=== PATIENT | male | born 1960 | race Caucasian/White ===

== ENCOUNTER 2019-05-11 09:21 | Outpatient (CLI) | payer MEDICARE, SELFPAY ==
--- NOTE | ~2019-05-11 | US_ITS ---
US arterial ankle brachial ind INDICATION: Peripheral arterial disease TECHNIQUE: Segmental pressures and plethysmographic and Doppler waveforms of the brachial and lower e xtremity arteries were obtained. COMPARISON: None. FINDINGS: Right and left brachial artery pressures of 138 mm Hg and 142 mm Hg, respectively, are concordant (no rmal difference <= 30 mmHg). The right ankle-brachial index (SEJAL) is 1.04 (normal >= 0.9-1.0). The right great toe-brachial index (TBI) is 0.76 (normal >= 0.60). The left SEJAL is 0.96. The left TBI is 1.06. IMPRESSION: 1. Normal bilateral ankle and toe brachial indices. Reviewed, dictated and finalized at location A.
== END 2019-05-11 09:22 | disposition home or self-care (01) ==
LOC: CHSIMG 09:23
PROVIDERS: PCP Internal Medicine; Visit Provider Internal Medicine
DX: I73.9 Peripheral vascular disease, unspecified (principal)
CPT/HCPCS: 93922

== ENCOUNTER 2019-05-14 06:26 | Emergency (ER) | payer MEDICARE, SELFPAY ==
--- NOTE | ~2019-05-14 | CT_ITS ---
EXAMINATION: CT lumbar spine wo [facility] EXAM DATE: 05/14/2019 07:52 INDICATION: Low back pain for a day. No known recent injury. Surgery 2004. TECHNIQUE: Spiral CT of the lumbar spine was performed without contrast. Axial, coronal and sagittal images were reviewed. The dose-length product (DLP) for this examination was 690.38 mGy-cm. The e xposure was tailored according to patient size (auto mA exposure control), and iterative reconstructi on (ASIR) was used as additional dose reduction technique. There is no prior study for comparison. FINDINGS: There is posterior and interbody fusion L5-S1, laminectomies There are no osteoblastic or o steolytic lesions identified. Sacroiliac joints are unremarkable. There is right iliac bone harvest s ite. Mild aortic arterial sclerosis. Vertebral body heights are maintained.. Hardware is intact. No p eriprosthetic lucency. There is 2 mm anterolisthesis of L4 on L5. There is mild disc disease at this level, minimal disc disease at the other upper lumbar levels. Level by level evaluation: T12-L1: Disc does not extend beyond the endplate margin. Facet arthropathy: Minimal. Neural foraminal stenosis: No stenosis. Central canal stenosis: No stenosis. L1-L2: Disc does not extend beyond the endplate margin. Facet arthropathy: Minimal. Neural foraminal stenosis: No stenosis. Central canal stenosis: No stenosis. L2-L3: There is a minimal diffuse disc bulge. Facet arthropathy: Mild. Neural foraminal stenosis: No stenosis. Central canal stenosis: No stenosis. L3-L4: There is a minimal diffuse disc bulge. Facet arthropathy: Mild. Neural foraminal stenosis: No stenosis. Central canal stenosis: No stenosis. L4-L5: There is a mild to moderate diffuse disc bulge. Facet arthropathy: Severe. Neural foraminal stenosis: Mild to moderate bilateral. Central canal stenosis: Suboptimally visualized but moderate or moderate to severe. L5-S1: This level is fused. Facet arthropathy: Bulky but fused. Neural foraminal stenosis: Mild left. Central canal stenosis: Posterior decompression. IMPRESSION: 1. L4-5 grade 1 anterolisthesis, at least moderate central canal stenosis. 2. Intact L5-S1 fusion. 3. Unremarkable sacroiliac joints. No acute findings. Reviewed, dictated and finalized at location B.
[2019-05-14 06:35] VITALS: BP 154/88; PULSE 71; RESP 20; TEMP 37.1; O2SAT 96
[2019-05-14 06:47] LABS: Appearance Urine Clear (Clear); Bilirubin Urine Negative (Negative); Color Urine Yellow (Yellow); Glucose Urine UA Negative (Negative); Ketones Urine Negative (Negative); Leukocyte Esterase Ur Negative LEU/UL (Negative); Nitrate Urine Negative (Negative); Protein Urine Negative (Negative); Specific Grav Ur 1.025 (1.010-1.020); Urobilinogen Urine 0.2 mg/dL (0.2-1.0)
[2019-05-14 06:52] LABS: Add Urine Microscopic? YES; Blood Urine Trace-Intact (Negative); RBC Urine 0-2 /hpf (0-2); WBC Urine 0-3 /hpf (0-3)
[2019-05-14 06:53] LABS: Bacteria Urine None seen /hpf; Squamous Epithelial Cell Urine Rare /hpf (Few)
--- NOTE | 2019-05-14 07:40 | PC.NURSE ---
PT TO XRAY PER WHEELCHAIR WITH XRAY STAFF
--- NOTE | 2019-05-14 07:43 | ED.BACK ---
HPI - Back Pain/Injury General Chief Complaint: Back Pain/Injury Stated Complaint: back pain Time Seen by Provider: 05/14/19 07:16 Source: patient Mode of arrival: ambulatory Limitations: no limitations History of Present Illness MD elicited complaint: back pain Pertinent past history: prior back pain and arthritis Onset (ago): day(s) (1 day) Timing: constant Severity: moderate Pain scale (0-10): 8 Quality: sharp Location: left lower back ( left sacroiliac region) Radiation: none Exacerbating factors: movement Relieving factors: none Context: other ( no history of trauma. Had back surgery in 2004 at L5-S1 level in [place]. He has hardware in the back.) Associated symptoms: denies other symptoms and other ( No paresthesias. No radiation of pain. No weakness. No urinary symptoms. No fever.) Treatments prior to arrival: NSAIDS Work related injury: No Related Data Home Medications Medication Instructions Recorded Confirmed amlodipine [Norvasc] See Rx Instructions .ROUTE .COMPLEX 01/09/19 05/14/19 atorvastatin [Lipitor] See Rx Instructions .ROUTE .COMPLEX 01/09/19 05/14/19 clopidogrel [Plavix] See Rx Instructions .ROUTE .COMPLEX 01/09/19 05/14/19 metoprolol tartrate [Lopressor] See Rx Instructions .ROUTE .COMPLEX 01/09/19 05/14/19 pantoprazole [Protonix] See Rx Instructions .ROUTE .COMPLEX 01/09/19 05/14/19 Allergies Allergy/AdvReac Type Severity Reaction Status Date / Time Morpholine Analogues Allergy Severe Hives Verified 04/28/19 09:28 Penicillins Allergy Unknown Unknown Verified 04/28/19 09:28 Review of Systems Review of Systems: All systems reviewed & are unremarkable except as noted in HPI and below Constitutional: Constitutional: Reports as per HPI, Reports no additional constitutional complaints, Denies chills, Denies fever(s) and Denies weakness Eyes: Eyes: Reports as per HPI, Reports no additional eye complaints and Denies change in vision ENT: Reports system reviewed and no additional complaints, except as documented, Denies vertigo, Denies dizziness and Denies sore throat Cardiovascular: Cardiovascular: Reports as per HPI, Reports no additional cardiovascular complaints, Denies chest pain and Denies radiating jaw, neck or arm pain Respiratory: Respiratory: Reports as per HPI, Reports no additional respiratory complaints, Denies cough and Denies dyspnea Gastrointestinal: Gastrointestinal: Reports as per HPI, Reports no additional gastrointestinal complaints, Denies abdominal pain, Denies nausea and Denies vomiting Comments: Has history of diverticulitis in the past. Genitourinary: Genitourinary: Reports no additional male genitourinary complaints, Reports as per HPI, Denies hematuria and Denies dysuria Musculoskeletal: Musculoskeletal: Reports no additional musculoskeletal complaints, Reports as per HPI and Reports back pain Comments: Pain is not in the midline of the back. There is no para spinal tenderness. Has pain to the left sacroiliac region with tenderness. Integumentary/Breasts: Skin/Breast: Reports system reviewed and no additional complaints, except as docu, Reports as per HPI, Denies erythema and Denies rash Neurologic: Reports system reviewed and no additional complaints, except as documented, Reports as per HPI, Denies vertigo, Denies dizziness, Denies syncope, Denies headache(s), Denies focal weakness, Denies numbness and Denies weakness Psychiatric: Psychiatric: Reports no additional psychiatric complaints, Denies anxiety and Denies depression Endocrine: Endocrine: Reports no additional endocrine complaints, Denies polydipsia and Denies polyuria Hematologic/Lymphatic: Hematologic/Lymphatic: Reports no additional hematologic/lymphatic complaints, Reports as per HPI, Denies easy bleeding and Denies easy bruising Allergic/Immunologic: Allergic/Immunologic: Reports no additional allergic/immunologic complaints, Denies lip swelling and Denies tongue swelling PMF Past Medical History Medica
--- NOTE | 2019-05-14 07:52 | PC.NURSE ---
PT RETURN TO DEPARTMENT
== END 2019-05-14 09:16 | disposition home or self-care (01) ==
PROVIDERS: Emergency Provider Surgery; PCP Internal Medicine
DX: S39.012A Strain of muscle, fascia and tendon of lower back, initial encounter (principal); J44.9 Chronic obstructive pulmonary disease, unspecified; I10 Essential (primary) hypertension; F17.200 Nicotine dependence, unspecified, uncomplicated
CPT/HCPCS: 72131; 81001; 99283; 99284; A9270

== ENCOUNTER 2020-01-22 10:57 | Emergency (ER) | payer MEDICARE, SELFPAY ==
--- NOTE | ~2020-01-22 | XR_ITS ---
EXAMINATION: XR chest 1V portable EXAM DATE: 01/22/2020 11:20 INDICATION: Mid to left-sided chest pain. TECHNIQUE: Portable AP frontal chest x-ray was obtained. Comparison is made to prior examination from 01/09/2019. FINDINGS: The lungs are clear. There are no pleural effusions. The cardiomediastinal silhouette is within normal limits. There is no pneumothorax suspected. The bones and soft tissues are unremarkab le. IMPRESSION: No acute cardiopulmonary findings. Reviewed, dictated and finalized at location A. IOVASCULAR SURGEON
[2020-01-22 11:00] VITALS: BP 205/117; PULSE 70; PULSE 72; RESP 22; TEMP 36.6; O2SAT 97
[2020-01-22 11:15] VITALS: BP 179/111; PULSE 71; RESP 22; O2SAT 97
[2020-01-22 11:30] VITALS: BP 140/92
[2020-01-22 11:31] LABS: Basophils Absolute Auto 0.07 K/mm3 (0.00-0.10); Basophils Percent Auto 0.5 % (0.0-1.0); Eosinophils Absolute Auto 0.77 K/mm3 (0.02-0.50); Hematocrit 49.8 % (40.0-54.0); Immature Granulocyte Absolute 0.04 K/mm3 (0.00-0.00); Immature Granulocyte Percent A 0.3 % (0.0-0.0); Lymphocytes Absolute Auto 1.55 K/mm3 (1.10-4.50); Lymphocytes Percent Auto 12.1 % (18.0-42.0); Mean Corpuscular HGB Conc 34.1 g/dL (32.0-36.0); Mean Corpuscular Hemoglobin 32.3 pg (27.0-31.0); Mean Corpuscular Volume 94.7 fL (78.0-102.0); Mean Platelet Volume 9.8 fl (8.7-11.0); Monocytes Absolute Auto 0.76 K/mm3 (0.10-0.90); Neutrophils Absolute Auto 9.6 K/mm3 (1.7-7.2); Neutrophils Percent Auto 75.1 % (50.0-70.0); Platelet Count Result 240 K/mm3 (150-420); Red Blood Count 5.26 M/mm3 (4.70-6.10); Red Cell Distribution Width 12.6 % (11.6-14.4); White Blood Count 12.8 K/mm3 (4.8-10.8)
[2020-01-22 11:45] VITALS: BP 142/85
[2020-01-22 11:47] LABS: INR 1.1; Partial Thromboplastin Time 28.1 SEC (22.3-31.6); Prothrombin Time 11.1 Seconds (9.64-11.0)
[2020-01-22 11:48] LABS: D Dimer 0.32 mg/L (0.19-0.50)
[2020-01-22 11:49] LABS: Alanine Aminotransferase 72 U/L (16-63); Albumin Level 3.8 g/dL (3.4-5.0); Alkaline Phosphatase 65 U/L (46-116); Anion Gap 12 mmol/L (8-16); Aspartate Amino Transferase 29 U/L (15-37); Bilirubin,Total 1.1 mg/dL (0.00-1.00); Blood Urea Nitrogen 11 mg/dL (7-18); Calcium 8.5 mg/dL (8.5-10.1); Carbon Dioxide 22 mmol/L (21-32); Chloride 100 mmol/L (98-108); Estimated Glomerular Filt Rate > 60; Glucose 156 mg/dL (70-99); Osmolality Calculated 280 mOsm/kg (285-295); Potassium 3.9 mmol/L (3.5-5.1); Sodium 134 mmol/L (136-145); Total Protein 6.8 g/dL (6.4-8.2); Troponin I < 0.02 ng/mL (0.00-0.056)
[2020-01-22 11:56] LABS: BNP 30 pg/mL (0-100)
--- NOTE | 2020-01-22 11:58 | ED.CHESTPAIN ---
HPI - Chest Pain General Chief Complaint: Chest Pain Stated Complaint: chest pain, SOB Source: patient Mode of arrival: ambulatory Limitations: no limitations History of Present Illness HPI narrative: this is a 59-year-old gentleman presents with some left and midsternal chest pain that started yesterday after he received vaccinations for a pneumonia, influenza, and shingles. The patient has a history of CAD with 2 stents placed in about 2007, has a smoking history currently says he is down to 1 pack per week. The chest pain started yesterday, with some tenderness with palpation with no radiation, no shortness of breath patient has a mild cough nonproductive with mild shortness of breath with no audible wheezing, no fever chills no abdominal pain no flank pain no diarrhea constipation. The patient's chest discomfort is reproducible with palpation in the mid and left sternal wall, patient did take a nitro prior to arrival and says that it did not help his pain or discomfort. MD complaint: chest pain Pertinent past history: coronary artery disease Onset (ago): day(s) Timing of current episode: episodic Prior episodes: Yes Onset: during rest Pain location: left chest and subxiphoid Pain radiation: none Severity: moderate Pain scale (0-10): 6 Quality: aching Relieving factors: nothing and other Exacerbating factors: exertion and movement Related Data Home Medications Medication Instructions Recorded Confirmed amlodipine [Norvasc] See Rx Instructions .ROUTE .COMPLEX 01/09/19 05/14/19 atorvastatin [Lipitor] See Rx Instructions .ROUTE .COMPLEX 01/09/19 05/14/19 clopidogrel [Plavix] See Rx Instructions .ROUTE .COMPLEX 01/09/19 05/14/19 metoprolol tartrate [Lopressor] See Rx Instructions .ROUTE .COMPLEX 01/09/19 05/14/19 pantoprazole [Protonix] See Rx Instructions .ROUTE .COMPLEX 01/09/19 05/14/19 Allergies Allergy/AdvReac Type Severity Reaction Status Date / Time Morpholine Analogues Allergy Severe Hives Verified 06/14/19 13:39 Penicillins Allergy Unknown Unknown Verified 06/14/19 13:39 Review of Systems Review of Systems: All systems reviewed & are unremarkable except as noted in HPI and below PMFSH Past Medical History Medical History COPD (chronic obstructive pulmonary disease) History of cardiac disorder Hypertension Impingement syndrome, shoulder, left Surgical History Surgical History History of arthroscopic surgery of shoulder History of cholecystectomy History of hand surgery History of lumbar fusion L5-S1 Hx of heart artery stent Family History Family History Father , Father committed suicide at age 53. No problems noted. Mother , Mother of stroke at age 74 Cerebrovascular accident Other Family history of arthritis Social History Social History Years smoked: 40 Smoking status: Current every day smoker Tobacco type: cigarettes Alcohol intake: never Substance use: never Gender identity (if verbalized by the patient): Male Exam Const: General: no acute distress Orientation/consciousness: patient oriented x3 HENMT: Head: normal to inspection Eyes: Conjunctivae: conjunctivae normal Pupils: Equal, round and reactive pupils present EOM: EOMs intact bilaterally Neck: Neck: normal visual inspection Chest: Chest palpation & inspection: normal inspection of the chest Other: Reproducible chest discomfort with palpation Resp: Effort & Inspection: normal respiratory effort Auscultation: clear to auscultation bilaterally Cardio: Rate: regular rate Rhythm: regular rhythm GI: GI Palp: Yes Soft to palpation Auscultation: normal bowel sounds : Testes: Testes normal Urinary Catheter: Urinary Catheter: patent and draining Back/
[2020-01-22] MEDS: MORPHINE SULFATE (*CRX) 2 MG/ML INJ IV PUSH (11:59)
[2020-01-22] MEDS: SODIUM CHLORIDE 0.9% IV 1,000 ML 999 ML IV CONT (11:59)
[2020-01-22 12:57] VITALS: BP 136/82; PULSE 53; RESP 18; O2SAT 97
[2020-01-22 13:05] VITALS: BP 141/72; PULSE 63; RESP 18; O2SAT 98
== END 2020-01-22 13:10 | disposition home or self-care (01) ==
PROVIDERS: Emergency Provider Emergency Medicine; PCP Internal Medicine
DX: R07.89 Other chest pain (principal); J44.9 Chronic obstructive pulmonary disease, unspecified; I10 Essential (primary) hypertension; F17.200 Nicotine dependence, unspecified, uncomplicated
CPT/HCPCS: 36415; 71045; 80053; 83880; 84484; 85025; 85380; 85610; 85730; 93005; 96361; 96374; 99283; 99284; J2270; J7030

== ENCOUNTER 2020-02-05 13:09 | Emergency (ER) | payer MEDICARE, SELFPAY ==
--- NOTE | ~2020-02-05 | XR_ITS ---
EXAMINATION: XR chest 1V portable 02/05/2020 13:57 INDICATION: Mid chest pain PROCEDURE: AP portable chest COMPARISON: Comparison to multiple prior studies sequentially, with oldest reviewed study dated 04/26. FINDINGS: The lungs are clear. The cardiomediastinal silhouette is within normal limits. There are no pleural effusions. There is no pneumothorax suspected. There are changes of left clavicular oste otomy. IMPRESSION: 1: NO ACUTE CARDIOPULMONARY DISEASE. Reviewed, dictated and finalized at location A. NEL TURNER
[2020-02-05 13:15] VITALS: BP 172/104; PULSE 82; RESP 16; TEMP 36.4; O2SAT 97
[2020-02-05 13:16] VITALS: PULSE 79
--- NOTE | 2020-02-05 13:44 | ECG_ITS ---
Measurements Intervals [place] Rate: 79 P: 40 [place]: 152 QRS: -34 QRSD: 88 T: 75 QT: 354 QTc: 407 Interpretive Statements SINUS RHYTHM LEFT AXIS DEVIATION BORDERLINE ST-T WAVE ABNORMALITY- ANTEROLAT/HIGH LAT LEADS BASELINE ARTIFACT- I, II, AVR, V1, V4 BORDERLINE ECG Electronically Signed On 02-06-2020 7:25:19 QUANTITY SURVEYOR by Bartolo Carvajal D.O.
[2020-02-05 14:02] LABS: Basophils Absolute Auto 0.11 K/mm3 (0.00-0.10); Eosinophils Percent Auto 5.2 % (1.0-6.0); Hematocrit 50.5 % (40.0-54.0); Hemoglobin 17.2 g/dL (14.0-18.0); Immature Granulocyte Absolute 0.03 K/mm3 (0.00-0.00); Immature Granulocyte Percent A 0.3 % (0.0-0.0); Lymphocytes Absolute Auto 2.68 K/mm3 (1.10-4.50); Lymphocytes Percent Auto 23.3 % (18.0-42.0); Mean Corpuscular HGB Conc 34.1 g/dL (32.0-36.0); Mean Platelet Volume 9.8 fl (8.7-11.0); Monocytes Absolute Auto 0.99 K/mm3 (0.10-0.90); Monocytes Percent Auto 8.6 % (2.0-11.0); Neutrophils Absolute Auto 7.1 K/mm3 (1.7-7.2); Neutrophils Percent Auto 61.6 % (50.0-70.0); Platelet Count Result 309 K/mm3 (150-420); Red Blood Count 5.37 M/mm3 (4.70-6.10); Red Cell Distribution Width 12.5 % (11.6-14.4); White Blood Count 11.5 K/mm3 (4.8-10.8)
[2020-02-05] MEDS: KETOROLAC 30 MG/ML VIAL (*BKC) IV PUSH (14:05)
[2020-02-05 14:17] LABS: Partial Thromboplastin Time 25.8 SEC (23.90-30.70); Prothrombin Time 10.6 Seconds (9.50-12.10)
[2020-02-05 14:20] LABS: Alanine Aminotransferase 70 U/L (16-63); Albumin Level 3.8 g/dL (3.4-5.0); Alkaline Phosphatase 67 U/L (46-116); Anion Gap 8 mmol/L (8-16); Aspartate Amino Transferase 32 U/L (15-37); Bilirubin,Total 0.5 mg/dL (0.00-1.00); Blood Urea Nitrogen 11 mg/dL (7-18); Calcium 8.8 mg/dL (8.5-10.1); Carbon Dioxide 28 mmol/L (21-32); Chloride 103 mmol/L (98-108); Estimated CRCL calculation 75 ml/min; Estimated Glomerular Filt Rate > 60; Glucose 73 mg/dL (70-99); Osmolality Calculated 286 mOsm/kg (285-295); Sodium 139 mmol/L (136-145)
[2020-02-05 14:24] LABS: BNP 15 pg/mL (0-100)
[2020-02-05] MEDS: MORPHINE SULFATE (*CRX) 4 MG/ML INJ IV PUSH (14:30)
--- NOTE | 2020-02-05 14:37 | ED.CHESTPAIN ---
HPI - Chest Pain General Chief Complaint: Chest Pain Stated Complaint: chest pain, L arm pain, high BP, SOB Source: patient Mode of arrival: ambulatory Limitations: no limitations History of Present Illness HPI narrative: this is a 59-year-old male that presents emergency department with chest discomfort radiating into his left shoulder and neck worsens with with movement and pressure in the left chest wall area this has been off and on for the last 2 to 3 days, saw his primary care physician yesterday in his office and was prescribed a blood pressure medication which currently is not in stock. The patient rates pain about 8/10 with no shortness of breath no nausea vomiting no abdominal pain no fever chills. The pain is predominantly in the left chest wall area and in the left lateral neck area that is worsened with with palpation of the chest in movement of the neck. MD complaint: chest pain and chest discomfort Onset (ago): day(s) Timing of current episode: episodic Onset: during rest and during exertion Pain location: subxiphoid Pain radiation: left arm and neck Severity: moderate Pain scale (0-10): 8 Quality: aching Relieving factors: medication-other Exacerbating factors: movement Related Data Home Medications Medication Instructions Recorded Confirmed amlodipine [Norvasc] 2.5 mg PO BID 01/09/19 02/05/20 atorvastatin [Lipitor] 20 mg PO HS 01/09/19 02/05/20 clopidogrel [Plavix] 75 mg PO DAILY 01/09/19 02/05/20 metoprolol tartrate [Lopressor] 100 mg PO BID 01/09/19 02/05/20 pantoprazole [Protonix] 40 mg PO DAILY 01/09/19 02/05/20 nitroglycerin 0.4 mg SUBLINGUAL Q5-15M PRN 02/05/20 02/05/20 Allergies Allergy/AdvReac Type Severity Reaction Status Date / Time Penicillins Allergy Unknown Unknown Verified 06/14/19 13:39 Review of Systems Review of Systems: All systems reviewed & are unremarkable except as noted in HPI and below PMFSH Past Medical History Medical History COPD (chronic obstructive pulmonary disease) History of cardiac disorder Hypertension Impingement syndrome, shoulder, left Surgical History Surgical History History of arthroscopic surgery of shoulder History of cholecystectomy History of hand surgery History of lumbar fusion L5-S1 Hx of heart artery stent Family History Family History Father , Father committed suicide at age 53. No problems noted. Mother , Mother of stroke at age 74 Cerebrovascular accident Other Family history of arthritis Social History Social History Years smoked: 40 Smoking status: Current every day smoker Tobacco type: cigarettes Alcohol intake: never Substance use: never Gender identity (if verbalized by the patient): Male Exam Const: General: no acute distress Orientation/consciousness: patient oriented x3 HENMT: Head: normal to inspection Eyes: Conjunctivae: conjunctivae normal Pupils: Equal, round and reactive pupils present EOM: EOMs intact bilaterally Direct Ophthalmoscopy: no photophobia Neck: Neck: normal visual inspection, no lymphadenopathy and no meningeal signs Chest: Chest palpation & inspection: tenderness Other: Left chest wall area with palpation Resp: Effort & Inspection: normal respiratory effort Cardio: Rate: regular rate Rhythm: regular rhythm GI: Auscultation: normal bowel sounds Skin: General skin exam: normal color Rashes: no rashes Neuro: General: patient oriented x3 and moves all extremities Extrem: General: normal to inspection and no pedal edema Psych: Mental Status: mental status grossly normal Course Course Emergency Course: reassessment of chest pain, reproducible with some with palpation patient did receive Toradol and morphine and morphi
[2020-02-05 14:45] VITALS: BP 121/73; PULSE 66; RESP 20; O2SAT 94
== END 2020-02-05 14:55 | disposition home or self-care (01) ==
PROVIDERS: Emergency Provider Emergency Medicine; PCP Internal Medicine
DX: R07.89 Other chest pain (principal); J44.9 Chronic obstructive pulmonary disease, unspecified; I10 Essential (primary) hypertension; F17.200 Nicotine dependence, unspecified, uncomplicated
CPT/HCPCS: 36415; 71045; 80053; 83880; 84484; 85025; 85610; 85730; 93005; 96374; 96375; 99283; 99284; J1885; J2270

== ENCOUNTER 2020-02-16 14:32 | Outpatient (CLI) | payer MEDICARE, SELFPAY ==
[2020-02-16 16:41] LABS: SARS-CoV-2 Ag Negative (Negative)
== END 2020-02-16 14:33 | disposition home or self-care (01) ==
LOC: CHSLAB 14:36
PROVIDERS: PCP Internal Medicine; Visit Provider Internal Medicine
DX: Z20.828 Contact with and (suspected) exposure to other viral communicable diseases (principal)
CPT/HCPCS: 87426

== ENCOUNTER 2020-02-22 17:21 | Emergency (ER) | payer MEDICARE, SELFPAY ==
[2020-02-22 17:27] VITALS: BP 137/90; PULSE 99; RESP 14; TEMP 36.6; O2SAT 99
[2020-02-22 17:46] VITALS: PULSE 78
[2020-02-22 17:56] VITALS: PULSE 83; RESP 17; O2SAT 96
[2020-02-22 18:00] VITALS: PULSE 76; O2SAT 98
--- NOTE | 2020-02-22 18:14 | ED.GENADULT ---
HPI - General Adult General Chief complaint: Unspecified Stated complaint: low blood pressure Source: patient, family and RN notes reviewed Mode of arrival: ambulatory Limitations: no limitations History of Present Illness HPI narrative: patient states that he was here couple of weeks ago with severely elevated blood pressure. He was started on Micardis 40 mg in addition to his metoprolol and amlodipine. He was doing well up until about 4 days ago when his blood pressure started dropping. With his low blood pressure he had palpitations, dizziness, nausea. He states his systolic blood pressures been in the 80s. He stopped all of his blood pressure medications 4 days ago. MD complaint: Low BP Onset (ago): day(s) (4) Associated symptoms: other ( Dizziness palpitations) Related Data Home Medications Medication Instructions Recorded Confirmed amlodipine [Norvasc] 2.5 mg PO BID 01/09/19 02/22/20 atorvastatin [Lipitor] 20 mg PO HS 01/09/19 02/22/20 clopidogrel [Plavix] 75 mg PO DAILY 01/09/19 02/22/20 metoprolol tartrate [Lopressor] 100 mg PO BID 01/09/19 02/22/20 pantoprazole [Protonix] 40 mg PO DAILY 01/09/19 02/22/20 nitroglycerin 0.4 mg SUBLINGUAL Q5-15M PRN 02/05/20 02/22/20 prednisone 20 mg PO DAILY 02/22/20 02/22/20 Allergies Allergy/AdvReac Type Severity Reaction Status Date / Time Penicillins Allergy Unknown Unknown Verified 06/14/19 13:39 Review of Systems Review of Systems: All systems reviewed & are unremarkable except as noted in HPI and below Constitutional: Constitutional: Denies chills, Denies fever(s), Denies frequent falls, Denies headache(s) and Denies poor appetite ENT: Reports system reviewed and no additional complaints, except as documented Cardiovascular: Cardiovascular: Reports no additional cardiovascular complaints Respiratory: Respiratory: Reports no additional respiratory complaints Gastrointestinal: Gastrointestinal: Reports no additional gastrointestinal complaints Genitourinary: Genitourinary: Reports no additional male genitourinary complaints Musculoskeletal: Musculoskeletal: Reports no additional musculoskeletal complaints Neurologic: Reports system reviewed and no additional complaints, except as documented Psychiatric: Psychiatric: Reports no additional psychiatric complaints PMFSH Past Medical History Medical History COPD (chronic obstructive pulmonary disease) History of cardiac disorder Hypertension Impingement syndrome, shoulder, left Surgical History Surgical History History of arthroscopic surgery of shoulder History of cholecystectomy History of hand surgery History of lumbar fusion L5-S1 Hx of heart artery stent Family History Family History Father , Father committed suicide at age 53. No problems noted. Mother , Mother of stroke at age 74 Cerebrovascular accident Other Family history of arthritis Social History Social History Years smoked: 40 Smoking status: Current every day smoker Tobacco type: cigarettes Alcohol intake: never Substance use: never Gender identity (if verbalized by the patient): Male Exam Const: General: cooperative, healthy appearing, comfortable, no acute distress, well developed, alert and awake Nutritional Appearance: well nourished Orientation/consciousness: patient oriented x3 Limitations: no limitations HENMT: Ears: external ears normal Eyes: General: appearance normal, both eyes and all related structures Neck: Neck: normal visual inspection and full ROM Resp: Effort & Inspection: normal respiratory effort and able to speak in complete sentences Auscultation: clear to auscultation bilaterally Cardio: Rate: regular rate Rhythm: regular rhythm GI: Inspection
[2020-02-22 18:43] LABS: Basophils Absolute Auto 0.09 K/mm3 (0.00-0.10); Basophils Percent Auto 0.7 % (0.0-1.0); Eosinophils Absolute Auto 0.36 K/mm3 (0.02-0.50); Eosinophils Percent Auto 2.8 % (1.0-6.0); Hemoglobin 16.7 g/dL (14.0-18.0); Immature Granulocyte Absolute 0.05 K/mm3 (0.00-0.00); Immature Granulocyte Percent A 0.4 % (0.0-0.0); Lymphocytes Absolute Auto 2.99 K/mm3 (1.10-4.50); Mean Corpuscular HGB Conc 34.1 g/dL (32.0-36.0); Mean Corpuscular Hemoglobin 31.6 pg (27.0-31.0); Mean Corpuscular Volume 92.8 fL (78.0-102.0); Mean Platelet Volume 9.4 fl (8.7-11.0); Neutrophils Absolute Auto 8.2 K/mm3 (1.7-7.2); Neutrophils Percent Auto 63.1 % (50.0-70.0); Platelet Count Result 326 K/mm3 (150-420); Red Blood Count 5.28 M/mm3 (4.70-6.10); Red Cell Distribution Width 12.5 % (11.6-14.4)
[2020-02-22 18:58] LABS: Alanine Aminotransferase 71 U/L (16-63); Alkaline Phosphatase 67 U/L (46-116); Anion Gap 8 mmol/L (8-16); Aspartate Amino Transferase 31 U/L (15-37); Bilirubin,Total 0.7 mg/dL (0.00-1.00); Blood Urea Nitrogen 10 mg/dL (7-18); Carbon Dioxide 27 mmol/L (21-32); Chloride 100 mmol/L (98-108); Estimated CRCL calculation 67 ml/min; Estimated Glomerular Filt Rate > 60; Glucose 77 mg/dL (70-99); Magnesium 2.1 mg/dL (1.8-2.4); Osmolality Calculated 278 mOsm/kg (285-295); Potassium 3.5 mmol/L (3.5-5.1); Sodium 135 mmol/L (136-145)
[2020-02-22 19:02] VITALS: PULSE 69; RESP 21; O2SAT 96
[2020-02-22 19:28] VITALS: BP 124/95; RESP 14; O2SAT 99
== END 2020-02-22 19:29 | disposition home or self-care (01) ==
PROVIDERS: Emergency Provider Emergency Medicine; PCP Internal Medicine
DX: I95.2 Hypotension due to drugs (principal); F17.200 Nicotine dependence, unspecified, uncomplicated
CPT/HCPCS: 36415; 80053; 83735; 85025; 99282; 99283

== ENCOUNTER 2020-03-22 17:35 | Emergency (ER) | payer MEDICARE, SELFPAY ==
[2020-03-22 17:37] VITALS: BP 147/91; PULSE 97; RESP 18; TEMP 35.7; O2SAT 98
[2020-03-22 19:30] VITALS: BP 146/94; PULSE 82; RESP 12; O2SAT 99
--- NOTE | 2020-03-22 20:20 | ED.LOWEXIN ---
HPI - Extremity Injury (Lower) General Chief Complaint: Extremity Injury, Lower Stated Complaint: left leg pain. numbness Time Seen by Provider: 03/22/20 18:52 Source: patient Mode of arrival: ambulatory Limitations: no limitations History of Present Illness HPI Narrative: Patient is a 60-year-old male who presents complaining of right lower extremity pain. He reports tenderness in calf with palpation. He reports tenderness to dorsal right foot. He denies injury. He denies swelling or redness. He reports significant cardiac history with stenting, patient is on Plavix. He denies history of DVT. MD complaint: other (Right lower extremity pain) Related Data Home Medications Medication Instructions Recorded Confirmed amlodipine [Norvasc] 2.5 mg PO BID 01/09/19 02/22/20 atorvastatin [Lipitor] 20 mg PO HS 01/09/19 02/22/20 clopidogrel [Plavix] 75 mg PO DAILY 01/09/19 02/22/20 metoprolol tartrate [Lopressor] 100 mg PO BID 01/09/19 02/22/20 pantoprazole [Protonix] 40 mg PO DAILY 01/09/19 02/22/20 nitroglycerin 0.4 mg SUBLINGUAL Q5-15M PRN 02/05/20 02/22/20 prednisone 20 mg PO DAILY 02/22/20 02/22/20 Allergies Allergy/AdvReac Type Severity Reaction Status Date / Time Penicillins Allergy Unknown Unknown Verified 06/14/19 13:39 Review of Systems Review of Systems: Narrative: CONSTITUTIONAL: Denies fever, chills, or sweats. EYES: Denies visual changes, redness, or discharge. ENT: Denies rhinorrhea, congestion, sore throat, or otalgia. CARDIOVASCULAR: Denies chest pain, palpitations, or edema. RESPIRATORY: Denies cough or dyspnea. GASTROINTESTINAL: Denies abdominal pain, nausea, vomiting, or diarrhea. GENITOURINARY: Denies dysuria or hematuria. SKIN: Denies rash or itching. MUSCULOSKELETAL: Right lower extremity pain NEUROLOGIC: Denies headache, numbness, dizziness, or weakness. PSYCHIATRIC: Denies anxiety or depression. [facility] Past Medical History Medical History COPD (chronic obstructive pulmonary disease) History of cardiac disorder Hypertension Impingement syndrome, shoulder, left Surgical History Surgical History History of arthroscopic surgery of shoulder History of cholecystectomy History of hand surgery History of lumbar fusion L5-S1 Hx of heart artery stent Family History Family History Father , Father committed suicide at age 53. No problems noted. Mother , Mother of stroke at age 74 Cerebrovascular accident Other Family history of arthritis Social History Social History Years smoked: 40 Smoking status: Current every day smoker Tobacco type: cigarettes Alcohol intake: never Substance use: never Gender identity (if verbalized by the patient): Male Comments At the time of signature, I have reviewed and agree with nursing past medical, surgical, social, and family history unless otherwise noted. Please see nursing chart for further information. There is no relevant family history pertinent to the presenting complaint. Exam Narrative: Exam Narrative: GENERAL: Well-appearing, well-nourished, and in no acute distress. HEAD: Normocephalic, atraumatic. EYES: No redness or drainage. ENT: Mucous membranes pink and moist. CHEST: No respiratory distress. HEART: Regular rate and rhythm. No murmur appreciated. Normal peripheral pulses. EXTREMITIES: Right lower extremity: No edema, erythema or warmth. Strong, palpable pedal pulse, good capillary refill, tenderness with palpation SKIN: Warm, dry, no rash. NEURO: No focal deficits. Alert and oriented x3. Gait steady. PSYCH: Normal affect. No signs of depression or anxiety. Course Vital Signs Vital signs: Vital Signs Temperature 35.7 C L 03/22/20 17:37 Pulse Rate 97 03/22/20 17:37
[2020-03-22 20:30] VITALS: BP 134/78; PULSE 78; RESP 15; O2SAT 95
[2020-03-22 20:58] LABS: Basophils Absolute Auto 0.1 K/mm3 (0.0-0.1); Basophils Percent Auto 0.8 % (0.2-1.2); Eosinophils Absolute Auto 0.8 K/mm3 (0-0.3); Eosinophils Percent Auto 5.1 % (0-4.4); Hemoglobin 17.8 g/dL (14.0-18.0); Immature Granulocyte Absolute 0.08 K/mm3 (0.00-0.031); Immature Granulocyte Percent A 0.5 % (0-0.5); Lymphocytes Absolute Auto 3.41 K/mm3 (0.9-3.2); Lymphocytes Percent Auto 22.3 % (18.3-44.2); Mean Corpuscular HGB Conc 34.2 g/dl (32-36); Mean Corpuscular Hemoglobin 32.3 pg (26-34); Mean Corpuscular Volume 94.4 fl (80-100); Mean Platelet Volume 9.6 fl (7.4-10.4); Monocytes Absolute Auto 1.2 K/mm3 (0.1-0.6); Monocytes Percent Auto 7.9 % (2.6-8.5); Neutrophils Absolute Auto 9.7 K/mm3 (1.3-6.7); Neutrophils Percent Auto 63.4 % (45.5-73.1); Platelet Count Result 262 k/mm3 (150-375); Red Blood Count 5.51 M/mm3 (4.6-6.20); Red Cell Distribution Width 13.2 % (11.5-14.5); White Blood Count 15.3 K/mm3 (4.5-10.0)
[2020-03-22 21:05] LABS: INR 0.9; Prothrombin Time 12.4 Seconds (11.1-14.7)
[2020-03-22 21:06] LABS: Partial Thromboplastin Time 25.6 SECONDS (22.3-36.8)
[2020-03-22 21:08] LABS: Alanine Aminotransferase 77 U/L (4-50); Albumin Level 4.2 g/dL (3.5-5.1); Alkaline Phosphatase 66 U/L (38-126); Anion Gap 5 mmol/L (8-16); Aspartate Amino Transferase 57 U/L (17-59); Bilirubin,Total 0.5 mg/dL (0.2-1.3); Blood Urea Nitrogen 12 mg/dL (9-20); Calcium 9.1 mg/dL (8.4-10.2); Carbon Dioxide 27 mmol/L (22-30); Chloride 102 mmol/L (98-107); Estimated CRCL calculation 67 ml/min; Estimated Glomerular Filt Rate > 60; Glucose 183 mg/dL (75-110); Sodium 134 mmol/L (137-145)
[2020-03-22 21:09] LABS: D Dimer 0.27 ug/mL (<0.48)
[2020-03-22 21:30] VITALS: BP 141/84; PULSE 78; RESP 12; O2SAT 93
[2020-03-22] MEDS: HYDROcodone/acetaminophen (*CRX) 5-325 MG TABLET 1 TAB PO (21:59)
== END 2020-03-22 22:55 | disposition home or self-care (01) ==
PROVIDERS: Emergency Provider Nurse Practitioner; PCP Internal Medicine
DX: I82.409 Acute embolism and thrombosis of unspecified deep veins of unspecified lower extremity (principal); J44.9 Chronic obstructive pulmonary disease, unspecified; I10 Essential (primary) hypertension
CPT/HCPCS: 36415; 80053; 85025; 85380; 85610; 85730; 99283; A9270

== ENCOUNTER 2020-09-23 09:39 | Emergency (ER) | payer MEDICARE, SELFPAY ==
--- NOTE | ~2020-09-23 | CT_ITS ---
EXAMINATION: CT lumbar spine wo con EXAM DATE: 09/23/2020 11:40 INDICATION: Fall, low back pain, prior surgery. TECHNIQUE: Spiral CT lumbar spine was performed without contrast. Axial, coronal and sagittal images of the lumbar spine were reviewed. The dose-length product (DLP) for this examination was 675.83 mGy- cm. The exposure was tailored according to patient size (auto mA exposure control), and iterative re construction (ASIR) was used as additional dose reduction technique. Comparison is made to prior exam ination from 05/14/2019. FINDINGS: There is posterior fusion, laminectomies at L5-S1. Hardware is intact and no evidence of loosening. P robably some posterior bone graft. There is right iliac harvest site defect. Sacrum, sacroiliac joint s are intact. There is no evidence of acute lumbar fracture. There is no disc space widening or tra umatic vertebral body subluxation suspected. Paraspinal soft tissue is unremarkable. Mild diffuse l oss of disc height. The vertebral body heights are maintained. There is mild lumbar facet arthropathy except at L4-5 and L5-S1 where there is moderate to severe arthropathy. Number than mild central can al or neural foraminal stenosis at any given level. There is small sliding gastroesophageal hiatal he rnia. Cholecystectomy clips. No hydronephrosis. There is moderate sigmoid colonic diverticulosis. T here is no adjacent inflammatory change to suggest diverticulitis. A detailed level by level evaluati on of spondylosis can be added as addendum if requested. There is no significant interval change. IMPRESSION: 1. Intact L5-S1 fusion. 2. Advanced lower lumbar facet arthropathy. Reviewed, dictated and finalized at [facility].
[2020-09-23 10:52] VITALS: BP 141/104; PULSE 105; RESP 20; TEMP 36.4; O2SAT 95
--- NOTE | 2020-09-23 11:14 | ED.BACK ---
HPI - Back Pain/Injury General Chief Complaint: Back Pain/Injury Stated Complaint: fall last week, R leg pain Time Seen by Provider: 09/23/20 11:14 Source: patient Mode of arrival: ambulatory Limitations: no limitations History of Present Illness HPI Narrative: 60-year-old man with a history of lumbar fusion with hardware years ago comes in today complaining of low back pain, pain across his pelvis, and radiating down his right leg. He states he is very difficult to stand up straight and he has difficulty walking. The pain started 1 week ago after he slipped while mowing his lawn, falling on his back. Is currently taking oral anti-inflammatories and tramadol for his pain. His chiropractor did a plain x-ray. MD elicited complaint: back pain and back injury Pertinent past history: prior back pain Onset (ago): week(s) (1) Timing: constant Severity: severe Similar Symptoms Previously: No Quality: sharp and aching Location: lumbar spine Radiation: right leg below the knee Exacerbating factors: movement, sitting upright and walking Relieving factors: none Context: fall Associated symptoms: difficulty walking Treatments prior to arrival: NSAIDS and prescription analgesics Work related injury: No Related Data Home Medications Medication Instructions Recorded Confirmed amlodipine [Norvasc] 2.5 mg PO BID 01/09/19 09/23/20 atorvastatin [Lipitor] 20 mg PO HS 01/09/19 09/23/20 metoprolol tartrate [Lopressor] 100 mg PO BID 01/09/19 09/23/20 pantoprazole [Protonix] 40 mg PO DAILY 01/09/19 09/23/20 nitroglycerin 0.4 mg SUBLINGUAL Q5-15M PRN 02/05/20 09/23/20 aspirin 81 mg tablet,delayed 81 mg PO DAILY 03/27/20 09/23/20 release tramadol 50 mg PO Q6-8H PRN 09/23/20 09/23/20 Allergies Allergy/AdvReac Type Severity Reaction Status Date / Time Penicillins Allergy Unknown Unknown Verified 03/27/20 10:32 Review of Systems Review of Systems: All systems reviewed & are unremarkable except as noted in HPI and below Constitutional: Constitutional: Denies chills and Denies fever(s) Eyes: Eyes: Denies change in vision and Denies photophobia ENT: Denies nasal congestion and Denies sore throat Cardiovascular: Cardiovascular: Denies chest pain and Denies radiating jaw, neck or arm pain Respiratory: Respiratory: Denies cough, Denies dyspnea and Denies wheezing Gastrointestinal: Gastrointestinal: Denies abdominal pain, Denies nausea and Denies vomiting Genitourinary: Genitourinary: Denies dysuria, Denies urinary frequency and Denies urinary incontinence Musculoskeletal: Musculoskeletal: Reports back pain, Denies arthralgias and Denies joint swelling Integumentary/Breasts: Skin/Breast: Denies pruritus, Denies erythema and Denies rash Neurologic: Denies vertigo, Denies dizziness, Denies syncope, Denies focal weakness and Denies numbness Hematologic/Lymphatic: Hematologic/Lymphatic: Denies easy bleeding and Denies easy bruising Allergic/Immunologic: Allergic/Immunologic: Denies lip swelling and Denies throat swelling PMFSH Past Medical History Medical History COPD (chronic obstructive pulmonary disease) History of cardiac disorder Hypertension Impingement syndrome, shoulder, left Surgical History Surgical History History of arthroscopic surgery of shoulder History of cholecystectomy History of hand surgery History of lumbar fusion L5-S1 Hx of heart artery stent Family History Family History Father , Father committed suicide at age 53. No problems noted. Mother , Mother of stroke at age 74 Cerebrovascular accident Other Family history of arthritis Social History Social History Years smoked: 40 Smoking status: Current every day smoker Tobacco type: cigarettes Al
[2020-09-23 12:28] VITALS: BP 138/74; PULSE 84; RESP 20; TEMP 36.7; O2SAT 99
== END 2020-09-23 12:30 | disposition home or self-care (01) ==
PROVIDERS: Emergency Provider Emergency Medicine; PCP Physician Assistant
DX: M54.16 Radiculopathy, lumbar region (principal)
CPT/HCPCS: 72131; 99283; 99284

== ENCOUNTER 2020-10-15 12:07 | Emergency (ER) | payer MEDICARE, SELFPAY ==
[2020-10-15 12:15] VITALS: BP 157/70; PULSE 91; RESP 20; TEMP 36.7; O2SAT 95
--- NOTE | 2020-10-15 12:56 | ED.BACK ---
HPI - Back Pain/Injury General Chief Complaint: Back Pain/Injury Stated Complaint: back pain Time Seen by Provider: 10/15/20 12:09 Source: patient and RN notes reviewed Mode of arrival: ambulatory Limitations: no limitations History of Present Illness MD elicited complaint: back pain Pertinent past history: prior back pain and other (known sciatica being Txed by PMD.) Onset (ago): day(s) (2) Timing: constant and progressively worsening Severity: moderate Pain scale (0-10): 8 Similar Symptoms Previously: Yes Quality: dull, aching and spasming Location: right lower back Radiation: buttocks Exacerbating factors: movement Associated symptoms: denies other symptoms Treatments prior to arrival: NSAIDS Related Data Home Medications Medication Instructions Recorded Confirmed amlodipine [Norvasc] 2.5 mg PO BID 01/09/19 10/15/20 atorvastatin [Lipitor] 20 mg PO HS 01/09/19 10/15/20 metoprolol tartrate [Lopressor] 100 mg PO BID 01/09/19 10/15/20 pantoprazole [Protonix] 40 mg PO DAILY 01/09/19 10/15/20 nitroglycerin 0.4 mg SUBLINGUAL Q5-15M PRN 02/05/20 10/15/20 aspirin 81 mg tablet,delayed 81 mg PO DAILY 03/27/20 10/15/20 release clopidogrel 75 mg PO DAILY 10/15/20 10/15/20 Allergies Allergy/AdvReac Type Severity Reaction Status Date / Time Penicillins Allergy Unknown Unknown Verified 03/27/20 10:32 Review of Systems Review of Systems: All systems reviewed & are unremarkable except as noted in HPI and below Constitutional: Constitutional: Reports as per HPI and Reports no additional constitutional complaints Eyes: Eyes: Reports as per HPI and Reports no additional eye complaints ENT: Reports system reviewed and no additional complaints, except as documented and Reports as per HPI Cardiovascular: Cardiovascular: Reports as per HPI and Reports no additional cardiovascular complaints Respiratory: Respiratory: Reports as per HPI and Reports no additional respiratory complaints Gastrointestinal: Gastrointestinal: Reports as per HPI and Reports no additional gastrointestinal complaints Genitourinary: Genitourinary: Reports no additional male genitourinary complaints and Reports as per HPI Musculoskeletal: Musculoskeletal: Reports no additional musculoskeletal complaints and Reports as per HPI Integumentary/Breasts: Skin/Breast: Reports system reviewed and no additional complaints, except as docu and Reports as per HPI Neurologic: Reports system reviewed and no additional complaints, except as documented and Reports as per HPI Psychiatric: Psychiatric: Reports no additional psychiatric complaints and Reports as per HPI Endocrine: Endocrine: Reports no additional endocrine complaints and Reports as per HPI Hematologic/Lymphatic: Hematologic/Lymphatic: Reports no additional hematologic/lymphatic complaints and Reports as per HPI Allergic/Immunologic: Allergic/Immunologic: Reports no additional allergic/immunologic complaints and Reports as per HPI [facility] Past Medical History Medical History COPD (chronic obstructive pulmonary disease) History of cardiac disorder Hypertension Impingement syndrome, shoulder, left Surgical History Surgical History History of arthroscopic surgery of shoulder History of cholecystectomy History of hand surgery History of lumbar fusion L5-S1 Hx of heart artery stent Family History Family History Father , Father committed suicide at age 53. No problems noted. Mother , Mother of stroke at age 74 Cerebrovascular accident Other Family history of arthritis Social History Social History Years smoked: 40 Smoking status: Current every day smoker Tobacco type: cigarettes Alcohol intake: never Substance use: never Gender identi
[2020-10-15] MEDS: KETOROLAC (*BKC) 60 MG/2 ML VIAL IM (12:59)
[2020-10-15 13:27] VITALS: RESP 17
== END 2020-10-15 13:30 | disposition home or self-care (01) ==
PROVIDERS: Emergency Provider Emergency Medicine; PCP Physician Assistant
DX: M54.30 Sciatica, unspecified side (principal); J44.9 Chronic obstructive pulmonary disease, unspecified; I10 Essential (primary) hypertension; F17.200 Nicotine dependence, unspecified, uncomplicated
CPT/HCPCS: 96372; 99283; J1885

== ENCOUNTER 2020-11-02 16:30 | Emergency (ER) | payer MEDICARE, SELFPAY ==
[2020-11-02 16:50] VITALS: BP 118/83; PULSE 111; RESP 20; TEMP 36.4; O2SAT 97
--- NOTE | 2020-11-02 17:08 | ED.SKABFB ---
HPI - Skin/Abscess/Foreign Bdy General Chief complaint: Skin/Abscess/Foreign Body Stated complaint: pt thinks they have shingles Source: patient Mode of arrival: ambulatory Limitations: no limitations History of Present Illness HPI narrative: This is a 4-year-old gentleman presents with a vesicular rash on an erythematous base with some few vesicles on the right upper chest and into his right upper back and into his neck area, currently no fever or chills the area is burning and painful with no itching started 2 to 3 days ago after he believes he was exposed to someone lead shingles. Currently not involving his face or eyes there is no nausea vomiting no chest pain no shortness of breath no abdominal pain no diarrhea constipation. complaint: rash Onset (ago): day(s) Tetanus up to date: no Location: chest and back Severity: moderate Severity scale (1-10): 6 Quality: burning Pain Consistency: constant Relieving factors: none Exacerbating factors: none Context: none Associated symptoms: denies other symptoms Related Data Home Medications Medication Instructions Recorded Confirmed amlodipine [Norvasc] 5 mg PO DAILY 01/09/19 11/02/20 atorvastatin [Lipitor] 20 mg PO HS 01/09/19 11/02/20 metoprolol tartrate [Lopressor] 100 mg PO BID 01/09/19 11/02/20 pantoprazole [Protonix] 40 mg PO DAILY 01/09/19 11/02/20 nitroglycerin 0.4 mg SUBLINGUAL Q5-15M PRN 02/05/20 11/02/20 aspirin 81 mg tablet,delayed 81 mg PO DAILY 03/27/20 11/02/20 release clopidogrel [Plavix] 75 mg PO DAILY 10/15/20 11/02/20 Allergies Allergy/AdvReac Type Severity Reaction Status Date / Time Penicillins Allergy Unknown Unknown Verified 11/02/20 16:56 Review of Systems Review of Systems: All systems reviewed & are unremarkable except as noted in HPI and below PMFSH Past Medical History Medical History COPD (chronic obstructive pulmonary disease) History of cardiac disorder Hypertension Impingement syndrome, shoulder, left Surgical History Surgical History History of arthroscopic surgery of shoulder History of cholecystectomy History of hand surgery History of lumbar fusion L5-S1 Hx of heart artery stent Family History Family History Father , Father committed suicide at age 53. No problems noted. Mother , Mother of stroke at age 74 Cerebrovascular accident Other Family history of arthritis Social History Social History Years smoked: 40 Smoking status: Current every day smoker Tobacco type: cigarettes Alcohol intake: never Substance use: never Gender identity (if verbalized by the patient): Male Exam Const: General: no acute distress Orientation/consciousness: patient oriented x3 HENMT: Head: normal to inspection Eyes: Conjunctivae: conjunctivae normal Pupils: Equal, round and reactive pupils present EOM: EOMs intact bilaterally Direct Ophthalmoscopy: no photophobia Neck: Neck: normal visual inspection, no lymphadenopathy and no meningeal signs Chest: Chest palpation & inspection: normal inspection of the chest Resp: Effort & Inspection: normal respiratory effort Auscultation: clear to auscultation bilaterally Cardio: Rate: regular rate Rhythm: regular rhythm Urinary Catheter: Urinary Catheter: patent and draining Skin: Other: Erythematous rash right upper chest and into his right upper back with vesicles Neuro: General: patient oriented x3, moves all extremities and no meningeal signs Extrem: General: normal to inspection Psych: Appearance: grossly normal Mental Status: mental status grossly normal Affect: normal affect Course Course Emergency Course: patient will receive p.o. acyclovir as it was explained that this appears to be shingles a
[2020-11-02] MEDS: KETOROLAC (*BKC) 60 MG/2 ML VIAL IM (17:14)
[2020-11-02] MEDS: ACYCLOVIR 200 MG CAPSULE 800 MG PO (17:26)
[2020-11-02 17:41] VITALS: PULSE 100; RESP 20; O2SAT 97
== END 2020-11-02 17:47 | disposition home or self-care (01) ==
PROVIDERS: Emergency Provider Emergency Medicine; PCP Physician Assistant
DX: B02.9 Zoster without complications (principal)
CPT/HCPCS: 96372; 99283; A9270; J1885

== ENCOUNTER 2020-11-04 10:59 | Emergency (ER) | payer MEDICARE, SELFPAY ==
[2020-11-04 11:05] VITALS: BP 115/78; PULSE 96; RESP 20; TEMP 36.3; O2SAT 96
--- NOTE | 2020-11-04 11:15 | ED.SKABFB ---
HPI - Skin/Abscess/Foreign Bdy General Chief complaint: Skin/Abscess/Foreign Body Stated complaint: possible shingles on R side of head, back and abd Source: patient Mode of arrival: ambulatory History of Present Illness HPI narrative: this is a 60-year-old gentleman that was recently diagnosed with shingles located on his right chest and right upper back area has been taking acyclovir but returns to the ER with increased pain his primary care would not prescribe narcotics, patient has Toradol but states that it is not helping. Currently no fever or chills the rash has some started to crust over with no shortness of breath no chest pain. complaint: rash Onset (ago): day(s) Location: chest and back Severity: mild Related Data Home Medications Medication Instructions Recorded Confirmed amlodipine [Norvasc] 5 mg PO DAILY 01/09/19 11/04/20 atorvastatin [Lipitor] 20 mg PO HS 01/09/19 11/04/20 metoprolol tartrate [Lopressor] 100 mg PO BID 01/09/19 11/04/20 pantoprazole [Protonix] 40 mg PO DAILY 01/09/19 11/04/20 nitroglycerin 0.4 mg SUBLINGUAL Q5-15M PRN 02/05/20 11/04/20 aspirin 81 mg tablet,delayed 81 mg PO DAILY 03/27/20 11/04/20 release clopidogrel [Plavix] 75 mg PO DAILY 10/15/20 11/04/20 Allergies Allergy/AdvReac Type Severity Reaction Status Date / Time Penicillins Allergy Unknown Unknown Verified 11/02/20 16:56 Review of Systems Review of Systems: All systems reviewed & are unremarkable except as noted in HPI and below PMFSH Past Medical History Medical History COPD (chronic obstructive pulmonary disease) History of cardiac disorder Hypertension Impingement syndrome, shoulder, left Surgical History Surgical History History of arthroscopic surgery of shoulder History of cholecystectomy History of hand surgery History of lumbar fusion L5-S1 Hx of heart artery stent Family History Family History Father , Father committed suicide at age 53. No problems noted. Mother , Mother of stroke at age 74 Cerebrovascular accident Other Family history of arthritis Social History Social History Years smoked: 40 Smoking status: Current every day smoker Tobacco type: cigarettes Alcohol intake: never Substance use: never Gender identity (if verbalized by the patient): Male Exam Const: General: no acute distress Orientation/consciousness: patient oriented x3 HENMT: Head: normal to inspection Eyes: Conjunctivae: conjunctivae normal Pupils: Equal, round and reactive pupils present Neck: Neck: normal visual inspection, no lymphadenopathy and no meningeal signs Chest: Chest palpation & inspection: normal inspection of the chest Resp: Effort & Inspection: normal respiratory effort Auscultation: clear to auscultation bilaterally Cardio: Rate: regular rate Rhythm: regular rhythm GI: Auscultation: normal bowel sounds Urinary Catheter: Urinary Catheter: patent and draining Back/Spine/Pelvis: Back: no CVA tenderness Skin: Other: Vesicles on an erythematous base on his right upper chest and right upper back area has started to crust over Course Course Emergency Course: patient has shingles has increased pain and given a shot of Toradol 60mg IM. Vital Signs Vital signs: Vital Signs Temperature 36.3 C L 11/04/20 11:05 Pulse Rate 96 11/04/20 11:05 Respiratory Rate 11/04/20 11:05 Blood Pressure 115/78 11/04/20 11:05 Pulse Oximetry 96 11/04/20 11:05 Temperature 36.3 C L 11/04/20 11:05 Pulse Rate 96 11/04/20 11:05 Respiratory Rate 11/04/20 11:05 Blood Pressure 115/78 11/04/20 11:05 Pulse Oximetry 96 11/04/20 11:05 Critical Care Time Critical Care Time Critical Care Time: No Discharg
[2020-11-04] MEDS: KETOROLAC (*BKC) 60 MG/2 ML VIAL IM (11:20)
== END 2020-11-04 11:30 | disposition home or self-care (01) ==
PROVIDERS: Emergency Provider Emergency Medicine; PCP Physician Assistant
DX: B02.9 Zoster without complications (principal)
CPT/HCPCS: 96372; 99283; J1885

== ENCOUNTER 2021-01-03 11:11 | Outpatient (CLI) | payer MEDICARE, SELFPAY ==
--- NOTE | 2021-01-03 11:25 | ECG_ITS ---
Measurements Intervals [place] Rate: 87 P: 65 HI: 146 QRS: 35 QRSD: 93 T: 76 QT: 335 QTc: 405 Interpretive Statements SINUS RHYTHM BASELINE WANDER- I, AVL NORMAL ECG Electronically Signed On 01-03-2021 12:02:17 CDT by Bartolo Carvajal D.O.
== END 2021-01-03 11:12 | disposition home or self-care (01) ==
LOC: CHSCARD 11:15
PROVIDERS: PCP Physician Assistant; Visit Provider Physician Assistant
DX: Z01.818 Encounter for other preprocedural examination (principal)
CPT/HCPCS: 93005

== ENCOUNTER 2021-03-29 16:35 | Emergency (ER) | payer MEDICARE, SELFPAY ==
--- NOTE | ~2021-03-29 | CT_ITS ---
EXAMINATION: CT abdomen pelvis w con DATE: 03/29/2021 18:17 INDICATION: Left lower quadrant abdominal pain, nausea. Blood in stool x1 day. TECHNIQUE: Computed tomography (CT) of the abdomen and pelvis was performed with 100 cc Omnipaque 350 intravenous contrast. Automated exposure control and iterative reconstruction technique were employe d. Exam dose: 723.99 mGy-cm total exam DLP. COMPARISON: 03/24/2017 CT abdomen pelvis noncontrast examination FINDINGS: Mild emphysematous changes are noted. No infiltrate or consolidation in the included lower lung zones. Normal heart size. Trace pericardial fluid. No pleural effusion or pneumothorax. Small sliding hiatal hernia. Status post cholecystectomy. No hepatic, splenic, pancreatic, and adrenal or suspicious renal space-o ccupying mass lesion is evident. Occasional 5 mm or smaller probable bilateral renal cysts. Moderate diffuse thickening of the urinary bladder wall, likely due to moderate prostate enlargement. There is mild prostate calcification. Normal caliber of the abdominal aorta, with calcified plaques. No abdominal aortic aneurysm. No intra peritoneal or retroperitoneal or pelvic mass lesion or adenopathy or ascites. Normal appendix. There are multiple diverticula of the left and right colon; no evidence of diverticu litis. No bowel obstruction or intraperitoneal free air. Moderately prominent left fat-containing inguinal hernia. Very small fat-containing umbilical hernia. Old healed posterior right 10th rib fracture. Status post posterior surgical fusion at L5-S1. IMPRESSION: Mild emphysema Small sliding hiatal hernia Status post cholecystectomy Diverticulosis of left and right colon; no CT evidence of diverticulitis Reviewed, dictated and finalized at [facility]. Reviewed, dictated and finalized at [facility]. [employer] TECH[employer]ICIAN
[2021-03-29 16:40] VITALS: BP 131/84; PULSE 73; RESP 20; TEMP 36.2; O2SAT 100
--- NOTE | 2021-03-29 16:55 | ECG_ITS ---
Measurements Intervals [place] Rate: 69 P: 56 MI: 156 QRS: -22 QRSD: 89 T: 80 QT: 372 QTc: 401 Interpretive Statements SINUS RHYTHM WITH SINUS ARRHYTHMIA DELAYED PRECORDIAL R/S TRANSITION BORDERLINE T WAVE ABNORMALITY- HIGH LATERAL LEADS BASELINE ARTIFACT- I, III, AVL BORDERLINE ECG Electronically Signed On 03-30-2021 8:36:45 [place]CIER[place] by Bartolo Carvajal D.O.
--- NOTE | 2021-03-29 16:58 | ED.ABDPAIN ---
HPI - Abdominal Pain General Chief Complaint: GI Bleed Stated Complaint: passing blood Time Seen by Provider: 03/29/21 16:58 Source: patient Mode of arrival: ambulatory Limitations: no limitations History of Present Illness HPI narrative: this is a 61-year-old gentleman with a history of coronary artery disease, COPD and GERD presents with some abdominal discomfort diffuse but does have some left groin pain, does have a history of left groin hernia currently is having pain that he rates at about a 7/10 with nausea no episodes of vomiting, did notice that he had bright red blood per rectum earlier this morning. Currently there is no chest pain no shortness of breath no fever chills. MD elicited complaint: abdominal pain Pertinent past history: none Onset (ago): hour(s) Pain Consistency: constant Location: diffuse Severity: moderate Quality: fullness Radiation: none Migration to: other ( Left groin area) Exacerbating factors: nothing Relieving factors: nothing Associated symptoms: nausea and hematochezia Treatments prior to arrival: NSAIDs Related Data Home Medications Medication Instructions Recorded Confirmed amlodipine [Norvasc] 5 mg PO DAILY 01/09/19 03/29/21 atorvastatin [Lipitor] 20 mg PO HS 01/09/19 03/29/21 metoprolol tartrate [Lopressor] 100 mg PO BID 01/09/19 03/29/21 pantoprazole [Protonix] 40 mg PO DAILY 01/09/19 03/29/21 aspirin 81 mg tablet,delayed 81 mg PO DAILY 03/27/20 03/29/21 release clopidogrel [Plavix] 75 mg PO DAILY 10/15/20 03/29/21 Allergies Allergy/AdvReac Type Severity Reaction Status Date / Time Penicillins Allergy Unknown Unknown Verified 11/02/20 16:56 Review of Systems Review of Systems: All systems reviewed & are unremarkable except as noted in HPI and below PMFSH Past Medical History Medical History COPD (chronic obstructive pulmonary disease) History of cardiac disorder Hypertension Impingement syndrome, shoulder, left Surgical History Surgical History History of arthroscopic surgery of shoulder History of cholecystectomy History of hand surgery History of lumbar fusion L5-S1 Hx of heart artery stent Family History Family History Father , Father committed suicide at age 53. No problems noted. Mother , Mother of stroke at age 74 Cerebrovascular accident Other Family history of arthritis Social History Social History Years smoked: 40 Smoking status: Current every day smoker Tobacco type: cigarettes Alcohol intake: never Substance use: never Gender identity (if verbalized by the patient): Male Exam Const: General: no acute distress and alert Orientation/consciousness: patient oriented x3 HENMT: Head: normal to inspection Eyes: Conjunctivae: conjunctivae normal Pupils: Equal, round and reactive pupils present EOM: EOMs intact bilaterally Direct Ophthalmoscopy: no photophobia Neck: Neck: normal visual inspection, no lymphadenopathy and no meningeal signs Chest: Chest palpation & inspection: normal inspection of the chest Resp: Effort & Inspection: normal respiratory effort Auscultation: clear to auscultation bilaterally Cardio: Rate: regular rate Rhythm: regular rhythm GI: GI Palp: Yes Tenderness to palpation present (GI) and Yes Hernia present Auscultation: Hypoactive bowel sounds present : Testes: Testes normal Urinary Catheter: Urinary Catheter: patent and draining Back/Spine/Pelvis: Back: no CVA tenderness Skin: General skin exam: normal color Rashes: no rashes Neuro: General: patient oriented x3, moves all extremities, no meningeal signs and no focal motor deficits Extrem: General: normal to inspection and no pedal edema Psych: Mental Status: mental status grossly n
[2021-03-29 17:18] LABS: Basophils Percent Auto 0.6 % (0.0-1.0); Eosinophils Percent Auto 1.9 % (1.0-6.0); Hematocrit 50.3 % (40.0-54.0); Hemoglobin 16.9 g/dL (14.0-18.0); Immature Granulocyte Absolute 0.08 K/mm3 (0.00-0.00); Immature Granulocyte Percent A 0.5 % (0.0-0.0); Lymphocytes Absolute Auto 2.58 K/mm3 (1.10-4.50); Lymphocytes Percent Auto 16.1 % (18.0-42.0); Mean Corpuscular HGB Conc 33.6 g/dL (32.0-36.0); Mean Corpuscular Hemoglobin 31.4 pg (27.0-31.0); Mean Corpuscular Volume 93.3 fL (78.0-102.0); Mean Platelet Volume 9.3 fl (8.7-11.0); Monocytes Absolute Auto 1.32 K/mm3 (0.10-0.90); Monocytes Percent Auto 8.2 % (2.0-11.0); Neutrophils Absolute Auto 11.7 K/mm3 (1.7-7.2); Neutrophils Percent Auto 72.7 % (50.0-70.0); Occult Blood Positive (Negative); Platelet Count Result 329 K/mm3 (150-420); Red Blood Count 5.39 M/mm3 (4.70-6.10); Red Cell Distribution Width 12.5 % (11.6-14.4)
[2021-03-29 17:33] LABS: Partial Thromboplastin Time 27.3 SEC (23.90-30.70); Prothrombin Time 10.5 Seconds (9.50-12.10)
[2021-03-29] MEDS: ONDANSETRON INJ 4 MG/2 ML VIAL IV PUSH (17:33)
[2021-03-29] MEDS: SODIUM CHLORIDE 0.9% IV 1,000 ML 999 ML IV CONT (17:33)
[2021-03-29 17:37] LABS: Lactic Acid Reflex 1.7 mmol/L (0.4-2.0)
[2021-03-29 17:39] LABS: Alanine Aminotransferase 23 U/L (16-63); Albumin Level 3.5 g/dL (3.4-5.0); Alkaline Phosphatase 77 U/L (46-116); Anion Gap 9 mmol/L (8-16); Aspartate Amino Transferase 13 U/L (15-37); Bilirubin,Total 0.4 mg/dL (0.00-1.00); Blood Urea Nitrogen 7 mg/dL (7-18); Calcium 8.4 mg/dL (8.5-10.1); Carbon Dioxide 27 mmol/L (21-32); Chloride 100 mmol/L (98-108); Estimated Glomerular Filt Rate > 60; Glucose 145 mg/dL (70-99); Lipase 89 U/L (73-393); Osmolality Calculated 283 mOsm/kg (285-295); Potassium 4.5 mmol/L (3.5-5.1); Sodium 136 mmol/L (136-145); Total Protein 6.9 g/dL (6.4-8.2)
[2021-03-29 17:44] LABS: CRP 1.6 mg/dL (0.0-0.9)
[2021-03-29] MEDS: MORPHINE SULFATE (*CRX) 2 MG/ML INJ IV PUSH (17:52)
[2021-03-29 17:57] LABS: Troponin I 5.2 ng/L (0.00-60.4)
--- NOTE | 2021-03-29 19:11 | PC.NURSE ---
report to damien clarke
[2021-03-29 19:55] VITALS: BP 130/99; PULSE 57; RESP 16; O2SAT 96
== END 2021-03-29 20:03 | disposition home or self-care (01) ==
PROVIDERS: Emergency Provider Emergency Medicine; PCP Physician Assistant
DX: K64.9 Unspecified hemorrhoids (principal); R10.32 Left lower quadrant pain; J44.9 Chronic obstructive pulmonary disease, unspecified; I10 Essential (primary) hypertension; F17.200 Nicotine dependence, unspecified, uncomplicated
CPT/HCPCS: 36415; 74177; 80053; 82272; 83605; 83690; 84484; 85025; 85610; 85730; 86140; 93005; 96361; 96374; 96375; 99283; 99284; J2270; J2405; J7030; Q9967

== ENCOUNTER 2021-08-26 00:54 | Inpatient (IN) | payer MEDICARE, SELFPAY ==
[2021-08-26] VITALS (19 sets, daily range): BP systolic 104–162; BP diastolic 62–103; PULSE 58–93; RESP 12–20; TEMP 36.2–37.3; O2SAT 93–99; BMI 22.6
--- NOTE | ~2021-08-26 | CT_ITS ---
EXAMINATION: CT brain wo con DATE: 08/26/2021 16:34 INDICATION: headache . TECHNIQUE: Computed tomography (CT) of the head was performed without intravenous contrast. The mA wa s adjusted according to patient size. Iterative reconstruction technique was employed. The dose-lengt h product was 605.33 mGy-cm. COMPARISON: 09/21/2018. FINDINGS: No acute intracranial hemorrhage or extra-axial fluid collection. No hydrocephalus, mass, or herniation. No acute ischemic infarct. Unremarkable dural venous sinus attenuation. No acute osseous abnormality. The aerated spaces are clear. Mild atrophy and chronic white matter change. Atherosclerotic intracranial calcifications. IMPRESSION: No acute intracranial process. Reviewed, dictated and finalized at location K.
--- NOTE | ~2021-08-26 | US_ITS ---
US renal BI DATE: 08/30/2021 17:21 INDICATION: Acute renal insufficiency TECHNIQUE: Real-time imaging of kidneys and urinary bladder COMPARISON: 03/29/2021 CT abdomen pelvis FINDINGS: The right kidney measures approximately 10.7 cm length, the left kidney 11.6 cm length. No renal mass lesion or hydronephrosis is evident. The urinary bladder is unremarkable. IMPRESSION: No significant abnormality; no evidence of obstructive uropathy Reviewed, dictated and finalized at Location A. Reviewed, dictated and finalized at location B.
--- NOTE | ~2021-08-26 | XR_ITS ---
EXAMINATION: XR chest 1V portable INDICATION: Chest pain TECHNIQUE: Portable AP chest at 0122 hours COMPARISON: 02/05/2020 FINDINGS: The lungs are free of acute opacities. There is no pleural effusion or pneumothorax. The ca rdiomediastinal silhouette is normal. There are changes of left distal clavicle resection. IMPRESSION: 1. No acute cardiopulmonary abnormality. Reviewed, dictated and finalized at location A.
--- NOTE | ~2021-08-26 | CT_ITS ---
Patient Name: Patient Name MR#: Patient MRN Accession#: Accession Numbers EXAMINATION: CTA brain carotid DATE: 08/26/2021 16:46 INDICATION: new left sided weakness TECHNIQUE: Computed tomographic angiography (CTA) of the head and neck was performed with 100 mL Omni paque-300 intravenous contrast. The dose-length product was 1209.17 mGy-cm. Maximum intensity project ion and volume rendered 3D-reconstructions were created by the technologist on a separate workstation . COMPARISON: CT brain, same date. FINDINGS: CTA NECK: Aortic arch and proximal great vessels: Mild calcifications at the aortic arch and origins of the batool ateral vertebral arteries. Right common carotid, carotid bifurcation, and internal carotid artery: Mild calcified and noncalcifi ed plaque at the carotid bifurcation.There is 0 % stenosis of the proximal right internal carotid art saturnino relative to normal distal artery lumen diameter (NASCET criteria). Left common carotid, carotid bifurcation, and internal carotid artery: Mild calcified and noncalcifie d plaque at the carotid bifurcation.There is 0% stenosis of the proximal left internal carotid artery relative to normal distal artery lumen diameter (NASCET criteria). Vertebral arteries: Left vertebral artery is occluded at its origin, with distal reconstitution at th e level of C1. No significant plaque or stenosis in the right vertebral artery. Other findings: 10 mm prevascular lymph node. Emphysematous change. Biapical pleural scarring. CTA HEAD: No large vessel occlusion, aneurysm, high flow vascular malformation, nidus or extravasation. Calcifi ed atherosclerotic plaque in the bilateral cavernous carotids, without significant stenosis. IMPRESSION: 1. 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 2. No large vessel occlusion in the brain. 3. Mediastinal lymphadenopathy. Reviewed, dictated and finalized at location K.
--- NOTE | ~2021-08-26 | MR_ITS ---
EXAMINATION: MR brain/brain stem wo/w con DATE: 08/27/2021 10:36 INDICATION: New onset left-sided weakness TECHNIQUE: Magnetic resonance imaging (MRI) of the brain and brainstem was performed without and with 15 mL Multihance intravenous contrast. Sequences included sagittal and axial T1-weighted SE, axial d iffusion-weighted FS SE, axial T2*-weighted GRE, axial 3D SWAN, axial T2-weighted FLAIR, and axial T2 -weighted FSE. Postcontrast axial and coronal T1-weighted SE was obtained. Apparent diffusion coeffic ient (ADC) maps were created. COMPARISON: CT and CT angiogram of the head dated 08/27/2019 FINDINGS: There are no areas of restricted diffusion to suggest acute infarction. No intracranial hemorrhage or abnormal intracranial mass lesion. There are scattered areas of nonspecific increased T2-weighted si gnal intensity in the cerebral white matter, predominantly involving the deep and periventricular whi te matter. There are no intraparenchymal signal abnormalities seen on the other pulse sequences. The ventricles are symmetric and normal in size. There are no abnormal extra-axial fluid collections. Homero w voids are seen in the cerebral arteries on the T2-weighted sequences consistent with their expected patency. Visualized orbits and soft tissues are unremarkable. There are no areas of abnormal enhance ment on the post contrast images. IMPRESSION: 1. No acute infarct. 2. Scattered white matter T2 hyperintensity which is within normal limits for age and likely sequela of chronic small vessel ischemic disease. Reviewed, dictated and finalized at location A. IMPRESSION: 1. No acute infarct. 2. Scattered white matter T2 hyperintensity which is within normal limits for a ge and likely sequela of chronic small vessel ischemic disease.
--- NOTE | 2021-08-26 01:00 | ECG_ITS ---
Measurements Intervals [place] Rate: 84 P: 51 ND: 154 QRS: -28 QRSD: 83 T: 66 QT: 340 QTc: 402 Interpretive Statements SINUS RHYTHM LEFT AXIS DEVIATION [QRS AXIS < -20] NONSPECIFIC T-WAVE ABNORMALITY ABNORMAL ECG COMPARED TO ECG 03/29/2021 17:28:25 NO SIGNIFICANT CHANGE Electronically Signed On 08-26-2021 7:17:22 CDT by Ronnie Ziegler M.D.
[2021-08-26 01:32] LABS: Basophils Absolute Auto 0.1 K/mm3 (0.0-0.1); Eosinophils Absolute Auto 0.8 K/mm3 (0-0.3); Eosinophils Percent Auto 6.8 % (0-4.4); Hematocrit 44.5 % (42.0-52.0); Hemoglobin 15.3 g/dL (14.0-18.0); Immature Granulocyte Absolute 0.04 K/mm3 (0.00-0.031); Immature Granulocyte Percent A 0.4 % (0-0.5); Lymphocytes Absolute Auto 2.66 K/mm3 (0.9-3.2); Mean Corpuscular HGB Conc 34.4 g/dl (32-36); Mean Corpuscular Hemoglobin 31.5 pg (26-34); Mean Corpuscular Volume 91.6 fl (80-100); Mean Platelet Volume 9.4 fl (7.4-10.4); Monocytes Absolute Auto 1.2 K/mm3 (0.1-0.6); Monocytes Percent Auto 10.9 % (2.6-8.5); Neutrophils Absolute Auto 6.3 K/mm3 (1.3-6.7); Neutrophils Percent Auto 56.9 % (45.5-73.1); Platelet Count Result 280 k/mm3 (150-375); Red Blood Count 4.86 M/mm3 (4.6-6.20); Red Cell Distribution Width 13.6 % (11.5-14.5); White Blood Count 11.1 K/mm3 (4.5-10.0)
[2021-08-26 01:37] LABS: Alanine Aminotransferase 21 U/L (6-50); Alkaline Phosphatase 72 U/L (38-126); Anion Gap 2 mmol/L (8-16); Aspartate Amino Transferase 25 U/L (17-59); Bilirubin,Total 0.6 mg/dL (0.2-1.3); Blood Urea Nitrogen 6 mg/dL (9-20); Calcium 8.3 mg/dL (8.4-10.2); Carbon Dioxide 26 mmol/L (22-30); Chloride 109 mmol/L (98-107); Estimated CRCL calculation 102 ml/min; Estimated Glomerular Filt Rate > 60; Glucose 147 mg/dL (65-110); Lipase 74 U/L (23-300); Potassium 3.7 mmol/L (3.4-5.0); Sodium 137 mmol/L (137-145)
[2021-08-26 01:39] LABS: Prothrombin Time 12.5 Seconds (11.1-14.7)
[2021-08-26 01:40] LABS: Partial Thromboplastin Time 27.6 SECONDS (22.3-36.8)
[2021-08-26] MEDS: NITROGLYCERIN SL 0.4 MG TABLET SUBLINGUAL ×4 (01:47→10:52)
[2021-08-26 01:48] LABS: Troponin I < 0.012 ng/mL (0.000-0.034)
[2021-08-26] MEDS: ASPIRIN 81 MG CHEWABLE TABLET 324 MG PO (01:48)
[2021-08-26] MEDS: MORPHINE SULFATE (*CRX) 4 MG/ML INJ IV PUSH (01:48)
--- NOTE | 2021-08-26 02:09 | PC.NURSE ---
Spoke with Pt about Niviajoel Mehta, An individual who called and identified herself as his POA. Pt stated for me to speak to her and give her whatever information she needs.
--- NOTE | 2021-08-26 02:17 | ED.GENADULT ---
HPI - General Adult General Chief complaint: Chest Pain Stated complaint: Chest pain Time Seen by Provider: 08/26/21 01:00 History of Present Illness HPI narrative: Patient 61-year-old gentleman who presents the emergency department with chief complaint of chest pain. The patient reports he has recently been admitted at [facility] and had 2 cardiac catheterizations in the last month. The patient states that this evening he started having chest discomfort called an ambulance and they gave him sublingual nitro he also took a sublingual nitro prior to EMS arrival and took aspirin. On arrival to the emergency department the patient reports he still having some discomfort in his chest. The patient states the pain is midsternal reports is nonradiating patient denies diaphoresis denies shortness of breath. Related Data Home Medications Medication Instructions Recorded Confirmed amlodipine 2.5 mg tablet (Norvasc) 5 mg PO DAILY 01/09/19 03/29/21 atorvastatin 20 mg tablet (Lipitor) 20 mg PO HS 01/09/19 03/29/21 metoprolol tartrate 100 mg tablet 100 mg PO BID 01/09/19 03/29/21 (Lopressor) pantoprazole 40 mg tablet,delayed 40 mg PO DAILY 01/09/19 03/29/21 release (Protonix) aspirin 81 mg tablet,delayed 81 mg PO DAILY 03/27/20 03/29/21 release clopidogrel 75 mg tablet (Plavix) 75 mg PO DAILY 10/15/20 03/29/21 Allergies Allergy/AdvReac Type Severity Reaction Status Date / Time Penicillins Allergy Unknown Unknown Verified 11/02/20 16:56 Review of Systems Review of Systems: A 10 system review of systems was completed on the patient and is negative except for what is stated in the HPI. Nursing and ancillary documentation was reviewed. [facility] Past Medical History Medical History COPD (chronic obstructive pulmonary disease) History of cardiac disorder Hypertension Impingement syndrome, shoulder, left Surgical History Surgical History History of arthroscopic surgery of shoulder History of cholecystectomy History of hand surgery History of lumbar fusion L5-S1 Hx of heart artery stent Family History Family History Father , Father committed suicide at age 53. No problems noted. Mother , Mother of stroke at age 74 Cerebrovascular accident Other Family history of arthritis Social History Social History Years smoked: 40 Smoking status: Current every day smoker Tobacco type: cigarettes Alcohol intake: never Substance use: never Gender identity (if verbalized by the patient): Male Exam Narrative: GENERAL: Well-appearing, well-nourished, and in no acute distress. HEAD: Normocephalic, atraumatic. EYES: PERRLA and EOMI. ENT: Nares clear, no rhinorrhea or epistaxis. Mucous membranes moist. NECK: Supple. CHEST: Clear to auscultation. No respiratory distress. HEART: Regular rate and rhythm. No murmur heard. Normal peripheral pulses. ABDOMEN: Soft, nontender, nondistended, normal active bowel sounds. EXTREMITIES: Normal range of motion. No edema. SKIN: Warm, dry, no rash. NEURO: No focal deficits. Alert and oriented x3. PSYCH: Normal mood and affect. Course Course Emergency Course: EKG interpreted by oh sinus rhythm rate of [address] elevation or ST depression Vital Signs Vital signs: Vital Signs Temperature 36.6 C 08/26/21 00:54 Pulse Rate 85 08/26/21 00:54 Respiratory Rate 18 08/26/21 00:54 Blood Pressure 162/103 H 08/26/21 00:54 Pulse Oximetry 97 08/26/21 00:54 Oxygen Delivery Room Air 08/26/21 00:54 Temperature 36.6 C 08/26/21 00:54 Pulse Rate 84 08/26/21 02:06 Respiratory Rate 18 08/26/21 00:54 Blood Pressure 162/103 H 08/26/21 00:54 Pulse Oximetry 97 08/26/21 01:57 Oxy
[2021-08-26] MEDS: HYDROmorphone HCL INJ (*CRX) 1 MG/ML SYR IV PUSH ×2 (02:54→04:42)
--- NOTE | 2021-08-26 04:18 | ECG_ITS ---
Measurements Intervals [place] Rate: 72 P: 41 SD: 149 QRS: -25 QRSD: 89 T: 67 QT: 367 QTc: 404 Interpretive Statements SINUS RHYTHM LEFT AXIS DEVIATION [QRS AXIS < -20] ABNORMAL ECG COMPARED TO ECG 08/26/2021 01:01:27 NO SIGNIFICANT CHANGES Electronically Signed On 08-26-2021 7:20:20 CDT by Ronnie Ziegler M.D.
[2021-08-26 04:35] LABS: Troponin I < 0.012 ng/mL (0.000-0.034)
--- NOTE | 2021-08-26 05:39 | PC.NURSE ---
Pt's xray done earlier and accidentally attached to another pt's chart. Per personnel technician, will correct this issue after 0700. Josie IMU RN notified.
--- NOTE | 2021-08-26 05:50 | PC.NURSE ---
This patient, Omar Mayer, was admitted to IMU Room 210-01 on 08/26/21 at 0547. Patient/family oriented to hospital policies and general routines including ID bracelet, bed and alarms, visiting hours, pain management, procedures, bathroom and other care routines, personal items, smoking policy, room service/diet, and visiting hours. Information on how to activate the Rapid Response Team has been discussed. Patient/Family are encouraged to report perceived risks to care and to ask questions if they do not understand what they are told or what they should do.
[2021-08-26 07:21] LABS: Troponin I < 0.012 ng/mL (0.000-0.034)
--- NOTE | 2021-08-26 08:38 | PM.IMHP ---
H&P: HPI History of Present Illness Date/Time: 08/26/21 08:38 Chief Complaint: Chest Pain Narrative: 61M with a past medical history of NV s/p PCI 3 weeks ago, CAD, hypertension, former smoker - quit 3.5 months ago, COPD who presented to the ED this morning due to chest pain. First episode of chest pain since his PCI 3 weeks ago was , 08/23/21 while playing with his dog around 1500. He says the pain feels like being on a gurney strapped too tight. He took four baby aspirin and a nitro and says the chest pain was completely relieved. On Friday, he was again playing with his dog and felt the crushing chest pain and took four baby aspirin and a nitro. He says this relieved his chest pain. Friday, he was walking up the stairs to his apartment when he had sudden onset crushing chest pain and again took four baby aspirin plus nitro. This relieved his chest pain. Overnight he was at home and suddenly had the chest pain again, so he decided to call the ambulance. He requested to be taken to [place] because that is where he has had the last two cardiac caths with the last one being 3 weeks ago. Had another cath with stent placement two weeks prior to most recent PCI. He was told [place] does not have interventional Cardiology on the weekend, so he was brought to [facility]. Patient does endorse having associated lightheadedness, shortness of breath and nausea with these most recent episodes of chest pain. Patient's cousin, who is a nurse who worked on a Cardiac floor is at bedside, reports he had never had elevated troponin in the past prior to each intervention. Patient denies fever, chills, cough. Has chronic abdominal pain from a left inguinal hernia and hx of diverticulitis. Denies diarrhea or constipation. Denies dysuria, stranguria. Patient is currently having chest pain saying it feels like a rope around his chest. Says the chest pain started after him walking around in his room. In the ED, troponin negative x 3, EKG with no ST segment changes. Leukocytosis 11.1, CXR with normal cardiomediastinal silhouette and no pneumonia. Review of Systems Constitutional: Constitutional: Denies chills and Denies lethargy ENT: Denies nasal congestion and Denies nasal discharge Cardiovascular: Cardiovascular: Reports chest pain, Denies leg edema and Reports lightheadedness Respiratory: Respiratory: Denies cough and Reports dyspnea Gastrointestinal: Gastrointestinal: Reports abdominal pain, Denies constipation, Denies diarrhea, Reports nausea and Denies vomiting Genitourinary: Genitourinary: Denies dysuria and Denies urinary hesitancy Musculoskeletal: Musculoskeletal: Reports arthralgias Integumentary/Breasts: Skin/Breast: Denies rash Neurologic: Denies confusion [facility] Past Medical History Medical History (Updated 08/26/21 @ 11:27 by Caity Keys MD) COPD (chronic obstructive pulmonary disease) History of cardiac disorder Hypertension Impingement syndrome, shoulder, left Surgical History Surgical History History of arthroscopic surgery of shoulder History of cholecystectomy History of hand surgery History of lumbar fusion L5-S1 Hx of heart artery stent Family History Family History Father , Father committed suicide at age 53. Suicide Mother , Mother of stroke at age 74 Cerebrovascular accident Other Family history of arthritis Social History Social History Smoking packs per day: 1 Smoking cigarettes per day: 20.0 Years smoked: 33 Smoking pack-years: 33.00 Smoking status: Heavy tobacco smoker Tobacco type: cigarettes Additional smoking assessment comments: Has smoked part of one cigarette in the past 4 months. Alcohol intake: former Drinks per week: 0 Substance use: never Sub
[2021-08-26] MEDS: ASPIRIN 81 MG CHEWABLE TABLET PO (08:45)
[2021-08-26] MEDS: METOPROLOL SUCCINATE EXT REL 100 MG TABCR PO (09:50)
[2021-08-26] MEDS: CLOPIDOGREL BISULFATE 75 MG TABLET PO (09:50)
[2021-08-26] MEDS: HYDROcodone/acetaminophen (*CRX) 10-325 MG TABLET 1 TAB PO (09:51)
[2021-08-26] MEDS: cloNIDine HCL 0.1 MG TABLET PO (09:52)
[2021-08-26] MEDS: amLODIPine BESYLATE 5 MG TABLET PO (09:52)
[2021-08-26] MEDS: busPIRone HCL 5 MG TABLET 15 MG PO (09:52)
[2021-08-26] MEDS: ISOSORBIDE MONONITRATE 60 MG TAB.ER.24H PO (09:52)
[2021-08-26] MEDS: ALPRAZolam (*CRX) 0.5 MG TABLET PO (09:52)
[2021-08-26] MEDS: ENOXAPARIN 40 MG/0.4 ML SYRINGE SUB-Q (09:53)
--- NOTE | 2021-08-26 11:00 | PC.NURSE ---
Patient complains of chest pain/pressure 6/10 - Nitroglycerin 0.4 mg sublingual given 1038. Patient stated pain 5/10, 2nd nitro 0.4 po sublingual given. Patient reported slight improvement with second dose of 10. Patient received 3rd nitro 0.4 mg sublingual with no additional improvement in pain/pressure at 1055 - 3.
--- NOTE | 2021-08-26 11:01 | ECG_ITS ---
Measurements Intervals [place] Rate: 62 P: 44 GA: 152 QRS: -22 QRSD: 87 T: 69 QT: 372 QTc: 379 Interpretive Statements SINUS RHYTHM BORDERLINE LEFT AXIS DEVIATION [QRS AXIS < -20] COMPARED TO ECG 08/26/2021 04:24:40 NO SIGNIFICANT CHANGES Electronically Signed On 08-27-2021 7:10:07 CDT by Ronnie Ziegler M.D.
[2021-08-26] MEDS: CLOPIDOGREL BISULFATE 75 MG TABLET 525 MG PO (11:57)
--- NOTE | 2021-08-26 12:27 | PM.CNCAR ---
Assessment and Plan Assessment and plan (1) Chest pain: Code(s): R07.9 - Chest pain, unspecified Status: Acute Plan 61-year-old man apparently with a history of multivessel coronary disease having undergone interventional revascularization the in the remote past in [place] and in the recent past at [facility]. He has recurrent chest pain prompting admission for some reason he was brought to this hospital instead of 1 of the facilities where his established physicians work. His electrocardiogram looks completely normal his biomarkers show no evidence of acute coronary syndrome. They are very concerned as which I suppose is understandable given the recency of his interventions I would recommend transferring this patient to [facility] [place] where his physicians do practice and are able to provide the evaluation of these symptoms. Since there is no evidence objectively of an acute coronary syndrome I do not believe it is necessary for me to declare this an emergency and bring him to the computer lab para professional here at [place] where we have no previous involvement in his care. Ronnie Ziegler MD [facility] History of Present Illness History of Present Illness Consult date/time: 08/26/21 12:27 Reason For Visit: Chest pain Narrative: This is a 61-year-old man who is unknown to me who apparently has coronary artery disease and is admitted to the emergency room in the middle of the night because of some chest pain. Patient states he was in his usual state of health when about 10:00 a.m. last evening simply performing routine activities in his home he started to experience chest pain he describes it as a low substernal pressure-like sensation that has been waxing and waning but has not resolved since its onset at that time. It is not really associated with shortness of breath or radiation to any other location. At times he feels somewhat diaphoretic with this. He became concerned when he took some aspirin and nitroglycerin and did not experience any relief so he came to emergency room here by ambulance. He does not receive his cardiac care here at [place] he asked to go to [facility] where his physician works and the ambulance brought him here anyway. He is known to have coronary artery disease for about 18 years he was previously residing in [place] where he underwent interventional revascularization a long time ago. Apparently he recently presented to [facility] with chest pain and underwent an interventional PCI with a drug-eluting stent to the left anterior descending. He returned about 2 weeks later with ongoing chest pain and underwent stenting of his right coronary artery and distal circumflex. He initially felt well for a couple of weeks after the procedure after that he says he is having symptoms of not feeling right and other nonspecific sensation of malaise. He did have any recurrent chest pain until last night. Despite ongoing chest pain which is now for about 14 hours his troponin levels are normal and his electrocardiogram is normal. He appears to be in no distress entering the room to see him. His medical regimen consists of aspirin, clopidogrel, atorvastatin, clonidine, metoprolol, isosorbide and amlodipine. Review of Systems Constitutional: Constitutional: Reports no additional constitutional complaints Eyes: Eyes: Reports no additional eye complaints ENT: Reports system reviewed and no additional complaints, except as documented Cardiovascular: Cardiovascular: Reports as per HPI Respiratory: Respiratory: Reports no additional respiratory complaints Gastrointestinal: Gastrointestinal: Reports no additional gastrointestinal complaints Musculoskeletal: Comments: Chronic right and left shoulder pain Integumentary/Breasts: Skin/Breast: Reports system reviewed and no additional complaints, except as docu Neurologic: Reports system reviewed and no additional complaints, except as docume
[2021-08-26 16:23] LABS: Basophils Absolute Auto 0.1 K/mm3 (0.0-0.1); Basophils Percent Auto 1.3 % (0.2-1.2); Eosinophils Absolute Auto 0.7 K/mm3 (0-0.3); Eosinophils Percent Auto 8.1 % (0-4.4); Hematocrit 43.7 % (42.0-52.0); Hemoglobin 14.4 g/dL (14.0-18.0); Immature Granulocyte Absolute 0.05 K/mm3 (0.00-0.031); Immature Granulocyte Percent A 0.6 % (0-0.5); Lymphocytes Absolute Auto 2.83 K/mm3 (0.9-3.2); Lymphocytes Percent Auto 32.6 % (18.3-44.2); Mean Corpuscular Hemoglobin 31.5 pg (26-34); Mean Corpuscular Volume 95.6 fl (80-100); Mean Platelet Volume 9.3 fl (7.4-10.4); Monocytes Absolute Auto 0.9 K/mm3 (0.1-0.6); Monocytes Percent Auto 10.6 % (2.6-8.5); Neutrophils Absolute Auto 4.1 K/mm3 (1.3-6.7); Neutrophils Percent Auto 46.8 % (45.5-73.1); Platelet Count Result 252 k/mm3 (150-375); Red Blood Count 4.57 M/mm3 (4.6-6.20); Red Cell Distribution Width 13.7 % (11.5-14.5); White Blood Count 8.7 K/mm3 (4.5-10.0)
[2021-08-26 16:33] LABS: Glucose Point of Care 81 mg/dl (65-105)
[2021-08-26 16:44] LABS: Alanine Aminotransferase 21 U/L (6-50); Albumin Level 3.5 g/dL (3.5-5.1); Alkaline Phosphatase 65 U/L (38-126); Anion Gap 4 mmol/L (8-16); Aspartate Amino Transferase 24 U/L (17-59); Bilirubin,Total 0.8 mg/dL (0.2-1.3); Blood Urea Nitrogen 9 mg/dL (9-20); Calcium 8.5 mg/dL (8.4-10.2); Carbon Dioxide 29 mmol/L (22-30); Chloride 104 mmol/L (98-107); Estimated CRCL calculation 79 ml/min; Estimated Glomerular Filt Rate > 60; Glucose 107 mg/dL (65-110); Sodium 137 mmol/L (137-145)
[2021-08-26 17:25] LABS: Troponin I < 0.012 ng/mL (0.000-0.034)
--- NOTE | 2021-08-26 17:41 | PM.EVENT ---
Event Note Event Note Event Note: Nursing reported a syncopal episode that resolved quickly. Rapid responses was called. CT head, CBC, CMP, troponin ordered. While awaiting CT head, nursing called back and reported the patient was having new onset confusion, pinpoint pupils and left sided weakness. CTA head and neck ordered and showed no intracranial hemorrhage, no carotid stenosis and left vertebral artery occlusion from origin to C1. On my exam GENERAL: NAD, cooperative HEENT: Normocephalic, atraumatic, anicteric, poor dentition NECK: Supple CV: Normal S1, S2,? RRR, No MRG RESP: Normal work of breathing. EXTREMITIES: Warm and well perfused, no clubbing, cyanosis, or edema. Left shoulder with well healed surgical scar SKIN: warm, dry and intact. NEURO:Mental Status: A&Ox to self, said months was July, 2001, normal speech and language. Confused. Cranial Nerves: ? 2: Pinpoint pupils bilaterally w/o accommodation ? 3,4,6: EOMI ? 5: Facial sensation symmetric bilaterally ? 7: Normal facial strength and symmetry ? 8: Hearing symmetric bilaterally ? 9,10: Normal palatal movement and quality of speech ? 11: SCM and trap with 5/5 strength ? 12: Normal tongue protrusion and strength Motor:Muscle bulk and tone are normal. 5/5 strength to bilateral upper and lower extremities. Sensory:? Sensation was intact and symmetric to light touch.? Coordination:? Unable to follow commands enough to do finger to nose. [id number] bilaterally - normal. Gait:? Normal base, stride, stance and arm swing. Normal heel, toe, and tandem walking.? Patient discussed with Dr. 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 Recommends MRI/MRA brain and brainstem, which cannot be done at this facility until tomorrow. Dr. Snyder has cleared the patient to be transferred to [facility] for intervention by Cardiology for his chest pain. Dr. Fountain has accepted the patient for transfer to [facility] for possible cardiac catheterization.
--- NOTE | 2021-08-26 18:39 | PC.NURSE ---
Patient's debit card was given to his cousin, Nivia to take home.
--- NOTE | 2021-08-26 20:08 | PC.NURSE ---
At 1550 this nurse was alerted to patient's room from family. Patient had acute shortness of breath, and become briefly unresponsive, with eyes fixed. At this time a rapid response was called. Vital signs noted to be 109/76, pulse 66, 96% on room air, respirations 18, blood glucose 81. Episode lasted less than 15 seconds, and patient became alert and responsive. Just prior to this, the patient had complained to family that he had a sharp pain to the base of occipital lobe. Patient was initially oriented x3, but upon assessment post rapid response patient could not recall how he arrived to the hospital, was confused to his location, but oriented to self/president. Physical assessment revealed bilateral pinpoint pupils, sluggish, and unequal strength to bilateral extremities. Weakness noted to left hand and left foot. Dr. Keys notified, and stat ct brain obtained. Results of CT to be noted in reports, and Dr. Keys communicated to patient and family. Patient continues to be disoriented to location, and sequence of events, but remains oriented to person/year/president. Patient drowsy, and asking what happened. Patient tearful. Family remains at bedside. Will continue to monitor closely for increasing confusion and somnolence.
[2021-08-26] MEDS: LACTATED RINGERS 1,000 ML 100 ML IV CONT (20:43)
--- NOTE | 2021-08-26 20:56 | P.PNCROSS_ITS ---
Event Note Event Note Event Note: Update - Hospitalist at [facility] was uncomfortable with the stroke so declined admission after the Repairer General accepted. [facility] Dr. Cornelius, Neurologist, has accepted the patient for transfer once a bed is available.
[2021-08-27] VITALS (15 sets, daily range): BP systolic 111–151; BP diastolic 63–93; PULSE 63–100; RESP 18–20; TEMP 36.6–37.1; O2SAT 96–98
--- NOTE | 2021-08-27 | ECHO_ITS ---
Patient Info Name: Omar Mayer Age: 61 years : 1960 Gender: Male Ht: 72 in Wt: 167 lbs BSA: 1.96 m2 HR: 78 bpm BP: 111 / 63 mmHg Heart Rhythm: Sinus Rhythm Exam Date: 08/27/2021 2:20 PM Exam Location: [facility] Pulmonary Patient Status: Inpatient Admit Date: 08/27/2021 Staff Ordering Physician: Caity Keys MD Debate Director: Suraj Ochoa RDCS, RT Attending Provider: Cristy Jones MD Referring Physician: Ludmila GONZALEZ; Exam Type: CA echo doppler color flow Study Info Indications R07.9 - Chest pain, unspecified Complete two-dimensional, color flow and Doppler transthoracic echocardiogram is performed. Strain analysis performed. Summary 1. Complete two-dimensional, color flow and Doppler transthoracic echocardiogram is performed. 2. Left ventricular chamber dimension is normal. 3. Left ventricular systolic function is normal, estimated at 60-65%. 4. In the parasternal long-axis view the posterior wall appears to be mildly hypodynamic. 5. There is mild aortic valve sclerosis. Left Ventricle Left ventricular chamber dimension is normal. Left ventricular systolic function is normal, estimated at 60-65%. The left ventricular diastolic function is grade I diastolic dysfunction. In the parasternal long-axis view the posterior wall appears to be mildly hypodynamic. Right Ventricle Right ventricular chamber dimension is normal. Left Atria Left atrial chamber dimension is normal. Right Atria Right atrial chamber dimension is normal. Aortic Valve The aortic valve is trileaflet. There is mild aortic valve sclerosis. Pulmonic Valve The pulmonic valve is normal. Mitral Valve The mitral valve has normal leaflets. The mitral valve annulus is mildly calcified. Tricuspid Valve The tricuspid valve leaflets are normal. Pericardium/Pleural The pericardium appears normal. Aorta The aortic root size at the sinus of Valsalva is normal. Left Ventricular Outflow Tract Name Value Normal LVOT 2D LVOT Diameter 2.2 cm LVOT Doppler LVOT Peak Velocity 82 cm/s LVOT Peak Gradient 3 mmHg LVOT Mean Gradient 1 mmHg LVOT VTI 15 cm LVOT VTI/AV VTI Ratio 0.8 LVOT Stroke Volume 59 ml LVOT CO 4.7 l/min LVOT CI 2.4 l/min/m2 Mitral Valve Name Value Normal MV Doppler MV Decel [place] 236 cm/s2 MV PHT 70 ms MV Area (PHT) 3.1 cm2 4.0-5.0 MV Diastolic Function MV E Peak Velocity 57 cm/s MV A Peak Velocity
--- NOTE | 2021-08-27 09:15 | PM.IMPN ---
Progress Note: A&P Assessment and Plan (1) Confusion: Code(s): R41.0 - Disorientation, unspecified Status: Acute Assessment and Plan: Patient had acute onset confusion. Neuro exam at that time showed patient was confused and had pinpoint pupils bilaterally. His strength and sensation exam was normal. It appeared he had difficulty following commands. CT the brain showed no acute findings but CTA of the head and neck showed left vertebral artery occlusion. He is currently on Plavix, aspirin and Lipitor. Neurology has been consulted. Appreciate their input. MRI of the brain has been ordered with without contrast. Will follow up on this result. Will needs PT and OT when able. (2) Chest pain: Code(s): R07.9 - Chest pain, unspecified Status: Acute Assessment and Plan: Patient presents with complaints of exertional chest pain. EKG showed nonspecific T-wave changes with left axis deviation but no change prior EKG. Troponin negative x4. Cardiology has been consulted. Echocardiogram ordered. Will add a bubble study to this given the above findings. Attempting to transfer patient for further evaluation and treatment. Continue medical management with aspirin, Plavix, Toprol, Imdur and Lipitor. (3) CAD (coronary artery disease): Code(s): I25.10 - Atherosclerotic heart disease of [place] coronary artery without angina pectoris Status: Acute Assessment and Plan: As above. Continue medical management. (4) Dyslipidemia: Code(s): E78.5 - Hyperlipidemia, unspecified Status: Acute Assessment and Plan: LFTs normal. Continue Lipitor. (5) Impingement syndrome, shoulder, left: Code(s): M75.42 - Impingement syndrome of left shoulder Status: Acute Assessment and Plan: Patient and family are clear that the left programming manager weakness is new and unrelated to shoulder issue. PT and OT once his cardiac issue has been evaluated. (6) Hypertension: Code(s): I10 - Essential (primary) hypertension Status: Acute Assessment and Plan: Blood pressure noted. Continue current medications. Continue to her clonidine. Plan DVT prophylaxis: Lovenox Code status: Full Subjective Date/time seen: 08/27/21 09:15 Interval history: 61yo male with hx of CAD with [place] s/p PCI 3 weeks ago, HTN, former smoker - quit 3.5 months ago and COPD who presents to the ED for chest pain.? Assuming care. Chart reviewed. Events from yesterday are noted. CT the brain showing no acute findings. CTA of the head and neck shows left vertebral artery occlusion. Patient states he is very poor memory of what happened yesterday. He denies any chest pain or shortness of breath. No nausea or vomiting. No headache. He does complain of some stiffness in the back of his neck on the right side mostly for the past 1-2 weeks that he takes Aleve for with improvement. Exam Narrative: AF 98.0 146/93 80 18 98% ra Gen - NARD lying semi recumbent in bed Chest - CTA bilaterally, nml RR CV - RRR S1/S2. Telemetry showing no significant dysrhythmias. Abd - Soft, NT/ND, Positive BS Ext - No pedal edema Neuro - Alert and oriented x4. No focal weakness except for left programming manager 4/5 Psych - Nml mood and affect. Appropriately tearful at times Skin - Warm and dry Objective Data Vital Signs Vital Signs: Vital Signs - 24 hr 08/26/21 09:50 08/26/21 11:09 08/26/21 10:00 Temperature 99.2 F Pulse Rate 79 66 77 Respiratory Rate 16 Blood Pressure 104/64 Pulse Oximetry 93 Oxygen Delivery 08/26/21 12:00 08/26/21 12:00 08/26/21 12:00 Temperature 97.2 F L Pulse Rate 69 75 62 Respiratory Rate 12 Blood Pressure 124/76 Pulse Oximetry 96 Oxygen Delivery Room Air 08/26/21 14:00 08/26/21 15:57 08/26/21 16:00 Temperature Pulse Rate 93 64 66 Respiratory Rate 18 Blood Pressure 109/76 Pulse Oximetry 99 Oxygen Delivery 0
--- NOTE | 2021-08-27 09:28 | PC.NURSE ---
Spoke with Dr. Dalton regarding am medications, and was advised to proceed with blood pressure rate/control medications. Blood pressure this am 146/93. Patient will have MRI, PT/OT to be ordered, pending transfer to [facility] for neurology.
[2021-08-27] MEDS: ALPRAZolam (*CRX) 0.5 MG TABLET PO ×2 (10:02→17:05)
--- NOTE | 2021-08-27 10:12 | PC.NURSE ---
Patient left floor with transport staff for MRI
--- NOTE | 2021-08-27 10:49 | PM.PNCARD ---
Progress Note: A&P Assessment and Plan (1) Chest pain: Code(s): R07.9 - Chest pain, unspecified Status: Acute (2) CAD (coronary artery disease): Code(s): I25.10 - Atherosclerotic heart disease of [place] coronary artery without angina pectoris Status: Acute Assessment and Plan: History of CAD with recent PCI at [facility]. Presents with recurrent chest pain. No evidence of ACS by serial troponins and EKG with no evidence of acute ischemia. Transfer to [facility] has been recommended so he can be evaluated by [facility] who ordinarily provide his cardiac care. No indication for cardiac cath at this time. Continue ASA, statin. Subjective Date/time seen: 08/27/21 10:49 Cardiology follow up for CAD, chest pain Currently not complaining of any chest pain. He said he had an episode yesterday but does not remember exactly what happened. He has a visitor in the room who states the patient became unresponsive and had pinpoint pupils but could not remember any of this happening. Neurology has been consulted. Patient is under the impression he is being transferred to [facility]. Review of Systems Constitutional: Constitutional: Reports no additional constitutional complaints Eyes: Eyes: Reports no additional eye complaints ENT: Reports system reviewed and no additional complaints, except as documented Cardiovascular: Cardiovascular: Reports as per HPI Respiratory: Respiratory: Reports no additional respiratory complaints Gastrointestinal: Gastrointestinal: Reports no additional gastrointestinal complaints Integumentary/Breasts: Skin/Breast: Reports system reviewed and no additional complaints, except as docu Neurologic: Reports system reviewed and no additional complaints, except as documented Endocrine: Endocrine: Reports no additional endocrine complaints Hematologic/Lymphatic: Hematologic/Lymphatic: Reports no additional hematologic/lymphatic complaints Allergic/Immunologic: Allergic/Immunologic: Reports no additional allergic/immunologic complaints Exam Const: General: comfortable and no acute distress Other: Pleasant white male appears older than his stated age sitting comfortably in the chair. HENMT: Mouth: Yes moist mucous membranes Eyes: Sclera: sclerae normal Pupils: Equal, round and reactive pupils present Neck: Neck: supple and no JVD Carotids: normal carotid upstroke and no bruits Resp: Effort & Inspection: normal respiratory effort Auscultation: rhonchi Cardio: Rate: regular rate Rhythm: regular rhythm Other: PMI nondisplaced no murmur no gallop GI: Auscultation: normal bowel sounds Skin: General skin exam: normal color Neuro: Cranial nerves: Yes Equal, round and reactive pupils present Extrem: General: normal to inspection Objective Data Vital Signs Vital Signs: Vital Signs - 24 hr 08/26/21 11:09 08/26/21 12:00 08/26/21 12:00 Temperature 37.3 C 36.2 C L Pulse Rate 66 69 75 Respiratory Rate 16 12 Blood Pressure 104/64 124/76 Pulse Oximetry 93 96 Oxygen Delivery Room Air 08/26/21 12:00 08/26/21 14:00 08/26/21 15:57 Temperature Pulse Rate 62 93 64 Respiratory Rate 18 Blood Pressure 109/76 Pulse Oximetry 99 Oxygen Delivery 08/26/21 16:00 08/26/21 17:55 08/26/21 16:00 Temperature 36.4 C Pulse Rate 66 61 66 Respiratory Rate 18 Blood Pressure 109/76 Pulse Oximetry 96 Oxygen Delivery 08/26/21 17:30 08/26/21 20:00 08/26/21 20:00 Temperature 36.6 C Pulse Rate 65 Respiratory Rate 20 Blood Pressure 107/62 Pulse Oximetry 94 Oxygen Delivery Room Air Room Air 08/26/21 20:00 08/26/21 22:00 08/27/21 00:00 Temperature Pulse Rate 58 L 64 Respiratory Rate Blood Pressure Pulse Oximetry Oxygen Delivery Room Air 08/26/21 23:59 08/27/21 00:00 08/27/21 02:00 Temperature 36.6 C Pulse Rate 91 66 67 Respiratory Rate 18 Blood Pressure 110/66 Pulse Oximetry 97 Oxyg
--- NOTE | 2021-08-27 11:39 | WPDNEURCNPN ---
Assessment and Plan Assessment and plan (1) TIA (transient ischemic attack): Code(s): G45.9 - Transient cerebral ischemic attack, unspecified Status: Acute Assessment and Plan: patient needs to be taken care by the [facility] at [facility] for the ongoing complain of the chest pain as far as the neurological status concern is stable and the management will be continued as such Consult date: 08/27/21 Time Seen: 11:00 HPI: Omar Mayer is a 61 year old male admitted to [facility] through the emergency room for the complaints of chest pain and with the information that recently he was admitted to [facility] where he underwent cardiac catheterization twice in the last month but on the day of visit to the emergency room here is started having chest discomfort call the ambulance who gave him sublingual nitro on arrival in the emergency room he was still having chest discomfort in the mid sternal area not radiating and not making him diaphoretic or short of breath, patient has been taking amlodipine 2.5 mg daily, atorvastatin 20 mg daily, metoprolol 100 mg twice a day, pantoprazole 40 mg daily, aspirin 81 mg daily, clopidogrel 75 mg daily, and reportedly he is allergic to penicillin . He has ongoing history of COPD, hypertension and left shoulder impingement syndrome, he also has a history of 40 years smoking current everyday smoker though never alcohol intake, EKG was within sinus rhythm and vital signs were stable except the blood pressure of 1 62/103, routine lab was normal with troponin less than 0.012, concerning the possibility of coronary syndrome he receive nitro with cardiology consultation and as per review of their consult is known to have coronary disease for 18 years has underwent interventional revascularization in addition to recent admission to [facility] with interventional PCI placement of drug-eluting stent to the left anterior descending with return visit 2 weeks later for the complaints of chest pain and needing right coronary artery stenting along with the involvement of distal circumflex his troponin levels Jud and has no obvious distress, MRI today revealed no acute infarct but CTA documented left vertebral artery occlusion from the origin to the level of C1 received the call at night when we advised them to continue the medication as such with no neurological intervention Review of Systems Review of Systems: All systems reviewed & are unremarkable except as noted in HPI and below PMFSH Past Medical History Medical History (Updated 08/27/21 @ 11:48 by Herb Kay MD) COPD (chronic obstructive pulmonary disease) History of cardiac disorder Hypertension Impingement syndrome, shoulder, left Surgical History Surgical History History of arthroscopic surgery of shoulder History of cholecystectomy History of hand surgery History of lumbar fusion L5-S1 Hx of heart artery stent Family History Family History Father , Father committed suicide at age 53. Suicide Mother , Mother of stroke at age 74 Cerebrovascular accident Other Family history of arthritis Social History Social History Smoking packs per day: 1 Smoking cigarettes per day: 20.0 Years smoked: 33 Smoking pack-years: 33.00 Smoking status: Heavy tobacco smoker Tobacco type: cigarettes Additional smoking assessment comments: Has smoked part of one cigarette in the past 4 months. Alcohol intake: former Drinks per week: 0 Substance use: never Substance use type: marijuana Other substance usage details: Marijuana every 2-3 months. Quit drinking 22 years ago. Gender identity (if verbalized by the patient): Male Spiritual care concerns: No Meds Home Medications and Allergies Home Medicat
[2021-08-27] MEDS: METOPROLOL SUCCINATE EXT REL 100 MG TABCR PO (12:34)
[2021-08-27] MEDS: ISOSORBIDE MONONITRATE 60 MG TAB.ER.24H PO (12:34)
[2021-08-27] MEDS: busPIRone HCL 5 MG TABLET 15 MG PO ×2 (12:35→21:01)
[2021-08-27] MEDS: ASPIRIN 81 MG ENTERIC TABLET PO (12:35)
[2021-08-27] MEDS: CLOPIDOGREL BISULFATE 75 MG TABLET PO (12:35)
[2021-08-27] MEDS: PANTOPRAZOLE 40 MG TABLET PO (12:35)
[2021-08-27] MEDS: amLODIPine BESYLATE 5 MG TABLET PO (12:36)
[2021-08-27] MEDS: ENOXAPARIN 40 MG/0.4 ML SYRINGE SUB-Q (12:36)
--- NOTE | 2021-08-27 15:21 | PCCARD ---
Bubble study not available at time of echo. Pt advised we will be back upon request. Luis
--- NOTE | 2021-08-27 15:41 | PC.NURSE ---
This nurse answered the call light at 1132, patient complaining of pain to neck/base of skull, nausea, chest pressure 5/10, and stated I don't feel well. Vital signs obtained, blood pressure 158/88, pulse 82, 97%, resp 18. Patient reported feeling better as vital signs were being obtain, and rated his pain to be 3/10. No further complaints. Dr. Dalton notified, will continue to monitor closely.
[2021-08-27] MEDS: HYDROcodone/acetaminophen (*CRX) 10-325 MG TABLET 1 TAB PO ×2 (17:22→23:23)
[2021-08-27] MEDS: ATORVASTATIN 40 MG TABLET 80 MG PO (21:01)
[2021-08-28] VITALS (14 sets, daily range): BP systolic 120–135; BP diastolic 75–90; PULSE 56–80; RESP 16–20; TEMP 36.6–36.8; O2SAT 96–99
[2021-08-28] MEDS: HYDROcodone/acetaminophen (*CRX) 10-325 MG TABLET 1 TAB PO ×4 (05:06→21:49)
[2021-08-28] MEDS: ASPIRIN 81 MG ENTERIC TABLET PO (08:19)
[2021-08-28] MEDS: METOPROLOL SUCCINATE EXT REL 100 MG TABCR PO (08:19)
[2021-08-28] MEDS: ISOSORBIDE MONONITRATE 60 MG TAB.ER.24H PO (08:19)
[2021-08-28] MEDS: busPIRone HCL 5 MG TABLET 15 MG PO ×2 (08:20→20:19)
[2021-08-28] MEDS: PANTOPRAZOLE 40 MG TABLET PO (08:21)
[2021-08-28] MEDS: amLODIPine BESYLATE 5 MG TABLET PO (08:21)
[2021-08-28] MEDS: CLOPIDOGREL BISULFATE 75 MG TABLET PO (08:21)
[2021-08-28] MEDS: ENOXAPARIN 40 MG/0.4 ML SYRINGE SUB-Q (08:21)
--- NOTE | 2021-08-28 09:14 | PM.IMPN ---
Progress Note: A&P Assessment and Plan (1) Confusion: Code(s): R41.0 - Disorientation, unspecified Status: Acute Assessment and Plan: Patient had acute onset confusion. Neuro exam at that time showed patient was confused and had pinpoint pupils bilaterally. His strength and sensation exam was normal. It appeared he had difficulty following commands. CT the brain showed no acute findings but CTA of the head and neck showed left vertebral artery occlusion. He is currently on Plavix, aspirin and Lipitor. 08/28: Per neurology consult, MRI was nonacute. CTA did show a left vertebral artery occlusion. Neurology feels this is chronic and that there is no further intervention needed at this time. They recommended transfer to [facility] for Cardiology evaluation. All of patient's symptoms are resolved at this time. Would consider neurosurgical consultation when cardiac workup complete. (2) Chest pain: Code(s): R07.9 - Chest pain, unspecified Status: Acute Assessment and Plan: Patient presents with complaints of exertional chest pain. EKG showed nonspecific T-wave changes with left axis deviation but no change prior EKG. Troponin negative x4. Cardiology has been consulted. Echocardiogram ordered. Will add a bubble study to this given the above findings. Attempting to transfer patient for further evaluation and treatment. Continue medical management with aspirin, Plavix, Toprol, Imdur and Lipitor. 08/28: Cardiology is recommending transfer to [facility] 2nd be evaluated by his usual Cardiology team. No indication for cardiac catheterization at this time. Continue aspirin and statin. (3) CAD (coronary artery disease): Code(s): I25.10 - Atherosclerotic heart disease of [place] coronary artery without angina pectoris Status: Acute Assessment and Plan: As above. Continue medical management. (4) Dyslipidemia: Code(s): E78.5 - Hyperlipidemia, unspecified Status: Acute Assessment and Plan: LFTs normal. Continue Lipitor. (5) Impingement syndrome, shoulder, left: Code(s): M75.42 - Impingement syndrome of left shoulder Status: Acute Assessment and Plan: Back to baseline (6) Hypertension: Code(s): I10 - Essential (primary) hypertension Status: Acute Assessment and Plan: Blood pressure noted. Continue current medications. Continue to her clonidine. Plan DVT prophylaxis: Lovenox Code status: Full Accepted by Cardiology at [facility], awaiting bed, accepted by hospitalist Yvette Franco NP, August 28, 2021 3:50 p.m. Subjective Date/time seen: 08/28/21 09:14 Interval history: 61yo male with hx of CAD with [place] s/p PCI 3 weeks ago, HTN, former smoker - quit 3.5 months ago and COPD who presents to the ED for chest pain.? No overnight events noted. Some chest pain, no shortness of breath. No nausea, vomiting or diarrhea. No fevers or chills. Patient states he is very anxious about what is going on eager to be transferred. He is nervous about what is happening with his heart and whether he had a stroke or not. He genuinely states he feels like he is going to . He has not experienced any weakness or focal deficits. He states he is completely back to baseline functionally. Review of Systems Review of Systems: 12 point review of systems was assessed and was negative except as noted in the HPI Exam Narrative: General: No acute distress, alert and oriented per baseline HEENT: Atraumatic, normocephalic, mucous membranes moist CV: Regular rate and rhythm, S1, S2 no murmurs rubs or gallops noted Lungs: Clear to auscultation bilaterally, no rales or crackles noted, no wheezes, good air entry Abdomen: Soft, nontender, nondistended Extremities: Normal to inspection Skin: No rashes noted, no lesions or wounds seen Psych: Euthymic, normal affect Neuro: Cran
--- NOTE | 2021-08-28 09:54 | PM.PNCARD ---
Progress Note: A&P Assessment and Plan (1) Chest pain: Code(s): R07.9 - Chest pain, unspecified Status: Acute Assessment and Plan: Certainly could be cardiac related with known coronary disease and recent coronary intervention. Continue ASA, plavix, imdur. (2) CAD (coronary artery disease): Code(s): I25.10 - Atherosclerotic heart disease of [place] coronary artery without angina pectoris Status: Acute Assessment and Plan: History of CAD with recent PCI at [facility]. Presents with recurrent chest pain. No evidence of ACS by serial troponins and EKG with no evidence of acute ischemia. Transfer to [facility] has been recommended so he can be evaluated by [facility] who ordinarily provide his cardiac care. He was not accepted at [facility] because of changes in his neuro status that have now resolved. He has been accepted at [facility] but is still awaiting bed. Continue ASA, statin. Subjective Date/time seen: 08/28/21 09:54 Cardiology follow up for chest pain Feels about the same today, does have intermittent chest pain that feels like the strap on the stretcher is too tight on my chest. Reports this at rest. Does say that he has to take it slow when he ambulates in the hallway. Review of Systems Constitutional: Constitutional: Reports no additional constitutional complaints Eyes: Eyes: Reports no additional eye complaints ENT: Reports system reviewed and no additional complaints, except as documented Cardiovascular: Cardiovascular: Reports as per HPI Respiratory: Respiratory: Reports no additional respiratory complaints Gastrointestinal: Gastrointestinal: Reports no additional gastrointestinal complaints Integumentary/Breasts: Skin/Breast: Reports system reviewed and no additional complaints, except as docu Neurologic: Reports system reviewed and no additional complaints, except as documented Endocrine: Endocrine: Reports no additional endocrine complaints Hematologic/Lymphatic: Hematologic/Lymphatic: Reports no additional hematologic/lymphatic complaints Allergic/Immunologic: Allergic/Immunologic: Reports no additional allergic/immunologic complaints Exam Const: General: comfortable and no acute distress Other: Pleasant white male appears older than his stated age sitting comfortably in the chair. HENMT: Mouth: Yes moist mucous membranes Eyes: Sclera: sclerae normal Pupils: Equal, round and reactive pupils present Neck: Neck: supple and no JVD Carotids: normal carotid upstroke and no bruits Other: Normal carotid pulses no bruits are audible Resp: Effort & Inspection: normal respiratory effort Auscultation: rhonchi Other: Patient has tubular breath sounds with some central rhonchi Cardio: Rate: regular rate Rhythm: regular rhythm Other: PMI nondisplaced no murmur no gallop GI: Auscultation: normal bowel sounds Skin: General skin exam: normal color Neuro: Cranial nerves: Yes Equal, round and reactive pupils present Extrem: General: normal to inspection Objective Data Vital Signs Vital Signs: Vital Signs - 24 hr 08/27/21 10:00 08/27/21 11:52 08/27/21 12:06 Temperature Pulse Rate 82 Respiratory Rate Blood Pressure Pulse Oximetry Oxygen Delivery Room Air Room Air 08/27/21 12:00 08/27/21 12:00 08/27/21 12:00 Temperature 36.7 C Pulse Rate 79 89 74 Respiratory Rate 18 Blood Pressure 151/91 H Pulse Oximetry 96 Oxygen Delivery Room Air 08/27/21 12:34 08/27/21 14:00 08/27/21 16:00 Temperature 37.1 C Pulse Rate 90 84 96 Respiratory Rate 20 Blood Pressure 123/78 Pulse Oximetry 97 Oxygen Delivery 08/27/21 16:00 08/27/21 16:00 08/27/21 18:05 Temperature Pulse Rate 94 100 Respiratory Rate Blood Pressure Pulse Oximetry 97 Oxygen Delivery Room Air Room Air 08/27/21 18:00 08/27/21 20:00 08/27/21 20:00 Temperature 36.6 C Pulse Rate 94 98 95 Respiratory Rate 20 Blo
[2021-08-28] MEDS: ALPRAZolam (*CRX) 0.5 MG TABLET PO (12:42)
[2021-08-28] MEDS: LORazepam (*CRX) 1 MG TABLET PO ×2 (16:44→20:40)
[2021-08-28 17:43] LABS: EDCOVIDSCREEN Negative (Negative)
--- NOTE | 2021-08-28 18:51 | PC.NURSE ---
Home medications including Xanax sent home with ARTIE Holland
[2021-08-28] MEDS: ATORVASTATIN 40 MG TABLET 80 MG PO (20:19)
[2021-08-29] VITALS (14 sets, daily range): BP systolic 116–131; BP diastolic 71–92; PULSE 62–96; RESP 16–18; TEMP 36.2–36.7; O2SAT 96–99
[2021-08-29] MEDS: HYDROcodone/acetaminophen (*CRX) 10-325 MG TABLET 1 TAB PO ×4 (02:44→22:11)
[2021-08-29] MEDS: LORazepam (*CRX) 1 MG TABLET PO ×3 (03:18→20:30)
[2021-08-29] MEDS: PANTOPRAZOLE 40 MG TABLET PO (09:06)
[2021-08-29] MEDS: busPIRone HCL 5 MG TABLET 15 MG PO ×2 (09:07→20:30)
[2021-08-29] MEDS: amLODIPine BESYLATE 5 MG TABLET PO (09:07)
[2021-08-29] MEDS: CLOPIDOGREL BISULFATE 75 MG TABLET PO (09:08)
[2021-08-29] MEDS: ASPIRIN 81 MG ENTERIC TABLET PO (09:08)
[2021-08-29] MEDS: METOPROLOL SUCCINATE EXT REL 100 MG TABCR PO (09:08)
[2021-08-29] MEDS: ISOSORBIDE MONONITRATE 60 MG TAB.ER.24H PO (09:08)
[2021-08-29] MEDS: ENOXAPARIN 40 MG/0.4 ML SYRINGE SUB-Q (09:09)
--- NOTE | 2021-08-29 11:10 | PM.IMPN ---
Progress Note: A&P Assessment and Plan (1) Confusion: Code(s): R41.0 - Disorientation, unspecified Status: Acute Assessment and Plan: Patient had acute onset confusion. Neuro exam at that time showed patient was confused and had pinpoint pupils bilaterally. His strength and sensation exam was normal. It appeared he had difficulty following commands. CT the brain showed no acute findings but CTA of the head and neck showed left vertebral artery occlusion. 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 MR brain showing no acute CVA. He is currently on Plavix, aspirin and Lipitor. Awaiting transfer. (2) Chest pain: Code(s): R07.9 - Chest pain, unspecified Status: Acute Assessment and Plan: Patient presents with complaints of exertional chest pain. EKG showed nonspecific T-wave changes with left axis deviation but no change prior EKG. Troponin negative x4. Cardiology has been consulted. Echocardiogram showing EF 60-65% with posterior wall hypodynamic and grade I diastolic dysfunction. Attempting to transfer patient for further evaluation and treatment. Continue medical management with aspirin, Plavix, Toprol, Imdur and Lipitor. (3) CAD (coronary artery disease): Code(s): I25.10 - Atherosclerotic heart disease of [place] coronary artery without angina pectoris Status: Acute Assessment and Plan: As above. Continue medical management. (4) Dyslipidemia: Code(s): E78.5 - Hyperlipidemia, unspecified Status: Acute Assessment and Plan: LFTs normal. Continue Lipitor. 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 PT and OT once his cardiac issue has been evaluated. 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 (6) Hypertension: Code(s): I10 - Essential (primary) hypertension Status: Acute Assessment and Plan: Blood pressure noted. Continue current medications. Continue to hold clonidine. Plan DVT prophylaxis: Lovenox Code status: Full Accepted by Cardiology at [facility] but refused by the Hospitalist; Awaiting bed from [facility]. Subjective Date/time seen: 08/29/21 11:10 Interval history: 61yo male with hx of CAD with [place] s/p PCI 3 weeks ago, HTN, former smoker - quit 3.5 months ago and COPD who presents to the ED for chest pain.? Resuming care. Chart reviewed. Patient feels ?lousy?. He has been having intermittent chest pain usually worse when he is up ambulating with a walker. He better with rest. He describes as a tightness. Complains of back pain that is chronic but made worse by the bed Exam Narrative: AF 97.3 127/71 86 16 96% ra Gen - NARD sitting at the side of the bed Chest - CTA bilaterally, nml RR CV - RRR S1/S2. Telemetry showing 4 beat run of NSVT x1 Abd - Soft, NT/ND, Positive BS Ext - No pedal edema Neuro - Alert and oriented x4. 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 Skin - Warm and dry Objective Data Vital Signs Vital Signs: Vital Signs - 24 hr 08/28/21 12:00 08/28/21 12:05 08/28/21 16:00 Temperature 98.2 F 97.9 F Pulse Rate 67 70 69 Respiratory Rate 18 16 Blood Pressure 125/79 125/89 Pulse Oximetry 96 99 08/28/21 14:00 08/28/21 16:00 08/28/21 20:00 Temperature 98.0 F Pulse Rate 78 76 62 Respiratory Rate 20 Blood Pressure 120/75 Pulse Oximetry 97 08/28/21 23:24 08/28/21 20:00 08/28/21 22:00 Temperature 97.8 F Pulse Rate 68 61 56 L Respiratory Rate 20 Blood Pressure 123/83 Pulse Oximetry 98 08/29/21 00:00 08/29/21 02:00 08/29/21 04:00 Temperature Pulse Rate 62 64 63 Respiratory Rate Blood Pressure Pulse Oximetry 08/29/21 04:00 08/29/21 06:00 08/29/21 08:00 Temperature 97.6 F
--- NOTE | 2021-08-29 14:50 | PC.NURSE ---
Fransisco Mayer says to give him a call if the patient is getting upset or talking crazy like he want's to leave . He states that he listens to him for some reason and he should be able to talk him down. phone number [phone]
[2021-08-29] MEDS: ATORVASTATIN 40 MG TABLET 80 MG PO (20:30)
[2021-08-30] VITALS (10 sets, daily range): BP systolic 109–134; BP diastolic 71–93; PULSE 62–94; RESP 18; TEMP 36.2–36.7; O2SAT 95–99
[2021-08-30] MEDS: LORazepam (*CRX) 1 MG TABLET PO ×3 (04:55→13:33)
[2021-08-30] MEDS: HYDROcodone/acetaminophen (*CRX) 10-325 MG TABLET 1 TAB PO ×4 (04:55→17:54)
[2021-08-30 06:28] LABS: Hematocrit 48.6 % (42.0-52.0); Hemoglobin 16.1 g/dL (14.0-18.0); Mean Corpuscular HGB Conc 33.1 g/dl (32-36); Mean Corpuscular Hemoglobin 31.2 pg (26-34); Mean Corpuscular Volume 94.2 fl (80-100); Mean Platelet Volume 9.7 fl (7.4-10.4); Platelet Count Result 245 k/mm3 (150-375); Red Blood Count 5.16 M/mm3 (4.6-6.20); Red Cell Distribution Width 13.4 % (11.5-14.5); White Blood Count 9.6 K/mm3 (4.5-10.0)
[2021-08-30 06:42] LABS: Anion Gap 5 mmol/L (8-16); Blood Urea Nitrogen 17 mg/dL (9-20); Calcium 8.9 mg/dL (8.4-10.2); Carbon Dioxide 30 mmol/L (22-30); Chloride 102 mmol/L (98-107); Estimated CRCL calculation 52 ml/min; Estimated Glomerular Filt Rate 51; Glucose 102 mg/dL (65-110); Magnesium 2.1 mg/dL (1.6-2.3); Potassium 4.1 mmol/L (3.4-5.0); Sodium 137 mmol/L (137-145)
[2021-08-30] MEDS: amLODIPine BESYLATE 5 MG TABLET PO (09:01)
[2021-08-30] MEDS: ASPIRIN 81 MG ENTERIC TABLET PO (09:01)
[2021-08-30] MEDS: METOPROLOL SUCCINATE EXT REL 100 MG TABCR PO (09:01)
[2021-08-30] MEDS: CLOPIDOGREL BISULFATE 75 MG TABLET PO (09:01)
[2021-08-30] MEDS: PANTOPRAZOLE 40 MG TABLET PO (09:01)
[2021-08-30] MEDS: busPIRone HCL 5 MG TABLET 15 MG PO (09:01)
[2021-08-30] MEDS: ENOXAPARIN 40 MG/0.4 ML SYRINGE SUB-Q (09:02)
[2021-08-30] MEDS: ISOSORBIDE MONONITRATE 60 MG TAB.ER.24H PO (09:02)
--- NOTE | 2021-08-30 10:34 | PM.IMPN ---
Progress Note: A&P Assessment and Plan (1) Confusion: Code(s): R41.0 - Disorientation, unspecified Status: Acute Assessment and Plan: Patient had acute onset confusion. Neuro exam at that time showed patient was confused and had pinpoint pupils bilaterally. His strength and sensation exam was normal at that time. It appeared he had difficulty following commands. CT the brain showed no acute findings but CTA of the head and neck showed left vertebral artery occlusion. 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 MR brain showing no acute CVA. Symptoms have resolved. Suspect TIA. Continue Plavix, aspirin and Lipitor. (2) Chest pain: Code(s): R07.9 - Chest pain, unspecified Status: Acute Assessment and Plan: Patient presents with complaints of exertional chest pain. EKG showed nonspecific T-wave changes with left axis deviation but no change from prior EKG. Troponin negative x4. Cardiology was consulted and appreciate their input. Echo showing EF 60-65% with posterior wall hypodynamic and grade I diastolic dysfunction. Attempting to transfer patient for further evaluation and treatment but no beds available. Discussed with Cardiology. Continue medical management with aspirin, Plavix, Toprol, Imdur and Lipitor. Consider Lexiscan stress test to exclude ongoing ischemia. Will defer to Cardiology about further management since unlikely patient will be able to be transferred any time soon. (3) EASTON (acute kidney injury): Code(s): N17.9 - Acute kidney failure, unspecified Status: Acute Assessment and Plan: Creatine up to 1.4 today. Cr normal on admission but not checked since that time. He did receive contrast on 08/26. Possibly contrast induced. Naproxen was stopped that he was taking at home. BP stable since admission without documented HoTN. He does drink excessive amounts of coughing so he may be dehydrated. Will check renal US. Check UA and urine electrolytes. Will give IV fluids x1 L. (4) CAD (coronary artery disease): Code(s): I25.10 - Atherosclerotic heart disease of [place] coronary artery without angina pectoris Status: Acute Assessment and Plan: As above. Continue medical management. (5) Dyslipidemia: Code(s): E78.5 - Hyperlipidemia, unspecified Status: Acute Assessment and Plan: LFTs normal. We continued his Lipitor. 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 PT and OT once his cardiac issue has been evaluated. (7) Hypertension: Code(s): I10 - Essential (primary) hypertension Status: Acute Assessment and Plan: Patient's blood pressure was reviewed on 08/30 Blood pressure remains well controlled. Will continue current medications. Continue to hold clonidine. (8) Tobacco abuse: Code(s): Z72.0 - Tobacco use Status: Acute Assessment and Plan: Patient was educated about the benefits of smoking cessation. He states he quit smoking 3 months ago. He was congratulated on this. Plan DVT prophylaxis: Lovenox Code status: Full Accepted by Cardiology at [facility] but refused by the Hospitalist; Awaiting bed from [facility]. Subjective Date/time seen: 08/30/21 10:34 Interval history: 61yo male with hx of CAD with [place] s/p PCI 3 weeks ago, HTN, former smoker - quit 3.5 months ago and COPD who presents to the ED for chest pain.? Complains of back pain this morning related to the bed. Still with exertional chest pain when h
[2021-08-30] MEDS: SODIUM CHLORIDE 0.9% IV 1,000 ML 100 ML IV CONT (11:32)
--- NOTE | 2021-08-30 13:04 | PM.PNCARD ---
Progress Note: A&P Assessment and Plan (1) Chest pain: Code(s): R07.9 - Chest pain, unspecified Status: Acute Plan 61-year-old man with coronary artery disease as detailed in previous notes. Despite the symptoms with which he presented there was no objective evidence of acute coronary syndrome. He is stable in my opinion for discharge to home. He should follow-up with his established stock preparer for further problems as they might arise. He does not need ongoing hospitalization here at [place] from my perspective. Ronnie Ziegler MD [facility] Subjective Date/time seen: Date of service: 08/30/21 13:04 Interval history: Follow-up visit in this 61-year-old man with: Coronary artery disease several previous interventional procedures with recent stenting to his LAD, circumflex and right coronary artery provided by stock preparer elsewhere. He entered the hospital several days ago with chest pain and despite these ongoing symptoms there was no objective evidence of acute coronary syndrome. Echocardiogram also showed no ischemic wall motion abnormalities. Today he is feeling better does not have any significant cardiac complaints at all. Exam Const: General: comfortable and no acute distress Other: Pleasant gentleman appearing a bit older than his stated age otherwise no distress HENMT: Mouth: Yes moist mucous membranes Eyes: Sclera: sclerae normal Pupils: Equal, round and reactive pupils present Neck: Neck: supple and no JVD Resp: Effort & Inspection: normal respiratory effort Auscultation: clear to auscultation bilaterally Cardio: Rate: regular rate Rhythm: regular rhythm Other: No murmur no gallop GI: GI Palp: Yes Soft to palpation Auscultation: normal bowel sounds Skin: General skin exam: normal color Neuro: Other: Normal cognition Extrem: Other: No edema good distal perfusion Objective Data Vital Signs Vital Signs: Vital Signs - 24 hr 08/29/21 14:00 08/29/21 16:00 08/29/21 16:00 Temperature 36.2 C L Pulse Rate 76 78 96 Respiratory Rate 18 Blood Pressure 116/80 Pulse Oximetry 98 Oxygen Delivery 08/29/21 18:00 08/29/21 20:00 08/29/21 20:00 Temperature 36.6 C Pulse Rate 86 70 Respiratory Rate 18 Blood Pressure 117/77 Pulse Oximetry 99 Oxygen Delivery Room Air 08/29/21 23:15 08/29/21 20:00 08/29/21 22:00 Temperature 36.7 C Pulse Rate 77 96 83 Respiratory Rate 18 Blood Pressure 129/73 Pulse Oximetry 97 Oxygen Delivery 08/30/21 00:00 08/30/21 00:00 08/30/21 02:00 Temperature Pulse Rate 77 82 Respiratory Rate Blood Pressure Pulse Oximetry Oxygen Delivery Room Air 08/30/21 04:00 08/30/21 04:00 08/30/21 04:00 Temperature 36.7 C Pulse Rate 93 71 Respiratory Rate 18 Blood Pressure 109/71 Pulse Oximetry 99 Oxygen Delivery Room Air 08/30/21 06:00 08/30/21 08:00 08/30/21 08:00 Temperature 36.3 C L Pulse Rate 94 78 Respiratory Rate 18 Blood Pressure 127/83 Pulse Oximetry 96 Oxygen Delivery Room Air 08/30/21 08:00 08/30/21 10:00 08/30/21 12:00 Temperature 36.2 C L Pulse Rate 79 67 82 Respiratory Rate 18 Blood Pressure 118/93 H Pulse Oximetry 95 Oxygen Delivery Intake/Output Intake/Output: Intake & Output 08/27/21 08/28/21 08/29/21 08/30/21 23:59 23:59 23:59 23:59 Intake Total 2150 680 1620 250 Output Total 1676 1000 Balance 474 680 620 250 Meds/Results Medications: Active Medications Generic Name Dose Route Start Last Admin Trade Name Freq PRN Reason Stop Dose Admin Acetaminophen 650 mg 08/30/21 11:01 Acetaminophen 325 Mg Tablet PO Q6H PRN Pain Rated 5 or Less Hydrocodone Bitart/Acetaminophen 1 tab 08/30/21 11:04 Hydrocodone/Acetaminophen (*Crx) 10-325 Mg Tablet PO Q4HR PRN Pain Rated 6 or Greater Amlodipine Besylate 5 mg 08/26/21 09:00 08/30/21 09:01 Amlodipine Besylate 5 Mg Tablet PO 5
--- NOTE | 2021-08-30 15:12 | PM.DS ---
DS: Admitting Diagnosis Discharge Date 08/30/21 Admitting Diagnosis Chest pain DS: Discharge Diagnosis Discharge Diagnosis (1) Confusion: Code(s): R41.0 - Disorientation, unspecified Status: Acute Assessment and Plan: Patient had acute onset confusion while hospitalized. Neuro exam at that time showed patient was confused and had pinpoint pupils bilaterally. His strength and sensation exam was normal at that time. It appeared he had difficulty following commands. CT the brain showed no acute findings but CTA of the head and neck showed left vertebral artery occlusion. Follow up exam showing left skid man weakness but he states this is chronic related to left shoulder. MR brain showing no acute CVA. Symptoms have resolved. Suspect TIA. We continued Plavix, aspirin and Lipitor. (2) Chest pain: Code(s): R07.9 - Chest pain, unspecified Status: Acute Assessment and Plan: Patient presents with complaints of exertional chest pain. EKG showed nonspecific T-wave changes with left axis deviation but no change from prior EKG. Troponin negative x4. Cardiology was consulted and appreciate their input. Echo showing EF 60-65% with posterior wall hypodynamic and grade I diastolic dysfunction. Attempting to transfer patient for further evaluation and treatment but no beds available. Discussed with Cardiology here. Recent [facility] results were reviewed. It was felt the patient could be discharged home with close follow up with his established experimental physicist. We continued medical management with aspirin, Plavix, Toprol, Imdur and Lipitor. (3) [place] (acute kidney injury): Code(s): N17.9 - Acute kidney failure, unspecified Status: Acute Assessment and Plan: Creatine up to 1.4 today. Cr normal on admission but not checked since that time. He did receive contrast on 08/26. Possibly contrast induced. Naproxen was stopped that he was taking at home. BP stable since admission without documented HoTN. Encouraged patient to drink plenty of free fluids and decrease coffee intake. Repeat renal function in 1 week. (4) CAD (coronary artery disease): Code(s): I25.10 - Atherosclerotic heart disease of [place] coronary artery without angina pectoris Status: Acute Assessment and Plan: As above. We continued medical management. (5) Dyslipidemia: Code(s): E78.5 - Hyperlipidemia, unspecified Status: Acute Assessment and Plan: LFTs were normal. We continued his Lipitor. 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 Chronic and stable. (7) Hypertension: Code(s): I10 - Essential (primary) hypertension Status: Acute Assessment and Plan: Patient's blood pressure remained well controlled. We continued home medications except clonidine. (8) Tobacco abuse: Code(s): Z72.0 - Tobacco use Status: Acute Assessment and Plan: Patient was educated about the benefits of smoking cessation. He states he quit smoking 3 months ago. He was congratulated on this. DS: Summary Hospital Course Reason for hospitalization: 61yo male with hx of CAD with [place] s/p PCI 3 weeks ago, HTN, former smoker - quit 3.5 months ago and COPD who presents to the ED for chest pain.? Please see H&P for details Hospital Course: Please see above for details of hospital course Status at Discharge Cognitive/behavioral status at discharge: stable Time Spent with Patient Time attestation: Total time spent providing and/or coordinating discharge services: 34 minutes Time spent: Greater than 30 minutes E
[2021-08-30 17:42] LABS: Creatinine Urine 22.1 mg/dL
[2021-08-30 17:43] LABS: Sodium Urine Random 31 meq/L
[2021-08-30 17:49] LABS: Appearance Urine Clear (Clear); Bilirubin Urine Negative (Negative); Blood Urine Negative (Negative); Color Urine Yellow (Yellow); Glucose Urine UA Negative (Negative); Ketones Urine Negative (Negative); Leukocyte Esterase Ur Negative LEU/UL (Negative); Nitrate Urine Negative (Negative); Protein Urine Negative (Negative); Specific Grav Ur 1.015 (1.001-1.035); Urobilinogen Urine 0.2 mg/dL (<2.0)
[2021-08-30 17:58] LABS: Add Urine Microscopic? NO
[2021-08-30 18:57] LABS: Eosinophil Urine None Seen % (None Seen)
--- NOTE | 2021-09-06 07:53 | PC.NURSE ---
Urine and Urine Na at 31 are WNL. Renal U/S shows no sign of abnormality. No obstructive uropathy. Results faxed to Malathi Caruso. Dr. Dalton aware of results.
== END 2021-08-30 17:55 | disposition home or self-care (01) | DRG 313 ==
LOC: ANHED 03:02 → ANHIMU 04:32
PROVIDERS: Family Medicine; Student in an Organized Health Care Education/Training Program; Admitting Provider Internal Medicine; Emergency Provider Emergency Medicine; PCP Physician Assistant; Visit Provider Internal Medicine
DX: R07.9 Chest pain, unspecified (principal); G45.9 Transient cerebral ischemic attack, unspecified; N17.9 Acute kidney failure, unspecified; T50.8X5A Adverse effect of diagnostic agents, initial encounter; N14.1 Nephropathy induced by other drugs, medicaments and biological substances; Z95.5 Presence of coronary angioplasty implant and graft; Z20.822 Contact with and (suspected) exposure to COVID-19; E78.5 Hyperlipidemia, unspecified; I25.10 Atherosclerotic heart disease of native coronary artery without angina pectoris; I25.2 Old myocardial infarction; I10 Essential (primary) hypertension; J44.9 Chronic obstructive pulmonary disease, unspecified; G89.29 Other chronic pain; M75.42 Impingement syndrome of left shoulder; M54.9 Dorsalgia, unspecified; R10.9 Unspecified abdominal pain; Z90.49 Acquired absence of other specified parts of digestive tract; Z98.1 Arthrodesis status; Z79.82 Long term (current) use of aspirin; Z79.02 Long term (current) use of antithrombotics/antiplatelets; Z88.0 Allergy status to penicillin; Z87.891 Personal history of nicotine dependence
CPT/HCPCS: 36415; 70450; 70496; 70498; 70553; 71045; 76775; 80048; 80053; 81003; 82570; 82948; 83690; 83735; 84300; 84484; 85025; 85027; 85610; 85730; 85999; 87426; 93005; 93306; 96361; 96372; 96374; 96375; 97161; 97165; 99285; A9270; A9577; C9803; G0378; J0131; J1170; J1650; J2270; J7030; J7120; Q9967

== ENCOUNTER 2022-09-28 11:45 | Emergency (ER) | payer MEDICARE, SELFPAY ==
[2022-09-28 11:45] VITALS: BP 135/86; PULSE 87; RESP 18; TEMP 36.3; O2SAT 97
[2022-09-28 12:01] VITALS: BP 135/86; PULSE 87; RESP 18; TEMP 36.3; O2SAT 97
--- NOTE | 2022-09-28 12:36 | ED.DENTAL ---
HPI - Dental/Oral General Chief complaint: Dental/Oral Stated complaint: dental abscess Time Seen by Provider: 09/28/22 11:54 Source: patient Mode of arrival: ambulatory Limitations: no limitations History of Present Illness HPI Narrative: Patient is a 62-year-old gentleman with known dental issues and upcoming appointment not for 1 month. Patient could not get antibiotics for his dental problems and he was worried about his associated cardiac conditions. Patient also has recent tPA use for CVA. Patient has complaints of lower midline dental pain over the past few days. MD Complaint: tooth pain Onset (ago): day(s) (3) Duration: constant Severity: moderate Severity scale (1-10): 5 Relieving factors: nothing Exacerbating factors: nothing Context: history of dental caries and poor dental care Associated symptoms: gum swelling Treatment prior to arrival: none Related Data Home Medications Medication Instructions Recorded Confirmed amlodipine 2.5 mg tablet (Norvasc) 5 mg PO DAILY 01/09/19 09/28/22 pantoprazole 40 mg tablet,delayed 40 mg PO DAILY 01/09/19 09/28/22 release (Protonix) aspirin 81 mg tablet,delayed 81 mg PO DAILY 03/27/20 09/28/22 release clopidogrel 75 mg tablet (Plavix) 75 mg PO DAILY 10/15/20 09/28/22 alprazolam 0.5 mg tablet 1 tablet PO TID PRN Anxiety 08/26/21 09/28/22 atorvastatin 80 mg tablet 1 tablet PO DAILY 08/26/21 09/28/22 buspirone 15 mg tablet 1 tablet PO BID 08/26/21 09/28/22 clonidine HCl 0.1 mg tablet 1 tablet PO BID 08/26/21 09/28/22 hydrocodone 10 mg-acetaminophen 1 tablet PO Q6H PRN Pain 08/26/21 09/28/22 325 mg tablet isosorbide mononitrate 60 mg 1 tablet PO DAILY 08/26/21 09/28/22 tablet,extended release 24 hr metoprolol succinate 100 mg 1 tablet PO DAILY 08/26/21 09/28/22 tablet,extended release 24 hr Allergies Allergy/AdvReac Type Severity Reaction Status Date / Time Penicillins Allergy Unknown Unknown Verified 09/28/22 11:59 Review of Systems Review of Systems: All systems reviewed & are unremarkable except as noted in HPI and below Constitutional: Constitutional: Reports no additional constitutional complaints Eyes: Eyes: Reports no additional eye complaints ENT: Reports system reviewed and no additional complaints, except as documented Cardiovascular: Cardiovascular: Reports no additional cardiovascular complaints Respiratory: Respiratory: Reports no additional respiratory complaints Gastrointestinal: Gastrointestinal: Reports no additional gastrointestinal complaints Genitourinary: Genitourinary: Reports no additional male genitourinary complaints Musculoskeletal: Musculoskeletal: Reports no additional musculoskeletal complaints Integumentary/Breasts: Skin/Breast: Reports system reviewed and no additional complaints, except as docu Neurologic: Reports system reviewed and no additional complaints, except as documented Psychiatric: Psychiatric: Reports no additional psychiatric complaints Endocrine: Endocrine: Reports no additional endocrine complaints Hematologic/Lymphatic: Hematologic/Lymphatic: Reports no additional hematologic/lymphatic complaints Allergic/Immunologic: Allergic/Immunologic: Reports no additional allergic/immunologic complaints PMFSH Past Medical History Medical History COPD (chronic obstructive pulmonary disease) History of cardiac disorder Hypertension Impingement syndrome, shoulder, left Surgical History Surgical History History of arthroscopic surgery of shoulder History of cholecystectomy History of hand surgery History of lumbar fusion L5-S1 Hx of heart artery stent Family History Family History Father , Father committed suicide at age 53. Suicide Mother , Mother of stroke at age 74 Cerebrovascular accident Other Family h
[2022-09-28 12:53] VITALS: BP 131/70; PULSE 74; RESP 14; TEMP 36.7; O2SAT 97
== END 2022-09-28 12:56 | disposition home or self-care (01) ==
PROVIDERS: Emergency Provider Emergency Medicine; PCP Physician Assistant
DX: K02.9 Dental caries, unspecified (principal); R68.84 Jaw pain; J44.9 Chronic obstructive pulmonary disease, unspecified; I10 Essential (primary) hypertension; F17.210 Nicotine dependence, cigarettes, uncomplicated; Z79.82 Long term (current) use of aspirin; Z79.891 Long term (current) use of opiate analgesic; Z79.899 Other long term (current) drug therapy
CPT/HCPCS: 99283

== ENCOUNTER 2022-12-22 12:12 | Emergency (ER) | payer MEDICARE, SELFPAY ==
--- NOTE | ~2022-12-22 | CT_ITS ---
EXAMINATION: CT IAC/mastoids BI w con DATE: 12/22/2022 14:09 INDICATION: Painful right ear/mastoid and right neck. No relief with medications. TECHNIQUE: Computed tomography (CT) of the temporal bones was performed without intravenous contrast. Automated exposure control and iterative reconstruction technique were employed. The dose-length pro duct was 342.21 mGy-cm. COMPARISON: Concurrent CT soft tissue neck FINDINGS: RIGHT TEMPORAL BONE: Soft tissue density material partially opacifies the external auditory canal and middle ear space adj acent to the ossicles. Mild thickening of the tympanic membrane. Normal ossicles without otosclerosis . Small volume fluid in the mastoid air cells. No osseous erosion. No fracture. 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 The cochlea and semicircular canals are normal. The carotid canal and jugular bulb appear normal. LEFT TEMPORAL BONE: Trace fluid in the inferior mastoid air cells. No osseous erosion or fracture. Small amount of debris in the external auditory canal, likely cerumen. Normal ossicles without otosclerosis. The cochlea an d semicircular canals are normal. The carotid canal and jugular bulb appear normal. IMPRESSION: Soft tissue density material partially opacifies the external auditory canal and middle ear space on the right. Correlate for clinical findings of otitis externa/otitis media. Small bilateral mastoid effusions, without erosions to suggest overt otomastoiditis. Reviewed, dictated and finalized at location [facility]. IMPRESSION: Soft tissue density material partially opacifies the external auditory canal an d middle ear space on the right. Correlate for clinical findings of otitis exte rna/otitis media. Small bilateral mastoid effusions, without erosions to suggest overt otomastoid itis.
--- NOTE | ~2022-12-22 | CT_ITS ---
EXAMINATION: CT soft tissue neck w con DATE: 12/22/2022 14:10 INDICATION: Painful right ear and mastoid, right upper neck since 12/10/2022, no relief from medicati on. TECHNIQUE: Computed tomography (CT) of the neck was performed with 150 mL Omnipaque-350 intravenous c ontrast. Automated exposure control and iterative reconstruction technique were employed. The dose-le ngth product was 1168.03 mGy-cm. COMPARISON: Concurrent CT temporal bones; CTA brain carotid 08/26/2021 FINDINGS: Very early contrast phase with the bulk of enhancement in the pulmonary arteries, which persisted in repeated imaging attempt and limits arterial/soft tissue evaluation. The thyroid gland is unremarkab le. The submandibular and parotid glands are symmetric. There is no cervical lymphadenopathy. Th ere are no masses identified. The superior mediastinum is unremarkable. The airway is unremarkab le. Parapharyngeal and pre-glottic fat planes are preserved. Mild aortic arch calcification. Bila teral carotid bifurcation calcified plaque. The orbits are unremarkable. Visualized sinuses are cl ear. Trace bilateral mastoid fluid. Partial soft tissue opacification of the right external auditory canal and middle ear space. Emphysematous changes in the lungs. Biapical pleural scarring. There i s mild cervical spondylosis. Tooth erosions and periapical lucencies. IMPRESSION: Study limited by early contrast phase which limits evaluation for arterial enhancement and soft tissu e enhancement. Partial soft tissue opacification of the right external auditory canal and middle ear space. Trace bilateral mastoid fluid. Dental caries and peritonsillar disease. Reviewed, dictated and finalized at location [facility]. IMPRESSION: Study limited by early contrast phase which limits evaluation for arterial enha ncement and soft tissue enhancement. Partial soft tissue opacification of the right external auditory canal and midd le ear space. Trace bilateral mastoid fluid. Dental caries and peritonsillar disease.
[2022-12-22 12:12] VITALS: BP 148/97; PULSE 81; RESP 18; TEMP 36.4; O2SAT 98
--- NOTE | 2022-12-22 12:32 | ED.GENADULT ---
HPI - General Adult General Chief complaint: Ear Stated complaint: right ear pain Time Seen by Provider: 12/22/22 12:21 History of Present Illness HPI narrative: Omar is a 62M with a PMH of CAD, HTN, TIA, and HLD that presented to the ED with right ear pain. It started 2 weeks ago and has become progresively worse. He tried debrox and antibiotic ear drops from his primary as well as cefazolin but it is very worse and over the last couple days pain has moved into his right mastoid and superior lateral neck. No fevers, chills, N/V, CP, dyspnea or dizziness reported. Related Data Home Medications Medication Instructions Recorded Confirmed amlodipine 2.5 mg tablet (Norvasc) 5 mg PO DAILY 01/09/19 12/22/22 pantoprazole 40 mg tablet,delayed 40 mg PO DAILY 01/09/19 12/22/22 release (Protonix) aspirin 81 mg tablet,delayed 81 mg PO DAILY 03/27/20 12/22/22 release clopidogrel 75 mg tablet (Plavix) 75 mg PO DAILY 10/15/20 12/22/22 alprazolam 0.5 mg tablet 1 tablet PO TID PRN Anxiety 08/26/21 12/22/22 atorvastatin 80 mg tablet 1 tablet PO DAILY 08/26/21 12/22/22 buspirone 15 mg tablet 1 tablet PO BID 08/26/21 12/22/22 isosorbide mononitrate 60 mg 1 tablet PO DAILY 08/26/21 12/22/22 tablet,extended release 24 hr metoprolol succinate 100 mg 1 tablet PO DAILY 08/26/21 12/22/22 tablet,extended release 24 hr ezetimibe 10 mg tablet 10 mg PO DAILY 12/22/22 12/22/22 Allergies Allergy/AdvReac Type Severity Reaction Status Date / Time No Known Allergies Allergy Verified 12/22/22 15:12 Review of Systems Review of Systems: All systems reviewed & are unremarkable except as noted in HPI and below PMFSH Past Medical History Medical History COPD (chronic obstructive pulmonary disease) History of cardiac disorder Hypertension Impingement syndrome, shoulder, left Surgical History Surgical History History of arthroscopic surgery of shoulder History of cholecystectomy History of hand surgery History of lumbar fusion L5-S1 Hx of heart artery stent Family History Family History Father , Father committed suicide at age 53. Suicide Mother , Mother of stroke at age 74 Cerebrovascular accident Other Family history of arthritis Social History Social History Smoking packs per day: 1 Smoking cigarettes per day: 20.0 Years smoked: 33 Smoking pack-years: 33.00 Smoking status: Heavy tobacco smoker Tobacco type: cigarettes Additional smoking assessment comments: Has smoked part of one cigarette in the past 4 months. Alcohol intake: former Drinks per week: 0 Substance use: never Substance use type: marijuana Other substance usage details: Marijuana every 2-3 months. Quit drinking 22 years ago. Gender identity (if verbalized by the patient): Male Spiritual care concerns: No Exam Const: General: healthy appearing and no acute distress Nutritional Appearance: well nourished Orientation/consciousness: patient oriented x3 HENMT: Head: normal to inspection Ears: external ears normal Face/Nose/Sinus: Normal external nose present Face and sinus: normal facial exam Other: Right mastoid is very TTP. Ear canal is narrow and erythematous and TM appears erythematous but no drainage. Right anterior cervical lymphadenopathy Eyes: Conjunctivae: conjunctivae normal Pupils: Equal, round and reactive pupils present EOM: EOMs intact bilaterally Neck: Neck: normal visual inspection Chest: Chest palpation & inspection: normal inspection of the chest Resp: Effort & Inspection: normal respiratory effort Cardio: Rate: regular rate GI: Inspection: non-distended : General: Yes bladder normal to palpation Skin: General skin exam: normal color Rashes: n
[2022-12-22] MEDS: HYDROcodone/acetaminophen (*CRX) 5-325 MG TABLET 1 TAB PO (12:35)
[2022-12-22 12:54] LABS: Basophils Absolute Auto 0.08 K/mm3 (0.00-0.10); Basophils Percent Auto 0.7 % (0.0-1.0); Eosinophils Absolute Auto 0.59 K/mm3 (0.02-0.50); Eosinophils Percent Auto 5.5 % (1.0-6.0); Hematocrit 50.2 % (40.0-54.0); Hemoglobin 16.7 g/dL (14.0-18.0); Immature Granulocyte Absolute 0.04 K/mm3 (0.00-0.00); Immature Granulocyte Percent A 0.4 % (0.0-0.0); Lymphocytes Absolute Auto 2.78 K/mm3 (1.10-4.50); Mean Corpuscular HGB Conc 33.3 g/dL (32.0-36.0); Mean Corpuscular Hemoglobin 31.5 pg (27.0-31.0); Mean Corpuscular Volume 94.5 fL (78.0-102.0); Mean Platelet Volume 9.2 fl (8.7-11.0); Monocytes Absolute Auto 0.89 K/mm3 (0.10-0.90); Monocytes Percent Auto 8.3 % (2.0-11.0); Neutrophils Absolute Auto 6.3 K/mm3 (1.7-7.2); Neutrophils Percent Auto 59.1 % (50.0-70.0); Platelet Count Result 294 K/mm3 (150-420); Red Blood Count 5.31 M/mm3 (4.70-6.10); Red Cell Distribution Width 13.6 % (11.6-14.4); White Blood Count 10.7 K/mm3 (4.8-10.8)
[2022-12-22 13:07] LABS: Alanine Aminotransferase 18 U/L (16-63); Albumin Level 4.1 g/dL (3.4-5.0); Alkaline Phosphatase 67 U/L (46-116); Anion Gap 10 mmol/L (8-16); Aspartate Amino Transferase 20 U/L (15-37); Bilirubin,Total 0.9 mg/dL (0.00-1.00); Blood Urea Nitrogen 12 mg/dL (7-18); Calcium 9.8 mg/dL (8.5-10.1); Carbon Dioxide 31 mmol/L (21-32); Chloride 104 mmol/L (98-108); Estimated Glomerular Filt Rate > 60; Glucose 113 mg/dL (70-99); Osmolality Calculated 300 mOsm/kg (285-295); Potassium 3.9 mmol/L (3.5-5.1); Sodium 145 mmol/L (136-145); Total Protein 6.9 g/dL (6.4-8.2)
[2022-12-22 13:08] LABS: CRP < 0.5 mg/dL (0.0-0.9)
[2022-12-22 14:00] VITALS: BP 130/84; PULSE 79; RESP 16; TEMP 36.6; O2SAT 98
[2022-12-22 14:36] VITALS: BP 150/84; PULSE 64; RESP 16; O2SAT 99
[2022-12-22] MEDS: oxyCODONE HCL (*CRX) 5 MG TAB IR PO (15:13)
[2022-12-22] MEDS: AMOXICILLIN/CLAVULANATE K 875-125 MG TAB 1 TABLET PO (15:14)
[2022-12-22 15:16] VITALS: BP 123/65; PULSE 70; RESP 16; TEMP 36.7; O2SAT 98
== END 2022-12-22 15:18 | disposition home or self-care (01) ==
PROVIDERS: Emergency Provider Family Medicine; PCP Physician Assistant
DX: H66.91 Otitis media, unspecified, right ear (principal); H74.91 Unspecified disorder of right middle ear and mastoid; I25.10 Atherosclerotic heart disease of native coronary artery without angina pectoris; J44.9 Chronic obstructive pulmonary disease, unspecified; E78.5 Hyperlipidemia, unspecified; F17.210 Nicotine dependence, cigarettes, uncomplicated; Z86.73 Personal history of transient ischemic attack (TIA), and cerebral infarction without residual deficits; Z79.899 Other long term (current) drug therapy
CPT/HCPCS: 36415; 70481; 70491; 80053; 85025; 86140; 99284; A9270; Q9967

== ENCOUNTER 2023-01-27 11:00 | Emergency (ER) | payer MEDICARE, SELFPAY ==
[2023-01-27 11:00] VITALS: BP 172/92; PULSE 94; RESP 16; TEMP 36.3; O2SAT 99
--- NOTE | 2023-01-27 11:12 | ED.DENTAL ---
HPI - Dental/Oral General Chief complaint: Dental/Oral Stated complaint: dental pain Time Seen by Provider: 01/27/23 11:04 History of Present Illness HPI Narrative: This is a 62-year-old male, with history of diabetes coronary artery disease, presents to the emergency department complaining of front lower tooth pain has since 3:00 a.m. this morning. The patient states the pain is dull and intermittently sharp pain, rated 8/10 nonradiating. He denies associated difficulty breathing, difficulty swallowing swallowing or fevers. He has no other complaints at this time. Related Data Home Medications Medication Instructions Recorded Confirmed amlodipine 2.5 mg tablet (Norvasc) 5 mg PO DAILY 01/09/19 12/22/22 pantoprazole 40 mg tablet,delayed 40 mg PO DAILY 01/09/19 12/22/22 release (Protonix) aspirin 81 mg tablet,delayed 81 mg PO DAILY 03/27/20 12/22/22 release clopidogrel 75 mg tablet (Plavix) 75 mg PO DAILY 10/15/20 12/22/22 alprazolam 0.5 mg tablet 1 tablet PO TID PRN Anxiety 08/26/21 12/22/22 atorvastatin 80 mg tablet 1 tablet PO DAILY 08/26/21 12/22/22 buspirone 15 mg tablet 1 tablet PO BID 08/26/21 12/22/22 isosorbide mononitrate 60 mg 1 tablet PO DAILY 08/26/21 12/22/22 tablet,extended release 24 hr metoprolol succinate 100 mg 1 tablet PO DAILY 08/26/21 12/22/22 tablet,extended release 24 hr ezetimibe 10 mg tablet 10 mg PO DAILY 12/22/22 12/22/22 Allergies Allergy/AdvReac Type Severity Reaction Status Date / Time No Known Allergies Allergy Verified 01/27/23 11:06 Review of Systems Review of Systems: CONSTITUTIONAL: Denies fever, chills, or sweats. ENT: Anterior lower tooth pain Denies rhinorrhea, congestion, sore throat, or otalgia. CARDIOVASCULAR: Denies chest pain, palpitations, or edema. RESPIRATORY: Denies cough or dyspnea. GASTROINTESTINAL: Denies abdominal pain, nausea, vomiting, or diarrhea. NEUROLOGIC: Denies headache, numbness, dizziness, or weakness. PSYCHIATRIC: Denies anxiety or depression. [facility] Past Medical History Medical History COPD (chronic obstructive pulmonary disease) History of cardiac disorder Hypertension Impingement syndrome, shoulder, left Surgical History Surgical History History of arthroscopic surgery of shoulder History of cholecystectomy History of hand surgery History of lumbar fusion L5-S1 Hx of heart artery stent Family History Family History Father , Father committed suicide at age 53. Suicide Mother , Mother of stroke at age 74 Cerebrovascular accident Other Family history of arthritis Social History Social History Smoking packs per day: 1 Smoking cigarettes per day: 20.0 Years smoked: 33 Smoking pack-years: 33.00 Smoking status: Heavy tobacco smoker Tobacco type: cigarettes Additional smoking assessment comments: Has smoked part of one cigarette in the past 4 months. Alcohol intake: former Drinks per week: 0 Substance use: never Substance use type: marijuana Other substance usage details: Marijuana every 2-3 months. Quit drinking 22 years ago. Gender identity (if verbalized by the patient): Male Spiritual care concerns: No Exam Narrative: GENERAL: Well-appearing, well-nourished, appears uncomfortable HEAD: Normocephalic, atraumatic. EYES: PERRLA and EOMI. ENT: multiple dental caries with swelling and erythema noted underlying teeth numbers 26-23. Nares clear, no rhinorrhea or epistaxis. Mucous membranes moist. Oropharynx without tonsillar hypertrophy exudate or other lesions. NECK: Supple. Mild bilateral anterior cervical lymphadenopathy. No masses, no submental induration. CHEST: Clear to auscultation. No respiratory distress. No wheezes rales or rhonchi
[2023-01-27] MEDS: HYDROcodone/acetaminophen (*CRX) 5-325 MG TABLET 1 TAB PO (11:18)
== END 2023-01-27 11:23 | disposition home or self-care (01) ==
LOC: CHSED 11:18
PROVIDERS: Emergency Provider Preventive Medicine Aerospace Medicine; PCP Physician Assistant
DX: K02.9 Dental caries, unspecified (principal); K04.7 Periapical abscess without sinus; E11.9 Type 2 diabetes mellitus without complications; I25.10 Atherosclerotic heart disease of native coronary artery without angina pectoris; J44.9 Chronic obstructive pulmonary disease, unspecified; F17.210 Nicotine dependence, cigarettes, uncomplicated
CPT/HCPCS: 99283; A9270

== ENCOUNTER 2023-04-03 10:39 | Emergency (ER) | payer MEDICARE, SELFPAY ==
--- NOTE | ~2023-04-03 | CT_ITS ---
EXAMINATION: CT abdomen pelvis wo con DATE: 04/03/2023 11:20 INDICATION: Left flank pain. Lower abdominal and pelvic pain. TECHNIQUE: Computed tomography (CT) of the abdomen and pelvis was performed without intravenous contr ast. Automated exposure control and iterative reconstruction technique were employed. Exam dose: 336 .84 mGy-cm total exam DLP. COMPARISON: 03/29/2021 CT abdomen pelvis FINDINGS: Emphysematous changes of the lungs are again noted. Normal heart size. Trace pericardial fluid. Small sliding hiatal hernia. Status post cholecystectomy. The liver, spleen, pancreas, bile ducts and pancreatic duct are unremark able. Normal morphology of the adrenal glands. No urinary tract calculus or hydroureteronephrosis. No renal space occupying mass lesion is evident o n this limited noncontrast examination. There is atherosclerotic calcification of the abdominal aorta and at the origins of the celiac and langston perior mesenteric and renal arteries. No abdominal aortic aneurysm. No intraperitoneal or retroperitoneal or pelvic mass lesion or adenopathy or ascites. Moderate prostate enlargement, mild prostate calcification. There is moderate diffuse thickening and urinary bladder wall. No intraluminal mass lesion or focal bladder wall thickening is noted. Normal appendix. There are numerous diverticula of the left and right colon. There is mild pericolic fat stranding in the sigmoid colon area centered left of midline, suggesting mild uncomplicated sigmoid diverticulitis, without evidence of abscess. Old healed posterior right 10th rib fracture. Status post posterior surgical fusion at L5-S1. No suspicious osteolytic or osteoblastic lesions are noted. IMPRESSION: Mild uncomplicated sigmoid diverticulitis Diverticulosis of left hemicolon Normal appendix Small sliding hiatal hernia Status post cholecystectomy Prostatomegaly Emphysema Reviewed, dictated and finalized at [facility]. Reviewed, dictated and finalized at location [facility]. [employer]
[2023-04-03 10:40] VITALS: BP 123/81; PULSE 67; RESP 20; TEMP 36.2; O2SAT 99
--- NOTE | 2023-04-03 10:44 | ECG_ITS ---
Measurements Intervals [place] Rate: 64 P: 51 [place]: 153 QRS: -6 QRSD: 83 T: 22 QT: 387 QTc: 401 Interpretive Statements SINUS RHYTHM MINIMAL VOLTAGE CRITERIA FOR LVH, CONSIDER NORMAL VARIANT [MEETS CRITERIA IN ONE OF: R(aVL), S(V1), R(V5), R(V5/V6)+S(V1)] COMPARED TO ECG 08/26/2021 10:10:11 NO SIGNIFICANT CHANGES Electronically Signed On 04-03-2023 13:55:37 [employer] by Norris Hernandez M.D.
[2023-04-03 11:17] LABS: Basophils Absolute Auto 0.11 K/mm3 (0.00-0.10); Basophils Percent Auto 0.6 % (0.0-1.0); Eosinophils Absolute Auto 0.98 K/mm3 (0.02-0.50); Eosinophils Percent Auto 5.7 % (1.0-6.0); Hematocrit 49.6 % (37.0-46.0); Hemoglobin 16.9 g/dL (12.4-15.3); Immature Granulocyte Percent A 0.6 % (0.0-0.0); Lymphocytes Absolute Auto 3.36 K/mm3 (1.10-4.50); Lymphocytes Percent Auto 19.5 % (18.0-42.0); Mean Corpuscular HGB Conc 34.1 g/dL (32.0-36.0); Mean Corpuscular Hemoglobin 31.4 pg (27.0-31.0); Mean Platelet Volume 9.5 fl (8.7-11.0); Monocytes Percent Auto 9.9 % (2.0-11.0); Neutrophils Absolute Auto 10.9 K/mm3 (1.7-7.2); Neutrophils Percent Auto 63.7 % (50.0-70.0); Platelet Count Result 273 K/mm3 (150-420); Red Blood Count 5.39 M/mm3 (4.70-6.10); White Blood Count 17.2 K/mm3 (4.8-10.8)
[2023-04-03] MEDS: KETOROLAC 30 MG/ML VIAL (*BKC) IV PUSH (11:18)
[2023-04-03] MEDS: SODIUM CHLORIDE 0.9% IV 1,000 ML 999 ML IV CONT (11:19)
[2023-04-03 11:31] LABS: Partial Thromboplastin Time 30.8 SEC (23.90-30.70); Prothrombin Time 10.6 Seconds (9.50-12.10)
[2023-04-03 11:35] LABS: Alanine Aminotransferase 16 U/L (16-63); Albumin Level 3.8 g/dL (3.4-5.0); Alkaline Phosphatase 72 U/L (46-116); Anion Gap 9 mmol/L (8-16); Aspartate Amino Transferase 18 U/L (15-37); Bilirubin,Total 1.2 mg/dL (0.00-1.00); Blood Urea Nitrogen 16 mg/dL (7-18); Carbon Dioxide 28 mmol/L (21-32); Chloride 103 mmol/L (98-108); Estimated CRCL calculation 71 ml/min; Estimated Glomerular Filt Rate > 60; Glucose 87 mg/dL (70-99); Lipase 29 U/L (16-77); Osmolality Calculated 290 mOsm/kg (285-295); Potassium 4.1 mmol/L (3.5-5.1); Sodium 140 mmol/L (136-145); Total Protein 7.1 g/dL (6.4-8.2); Troponin I 5.8 ng/L (0.00-60.4)
[2023-04-03 11:35] LABS: Appearance Urine Clear (Clear); Bilirubin Urine Negative (Negative); Blood Urine 3+ (Negative); Color Urine Light Yellow (Yellow); Glucose Urine UA Negative (Negative); Ketones Urine Negative (Negative); Leukocyte Esterase Ur Negative LEU/UL (Negative); Nitrate Urine Negative (Negative); Protein Urine Negative (Negative); Specific Grav Ur <= 1.005 (1.010-1.020); Urobilinogen Urine 0.2 mg/dL (0.2-1.0); pH Urine 6.5 (5.0-8.0)
[2023-04-03 11:41] LABS: Add Urine Microscopic? YES; Bacteria Urine Trace /hpf; Squamous Epithelial Cell Urine Rare /hpf (Few); WBC Urine None seen /hpf (0-3)
[2023-04-03 11:50] LABS: Lactic Acid Reflex 1.3 mmol/L (0.4-2.0)
--- NOTE | 2023-04-03 12:01 | ED.ABDPAIN ---
HPI - Abdominal Pain General Chief Complaint: Urogenital-Male Stated Complaint: lower back and abdominal pain Time Seen by Provider: 04/03/23 10:42 Source: patient Mode of arrival: ambulatory Limitations: no limitations History of Present Illness HPI narrative: this is a 63-year-old male with a history of kidney stones and history of diverticulitis presents with abdominal pain left flank radiating to his left lower abdomen for the last 2 to 3 days with no fever chills vitals are stable, denies any nausea or vomiting no dysuria no hematuria. Patient denies having any chest pain or shortness of breath. MD elicited complaint: abdominal pain Pertinent past history: other ( history of diverticulitis) Onset (ago): day(s) Pain Consistency: constant Location: LLQ Severity: moderate Pain scale (0-10): 6 Quality: aching Radiation: suprapubic Related Data Home Medications Medication Instructions Recorded Confirmed amlodipine 2.5 mg tablet (Norvasc) 5 mg PO DAILY 01/09/19 12/22/22 pantoprazole 40 mg tablet,delayed 40 mg PO DAILY 01/09/19 12/22/22 release (Protonix) aspirin 81 mg tablet,delayed 81 mg PO DAILY 03/27/20 12/22/22 release clopidogrel 75 mg tablet (Plavix) 75 mg PO DAILY 10/15/20 12/22/22 alprazolam 0.5 mg tablet 1 tablet PO TID PRN Anxiety 08/26/21 12/22/22 atorvastatin 80 mg tablet 1 tablet PO DAILY 08/26/21 12/22/22 buspirone 15 mg tablet 1 tablet PO BID 08/26/21 12/22/22 isosorbide mononitrate 60 mg 1 tablet PO DAILY 08/26/21 12/22/22 tablet,extended release 24 hr metoprolol succinate 100 mg 1 tablet PO DAILY 08/26/21 12/22/22 tablet,extended release 24 hr ezetimibe 10 mg tablet 10 mg PO DAILY 12/22/22 12/22/22 Allergies Allergy/AdvReac Type Severity Reaction Status Date / Time No Known Allergies Allergy Verified 01/27/23 11:06 Review of Systems Review of Systems: All systems reviewed & are unremarkable except as noted in HPI and below PMFSH Past Medical History Medical History COPD (chronic obstructive pulmonary disease) History of cardiac disorder Hypertension Impingement syndrome, shoulder, left Surgical History Surgical History History of arthroscopic surgery of shoulder History of cholecystectomy History of hand surgery History of lumbar fusion L5-S1 Hx of heart artery stent Family History Family History Father , Father committed suicide at age 53. Suicide Mother , Mother of stroke at age 74 Cerebrovascular accident Other Family history of arthritis Social History Social History Smoking packs per day: 1 Smoking cigarettes per day: 20.0 Years smoked: 33 Smoking pack-years: 33.00 Smoking status: Heavy tobacco smoker Tobacco type: cigarettes Additional smoking assessment comments: Has smoked part of one cigarette in the past 4 months. Alcohol intake: former Drinks per week: 0 Substance use: never Substance use type: marijuana Other substance usage details: Marijuana every 2-3 months. Quit drinking 22 years ago. Gender identity (if verbalized by the patient): Male Spiritual care concerns: No Exam Const: General: healthy appearing Nutritional Appearance: well nourished Orientation/consciousness: patient oriented x3 Limitations: no limitations Chest: Chest palpation & inspection: normal inspection of the chest Resp: Effort & Inspection: normal respiratory effort Auscultation: clear to auscultation bilaterally Cardio: Rate: regular rate Rhythm: regular rhythm GI: GI Palp: Yes Soft to palpation and Yes Tenderness to palpation present (GI) Other: Left lower quadrant tenderness with palpation : General: Yes CVA tenderness Urinary Catheter: Urinary Catheter: patent and draining Ba
[2023-04-03] MEDS: CIPROFLOXACIN 500 MG TAB PO (12:04)
[2023-04-03] MEDS: metroNIDAZOLE 250 MG TABLET 500 MG PO (12:05)
[2023-04-03 12:06] VITALS: BP 131/86; RESP 20; TEMP 37.1; O2SAT 97
== END 2023-04-03 12:12 | disposition home or self-care (01) ==
PROVIDERS: Emergency Provider Emergency Medicine; PCP Physician Assistant
DX: K57.92 Diverticulitis of intestine, part unspecified, without perforation or abscess without bleeding (principal); I10 Essential (primary) hypertension; J44.9 Chronic obstructive pulmonary disease, unspecified; F17.210 Nicotine dependence, cigarettes, uncomplicated
CPT/HCPCS: 36415; 74176; 80053; 81001; 83605; 83690; 84484; 85025; 85610; 85730; 93005; 96361; 96374; 99284; A9270; J1885; J7030

== ENCOUNTER 2023-05-23 08:30 | Observation (INO) | payer MEDICARE, SELFPAY ==
[2023-05-23] VITALS (26 sets, daily range): BP systolic 118–162; BP diastolic 72–106; PULSE 80–100; RESP 16–20; TEMP 36.7–37.2; O2SAT 94–100; BMI 22.1
--- NOTE | ~2023-05-23 | CT_ITS ---
EXAMINATION: CT abdomen pelvis wo con DATE: 05/23/2023 10:05 INDICATION: Lower abdominal and suprapubic pain. TECHNIQUE: Computed tomography (CT) of the abdomen and pelvis was performed without intravenous contr ast. Automated exposure control and iterative reconstruction technique were employed. Exam dose: 196 .98 mGy-cm total exam DLP. COMPARISON: None. FINDINGS: Emphysematous changes are evident in the lower lung zones. No infiltrate or consolidation i s noted at the lung bases. Normal heart size. No pericardial or pleural effusion. Small sliding hiatal hernia. Status post cholecystectomy. No bile duct or pancreatic duct dilatation. No hepatic, pancreatic, sple michaela or adrenal space-occupying mass lesion is evident on this limited noncontrast examination. Suspected 11 mm upper pole right renal probable cyst. No urinary tract calculus. There is a Steward cat heter within the urinary bladder. There is diffuse bladder wall thickening which may be secondary to prostate enlargement. Cystitis is not excluded. There is prominent increased density of the pericolic adipose tissue in the sigmoid colon area. There are multiple sigmoid: Diverticulosis. Sigmoid diverticulitis is suspected. No abscess cavity is iden tified. There are occasional diverticula elsewhere in the colon including ascending colon. Normal appendix. There is atherosclerotic calcification but normal caliber of the abdominal aorta. No intraperitoneal or retroperitoneal or pelvic mass lesion or adenopathy or ascites. Small fat-containing umbilical hernia. Status post posterior surgical fusion at L5-S1. Degenerative changes at the apophyseal joints at L4-5 with slight grade 1 anterolisthesis at L4-5. No suspicious osteolytic or osteoblastic lesions. IMPRESSION: Sigmoid diverticulitis; no abscess is identified Diverticulosis of left and to a lesser extent right colon Normal appendix Status post cholecystectomy Small sliding hiatal hernia Emphysema Reviewed, dictated and finalized at [facility]. Reviewed, dictated and finalized at location [facility].
--- NOTE | 2023-05-23 08:50 | PC.NURSE ---
Patient straight catheterized, PER ERP leave catheter in if patient voided more than 250, after straight cath patient was over 250 and close to 300ml, Per erp leave in catheter, order obtained.
--- NOTE | 2023-05-23 09:02 | ED.GENADULT ---
HPI - General Adult General Chief complaint: Urogenital-Male Stated complaint: lower abdominal pain Time Seen by Provider: 05/23/23 08:43 History of Present Illness HPI narrative: The patient is a 63-year-old male with history of COPD, coronary artery disease status post stents, hypertension, hyperlipidemia, who smokes cigarettes. He has had one prior episode of diverticulitis. Prior abdominal operations include a cholecystectomy and left inguinal herniorrhaphy. He has had L5-S1 lumbar fusion. Distant history of kidney stones. No prostate disease such as hypertrophy or prostate cancer. No previous history of urinary retention. Since 2:30 a.m. today, the patient has had lower suprapubic abdominal discomfort, radiating to the right and left lower quadrants, and also radiating to the perineum, constant in nature, waxing waning in intensity but always present, crampy, moderate to severe. He does have nausea, and 2 episodes of emesis. Last urine output was 10:00 p.m. last night but has not urinated since. Yesterday, no hematuria or dysuria or urinary urgency or frequency. No fevers or chills or diaphoresis. No URI symptoms. No constipation or diarrhea. Related Data Home Medications Medication Instructions Recorded Confirmed amlodipine 2.5 mg tablet (Norvasc) 5 mg PO DAILY 01/09/19 05/23/23 pantoprazole 40 mg tablet,delayed 40 mg PO DAILY 01/09/19 05/23/23 release (Protonix) aspirin 81 mg tablet,delayed 81 mg PO DAILY 03/27/20 05/23/23 release clopidogrel 75 mg tablet (Plavix) 75 mg PO DAILY 10/15/20 05/23/23 alprazolam 0.5 mg tablet 1 tablet PO TID PRN Anxiety 08/26/21 05/23/23 atorvastatin 80 mg tablet 1 tablet PO DAILY 08/26/21 05/23/23 buspirone 15 mg tablet 1 tablet PO BID 08/26/21 05/23/23 isosorbide mononitrate 60 mg 1 tablet PO DAILY 08/26/21 05/23/23 tablet,extended release 24 hr metoprolol succinate 100 mg 1 tablet PO DAILY 08/26/21 05/23/23 tablet,extended release 24 hr ezetimibe 10 mg tablet 10 mg PO DAILY 12/22/22 05/23/23 Allergies Allergy/AdvReac Type Severity Reaction Status Date / Time No Known Allergies Allergy Verified 05/23/23 08:41 Review of Systems Review of Systems: All systems reviewed & are unremarkable except as noted in HPI and below Constitutional: Constitutional: Denies chills, Denies excessive sweating, Denies fatigue, Denies fever(s), Denies headache(s) and Denies weakness Eyes: Eyes: Denies change in vision and Denies photophobia ENT: Denies dysphagia, Denies dizziness, Denies headache(s), Denies lip swelling, Denies nasal congestion, Denies sore throat and Denies tongue swelling Cardiovascular: Cardiovascular: Denies chest pain, Denies syncope, Denies rapid heart rate and Denies dyspnea Respiratory: Respiratory: Denies cough, Denies dyspnea and Denies wheezing Gastrointestinal: Gastrointestinal: Reports abdominal pain, Denies constipation, Denies dysphagia, Denies diarrhea, Reports nausea and Reports vomiting Genitourinary: Genitourinary: Denies hematuria, Reports oliguria, Denies dysuria, Denies urinary frequency and Denies urinary urgency Musculoskeletal: Musculoskeletal: Denies back pain, Denies myalgias, Denies arthralgias, Denies joint swelling and Denies numbness Integumentary/Breasts: Skin/Breast: Denies pruritus, Denies erythema and Denies rash Neurologic: Denies confusion, Denies dizziness, Denies syncope, Denies headache(s), Denies focal weakness, Denies numbness and Denies weakness Psychiatric: Psychiatric: Denies anxiety and Denies confusion Endocrine: Endocrine: Denies excessive sweating and Denies fatigue Hematologic/Lymphatic: Hematologic/Lymphatic: Denies easy bleeding and Denies easy bruising Allergic/Immunologic: Allergic/Immunologic: Denies lip swelling, Denies tongue swelling and Denies wheezing PMFSH Past Medical History Medical History COPD (chronic obstructive pulmonary disease) History o
[2023-05-23 09:19] LABS: Hemoglobin 16.1 g/dL (12.4-15.3); Mean Corpuscular HGB Conc 33.5 g/dL (32-36); Mean Corpuscular Hemoglobin 30.4 pg (27.0-31.0); Mean Corpuscular Volume 90.6 fL (78.0-102.0); Mean Platelet Volume 9.3 fl (8.7-11.0); Platelet Count Result 283 K/mm3 (150-420); Red Cell Distribution Width 13.2 % (11.6-14.4)
[2023-05-23 09:25] LABS: White Blood Count 21.1 K/mm3 (4.8-10.8)
[2023-05-23 09:29] LABS: Band Neutrophils Percent 2 % (0-6); Eosinophils Absolute Manual 0.21 K/mm3 (0.02-0.50); Eosinophils Percent Manual 1 % (1-6); Lymphocytes Absolute Manual 2.11 K/mm3 (1.1-4.5); Lymphocytes Percent Manual 10 % (18-44); Monocytes Absolute Manual 1.26 K/mm3 (0.1-0.90); Monocytes Percent Manual 6 % (3-9); Neutrophils Absolute Manual 17.51 K/mm3 (1.3-6.7); Neutrophils Percent Manual 81 % (46-73); Platelet Estimate Adequate (Adequate); Total Cells Counted 100
[2023-05-23 09:36] LABS: Appearance Urine Clear (Clear); Bilirubin Urine Negative (Negative); Blood Urine Trace-intact (Negative); Color Urine Light Yellow (Yellow); Glucose Urine UA Negative (Negative); Ketones Urine Negative (Negative); Leukocyte Esterase Ur Negative LEU/UL (Negative); Nitrate Urine Negative (Negative); Protein Urine Negative (Negative); Specific Grav Ur <= 1.005 (1.010-1.020); Urobilinogen Urine 0.2 mg/dL (0.2-1.0); pH Urine 6.5 (5.0-8.0)
[2023-05-23 09:37] LABS: Alanine Aminotransferase 17 U/L (16-63); Albumin Level 3.8 g/dL (3.4-5.0); Alkaline Phosphatase 71 U/L (46-116); Amylase 19 U/L (25-115); Anion Gap 12 mmol/L (8-16); Aspartate Amino Transferase 19 U/L (15-37); Bilirubin,Total 1.3 mg/dL (0.00-1.00); Blood Urea Nitrogen 12 mg/dL (7-18); Calcium 8.6 mg/dL (8.5-10.1); Carbon Dioxide 25 mmol/L (21-32); Chloride 102 mmol/L (98-108); Estimated CRCL calculation 71 ml/min; Estimated Glomerular Filt Rate > 60; Glucose 117 mg/dL (70-99); Lipase 18 U/L (16-77); Osmolality Calculated 288 mOsm/kg (285-295); Potassium 3.8 mmol/L (3.5-5.1); Sodium 139 mmol/L (136-145); Total Protein 6.7 g/dL (6.4-8.2)
[2023-05-23 09:42] LABS: Add Urine Microscopic? YES; Bacteria Urine None seen /hpf; RBC Urine 0-2 /hpf (0-2); WBC Urine None seen /hpf (0-3)
[2023-05-23] MEDS: SODIUM CHLORIDE 0.9% IV 1,000 ML 999 ML IV CONT ×2 (09:52→09:53)
[2023-05-23] MEDS: KETOROLAC 30 MG/ML VIAL (*BKC) 15 MG IV PUSH (09:56)
[2023-05-23] MEDS: diphenhydrAMINE HCl INJ 50 MG/ML VIAL 25 MG IV PUSH (09:58)
[2023-05-23] MEDS: ONDANSETRON INJ 4 MG/2 ML VIAL IV PUSH (09:59)
--- NOTE | 2023-05-23 10:59 | PC.NURSE ---
lab contacted for blood cultures. Will start antibiotics after cultures are drawn.
[2023-05-23] MEDS: HYDROmorphone HCL INJ (*CRX) 2 MG/ML VIAL 0.5 MG IV PUSH (11:19)
[2023-05-23] MEDS: levoFLOXacin 750 MG/D5W 150 ML 750 MG/150 ML BAG 100 MG IVPB (11:26)
[2023-05-23] MEDS: metroNIDAZOLE 500 MG/ISO 100ML 500 MG/100 ML BAG 100 MG IVPB ×2 (12:41→20:35)
[2023-05-23] MEDS: MORPHINE SULFATE (*CRX) 2 MG/ML INJ IV PUSH ×2 (12:50→16:59)
[2023-05-23] MEDS: METOPROLOL SUCCINATE EXT REL 50 MG TABCR 100 MG PO (13:25)
[2023-05-23] MEDS: EZETIMIBE 10 MG TABLET PO (13:29)
[2023-05-23] MEDS: amLODIPine BESYLATE 5 MG TABLET PO (13:30)
[2023-05-23] MEDS: CLOPIDOGREL BISULFATE 75 MG TABLET PO (13:31)
[2023-05-23] MEDS: ASPIRIN 81 MG ENTERIC TABLET PO (13:32)
[2023-05-23] MEDS: SODIUM CHLORIDE 0.9% IV 1,000 ML 100 ML IV CONT (13:40)
[2023-05-23] MEDS: ATORVASTATIN 40 MG TABLET 80 MG PO (13:41)
[2023-05-23] MEDS: ISOSORBIDE MONONITRATE 60 MG TAB.ER.24H PO (13:41)
[2023-05-23] MEDS: busPIRone HCL 5 MG TABLET 15 MG PO (16:57)
[2023-05-23] MEDS: KETOROLAC 30 MG/ML VIAL (*BKC) IV PUSH (20:34)
[2023-05-23] MEDS: PANTOPRAZOLE SODIUM IV 40 MG VIAL IV PUSH (20:34)
[2023-05-24] MEDS: SODIUM CHLORIDE 0.9% IV 1,000 ML 100 ML IV CONT ×3 (00:04→23:31)
[2023-05-24] MEDS: metroNIDAZOLE 500 MG/ISO 100ML 500 MG/100 ML BAG 100 MG IVPB ×3 (04:58→20:51)
[2023-05-24] MEDS: MORPHINE SULFATE (*CRX) 2 MG/ML INJ IV PUSH ×2 (05:25)
[2023-05-24 05:47] LABS: Basophils Absolute Auto 0.05 K/mm3 (0.00-0.10); Basophils Percent Auto 0.3 % (0.0-1.0); Eosinophils Absolute Auto 0.09 K/mm3 (0.02-0.50); Eosinophils Percent Auto 0.5 % (1.0-6.0); Hemoglobin 14.2 g/dL (12.4-15.3); Immature Granulocyte Percent A 0.5 % (0.0-0.0); Lymphocytes Absolute Auto 1.78 K/mm3 (1.10-4.50); Lymphocytes Percent Auto 9.5 % (18.0-42.0); Mean Corpuscular HGB Conc 33.8 g/dL (32-36); Mean Corpuscular Hemoglobin 31.4 pg (27.0-31.0); Mean Corpuscular Volume 92.9 fL (78.0-102.0); Mean Platelet Volume 9.5 fl (8.7-11.0); Monocytes Percent Auto 8.5 % (2.0-11.0); Neutrophils Percent Auto 80.7 % (50.0-70.0); Platelet Count Result 226 K/mm3 (150-420); Red Blood Count 4.52 M/mm3 (4.70-6.10); Red Cell Distribution Width 13.6 % (11.6-14.4); White Blood Count 18.8 K/mm3 (4.8-10.8)
[2023-05-24 06:12] LABS: Anion Gap 12 mmol/L (8-16); Blood Urea Nitrogen 13 mg/dL (7-18); Calcium 8.1 mg/dL (8.5-10.1); Carbon Dioxide 24 mmol/L (21-32); Chloride 105 mmol/L (98-108); Estimated CRCL calculation 74 ml/min; Estimated Glomerular Filt Rate > 60; Glucose 103 mg/dL (70-99); Osmolality Calculated 292 mOsm/kg (285-295); Potassium 3.7 mmol/L (3.5-5.1); Sodium 141 mmol/L (136-145)
[2023-05-24 07:45] VITALS: BP 148/98; PULSE 95; RESP 16; TEMP 36.9; O2SAT 95
[2023-05-24] MEDS: KETOROLAC 30 MG/ML VIAL (*BKC) IV PUSH (08:29)
[2023-05-24] MEDS: PANTOPRAZOLE SODIUM IV 40 MG VIAL IV PUSH ×2 (08:29→20:51)
[2023-05-24 08:35] VITALS: PULSE 95; RESP 16; O2SAT 95
[2023-05-24 09:02] VITALS: PULSE 95
[2023-05-24] MEDS: METOPROLOL SUCCINATE EXT REL 50 MG TABCR 100 MG PO (09:02)
[2023-05-24] MEDS: ISOSORBIDE MONONITRATE 60 MG TAB.ER.24H PO (09:02)
[2023-05-24] MEDS: ASPIRIN 81 MG ENTERIC TABLET PO (09:02)
[2023-05-24] MEDS: EZETIMIBE 10 MG TABLET PO (09:02)
[2023-05-24] MEDS: amLODIPine BESYLATE 5 MG TABLET PO (09:03)
[2023-05-24] MEDS: CLOPIDOGREL BISULFATE 75 MG TABLET PO (09:03)
[2023-05-24] MEDS: busPIRone HCL 5 MG TABLET 15 MG PO ×2 (09:03→17:46)
--- NOTE | 2023-05-24 10:10 | PM.IMHP ---
H&P: HPI History of Present Illness Date/Time: 05/24/23 10:10 Chief Complaint: lower abdominal pain Narrative: this is a 63 year male with a significant past medical history COPD, coronary artery disease with stent placements, hypertension, hyperlipidemia, current every day smoker, anxiety presents to the hospital with lower abdominal pain. Patient states that about 2:30 a.m. yesterday he started having suprapubic abdominal discomfort radiating to the right and left lower quadrants and also radiating to the perineum which is constant in nature and describes it as waxing waning in intensity, cramping, moderate to severe. He did have 2 episodes of emesis. He states that the only thing that he did out of the usual was have some peanuts the day before. He denies any urinary complaints at this time. Workup in the ED includes A CT of the abdomen pelvis which revealed sigmoid diverticulitis, no abscess was identified, diverticulosis of the left and right colon. Initial labs showed a white blood cell count of 21.1, total bili 1.3, amylase and lipase were normal. A UA was performed which showed a urine specific gravity less than 1.005, trace urine blood otherwise normal. Blood cultures were obtained and are pending. Patient was given Levaquin, Flagyl, and Vancomycin in the ED along with Dilaudid for pain control. On examination today patient is alert and oriented x3, lying in the bed. He denies any fever, chills, headaches, diarrhea, chest pain, or shortness of breath. He endorses abdominal pain that is constant and waxes and wanes in intensity, abdominal bloating and distention. He reports his pain 8/10. Labs today revealed a white blood cell count of 18.8. Review of Systems Review of Systems: All systems reviewed & are unremarkable except as noted in HPI and below Constitutional: Constitutional: Reports as per HPI and Reports no additional constitutional complaints Eyes: Eyes: Reports as per HPI and Reports no additional eye complaints ENT: Reports system reviewed and no additional complaints, except as documented and Reports as per HPI Cardiovascular: Cardiovascular: Reports as per HPI and Reports no additional cardiovascular complaints Respiratory: Respiratory: Reports as per HPI and Reports no additional respiratory complaints Gastrointestinal: Gastrointestinal: Reports as per HPI and Reports no additional gastrointestinal complaints Genitourinary: Genitourinary: Reports no additional male genitourinary complaints and Reports as per HPI Musculoskeletal: Musculoskeletal: Reports no additional musculoskeletal complaints and Reports as per HPI Integumentary/Breasts: Skin/Breast: Reports system reviewed and no additional complaints, except as docu and Reports as per HPI Neurologic: Reports system reviewed and no additional complaints, except as documented and Reports as per HPI Psychiatric: Psychiatric: Reports no additional psychiatric complaints and Reports as per HPI [facility] Past Medical History Medical History (Updated 05/24/23 @ 11:14 by Brandi Browning APRN) Anxiety COPD (chronic obstructive pulmonary disease) History of cardiac disorder Hypertension Impingement syndrome, shoulder, left Marijuana smoker Surgical History Surgical History (Updated 05/24/23 @ 11:14 by Brandi Browning APRN) History of arthroscopic surgery of shoulder History of cholecystectomy History of hand surgery History of hernia surgery History of lumbar fusion L5-S1 Hx of heart artery stent Family History Family History Father , Father committed suicide at age 53. Suicide Mother , Mother of stroke at age 74 Cerebrovascular accident Other Family history of arthritis Social History Social History Smoking packs per day: 1 Smoking cigarettes per day: 20.0 Years smoked: 34 Smoking pack-years: 34
[2023-05-24] MEDS: levoFLOXacin 500 MG/D5W 100 ML 500 MG/100 ML BAG 100 MG IVPB (11:09)
[2023-05-24] MEDS: HYDROmorphone HCL INJ (*CRX) 2 MG/ML VIAL 0.5 MG IV PUSH ×4 (11:10→22:33)
[2023-05-24] MEDS: ALPRAZolam (*CRX) 0.5 MG TABLET PO ×2 (13:14→22:33)
[2023-05-24] MEDS: NICOTINE (*PBKC) 21 MG PATCH 1 PATCH TRANSDERM (13:15)
[2023-05-24 16:25] VITALS: BP 142/85; PULSE 92; RESP 16; TEMP 37.4; O2SAT 95
[2023-05-24 20:00] VITALS: BP 137/87; PULSE 96; RESP 17; TEMP 37.7; O2SAT 97
[2023-05-24 23:59] VITALS: PULSE 111; TEMP 36.8; O2SAT 93
[2023-05-25] VITALS: BP 146/85
[2023-05-25] MEDS: HYDROmorphone HCL INJ (*CRX) 2 MG/ML VIAL 0.5 MG IV PUSH ×4 (02:12→12:26)
[2023-05-25] MEDS: metroNIDAZOLE 500 MG/ISO 100ML 500 MG/100 ML BAG 100 MG IVPB ×2 (04:58→12:11)
[2023-05-25 06:50] LABS: Hematocrit 40.3 % (37.0-46.0); Mean Corpuscular HGB Conc 34.7 g/dL (32-36); Mean Corpuscular Hemoglobin 31.5 pg (27.0-31.0); Mean Corpuscular Volume 90.6 fL (78.0-102.0); Mean Platelet Volume 9.5 fl (8.7-11.0); Platelet Count Result 199 K/mm3 (150-420); Red Blood Count 4.45 M/mm3 (4.70-6.10); Red Cell Distribution Width 13.2 % (11.6-14.4)
[2023-05-25 07:55] LABS: Alanine Aminotransferase 14 U/L (16-63); Albumin Level 2.6 g/dL (3.4-5.0); Alkaline Phosphatase 57 U/L (46-116); Anion Gap 11 mmol/L (8-16); Aspartate Amino Transferase 10 U/L (15-37); Bilirubin,Total 1.2 mg/dL (0.00-1.00); Blood Urea Nitrogen 10 mg/dL (7-18); Calcium 7.8 mg/dL (8.5-10.1); Carbon Dioxide 25 mmol/L (21-32); Chloride 103 mmol/L (98-108); Estimated CRCL calculation 79 ml/min; Estimated Glomerular Filt Rate > 60; Glucose 99 mg/dL (70-99); Magnesium 1.6 mg/dL (1.8-2.4); Osmolality Calculated 287 mOsm/kg (285-295); Potassium 3.4 mmol/L (3.5-5.1); Sodium 139 mmol/L (136-145); Total Protein 5.6 g/dL (6.4-8.2)
[2023-05-25 08:00] VITALS: BP 155/104; PULSE 107; RESP 18; TEMP 37.3; O2SAT 94
[2023-05-25] MEDS: PANTOPRAZOLE SODIUM IV 40 MG VIAL IV PUSH (08:34)
[2023-05-25] MEDS: ALPRAZolam (*CRX) 0.5 MG TABLET PO (08:34)
[2023-05-25] MEDS: NICOTINE (*PBKC) 21 MG PATCH 1 PATCH TRANSDERM (08:34)
[2023-05-25 08:35] VITALS: PULSE 107
[2023-05-25] MEDS: CLOPIDOGREL BISULFATE 75 MG TABLET PO (08:35)
[2023-05-25] MEDS: METOPROLOL SUCCINATE EXT REL 50 MG TABCR 100 MG PO (08:35)
[2023-05-25] MEDS: amLODIPine BESYLATE 5 MG TABLET PO (08:36)
[2023-05-25] MEDS: ASPIRIN 81 MG ENTERIC TABLET PO (08:36)
[2023-05-25] MEDS: EZETIMIBE 10 MG TABLET PO (08:36)
[2023-05-25] MEDS: ENOXAPARIN 40 MG/0.4 ML SYRINGE SUB-Q (08:37)
[2023-05-25] MEDS: ISOSORBIDE MONONITRATE 60 MG TAB.ER.24H PO (08:37)
[2023-05-25 08:41] LABS: Band Neutrophils Percent 1 % (0-6); Lymphocytes Absolute Manual 1.98 K/mm3 (1.1-4.5); Lymphocytes Percent Manual 9 % (18-44); Monocytes Absolute Manual 1.98 K/mm3 (0.1-0.90); Monocytes Percent Manual 9 % (3-9); Neutrophils Absolute Manual 18.04 K/mm3 (1.3-6.7); Neutrophils Percent Manual 81 % (46-73); Total Cells Counted 100
[2023-05-25 08:42] LABS: Platelet Estimate Adequate (Adequate); Schistocytes None Seen
[2023-05-25] MEDS: busPIRone HCL 5 MG TABLET 15 MG PO (09:34)
[2023-05-25] MEDS: levoFLOXacin 500 MG/D5W 100 ML 500 MG/100 ML BAG 100 MG IVPB (11:07)
[2023-05-25] MEDS: SODIUM CHLORIDE 0.9% IV 1,000 ML 100 ML IV CONT (11:07)
[2023-05-25 12:00] VITALS: BP 140/84; PULSE 97; RESP 18; TEMP 37; O2SAT 96
[2023-05-25] MEDS: POTASSIUM CHLORIDE 20 MEQ ER TABLET 40 MEQ PO (12:14)
--- NOTE | 2023-05-25 12:29 | PM.DS ---
DS: Admitting Diagnosis Discharge Date 05/25/23 Admitting Diagnosis diverticulitis of sigmoid colon hypertension dyslipidemia tobacco abuse anxiety DS: Summary Hospital Course Reason for hospitalization: diverticulitis of sigmoid colon hypertension dyslipidemia tobacco abuse anxiety Hospital Course: 05/24/23: This is a 63 year male with a significant past medical history COPD, coronary artery disease with stent placements, hypertension, hyperlipidemia, current every day smoker, anxiety presents to the hospital with lower abdominal pain. ? Patient states that about 2:30 a.m. yesterday he started having suprapubic abdominal discomfort radiating to the right and left lower quadrants and also radiating to the perineum which is constant in nature and describes it as waxing waning in intensity, cramping, moderate to severe.? He did have 2 episodes of emesis. He states that the only thing that he did out of the usual was have some peanuts the day before.? He denies any urinary complaints at this time. Workup in the ED includes? A CT of the abdomen pelvis which revealed sigmoid diverticulitis, no abscess was identified, diverticulosis of the left and right colon.? Initial labs showed a white blood cell count of 21.1, total bili 1.3, amylase and lipase were normal.? A UA was performed which showed a urine specific gravity less than 1.005, trace urine blood otherwise normal.? Blood cultures were obtained and are pending.? Patient was given Levaquin, Flagyl, and Vancomycin in the ED along with Dilaudid for pain control. On examination today patient is alert and oriented x3, lying in the bed.? He denies any fever, chills, headaches, diarrhea, chest pain, or shortness of breath. He endorses abdominal pain that is constant and waxes and wanes in intensity, abdominal bloating and distention. He reports his pain 8/10. Labs today revealed a white blood cell count of 18.8. 05/25/23: Patient states that he is feeling much better today. He states that his pain is somewhat better but he still the waxing and waning in intensity. Labs today reveal a white blood cell count of 22.0 which is up from yesterday but likely due to inflammation, absolute neutrophils 18.04, potassium 3.4, calcium 7.8, magnesium 1.6, total bili 1.2, albumin 2.6. Blood cultures are showing no growth to date on preliminary read. He is stable for discharge at this time. He will be discharged on Levaquin and Flagyl and will need to finish the antibiotic and follow-up primary care in 1 week. Final diagnosis: diverticulitis of sigmoid colon Status at Discharge Cognitive/behavioral status at discharge: alert oriented x4 Functional status at discharge: independent ambulation Overall status at discharge: patient is progressing back to baseline Time Spent with Patient Time attestation: Total time spent providing and/or coordinating discharge services: Time spent: Greater than 30 minutes Exam Narrative: ?General: In no ac magen distress, well nourished Head: a traumatic, no ence phalopathy Eyes: E NÉTSOR, PERRLA, scler a clear ENT: moist mucous membranes, nasal passages cl ear Neck: supple, no JVD, no adenopa thy, trachea midli ne Cardiac: Normal S1 and S2. RRR. N o murmur, gallops or friction rubs, peripheral pulses intact. Respirator y: Lungs clear to auscultation, no a dventitious lung s ounds, currently o n room air Gastroi ntestinal: distend ed, slightly firm, hypoactive bowel sounds, passing ga s, reporting tende rness over the rig ht and left upper quadrant and lower abdomen. : void ing without diffic ulty. Extremities: moves all extremi ties well, no drake a, good ROM, stren gth 5/5 Skin: justine n, dry, intact. No wounds or lesions . Neuro: Alert and oriented x4, cran ial nerves intact, no neuro deficits . Psych: normal mo od, normal affect, interactive ? DS: Data Data Completed and Pending Completed studies
[2023-05-25] MEDS: MAGNESIUM SULF 2 GM/WATER 50ML 2 GM/50 ML BAG IVPB (13:11)
[2023-05-25 13:19] LABS: Glucose Point of Care 139 mg/dl (65-105)
--- NOTE | 2023-05-25 14:20 | PC.NURSE ---
iv removed intact, pt left floor ambulatory with friend, belongings and discharge instructions in bag
--- NOTE | 2023-05-29 09:42 | PC.NURSE ---
Reported that patient saw PMD friday and sent to [facility] for further workup
== END 2023-05-25 14:20 | disposition home or self-care (01) ==
LOC: CHSED 09:42 → CHS2ND 11:46
PROVIDERS: Nurse Practitioner Acute Care; Nurse Practitioner Family; Admitting Provider Internal Medicine; Emergency Provider Emergency Medicine; PCP Physician Assistant; Visit Provider Internal Medicine
DX: K57.32 Diverticulitis of large intestine without perforation or abscess without bleeding (principal); I10 Essential (primary) hypertension; E78.5 Hyperlipidemia, unspecified; F41.9 Anxiety disorder, unspecified; J44.9 Chronic obstructive pulmonary disease, unspecified; J43.9 Emphysema, unspecified; I25.10 Atherosclerotic heart disease of native coronary artery without angina pectoris; Z95.5 Presence of coronary angioplasty implant and graft; Z90.49 Acquired absence of other specified parts of digestive tract; F17.210 Nicotine dependence, cigarettes, uncomplicated; F12.90 Cannabis use, unspecified, uncomplicated; Z79.82 Long term (current) use of aspirin; Z79.02 Long term (current) use of antithrombotics/antiplatelets; Z79.899 Other long term (current) drug therapy; Z98.1 Arthrodesis status
CPT/HCPCS: 36415; 74176; 80048; 80053; 81001; 82150; 82948; 83605; 83690; 83735; 85025; 87040; 96361; 96365; 96366; 96367; 96372; 96375; 96376; 99285; A9270; C9113; G0378; J1170; J1200; J1650; J1836; J1885; J1956; J2270; J2405; J3475; J7030

== ENCOUNTER 2023-06-26 16:25 | Emergency (ER) | payer MEDICARE, SELFPAY ==
[2023-06-26 16:25] VITALS: BP 119/94; PULSE 91; RESP 16; TEMP 37.1; O2SAT 97
[2023-06-26] MEDS: KETOROLAC (*BKC) 60 MG/2 ML VIAL IM (17:00)
[2023-06-26] MEDS: AMOXICILLIN 500 MG CAPSULE PO (17:01)
--- NOTE | 2023-06-26 17:02 | ED.DENTAL ---
HPI - Dental/Oral General Chief complaint: Dental/Oral Stated complaint: dental abscess Time Seen by Provider: 06/26/23 16:36 Source: patient Mode of arrival: ambulatory Limitations: no limitations History of Present Illness HPI Narrative: this is a 63-year-old male who presents with dental pain with a surrounding gum inflammation tender right submandibular gland tenderness in the right lower premolar area with no fever chills no shortness of breath no nausea vomiting. MD Complaint: tooth pain Teeth map: 1. dental abscess with surrounding gum inflammation and tooth decay Onset (ago): day(s) Duration: constant Severity: moderate Severity scale (1-10): 8 Relieving factors: nothing Exacerbating factors: nothing Context: history of dental caries Associated symptoms: gum swelling Related Data Home Medications Medication Instructions Recorded Confirmed amlodipine 2.5 mg tablet (Norvasc) 5 mg PO DAILY 01/09/19 06/26/23 pantoprazole 40 mg tablet,delayed 40 mg PO DAILY 01/09/19 06/26/23 release (Protonix) aspirin 81 mg tablet,delayed 81 mg PO DAILY 03/27/20 06/26/23 release clopidogrel 75 mg tablet (Plavix) 75 mg PO DAILY 10/15/20 06/26/23 alprazolam 0.5 mg tablet 1 tablet PO TID PRN Anxiety 08/26/21 06/26/23 atorvastatin 80 mg tablet 1 tablet PO DAILY 08/26/21 06/26/23 buspirone 15 mg tablet 1 tablet PO BID 08/26/21 06/26/23 isosorbide mononitrate 60 mg 1 tablet PO DAILY 08/26/21 06/26/23 tablet,extended release 24 hr metoprolol succinate 100 mg 1 tablet PO DAILY 08/26/21 06/26/23 tablet,extended release 24 hr ezetimibe 10 mg tablet 10 mg PO DAILY 12/22/22 06/26/23 Allergies Allergy/AdvReac Type Severity Reaction Status Date / Time No Known Allergies Allergy Verified 05/23/23 08:41 Review of Systems Review of Systems: All systems reviewed & are unremarkable except as noted in HPI and below PMFSH Past Medical History Medical History Anxiety COPD (chronic obstructive pulmonary disease) History of cardiac disorder Hypertension Impingement syndrome, shoulder, left Marijuana smoker Surgical History Surgical History History of arthroscopic surgery of shoulder History of cholecystectomy History of hand surgery History of hernia surgery History of lumbar fusion L5-S1 Hx of heart artery stent Family History Family History Father , Father committed suicide at age 53. Suicide Mother , Mother of stroke at age 74 Cerebrovascular accident Other Family history of arthritis Social History Social History Smoking packs per day: 1 Smoking cigarettes per day: 20.0 Years smoked: 34 Smoking pack-years: 34.00 Smoking status: Current every day smoker Tobacco type: cigarettes Smokeless tobacco user: chewing tobacco Second hand tobacco smoke exposure: Yes Additional smoking assessment comments: Has smoked part of one cigarette in the past 4 months. Alcohol intake: former Drinks per week: 0 Substance use: unknown Substance use type: marijuana Other substance usage details: Marijuana every 2-3 months. Quit drinking 22 years ago. Do You Feel Safe in your Home?: Yes Lack of Transportation: No Lack of Food: Sometimes True Current Housing: I Have Housing Concerned About Future Housing: No Difficulty Paying Gas/Electric Bills: No Difficulty Paying for Meds: No Currently Unemployed: No Education: High School Diploma/GED Difficulty w/ Childcare or Family Care: No Gender identity (if verbalized by the patient): Male Spiritual care concerns: No Exam Const: General: healthy appearing Nutritional Appearance: well nourished Orientation/consciousness: patient oriented x3 Limitations: no limitations HENMT: Head: n
[2023-06-26 17:11] VITALS: BP 126/84; PULSE 67; RESP 20; O2SAT 97
== END 2023-06-26 17:11 | disposition home or self-care (01) ==
PROVIDERS: Emergency Provider Emergency Medicine; PCP Physician Assistant
DX: K04.7 Periapical abscess without sinus (principal); I10 Essential (primary) hypertension; F41.9 Anxiety disorder, unspecified; Z79.02 Long term (current) use of antithrombotics/antiplatelets; F17.220 Nicotine dependence, chewing tobacco, uncomplicated; F17.210 Nicotine dependence, cigarettes, uncomplicated
CPT/HCPCS: 96372; 99283; A9270; J1885

== ENCOUNTER 2024-01-21 14:21 | Outpatient (CLI) | payer MEDICARE, SELFPAY ==
--- NOTE | ~2024-01-21 | US_ITS ---
EXAMINATION: US carotid duplex BI DATE: 01/21/2024 14:46 INDICATION: Left carotid bruit TECHNIQUE: Grayscale, color Doppler, and pulsed Doppler images of the cervical carotid arteries were obtained. The degree of vessel stenosis is placed in one of the following categories: normal, <50%, 5 0-69%, >=70% but less than near-occlusion, near-occlusion, or total occlusion. Note that percent sten osis relative to normal distal artery lumen diameter is indirectly measured from velocity measurement s as described by John, et al. Radiology 2003; 229:340-346. COMPARISON: None. FINDINGS: RIGHT: The right common carotid artery (CCA) peak systolic velocity (PSV) is 61 cm/s. The right internal car otid artery (ICA) PSV is 58 cm/s. The right ICA end-diastolic velocity (EDV) is 26 cm/s. The right IC A/CCA PSV ratio is 0.9. Grayscale and color Doppler images yield an estimate of <50% diameter reducti on from plaque in the ICA. The external carotid artery (ECA) PSV is 55 cm/s. There is antegrade flow in the right vertebral artery. LEFT: The left CCA PSV is 74 cm/s. The left ICA PSV is 60 cm/s. The left ICA EDV is 21 cm/s. The left ICA/C CA PSV ratio is 0.8. Grayscale and color Doppler images yield an estimate of <50% diameter reduction from plaque in the ICA. The ECA PSV is 51 cm/s. There is antegrade flow in the left vertebral artery. IMPRESSION: 1. <50% stenosis in the right internal carotid artery. 2. <50% stenosis in the left internal carotid artery. Reviewed, dictated and finalized at location B. MORTISER OPERATOR
== END 2024-01-21 14:22 | disposition home or self-care (01) ==
LOC: CHSIMG 14:26
PROVIDERS: PCP Physician Assistant
DX: I65.23 Occlusion and stenosis of bilateral carotid arteries (principal); R09.89 Other specified symptoms and signs involving the circulatory and respiratory systems
CPT/HCPCS: 93880

== ENCOUNTER 2024-07-14 08:54 | Outpatient (CLI) | payer MEDICARE, SELFPAY ==
--- NOTE | ~2024-07-14 | US_ITS ---
US soft tissue abdomen 07/14/2024 09:17 Indication: Abdominal and pelvic swelling. Procedure: High-resolution ultrasound of the anterior abdominal wall in the area of discomfort near t he prior colostomy site Comparison: No prior studies for comparison. Findings: Normal heterogeneous soft tissues of the anterior abdominal wall without evidence for herni a, fluid collection or mass. Impression: 1: Normal soft tissue ultrasound of the anterior abdominal wall. Reviewed, dictated and finalized at location A. Impression: 1: Normal soft tissue ultrasound of the anterior abdominal wall.
--- OUTSIDE RECORDS SUMMARY | 2024-07-14 09:01 | XMS_ITS | Encounter Summary ---
Author Organization [facility] Address [facility] [place] [address] Care Team Providers Care Marketing Communications Specialist Name Role Phone Jarrod Castro MD Unavailable [phone] Che Ramirez APRN, NP-C Unavailable [phone] Zack Caruso Primary Care Provider [phone] Encounter Details Date Type Department Care Team (Late st Contact Info) Description 07/25/2016 Abstract [facility] [address] [place] [id number] Abstract, Doc [facility] Social History Tobacco Use Types Packs/Day Years Used Date Smoking Tobacco: Smoker, Current Status Unknown Cigarettes Alcohol Use Standard Drinks/Week Comments No 0 (1 standard drink = 0.6 oz pur e alcohol) Former ETOH abuse Sex and Gender Information Value Date Recorded Sex Assigned at Male 04/06/2024 9:17 AM WARNING COORDINATION METEOROLOGIST Legal Sex Male 9:13 AM CDT Gender Identity Not on file Sexual Orientation Not on file Occupation Industry Job Start Date Job End Date Disabled Not on file Not on file Not on file documented as of this encounter Plan of Treatment Not on file documented as of this encounter Procedures Procedure Name Priority Date/Time Associated Diagnosis Comments CMP (ABSTRACTED LAB) Routine 04/29/2016 CBC (OUTSIDE LAB) Routine 04/29/2016 documented in this encounter Results * (ABNORMAL) CBC (OUTSIDE LAB) (04/29/2016) WBC 11.3(A) <=10.8 HGB 16.3 HCT 48.7(A) <=46.0 PLT 331 RBC 5.18 04/29/2016 us Doc [facility] Abstract LAB-OUTSIDE/ABSTRACTED Final Result * (ABNORMAL) CMP (ABSTRACTED LAB) (04/29/2016) SODIUM S/P/B 139 POTASSIUM S/P/B 3.6 CHLORIDE S/P/B 104 CO2 22 BUN 9 CREATININE S/P/B 1.17 0.7 - 1.3 EGFR NON-AFR. AMER. 68 CALCIUM S/P/B 8.0(A) >=8.5 GLUCOSE 156(A) <=99 TOTAL PROTEIN S/P/B 6.7 ALBUMIN S/P/B 3.4(A) 3.5 - 5.0 AST 18 ALT 34 ALKALINE PHOSPHATASE S/P/B 65 BILIRUBIN TOTAL S/P/B 0.37 04/29/2016 us Doc [facility] Abstract LAB-OUTSIDE/ABSTRACTED Final Result documented in this encounter Visit Diagnoses Not on filedocumented in this encounter Care Teams Marketing Communications Specialist Relationship Specialty Start Date End Date Zack Caruso PA [address] [id number] PCP - General PHYSICIAN MAILING MANAGER 04/06/24 Jarrod Castro MD [address] [place] [address] [place] Nurse Special CARDIOVASCULAR DISEASE 08/07/16 Che Ramirez, ELECTRIC POWER SUPERINTENDENT, MANAGER REPORT-C [address] [phone] NURSE PRACTITIONER 01/24/20 documented as of this encounter
--- OUTSIDE RECORDS SUMMARY | 2024-07-14 09:01 | XMS_ITS | Referral Summary ---
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 Name Role Phone Zack Caruso Primary Care Provider [phone] Juliann Comer NP Unavailable [phone] Christina-Evens Comer MD Unavailable [phone] Encounters Date Type Department Care Team Description 06/03/2024 [facility] Post Discharge Follow up phone call [facility] [address] [place] [address] Alecia Tay 05/24/2024 Orders Only [facility] [address] [place] [id number] Deja Rich 05/21/2024 5:35 PM CDT - 05/24/2024 6:32 PM CDT Hospital Encounter [facility] [address] [place] [address] Didier Pagan MD Huynh, MD Cristino Rothman Mena, MD Bross, Torrie Rosario MD Acute chest pain (Primary Dx); Coronary artery disease involving rosebud coronary artery of rosebud heart, unspecified whether angina present; S/P coronary artery stent placement; Primary hypertension; Mixed 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 (HCC); Type 2 diabetes mellitus without complication, without long-term current use of insulin (HCC); Gastroesophageal reflux disease without esophagitis; Other emphysema (HCC); Mixed anxiety and depressive disorder; Cerebrovascular accident (CVA), unspecified mechanism ([facility]); Tobacco use disorder Discharge Disposition: Discharge to home or self care from Last 3 Months Allergies Active Allergy Reactions Criticality Noted Date Comments Morphine Hives Medium 12/20/2023 Penicillin G Unknown 05/26/2023 As a child Medications clopidogrel (PLAVIX) 75 mg tablet Take 1 tablet (75 mg total) by mouth daily Active metoprolol XL (TOPROL-XL) 100 mg 24 hr tablet Take 1 tablet (100 mg total) by mouth daily 30 tablet 2 2 Active atorvastatin (LIPITOR) 80 mg tablet Take 1 tablet (80 mg total) by mouth nightly 90 tablet 3 2 Active ezetimibe (ZETIA) 10 mg tablet Take 1 tablet (10 mg total) by mouth daily 30 tablet 11 2 Active ALPRAZolam (XANAX) 0.5 mg tablet Take 1 tablet (0.5 mg total) by mouth 3 (three) times a day as needed for anxiety Active busPIRone (BUSPAR) 15 mg tabletIndicatio ns:Generalized Anxiety Disorder Take 1 tablet (15 mg total) by mouth 2 (two) times a day Active aspirin 81 mg chewable tablet Take 1 tablet (81 mg total) by mouth daily Active OneTouch Ultra Test strip 2 (two) times a day 3 Active OneTouch Delica Plus Lancet 33 gauge misc 2 (two) times a day [address] (PROTONIX) 40 mg EC tablet Take 1 tablet (40 mg total) by mouth daily 4 Active OneTouch Delica Plus Lanc Dev kit USE TO TEST 2-3 TIMES A DAY 4 Active ranolazine ER (RANEXA) 500 mg 12 hr tablet Take 1 tablet (500 mg total) by mouth 2 (two) times a day Active Repatha SureClick 140 mg/mL pen injector 1 mL (140 mg total) by abdominal subcutaneous route every 2 (two) weeks Takes every other Friday 5 Active amLODIPine (NORVASC) 10 mg tablet Take 1 tablet (10 mg total) by mouth daily 30 tablet 5 Active Active Problems Problem Noted Date Diagnosed Date Acute chest pain 05/21/2024 Assessment & Plan (05/22/2024 2:36 PM CDT): CAD status post stents History of PCI to mid LAD, left circumflex and RCA in 2021. Cath on 12/22/2023 showed patent stent in distal LCX and no significant disease in other vessels. TTE on 09/18/2022 showed EF: 60-65% with normal appearing structures. - Less likely infection, chest x-ray negative, no significant leukocytosis. D- dimer negative, no PE. - Troponins unremarkable and no acute EKG changes so less likely active [place]. BNP negative. TTE on 05/22/24 showed impaired diastolic relaxation grade I and EF: 60%. - Given improvement with nitroglycerin concern for unstable angina Plan: - Continue home medications including aspirin 81 mg daily, Plavix 75 mg daily, Imdur ER 60 mg daily, ranolazine 500 mg b.i.d. - Cardiology consulted, plan for nuclear stress test on 05/24 - Telemetry monitoring Tobacco use disorder 12/21/2023 Assessment & Plan (05/22/2024 2:38 PM CDT): Assessment: Smokes about 1 pack per week. Plan: Discussed complete cessation Assessment & Plan (12/21/2023 2:30 PM CDT): Chronic. One pack a week. Plan: Recommend cessation Nicotine patch p.r.n.. Marijuana use 12/21/2023 Assessment & Plan (12/21/2023 2:31 PM CDT): Chronic. Plan: Recommend cessation. History of CVA (cerebrovascular accident) 2023 Perforated diverticulum 08/26/2023 Assessment & Plan (12/21/2023 2:15 PM CDT): Prior history. Status post reverted colostomy. At baseline. Denies any acute concerns. Plan: Supportive care Diverticulitis of large intestine with perforati on 05/27/2023 Assessment & Plan (09/23/2023 10:21 AM CDT): We have stressed the importance of a good bowel regimen to allow the anastomosis to fully heal. He will continue with the Colace twice a day and we will add MiraLax. If he can not find a regimen like this that works well we will try him on Linzess. He had a small amount of granulation tissue at his prior colostomy site. We have touched this up with silver nitrate. We will see him back in 2 weeks to reassess his progress. Assessment & Plan (06/10/2023 10:44 AM CDT): Continue local ostomy care. Diet as tolerates. Continue to avoid heavy lifting for another 4 weeks. We will see him back in a month. He will call sooner if anything changes. Superficial burn of left wrist 05/27/2023 Perforation of sigmoid colon due to diverticulit is 05/26/2023 Assessment & Plan (10/07/2023 9:14 AM CDT): Diet as tolerates. Continue bowel regimen to avoid straining. Would avoid heavy lifting for another few weeks. Patient will call us back with any further questions or concerns. Assessment & Plan (07/08/2023 10:24 AM CDT): The patient is now roughly 2 months out from his sigmoidectomy with colostomy. In discussing with the patient he believes his last colonoscopy was at least 5 years ago. This will need to be repeated in preparation for surgery. We have also discussed his smoking and risk of anastomotic leak. He was going to try and quit starting today. Our tentative plan will be to repeat the colonoscopy through his ostomy and flexible sigmoidoscopy, admit him swelling us to do 1 bowel prep with his ostomy and reverse him on the following day. He is in understanding of the plan. Assessment & Plan (05/27/2023 12:06 AM CDT): CT abdomen pelvis W contrast showed Large volume pneumoperitoneum from perforated acute sigmoid diverticulitis. A fluid and gas collection most likely represents a large contained perforation. Severe bladder wall thickening representing cystitis secondary to the acute diverticulitis. No direct evidence of a fistula identified. Plan NPO Pending General surgery recs Ceftriaxone (05/26--) Flagyl (05/26-) D5% with 0.45% NS Zofran PRN Dilaudid 1 mg IV Q3h PRN Cerebrovascular accident (CVA), unspecified mech anism 09/17/2022 Type 2 diabetes mellitus wit hout complication, without long-term current use of insulin 08/05/2022 Assessment & Plan (05/22/2024 2:38 PM CDT): Last A1c in November of 2023 was 6.3%. Not on any home medications for diabetes Plan: - Pt placed on SSI - Glucose checks with meals and nightly Assessment & Plan (11/11/2023 9:27 AM CDT): This is a chronic condition which is at goal . Goal is less than 7%. Personally reviewed most recent A1c - Lab Results Component Value Date HGBA1C 6.3 11/11/2023 Personally reviewed POC blood sugar- at of 80-180 Lab Results Component Value Date POCGLU 178 11/11/2023 Medication- none Monitor blood sugar daily Encouraged annual eye exam. Monofilament foot exam completed. Protective senses intact eGFR- >90 Kidney function-normal Urine microalbumin/creatinine ratio - at goal. Goal is <30 Continue amlodipine, metoprolol not treated with KEITH/ARB Assessment & Plan (05/06/2023 9:33 AM BUG TRIMMER): This is a chronic condition which is at goal of less than 7%. Personally reviewed most recent A1c - Lab Results Component Value Date HGBA1C 6.2 05/06/2023 Personally reviewed POC blood sugar- at goal 80-180 Lab Results Component Value Date POCGLU 114 05/06/2023 Medication- none Monitor blood sugar daily Encouraged annual eye exam. He would like to go to [facility] Monofilament foot exam completed. protective senses intact Personally reviewed CMP eGFR- 95 Kidney function- normal Urine microalbumin/creatinine ratio - at goal <30 treated with amlodipine, metoprolol. B/P today- not at goal of <140/90. continue amlodipine, metoprolol. Home monitors blood pressure Personally reviewed lipid panel. at Goal of less than 70. Continue zetia. Assessment & Plan (01/28/2023 4:13 PM BUG TRIMMER): This is a chronic condition which is at goal of less than 7% without medication after changes in lifestyle. Personally reviewed most recent A1c - Lab Results Component Value Date HGBA1C 5.9 01/28/2023 Personally reviewed POC blood sugar- not at goal 80-180 Lab Results Component Value Date POCGLU 192 01/28/2023 Medication- none Monitor blood sugar daily Encouraged annual eye exam. Monofilament foot exam completed. protective senses intact Personally reviewed CMP eGFR- 102 Kidney function- normal Urine microalbumin/creatinine ratio - ordered . goal <30 treated with amlodipine, metoprolol B/P today- at goal of <140/90. Continue amlodipine metoprolol Personally reviewed lipid panel. at Goal of less than 70. Continue atorvastatin Zetia Acute coronary syndrome 08/04/2022 Inguinal hernia without obstruction or gangrene 05/29/2022 Overview (05/29/2022): Added automatically from request for surgery [id number] Fall 02/09/2022 Confusion 02/08/2022 Assessment & Plan (02/09/2022 1:15 PM BUG TRIMMER): 61M with history of previous stroke and TIAs presenting with an episode of blackout spell on 02/08. UDS positive for Benzodiazepines, cannabinoids, cocaine, and methadone, which he initially denied taking. No more spells since admission. - US carotid <50% stenosis bilaterally - TTE done 02/09 Cerebrovascular accident (CVA) 08/26/2021 Overview (10/02/2021): states has TIAS, last one 2020, no lasting deficits Assessment & Plan (12/21/2023 2:23 PM CDT): Prior. No focal neurological deficits at this time. Plan: Supportive care. Same assessment and plan as chest pain and CAD. Assessment & Plan (05/27/2023 12:15 AM CDT): Home med aspirin 81 mg, atorvastatin 80 mg, plavix 75 mg. Currently NPO, will hold, pending surgery recs. HTN (hypertension) 07/21/2021 Assessment & Plan (05/22/2024 2:37 PM CDT): Hyperlipidemia History of CVA BP slightly elevated on admission at 163/99 however now stable. Home BP medications include amlodipine 5 mg daily and Toprol-XL 100 mg daily Plan: Continue BP medications as outlined above Continue home atorvastatin 80 mg daily and ezetimibe 10 mg daily He is also on Repatha at home for hyperlipidemia however we will not give while admitted. Assessment & Plan (12/21/2023 2:19 PM CDT): Vital signs reviewed on 12/20 and presently stable. Plan: Continue amlodipine 5 mg daily. Assessment & Plan (11/11/2023 9:28 AM CDT): This is a chronic condition which is at goal. Goal is less than 140/90 Continue amlodipine, metoprolol Encouraged to monitor weight and B/P at home. Encouraged to void caffeine and excessive alcohol consumption as this will elevate B/P Assessment & Plan (05/27/2023 12:11 AM CDT): Home meds of amlodopine, imdur and metoprolol. Blood pressure currently 134/80-135/79. Will hold home meds for now and monitor vitals. Assessment & Plan (05/06/2023 9:34 AM BUG TRIMMER): This is a chronic condition which is at goal of less than 140/90 after 5 minutes of rest. Personally reviewed labs. Continue amlodipine and metoprolol Encouraged to monitor weight and B/P at home Encouraged to take medications as prescribed. Explained correct way to take blood pressure. - After 5 minutes of sitting calmly with arm supported. Encouraged to void caffeine and excessive alcohol consumption as this will elevate B/P Assessment & Plan (01/28/2023 4:13 PM BUG TRIMMER): This is a chronic condition which is at goal of less than 140/90 Personally reviewed labs. Continue amlodipine, metoprolol Encouraged to monitor weight and B/P at home Encouraged to take medications as prescribed. Assessment & Plan (02/09/2022 1:15 PM BUG TRIMMER): Pt taking metoprolol XL 100mg daily prior to admission Assessment & Plan (08/07/2021 3:24 AM CDT): Home medications resumed with hold parameters Chest pain 07/20/2021 Assessment & Plan (12/21/2023 2:28 PM CDT): Typical symptoms. Worse with exertion. Risk factors of prior known CAD, prior resolved drug use and active tobacco consumption. Serial troponins on admission negative. EKG on admission reassuring. Continued symptoms at this time. Cardiology consulted, appreciate recommendations. UDS reassuring. Plan: Continue telemetry Recommend smoking cessation Continue aspirin 81 mg daily. Continue Lipitor 80 mg q.h.s.. Continue Plavix 75 mg daily. Continue Toprol-XL 100 mg daily. NPO midnight for cardiac catheterization Polysubstance abuse 01/21/2017 Assessment & Plan (12/21/2023 2:17 PM CDT): Prior history. Endorses sobriety for past 24 years. States UDS of 2 years ago was secondary to possible laced marijuana shortness. UDS on 12/20 positive for benzodiazepines and marijuana. Plan: Recurrent marijuana cessation. S/P coronary artery stent placement 01/21/2017 Overview (10/02/2021): 2009 and 2014 Assessment & Plan (12/21/2023 2:18 PM CDT): Chronic. Endorses history of 5 prior stents. Plan: See assessment and plan for chest pain. COPD (chronic obstructive pulmonary disease) Assessment & Plan (05/22/2024 2:39 PM CDT): Assessment/plan: Seen on chart review however no PFTs documented. Not on any inhalers. We will monitor. Assessment & Plan (12/21/2023 2:21 PM CDT): Chronic. Risk factors of tobacco consumption. Not in exacerbation at this time. Plan: Supportive care. Recommend tobacco cessation Syncope and collapse 07/19/2013 GERD (gastroesophageal reflux disease) 4 Assessment & Plan (05/22/2024 2:40 PM CDT): Assessment/Plan: Continue home pantoprazole Assessment & Plan (12/21/2023 2:20 PM CDT): Chronic. Denies any acute concerns. Plan: Continue Protonix 40 mg daily. Benign paroxysmal positional vertigo 07/28/2012 Assessment & Plan (12/21/2023 2:22 PM CDT): Chronic. Denies any acute concerns at this time. Presently not receiving Flomax. Plan: Supportive care Insomnia 11/28/2010 Assessment & Plan (12/21/2023 2:19 PM CDT): Chronic. Denies any acute concerns at this time. Plan: Supportive care. Mixed anxiety and depressive disorder 08/28/2008 Assessment & Plan (05/22/2024 2:39 PM CDT): Assessment/plan: Continue home Xanax 0.5 mg t.i.d. as needed, BuSpar 15 mg b.i.d. Assessment & Plan (12/21/2023 2:19 PM CDT): Chronic. Denies any acute mood concerns at this time. Plan: Continue BuSpar 50 mg b.i.d.. Coronary artery disease Assessment & Plan (12/21/2023 2:20 PM CDT): See assessment and plan for chest pain. Assessment & Plan (02/09/2022 1:16 PM BUG TRIMMER): Stable on: - plavix 75mg daily - ezetimibe 10mg daily Mixed diabetic hyperlipidemi a associated with type 2 diabetes mellitus Assessment & Plan (12/21/2023 2:19 PM CDT): Chronic. Already receiving high dose statin. Plan: Continue Lipitor 80 mg q.h.s.. Continue Zetia 10 mg daily. Assessment & Plan (11/11/2023 9:28 AM CDT): This is a chronic condition which is at goal . Goal is LDL less than 70 Continue atorvastatin, Zetia Encouraged to eat healthy, include fresh fruits and vegetables daily and avoid eating fried foods more than once per week. Assessment & Plan (05/06/2023 9:34 AM BUG TRIMMER): This is a chronic condition which is at goal of LDL less than 70 Continue zetia Encouraged to eat healthy, include fresh fruits and vegetables daily and avoid eating fried foods more than once per week. Encouraged to take medications as prescribed. Assessment & Plan (01/28/2023 4:14 PM BUG TRIMMER): This is a chronic condition which is at goal of LDL less than 70 Continue atorvastatin, Zetia Encouraged to eat healthy, include fresh fruits and vegetables daily and avoid eating fried foods more than once per week. Encouraged to take medications as prescribed. Assessment & Plan (08/07/2021 3:23 AM CDT): Continue statin Leukocytosis Unstable angina Assessment & Plan (12/21/2023 2:21 PM CDT): Possible. See assessment and plan for chest pain. Assessment & Plan (08/07/2021 3:23 AM CDT): Cardiology has been consulted. Patient is on heparin drip. NPO for Cardiology eval. Continue beta-melanie. Holding Imdur as patient has nitropaste on Resolved Problems Problem Noted Date Diagnosed Date Resolved Date Severe malnutrition 08/28/2023 05/25/19 25 Diverticulitis 07/15/2023 09/23/2023 Diverticulitis of large inte tony with abscess without bleeding 07/15/2023 09/23/2023 Assessment & Plan (09/09/2023 11:51 AM CDT): BREE drain has been removed at bedside. No further need for packing to ostomy site. Continue to cover these 2 locations for the next 2 or 3 days. Continue bowel regimen to avoid straining. We will see him back in 2 weeks to reassess his progress. Sepsis 05/27/2023 06/01/2023 Generalized anxiety disorder 12/21/2023 Assessment & Plan (05/27/2023 12:16 AM CDT): Home med buspirone and xanax. Currently NPO, will hold, pending surgery recs. Assessment & Plan (08/07/2021 3:24 AM CDT): Continue BuSpar, p.r.n. Xanax and SSRI Immunizations Immunization Administration Dates Next Due Influenza, Quadrivalent, Spl it, Preservative Free, Intramuscular 03/20/2015 Influenza, Unspecified 12/15/2021 Social History Tobacco Use Types Packs/Day Years Used Date Smoking Tobacco: Some Days Cigarettes 0.2 32 Smokeless Tobacco: Current Chew Last attempted to quit: 03/03/2021 Tobacco Cessation:Ready to Q uit: Not Asked; Counseling Given: Not Answered Alcohol Use Standard Drinks/Week Comments Not Currently 0 (1 standard drink = 0.6 oz pur e alcohol) 22 yrs recovered [facility] Utilities Answer Date Recorded In the past 12 months has [facility] [employer], or water [employer] threatened to shut off services in your home? No 05/24/2024 Humiliation, Afraid, Rape, and Kick questionnair e Answer Date Recorded Within the last year, have y ou been afraid of your partner or ex-partner? No 05/29/2023 Within the last year, have y ou been humiliated or emotionally abused in other ways by your partner or ex-partner? No Within the last year, have y ou been kicked, hit, slapped, or otherwise physically hurt by your partner or ex-partner? No 05/29/2023 Within the last year, have y ou been raped or forced to have any kind of sexual activity by your partner or ex-partner? No 05/29/2023 Social Connection and Isolat ion Panel [NHANES] Answer Date Recorded In a typical week, how many times do you talk on the phone with family, friends, or neighbors? More than three times a week 05/24/2024 How often do you get togethe r with friends or relatives? More than three times a week 05/24/2024 How often do you attend chur or temple services? Patient declined 05/24/2024 Do you belong to any clubs o r organizations such as rastafarian groups, unions, fraternal or athletic groups, or school groups? Patient declined 05/24/2024 How often do you attend meet ings of the clubs or organizations you belong to? Patient declined 05/24/2024 Are you , , di vorced, , never , or living with a partner? Never 05/24/2024 AUDIT-C Answer Date Recorded Q1: How often do you have a drink containing alcohol? Never 09/09/2023 Q2: How many drinks containi ng alcohol do you have on a typical day when you are drinking? Patient does not drink Q3: How often do you have si x or more drinks on one occasion? Never 09/09/2023 Overall Financial Resource Strain (CARDIA) Answe r Date Recorded How hard is it for you to pa y for the very basics like food, housing, medical care, and heating? Somewhat hard 05/24/2024 PHQ-2 Answer Date Recorded PHQ-2 Total Score (If total score is 3 or more points, staff should administer the PHQ-9) 4 05/29/2023 [facility] - Occupational Stress Questionnaire Answer Date Recorded Do you feel stress - tense, restless, nervous, or anxious, or unable to sleep at night because your mind is troubled all the time - these days? To some extent 05/29/2023 Exercise Vital Sign Answer Date Recorde d On average, how many days pe r week do you engage in moderate to strenuous exercise (like a brisk walk)? 7 days 05/29/2023 On average, how many minutes do you engage in exercise at this level? 60 min 05/29/2023 Hunger Vital Sign Answer Date Recorded Within the past 12 months, y ou worried that your food would run out before you got the money to buy more. Never true 05/25/19 25 Within the past 12 months, t he food you bought just didn't last and you didn't have money to get more. Never true 05/24/2024 PRAPARE - Transportation Answer Date Re corded In the past 12 months, has l ack of transportation kept you from medical appointments or from getting medications? No 05/02 In the past 12 months, has l ack of transportation kept you from meetings, work, or from getting things needed for daily living? No 05/24/2024 Housing Stability Vital Sign Answer Anson e Recorded In the last 12 months, was t here a time when you were not able to pay the mortgage or rent on time? No 05/27/2023 In the last 12 months, how many places have you lived? 1 05/27/2023 In the last 12 months, was t here a time when you did not have a steady place to sleep or slept in a long term (including now)? No 05/27/2023 PHQ-9 Answer Date Recorded PHQ-9 Total Score 9 05/29/2023 Housing Stability Vital Sign Answer Anson e Recorded In the last 12 months, was t here a time when you were not able to pay the mortgage or rent on time? No 05/24/2024 In the past 12 months, how m any times have you moved where you were living? 0 05/24/2024 At any time in the past 12 m [address] [place], were you homeless or living in a long term (including now)? No 05/24/2024 Personal Safety Answer Date Recorded Have you ever been in or are you currently in a harmful physical or emotional relationship or is someone making you feel afraid or unsafe? Denies 05/21/2024 Education Answer Date Recorded What is the highest level of school you have completed or the highest degree you have received? High school graduate 05/27/2023 Sex and Gender Information Value Date Recorded Sex Assigned at Not on file Legal Sex Male 6:45 PM BUG TRIMMER Gender Identity Not on file Sexual Orientation Not on file Last Filed Vital Signs Vital Sign Reading Time Taken Comments Blood Pressure 132/77 05/24/2024 3:09 PM CDT Pulse 59 05/24/2024 3:09 PM CDT Temperature 36.8 C (98.2 F) 05/24/2024 3:09 PM CDT Respiratory Rate 18 05/24/2024 3:09 PM CDT Oxygen Saturation 93% 05/24/2024 3:09 PM CDT Inhaled Oxygen Concentration - - Weight 80.1 kg (176 lb 9.4 oz) 05/21/2024 8:58 P M CDT Height 182.9 cm (6') 05/21/2024 8:58 PM CDT Body Mass Index 23.95 05/21/2024 8:58 PM CDT Plan of Treatment Not on file Medical Devices Implanted Type Area Boarding Kennel Or Cattery Operator Device Identifier Shelf Expiration Date Model / Serial / Lot [employer] Synergy 3mm 8mm 144cm Radiopaque 1 Access Port Inflation Lumen [id number] - [id number] Implanted:Qty: 1 on 07/23/2021 by Evnes Russo MD at [facility] [employer] 01/11/2022 [id number] / / [id number] [employer] Mike Synergy 3mm 24mm 144cm Radiopaque 1 Access Port Inflation Lumen [id number] - [id number] Implanted:Qty: 1 on 08/07/2021 by Evens Russo MD at [facility] [employer] 06/08/2022 [id number] / / [id number] [employer] Synergy 2.25mm 24mm 144cm Radiopaque 1 Access Port Inflation [id number] - [id number] Implanted:Qty: 1 on 08/07/2021 by Evens Russo MD at [facility] [employer] 01/25/2022 [id number] / / [id number] [employer] Progrip 15x9cm Self Data Reduction Technician Rectangle Mesh Surgical Polyester Hernia [id number] - [id number] Implanted:Qty: 1 on 06/04/2022 by Jona Sarmiento MD at [facility] Left: Abdomen [employer] 09/30/2026 [id number] / / [id number] Procedures Procedure Name Priority Date/Time Associated Diagnosis Comments POCT GLUCOSE DEVICE Routine 05/24/2024 4 :47 PM CDT POCT GLUCOSE DEVICE Routine 05/24/2024 1 2:24 PM CDT STRESS TEST FOR DUAL READ IP Routine 05/24/2024 11:19 AM CDT NM MPI SPECT (REST AND/OR STRESS) MULTIPLE STUDIES IP Routine 05/24/2024 11:19 AM CDT POCT GLUCOSE DEVICE Routine 05/24/2024 7 :58 AM CDT EGFR Routine 05/24/2024 2:12 AM CDT DIFFERENTIAL AUTO Routine 05/24/2024 2:1 2 AM CDT BASIC METABOLIC PANEL Routine 05/24/2024 2:12 AM CDT CBC WITH AUTO DIFFERENTIAL Routine 05/24/2024 2:12 AM CDT POCT GLUCOSE DEVICE Routine 05/24/2024 1 :26 AM CDT POCT GLUCOSE DEVICE Routine 05/23/2024 8 :05 PM CDT POCT GLUCOSE DEVICE Routine 05/23/2024 5 :06 PM CDT TROPONIN T HIGH-SENSITIVITY 6-HOUR Timed 05/23/2024 2:32 PM CDT TROPONIN T HIGH-SENSITIVITY 4-HR Timed 05/23/2024 12:45 PM CDT POCT GLUCOSE DEVICE Routine 05/23/2024 1 2:01 PM CDT TROPONIN T HIGH-SENSITIVITY SERIES (BASELINE, 2HR, 4HR, 6HR) Routine 05/23/2024 11:52 AM CDT TROPONIN T HIGH-SENSITIVITY 2-HOUR Timed 05/23/2024 11:52 AM CDT TROPONIN T HIGH-SENSITIVITY SERIES (BASELINE, 2HR, 4HR, 6HR) STAT 05/23/2024 8:16 AM CDT POCT GLUCOSE DEVICE Routine 05/23/2024 8 :14 AM CDT ECG 12-LEAD STAT 05/23/2024 8:03 AM CDT EGFR Routine 05/23/2024 4:13 AM CDT DIFFERENTIAL AUTO Routine 05/23/2024 4:1 3 AM CDT BASIC METABOLIC PANEL Routine 05/23/2024 4:13 AM CDT CBC WITH AUTO DIFFERENTIAL Routine 05/23/2024 4:13 AM CDT POCT GLUCOSE DEVICE Routine 05/23/2024 2 :11 AM CDT POCT GLUCOSE DEVICE Routine 05/22/2024 9 :00 PM CDT POCT GLUCOSE DEVICE Routine 05/22/2024 5 :04 PM CDT POCT GLUCOSE DEVICE Routine 05/22/2024 1 2:14 PM CDT TRANSTHORACIC ECHO (TTE) COMPLETE W DOPPLER/CF W CONTRAST Routine 05/22/2024 9:53 AM CDT POCT GLUCOSE DEVICE Routine 05/22/2024 8 :20 AM CDT POCT GLUCOSE DEVICE Routine 05/22/2024 2 :03 AM CDT EGFR Routine 05/22/2024 12:46 AM CDT DIFFERENTIAL AUTO Routine 05/22/2024 12: 46 AM CDT BASIC METABOLIC PANEL Routine 05/22/2024 12:46 AM CDT CBC WITH AUTO DIFFERENTIAL Routine 05/22/2024 12:46 AM CDT TROPONIN T HIGH-SENSITIVITY 6-HOUR Timed 05/22/2024 12:46 AM CDT TROPONIN T HIGH-SENSITIVITY 4-HR Timed 05/21/2024 10:28 PM CDT POCT GLUCOSE DEVICE Routine 05/21/2024 8 :56 PM CDT TROPONIN T HIGH-SENSITIVITY 2-HOUR Timed 05/21/2024 7:56 PM CDT XR CHEST PA LATERAL 2 VIEWS ED 05/21/2024 6:12 PM CDT EGFR STAT 05/21/2024 5:44 PM CDT MAGNESIUM Routine 05/21/2024 5:44 PM CDT PRO B-TYPE NATRIURETIC PEPTIDE STAT 05/21/2024 5:44 PM CDT DIFFERENTIAL AUTO STAT 05/21/2024 5:4 4 PM CDT D-DIMER, QUANTITATIVE STAT 05/21/2024 5:44 PM CDT TROPONIN T HIGH-SENSITIVITY SERIES (BASELINE, 2HR, 4HR, 6HR) STAT 05/21/2024 5:44 PM CDT COMPREHENSIVE METABOLIC PANEL STAT 05/21/2024 5:44 PM CDT CBC WITH AUTO DIFFERENTIAL STAT 05/21/2024 5:44 PM CDT ECG 12-LEAD STAT 05/21/2024 5:42 PM CDT POCT HEMOGLOBIN A1C Routine 11/11/2023 8 :56 AM CDT Type 2 diabetes mellitus without complication, without long-term current use of insulin (HCC) CT ABDOMEN PELVIS W CONTRAST ED 09/20/2023 5:26 PM CDT COLONOSCOPY 08/26/2023 12:38 PM CDT LIPID PANEL Routine 01/28/2023 10:53 AM BUG TRIMMER Type 2 diabetes mellitus without complication, unspecified whether [facility] insulin use (HCC) ALBUMIN CREATININE RATIO, URINE Routine 01/28/2023 10:53 AM BUG TRIMMER Type 2 diabetes mellitus without complication, unspecified whether 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 insulin use (HCC) from Last 3 Months or Most Recently Relevant to Health Maintenance Results * POCT glucose (05/24/2024 4:47 PM CDT) Glucose, POC 92 70 - 199 mg/dL Blood 05/24/2024 4:47 PM CDT 05/24/2024 4:47 PM CDT Torrie Carey MD LAB POCT ORDERABLES - DEV ICE Final Result Performing Organization Address City/[facility]/ZIP Co de Phone Number [facility] ([place]) [address] [facility] [place] [address] * POCT glucose (05/24/2024 12:24 PM CDT) Glucose, POC 152 70 - 199 mg/dL Blood 05/24/2024 12:2 4 PM CDT 05/24/2024 12:24 PM CDT Torrie Carey MD LAB POCT ORDERABLES - DEV ICE Final Result Performing Organization Address [facility]/ZIP Co de Phone Number [facility] ([place]) [address] [facility] [place] [address] * NM MPI SPECT (Rest and/or Stress) Multiple Studies (05/24/2024 11:19 AM CDT) Anatomical Region Laterality Modality Body N/A Nuclear Medicine 05/24/2024 11:5 4 AM CDT Narrative 05/24/2024 12:00 PM CDT EXAM DESCRIPTION: NM MPI SPECT (REST AND/OR STRESS) MULTIPLE STUDIES REASON FOR STUDY: Chest pain. RADIOPHARMACEUTICAL: Rest: 11 mCi Tc-99m tetrofosmin Pharmacologic Stress: 32.9 mCi Tc-99m tetrofosmin Injection site: Right arm IV site TECHNIQUE: Standard myocardial perfusion SPECT images were obtained after resting tracer injection. Subsequently, an intravenous infusion of 0.4 mg Lexiscan was performed. 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 Name Role Phone Zack Caruso Primary Care Provider Juliann Comer NP Unavailable [phone] Evens Russo MD Unavailable [phone] Allergies Active Allergy Reactions Criticality Noted Date Comments Morphine Hives Medium 12/20/2023 Penicillin G Unknown 05/26/2023 As a child Medications clopidogrel (PLAVIX) 75 mg tablet Take 1 tablet (75 mg total) by mouth daily Active metoprolol XL (TOPROL-XL) 100 mg 24 hr tablet Take 1 tablet (100 mg total) by mouth daily 30 tablet 2 2 Active atorvastatin (LIPITOR) 80 mg tablet Take 1 tablet (80 mg total) by mouth nightly 90 tablet 3 2 Active ezetimibe (ZETIA) 10 mg tablet Take 1 tablet (10 mg total) by mouth daily 30 tablet 11 2 Active ALPRAZolam (XANAX) 0.5 mg tablet Take 1 tablet (0.5 mg total) by mouth 3 (three) times a day as needed for anxiety Active busPIRone (BUSPAR) 15 mg tabletIndicatio ns:Generalized Anxiety Disorder Take 1 tablet (15 mg total) by mouth 2 (two) times a day Active aspirin 81 mg chewable tablet Take 1 tablet (81 mg total) by mouth daily Active RobinTouch Ultra Test strip 2 (two) times a day 3 Active OneTouch Delica Plus Lancet 33 gauge misc 2 (two) times a day [address] (PROTONIX) 40 mg EC tablet Take 1 tablet (40 mg total) by mouth daily 4 Active OneTouch Delica Plus Lanc Dev kit USE TO TEST 2-3 TIMES A DAY 4 Active ranolazine ER (RANEXA) 500 mg 12 hr tablet Take 1 tablet (500 mg total) by mouth 2 (two) times a day Active Repatha SureClick 140 mg/mL pen injector 1 mL (140 mg total) by abdominal subcutaneous route every 2 (two) weeks Takes every other Friday 5 Active amLODIPine (NORVASC) 10 mg tablet Take 1 tablet (10 mg total) by mouth daily 30 tablet 5 Active Active Problems Problem Noted Date Diagnosed Date Acute chest pain 05/21/2024 Assessment & Plan (05/22/2024 2:36 PM CDT): CAD status post stents History of PCI to mid LAD, left circumflex and RCA in 2021. Cath on 12/22/2023 showed patent stent in distal LCX and no significant disease in other vessels. TTE on 09/18/2022 showed EF: 60-65% with normal appearing structures. - Less likely infection, chest x-ray negative, no significant leukocytosis. D- dimer negative, no PE. - Troponins unremarkable and no acute EKG changes so less likely active NJ. BNP negative. TTE on 05/22/24 showed impaired diastolic relaxation grade I and EF: 60%. - Given improvement with nitroglycerin concern for unstable angina Plan: - Continue home medications including aspirin 81 mg daily, Plavix 75 mg daily, Imdur ER 60 mg daily, ranolazine 500 mg b.i.d. - Cardiology consulted, plan for nuclear stress test on 05/24 - Telemetry monitoring Tobacco use disorder 12/21/2023 Assessment & Plan (05/22/2024 2:38 PM CDT): Assessment: Smokes about 1 pack per week. Plan: Discussed complete cessation Assessment & Plan (12/21/2023 2:30 PM CDT): Chronic. One pack a week. Plan: Recommend cessation Nicotine patch p.r.n.. Marijuana use 12/21/2023 Assessment & Plan (12/21/2023 2:31 PM CDT): Chronic. Plan: Recommend cessation. History of CVA (cerebrovascular accident) 2023 Perforated diverticulum 08/26/2023 Assessment & Plan (12/21/2023 2:15 PM CDT): Prior history. Status post reverted colostomy. At baseline. Denies any acute concerns. Plan: Supportive care Diverticulitis of large intestine with perforati on 05/27/2023 Assessment & Plan (09/23/2023 10:21 AM CDT): We have stressed the importance of a good bowel regimen to allow the anastomosis to fully heal. He will continue with the Colace twice a day and we will add MiraLax. If he can not find a regimen like this that works well we will try him on Linzess. He had a small amount of granulation tissue at his prior colostomy site. We have touched this up with silver nitrate. We will see him back in 2 weeks to reassess his progress. Assessment & Plan (06/10/2023 10:44 AM CDT): Continue local ostomy care. Diet as tolerates. Continue to avoid heavy lifting for another 4 weeks. We will see him back in a month. He will call sooner if anything changes. Superficial burn of left wrist 05/27/2023 Perforation of sigmoid colon due to diverticulit is 05/26/2023 Assessment & Plan (10/07/2023 9:14 AM CDT): Diet as tolerates. Continue bowel regimen to avoid straining. Would avoid heavy lifting for another few weeks. Patient will call us back with any further questions or concerns. Assessment & Plan (07/08/2023 10:24 AM CDT): The patient is now roughly 2 months out from his sigmoidectomy with colostomy. In discussing with the patient he believes his last colonoscopy was at least 5 years ago. This will need to be repeated in preparation for surgery. We have also discussed his smoking and risk of anastomotic leak. He was going to try and quit starting today. Our tentative plan will be to repeat the colonoscopy through his ostomy and flexible sigmoidoscopy, admit him swelling us to do 1 bowel prep with his ostomy and reverse him on the following day. He is in understanding of the plan. Assessment & Plan (05/27/2023 12:06 AM CDT): CT abdomen pelvis W contrast showed Large volume pneumoperitoneum from perforated acute sigmoid diverticulitis. A fluid and gas collection most likely represents a large contained perforation. Severe bladder wall thickening representing cystitis secondary to the acute diverticulitis. No direct evidence of a fistula identified. Plan NPO Pending General surgery recs Ceftriaxone (05/26--) Flagyl (05/26-) D5% with 0.45% NS Zofran PRN Dilaudid 1 mg IV Q3h PRN Cerebrovascular accident (CVA), unspecified mech anism 09/17/2022 Type 2 diabetes mellitus wit hout complication, without long-term current use of insulin 08/05/2022 Assessment & Plan (05/22/2024 2:38 PM CDT): Last A1c in November of 2023 was 6.3%. Not on any home medications for diabetes Plan: - Pt placed on SSI - Glucose checks with meals and nightly Assessment & Plan (11/11/2023 9:27 AM CDT): This is a chronic condition which is at goal . Goal is less than 7%. Personally reviewed most recent A1c - Lab Results Component Value Date HGBA1C 6.3 11/11/2023 Personally reviewed POC blood sugar- at of 80-180 Lab Results Component Value Date POCGLU 178 11/11/2023 Medication- none Monitor blood sugar daily Encouraged annual eye exam. Monofilament foot exam completed. Protective senses intact eGFR- >90 Kidney function-normal Urine microalbumin/creatinine ratio - at goal. Goal is <30 Continue amlodipine, metoprolol not treated with KEITH/ARB Assessment & Plan (05/06/2023 9:33 AM BUG TRIMMER): This is a chronic condition which is at goal of less than 7%. Personally reviewed most recent A1c - Lab Results Component Value Date HGBA1C 6.2 05/06/2023 Personally reviewed POC blood sugar- at goal 80-180 Lab Results Component Value Date POCGLU 114 05/06/2023 Medication- none Monitor blood sugar daily Encouraged annual eye exam. He would like to go to [facility] Monofilament foot exam completed. protective senses intact Personally reviewed CMP eGFR- 95 Kidney function- normal Urine microalbumin/creatinine ratio - at goal <30 treated with amlodipine, metoprolol. B/P today- not at goal of <140/90. continue amlodipine, metoprolol. Home monitors blood pressure Personally reviewed lipid panel. at Goal of less than 70. Continue zetia. Assessment & Plan (01/28/2023 4:13 PM BUG TRIMMER): This is a chronic condition which is at goal of less than 7% without medication after changes in lifestyle. Personally reviewed most recent A1c - Lab Results Component Value Date HGBA1C 5.9 01/28/2023 Personally reviewed POC blood sugar- not at goal 80-180 Lab Results Component Value Date POCGLU 192 01/28/2023 Medication- none Monitor blood sugar daily Encouraged annual eye exam. Monofilament foot exam completed. protective senses intact Personally reviewed CMP eGFR- 102 Kidney function- normal Urine microalbumin/creatinine ratio - ordered . goal <30 treated with amlodipine, metoprolol B/P today- at goal of <140/90. Continue amlodipine metoprolol Personally reviewed lipid panel. at Goal of less than 70. Continue atorvastatin Zetia Acute coronary syndrome 08/04/2022 Inguinal hernia without obstruction or gangrene 05/29/2022 Overview (05/29/2022): Added automatically from request for surgery [id number] Fall 02/09/2022 Confusion 02/08/2022 Assessment & Plan (02/09/2022 1:15 PM BUG TRIMMER): 61M with history of previous stroke and TIAs presenting with an episode of blackout spell on 02/08. UDS positive for Benzodiazepines, cannabinoids, cocaine, and methadone, which he initially denied taking. No more spells since admission. - US carotid <50% stenosis bilaterally - TTE done 02/09 Cerebrovascular accident (CVA) 08/26/2021 Overview (10/02/2021): states has TIAS, last one 2020, no lasting deficits Assessment & Plan (12/21/2023 2:23 PM CDT): Prior. No focal neurological deficits at this time. Plan: Supportive care. Same assessment and plan as chest pain and CAD. Assessment & Plan (05/27/2023 12:15 AM CDT): Home med aspirin 81 mg, atorvastatin 80 mg, plavix 75 mg. Currently NPO, will hold, pending surgery recs. HTN (hypertension) 07/21/2021 Assessment & Plan (05/22/2024 2:37 PM CDT): Hyperlipidemia History of CVA BP slightly elevated on admission at 163/99 however now stable. Home BP medications include amlodipine 5 mg daily and Toprol-XL 100 mg daily Plan: Continue BP medications as outlined above Continue home atorvastatin 80 mg daily and ezetimibe 10 mg daily He is also on Repatha at home for hyperlipidemia however we will not give while admitted. Assessment & Plan (12/21/2023 2:19 PM CDT): Vital signs reviewed on 12/20 and presently stable. Plan: Continue amlodipine 5 mg daily. Assessment & Plan (11/11/2023 9:28 AM CDT): This is a chronic condition which is at goal. Goal is less than 140/90 Continue amlodipine, metoprolol Encouraged to monitor weight and B/P at home. Encouraged to void caffeine and excessive alcohol consumption as this will elevate B/P Assessment & Plan (05/27/2023 12:11 AM CDT): Home meds of amlodopine, imdur and metoprolol. Blood pressure currently 134/80-135/79. Will hold home meds for now and monitor vitals. Assessment & Plan (05/06/2023 9:34 AM BUG TRIMMER): This is a chronic condition which is at goal of less than 140/90 after 5 minutes of rest. Personally reviewed labs. Continue amlodipine and metoprolol Encouraged to monitor weight and B/P at home Encouraged to take medications as prescribed. Explained correct way to take blood pressure. - After 5 minutes of sitting calmly with arm supported. Encouraged to void caffeine and excessive alcohol consumption as this will elevate B/P Assessment & Plan (01/28/2023 4:13 PM BUG TRIMMER): This is a chronic condition which is at goal of less than 140/90 Personally reviewed labs. Continue amlodipine, metoprolol Encouraged to monitor weight and B/P at home Encouraged to take medications as prescribed. Assessment & Plan (02/09/2022 1:15 PM BUG TRIMMER): Pt taking metoprolol XL 100mg daily prior to admission Assessment & Plan (08/07/2021 3:24 AM CDT): Home medications resumed with hold parameters Chest pain 07/20/2021 Assessment & Plan (12/21/2023 2:28 PM CDT): Typical symptoms. Worse with exertion. Risk factors of prior known CAD, prior resolved drug use and active tobacco consumption. Serial troponins on admission negative. EKG on admission reassuring. Continued symptoms at this time. Cardiology consulted, appreciate recommendations. UDS reassuring. Plan: Continue telemetry Recommend smoking cessation Continue aspirin 81 mg daily. Continue Lipitor 80 mg q.h.s.. Continue Plavix 75 mg daily. Continue Toprol-XL 100 mg daily. NPO midnight for cardiac catheterization Polysubstance abuse 01/21/2017 Assessment & Plan (12/21/2023 2:17 PM CDT): Prior history. Endorses sobriety for past 24 years. States UDS of 2 years ago was secondary to possible laced marijuana shortness. UDS on 12/20 positive for benzodiazepines and marijuana. Plan: Recurrent marijuana cessation. S/P coronary artery stent placement 01/21/2017 Overview (10/02/2021): 2009 and 2014 Assessment & Plan (12/21/2023 2:18 PM CDT): Chronic. Endorses history of 5 prior stents. Plan: See assessment and plan for chest pain. COPD (chronic obstructive pulmonary disease) Assessment & Plan (05/22/2024 2:39 PM CDT): Assessment/plan: Seen on chart review however no PFTs documented. Not on any inhalers. We will monitor. Assessment & Plan (12/21/2023 2:21 PM CDT): Chronic. Risk factors of tobacco consumption. Not in exacerbation at this time. Plan: Supportive care. Recommend tobacco cessation Syncope and collapse 07/19/2013 GERD (gastroesophageal reflux disease) 05/15/201 4 Assessment & Plan (05/22/2024 2:40 PM CDT): Assessment/Plan: Continue home pantoprazole Assessment & Plan (12/21/2023 2:20 PM CDT): Chronic. Denies any acute concerns. Plan: Continue Protonix 40 mg daily. Benign paroxysmal positional vertigo 07/28/2012 Assessment & Plan (12/21/2023 2:22 PM CDT): Chronic. Denies any acute concerns at this time. Presently not receiving Flomax. Plan: Supportive care Insomnia 11/28/2010 Assessment & Plan (12/21/2023 2:19 PM CDT): Chronic. Denies any acute concerns at this time. Plan: Supportive care. Mixed anxiety and depressive disorder 08/28/2008 Assessment & Plan (05/22/2024 2:39 PM CDT): Assessment/plan: Continue home Xanax 0.5 mg t.i.d. as needed, BuSpar 15 mg b.i.d. Assessment & Plan (12/21/2023 2:19 PM CDT): Chronic. Denies any acute mood concerns at this time. Plan: Continue BuSpar 50 mg b.i.d.. Coronary artery disease Assessment & Plan (12/21/2023 2:20 PM CDT): See assessment and plan for chest pain. Assessment & Plan (02/09/2022 1:16 PM BUG TRIMMER): Stable on: - plavix 75mg daily - ezetimibe 10mg daily Mixed diabetic hyperlipidemi a associated with type 2 diabetes mellitus Assessment & Plan (12/21/2023 2:19 PM CDT): Chronic. Already receiving high dose statin. Plan: Continue Lipitor 80 mg q.h.s.. Continue Zetia 10 mg daily. Assessment & Plan (11/11/2023 9:28 AM CDT): This is a chronic condition which is at goal . Goal is LDL less than 70 Continue atorvastatin, Zetia Encouraged to eat healthy, include fresh fruits and vegetables daily and avoid eating fried foods more than once per week. Assessment & Plan (05/06/2023 9:34 AM BUG TRIMMER): This is a chronic condition which is at goal of LDL less than 70 Continue zetia Encouraged to eat healthy, include fresh fruits and vegetables daily and avoid eating fried foods more than once per week. Encouraged to take medications as prescribed. Assessment & Plan (01/28/2023 4:14 PM BUG TRIMMER): This is a chronic condition which is at goal of LDL less than 70 Continue atorvastatin, Zetia Encouraged to eat healthy, include fresh fruits and vegetables daily and avoid eating fried foods more than once per week. Encouraged to take medications as prescribed. Assessment & Plan (08/07/2021 3:23 AM CDT): Continue statin Leukocytosis Unstable angina Assessment & Plan (12/21/2023 2:21 PM CDT): Possible. See assessment and plan for chest pain. Assessment & Plan (08/07/2021 3:23 AM CDT): Cardiology has been consulted. Patient is on heparin drip. NPO for Cardiology eval. Continue beta-melanie. Holding Imdur as patient has nitropaste on Resolved Problems Problem Noted Date Diagnosed Date Resolved Date Severe malnutrition 08/28/2023 05/25/19 25 Diverticulitis 07/15/2023 09/23/2023 Diverticulitis of large inte tony with abscess without bleeding 07/15/2023 09/23/2023 Assessment & Plan (09/09/2023 11:51 AM CDT): BREE drain has been removed at bedside. No further need for packing to ostomy site. Continue to cover these 2 locations for the next 2 or 3 days. Continue bowel regimen to avoid straining. We will see him back in 2 weeks to reassess his progress. Sepsis 05/27/2023 06/01/2023 Generalized anxiety disorder 12/21/2023 Assessment & Plan (05/27/2023 12:16 AM CDT): Home med buspirone and xanax. Currently NPO, will hold, pending surgery recs. Assessment & Plan (08/07/2021 3:24 AM CDT): Continue BuSpar, p.r.n. Xanax and SSRI Encounters Date Type Department Care Team Description 06/03/2024 [facility] Post Discharge Follow up phone call [facility] [address] [place] [address] Alecia Tay 05/24/2024 Orders Only [facility] [address] [place] [address] Deja Rich 05/21/2024 5:35 PM CDT - 05/24/2024 6:32 PM CDT Hospital Encounter [facility] [address] [place] [address] Didier Pagan MD Huynh, Kiet T., MD Metias, Mena, MD Bross, Torrie Rosario MD Acute chest pain (Primary Dx); Coronary artery disease involving rosebud coronary artery of rosebud heart, unspecified whether angina present; S/P coronary artery stent placement; Primary hypertension; Mixed 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 (HCC); Type 2 diabetes mellitus without complication, without long-term current use of insulin (HCC); Gastroesophageal reflux disease without esophagitis; Other emphysema (HCC); Mixed anxiety and depressive disorder; Cerebrovascular accident (CVA), unspecified mechanism (HCC); Tobacco use disorder Discharge Disposition: Discharge to home or self care from Last 3 Months Immunizations Immunization Administration Dates Next Due Influenza, Quadrivalent, Spl it, Preservative Free, Intramuscular 03/20/2015 Influenza, Unspecified 12/15/2021 Surgical History Surgery Date Site/Laterality Comments BACK SURGERY L5-S1 spinal fusion NOSE SURGERY growth removed SHOULDER SURGERY Left x4 HAND SURGERY Left x2 COR[address]ARY [address] WITH [address] ENT PLACEMENT 5 total SIGMOIDECTOMY 05/27/2023 N/A W/ ostomy COLOSTOMY 08/27/2023 takedown & closure Medical History Medical History Date Comments Hypertension Coronary artery disease NJ (myocardial infarction) (HCC) Stroke (HCC) Headache, tension-type TIA (transient ischemic attack) multiple TIA's GERD (gastroesophageal reflux disease) Type 2 diabetes mellitus (HCC) Anxiety Blood clots in brain multiple mi ni strokes Severe malnutrition 08/28/2023 Family History Medical History Relation Name Comments Mental illness Father Suicide Completion Father No Known Problems Half-Brother Cancer Mother Heart attack Mother Stroke Mother Cancer Paternal Grandmother Cancer Sister Relation Name Status Comments Father Half-Brother Alive Mother Paternal Grandmother Sister Social History Tobacco Use Types Packs/Day Years Used Date Smoking Tobacco: Some Days Cigarettes 0.2 32 Smokeless Tobacco: Current Chew Last attempted to quit: 03/03/2021 Tobacco Cessation:Ready to Q uit: Not Asked; Counseling Given: Not Answered Alcohol Use Standard Drinks/Week Comments Not Currently 0 (1 standard drink = 0.6 oz pur e alcohol) 22 yrs recovered [facility] Utilities Answer Date Recorded In the past 12 months has [facility] [employer], oil, or water [employer] threatened to shut off services in your home? No 05/24/2024 Humiliation, Afraid, Rape, and Kick questionnair e Answer Date Recorded Within the last year, have y ou been afraid of your partner or ex-partner? No 05/29/2023 Within the last year, have y ou been humiliated or emotionally abused in other ways by your partner or ex-partner? No Within the last year, have y ou been kicked, hit, slapped, or otherwise physically hurt by your partner or ex-partner? No 05/29/2023 Within the last year, have y ou been raped or forced to have any kind of sexual activity by your partner or ex-partner? No 05/29/2023 Social Connection and Isolat ion Panel [NHANES] Answer Date Recorded In a typical week, how many times do you talk on the phone with family, friends, or neighbors? More than three times a week 05/24/2024 How often do you get togethe r with friends or relatives? More than three times a week 05/24/2024 How often do you attend [facility] or temple services? Patient declined 05/24/2024 Do you belong to any clubs o r organizations such as rastafarian groups, unions, fraternal or athletic groups, or school groups? Patient declined 05/24/2024 How often do you attend meet ings of the clubs or organizations you belong to? Patient declined 05/24/2024 Are you , , di vorced, , never , or living with a partner? Never 05/24/2024 AUDIT-C Answer Date Recorded Q1: How often do you have a drink containing alcohol? Never 09/09/2023 Q2: How many drinks containi ng alcohol do you have on a typical day when you are drinking? Patient does not drink Q3: How often do you have si x or more drinks on one occasion? Never 09/09/2023 Overall Financial Resource Strain (CARDIA) Answe r Date Recorded How hard is it for you to pa y for the very basics like food, housing, medical care, and heating? Somewhat hard 05/24/2024 PHQ-2 Answer Date Recorded PHQ-2 Total Score (If total score is 3 or more points, staff should administer the PHQ-9) 4 05/29/2023 [facility] - Occupational Stress Questionnaire Answer Date Recorded Do you feel stress - tense, restless, nervous, or anxious, or unable to sleep at night because your mind is troubled all the time - these days? To some extent 05/29/2023 Exercise Vital Sign Answer Date Recorde d On average, how many days pe r week do you engage in moderate to strenuous exercise (like a brisk walk)? 7 days 05/29/2023 On average, how many minutes do you engage in exercise at this level? 60 min 05/29/2023 Hunger Vital Sign Answer Date Recorded Within the past 12 months, y ou worried that your food would run out before you got the money to buy more. Never true 05/25/19 25 Within the past 12 months, t he food you bought just didn't last and you didn't have money to get more. Never true 05/24/2024 PRAPARE - Transportation Answer Date Re corded In the past 12 months, has l ack of transportation kept you from medical appointments or from getting medications? No 05/02 In the past 12 months, has l ack of transportation kept you from meetings, work, or from getting things needed for daily living? No 05/24/2024 Housing Stability Vital Sign Answer Anson e Recorded In the last 12 months, was t here a time when you were not able to pay the mortgage or rent on time? No 05/27/2023 In the last 12 months, how many places have you lived? 1 05/27/2023 In the last 12 months, was t here a time when you did not have a steady place to sleep or slept in a long term (including now)? No 05/27/2023 PHQ-9 Answer Date Recorded PHQ-9 Total Score 9 05/29/2023 Housing Stability Vital Sign Answer Anson e Recorded In the last 12 months, was t here a time when you were not able to pay the mortgage or rent on time? No 05/24/2024 In the past 12 months, how m any times have you moved where you were living? 0 05/24/2024 At any time in the past 12 [address] [place], were you homeless or living in a long term (including now)? No 05/24/2024 Personal Safety Answer Date Recorded Have you ever been in or are you currently in a harmful physical or emotional relationship or is someone making you feel afraid or unsafe? Denies 05/21/2024 Education Answer Date Recorded What is the highest level of school you have completed or the highest degree you have received? High school graduate 05/27/2023 Sex and Gender Information Value Date Recorded Sex Assigned at Not on file Legal Sex Male 6:45 PM BUG TRIMMER Gender Identity Not on file Sexual Orientation Not on file Obstetrics History Last Filed Vital Signs Vital Sign Reading Time Taken Comments Blood Pressure 132/77 05/24/2024 3:09 PM CDT Pulse 59 05/24/2024 3:09 PM CDT Temperature 36.8 C (98.2 F) 05/24/2024 3:09 PM CDT Respiratory Rate 18 05/24/2024 3:09 PM CDT Oxygen Saturation 93% 05/24/2024 3:09 PM CDT Inhaled Oxygen Concentration - - Weight 80.1 kg (176 lb 9.4 oz) 05/21/2024 8:58 P M CDT Height 182.9 cm (6') 05/21/2024 8:58 PM CDT Body Mass Index 23.95 05/21/2024 8:58 PM CDT Plan of Treatment Health Maintenance Due Date Last Done Comments Hepatitis C Screening 1960 Prostate Cancer Screening-PSA 1958 Dilated Eye Exam 1958 Hepatitis B Screening 1976 Pneumococcal vaccine 65+ (2 of 2 - PPSV23) 12/25/2013 10/30/2013, 08/12/2008 Zoster Vaccine (2 of 2) 06/07/2021 04/12/2021 Well Visit 65+ 2023 Covid-19 Vaccine (4 - 2023-2 5 season) 2023 01/15/2021, 07/25/2020, 06/27/2020 Albumin Creatinine Ratio, Urine 01/29/2024 Lipid Panel 01/29/2024 01/28/2023, 0711/2022, 02/09/2022, Additional history exists Hemoglobin A1C 05/10/2024 11/11/2023, 03/0 07/2023, 01/28/2023, Additional history exists Depression Screening 05/28/2024 05/29/2023, 05/26/19 Foot Exam 11/10/2024 11/11/2023, 03/0 07/2023, 01/28/2023 Fall Risk Assessment 05/24/2025 05/24/2024 eGFR 05/24/2025 05/24/2024, 03/2 05/2024, 05/22/2024, Additional history exists DTaP/Tdap/Td Vaccine (3 - Td or Tdap) 08/22/2027 08/21/2017, 10/12/2010 Colon Cancer Screening-Colonoscopy 08/25/2033 08/26/2023 Colon Cancer Screening-CT Colonography Discontinued 08/26/2023 Colon Cancer Screening-DNA Stool Discontinued 08/26/19 Colon Cancer Screening-FIT Discontinued 08/26/2023 Colon Cancer Screening-Sigmoidoscopy Discontinued 08/26/2023 Abdominal Aortic Aneurysm (A AA) Screen Completed 09/20/2023, 05/26/2023, 03/30/2021, Additional history exists Influenza Vaccine Completed 02/05/2024, , 01/01/2022, Additional history exists Medical Devices Implanted Type Area Boarding Kennel Or Cattery Operator Device Identifier Shelf Expiration Date Model / Serial / Lot [employer] Synergy 3mm 8mm 144cm Radiopaque 1 Access Port Inflation Lumen [id number] - [id number] Implanted:Qty: 1 on 07/23/2021 by Evens Russo MD at [facility] [employer] 01/11/2022 [id number] / / [id number] [employer] Mike Synergy 3mm 24mm 144cm Radiopaque 1 Access Port Inflation Lumen [id number] - [id number] Implanted:Qty: 1 on 08/07/2021 by Evens Russo MD at [facility] [employer] 06/08/2022 [id number] / / [id number] [employer] Synergy 2.25mm 24mm 144cm Radiopaque 1 Access Port Inflation [id number] - [id number] Implanted:Qty: 1 on 08/07/2021 by Evens Russo MD at [facility] [employer] 01/25/2022 [id number] / / [id number] [employer] Progrip 15x9cm Self Data Reduction Technician Rectangle Mesh Surgical Polyester Hernia [id number] - [id number] Implanted:Qty: 1 on 06/04/2022 by Jona Sarmiento MD at [facility] Left: Abdomen [employer] 09/30/2026 [id number] / / [id number] Procedures Procedure Name Priority Date/Time Associated Diagnosis Comments POCT GLUCOSE DEVICE Routine 05/24/2024 4 :47 PM CDT POCT GLUCOSE DEVICE Routine 05/24/2024 1 2:24 PM CDT STRESS TEST FOR DUAL READ IP Routine 05/24/2024 11:19 AM CDT NM MPI SPECT (REST AND/OR STRESS) MULTIPLE STUDIES IP Routine 05/24/2024 11:19 AM CDT POCT GLUCOSE DEVICE Routine 05/24/2024 7 :58 AM CDT EGFR Routine 05/24/2024 2:12 AM CDT DIFFERENTIAL AUTO Routine 05/24/2024 2:1 2 AM CDT BASIC METABOLIC PANEL Routine 05/24/2024 2:12 AM CDT CBC WITH AUTO DIFFERENTIAL Routine 05/24/2024 2:12 AM CDT POCT GLUCOSE DEVICE Routine 05/24/2024 1 :26 AM CDT POCT GLUCOSE DEVICE Routine 05/23/2024 8 :05 PM CDT POCT GLUCOSE DEVICE Routine 05/23/2024 5 :06 PM CDT TROPONIN T HIGH-SENSITIVITY 6-HOUR Timed 05/23/2024 2:32 PM CDT TROPONIN T HIGH-SENSITIVITY 4-HR Timed 05/23/2024 12:45 PM CDT POCT GLUCOSE DEVICE Routine 05/23/2024 1 2:01 PM CDT TROPONIN T HIGH-SENSITIVITY SERIES (BASELINE, 2HR, 4HR, 6HR) Routine 05/23/2024 11:52 AM CDT TROPONIN T HIGH-SENSITIVITY 2-HOUR Timed 05/23/2024 11:52 AM CDT TROPONIN T HIGH-SENSITIVITY SERIES (BASELINE, 2HR, 4HR, 6HR) STAT 05/23/2024 8:16 AM CDT POCT GLUCOSE DEVICE Routine 05/23/2024 8 :14 AM CDT ECG 12-LEAD STAT 05/23/2024 8:03 AM CDT EGFR Routine 05/23/2024 4:13 AM CDT DIFFERENTIAL AUTO Routine 05/23/2024 4:1 3 AM CDT BASIC METABOLIC PANEL Routine 05/23/2024 4:13 AM CDT CBC WITH AUTO DIFFERENTIAL Routine 05/23/2024 4:13 AM CDT POCT GLUCOSE DEVICE Routine 05/23/2024 2 :11 AM CDT POCT GLUCOSE DEVICE Routine 05/22/2024 9 :00 PM CDT POCT GLUCOSE DEVICE Routine 05/22/2024 5 :04 PM CDT POCT GLUCOSE DEVICE Routine 05/22/2024 1 2:14 PM CDT TRANSTHORACIC ECHO (TTE) COMPLETE W DOPPLER/CF W CONTRAST Routine 05/22/2024 9:53 AM CDT POCT GLUCOSE DEVICE Routine 05/22/2024 8 :20 AM CDT POCT GLUCOSE DEVICE Routine 05/22/2024 2 :03 AM CDT EGFR Routine 05/22/2024 12:46 AM CDT DIFFERENTIAL AUTO Routine 05/22/2024 12: 46 AM CDT BASIC METABOLIC PANEL Routine 05/22/2024 12:46 AM CDT CBC WITH AUTO DIFFERENTIAL Routine 05/22/2024 12:46 AM CDT TROPONIN T HIGH-SENSITIVITY 6-HOUR Timed 05/22/2024 12:46 AM CDT TROPONIN T HIGH-SENSITIVITY 4-HR Timed 05/21/2024 10:28 PM CDT POCT GLUCOSE DEVICE Routine 05/21/2024 8 :56 PM CDT TROPONIN T HIGH-SENSITIVITY 2-HOUR Timed 05/21/2024 7:56 PM CDT XR CHEST PA LATERAL 2 VIEWS ED 05/21/2024 6:12 PM CDT EGFR STAT 05/21/2024 5:44 PM CDT MAGNESIUM Routine 05/21/2024 5:44 PM CDT PRO B-TYPE NATRIURETIC PEPTIDE STAT 05/21/2024 5:44 PM CDT DIFFERENTIAL AUTO STAT 05/21/2024 5:4 4 PM CDT D-DIMER, QUANTITATIVE STAT 05/21/2024 5:44 PM CDT TROPONIN T HIGH-SENSITIVITY SERIES (BASELINE, 2HR, 4HR, 6HR) STAT 05/21/2024 5:44 PM CDT COMPREHENSIVE METABOLIC PANEL STAT 05/21/2024 5:44 PM CDT CBC WITH AUTO DIFFERENTIAL STAT 05/21/2024 5:44 PM CDT ECG 12-LEAD STAT 05/21/2024 5:42 PM CDT
--- OUTSIDE RECORDS SUMMARY | 2024-07-14 09:01 | XMS_ITS | Clinical Summary ---
Author Organization [facility] Address [facility] [place] [address] Care Team Providers Care Parking Lot Attendant Name Role Phone Jarrod Castro MD Unavailable [phone] Che Ramirez APRN, NP-C Unavailable Zack Caruso Primary Care Provider [phone] Allergies Active Allergy Reactions Criticality Noted Date Comments Penicillins Unknown 08/09/2016 Medications hydrocodone-daryl taminophen 10-325 MG tablet Take 1 tablet by mouth 2 (two) times daily as needed for Pain. 7 Active aspirin EC (ASPIRIN) 81 MG EC tablet Take 81 mg by mouth daily. Active cyclobenzaprine 10 MG tablet Take 10 mg by mouth as needed. 8 Active losartan 50 MG tablet Take 50 mg by mouth daily. 8 Active pantoprazole 40 MG tablet 8 Active metoprolol tartrate 100 MG tablet Take 100 mg by mouth daily. 8 Active clonazePAM 1 MG tablet Take 1 mg by mouth 2 (two) times daily. 8 Active clopidogrel 75 MG tablet Take 75 mg by mouth daily. 8 Active atorvastatin 20 MG tablet Take 20 mg by mouth daily. 8 Active hypromellose 0.3 % ophthalmic gel Place 2 drops into both eyes every 4 (four) hours as needed for Dry eyes (keep at bedside). 10 g 4 9 Active ipratropium-alb uterol 0.5-2.5 (3) MG/3ML Solution Take 3 mLs by nebulization 3 (three) times daily. 360 mL 12 9 Active Respiratory Therapy Supplies (NEBULIZER/ADUL T MASK) Kit DX: COPD J44.9 Needs Neb Rx TID and then ever 4 hrs prn SOB, cough, wheezing. Needs tubing and mask (supplies) 1 kit 9 Active Active Problems Problem Noted Date Diagnosed Date Chest pain 09/14/2017 Hypertension 01/21/2017 Hyperlipidemia 01/21/2017 S/P coronary artery stent placement 01/21/2017 Overview (01/21/2017): 2009 and 2014 Polysubstance abuse 01/21/2017 Tobacco abuse 01/21/2017 CAD (coronary artery disease) 07/25/2016 H/O medication noncompliance Family History Medical History Relation Comments CHF Mother Coronary artery disease Mother Coronary artery disease Sister Relation Status Comments Father (Age 54) suicide Mother (Age 72) CHF Paternal Grandfather Cancer Paternal Grandmother Cancer Sister Alive Social History Tobacco Use Types Packs/Day Years Used Date Smoking Tobacco: Smoker, Current Status Unknown Cigarettes Smokeless Tobacco: Current Chew Alcohol Use Standard Drinks/Week Comments No 0 (1 standard drink = 0.6 oz pur e alcohol) Former ETOH abuse Sex and Gender Information Value Date Recorded Sex Assigned at Male 04/06/2024 9:17 AM INFORMATICS ANALYST Legal Sex Male 9:13 AM CDT Gender Identity Not on file Sexual Orientation Not on file Occupation Industry Job Start Date Job End Date Disabled Not on file Not on file Not on file Last Filed Vital Signs Vital Sign Reading Time Taken Comments Blood Pressure 123/79 04/27/2018 1:45 PM INFORMATICS ANALYST Pulse 70 04/27/2018 1:45 PM INFORMATICS ANALYST Temperature 36.5 C (97.7 F) 04/27/2018 1:45 PM INFORMATICS ANALYST Respiratory Rate 20 04/27/2018 1:45 PM INFORMATICS ANALYST Oxygen Saturation 100% 04/27/2018 1:45 PM INFORMATICS ANALYST Inhaled Oxygen Concentration - - Weight 78 kg (171 lb 15.3 oz) 04/27/2018 11:02 A M INFORMATICS ANALYST Height 175.3 cm (5' 9 ) 04/27/2018 11:02 AM INFORMATICS ANALYST Body Mass Index 25.39 04/27/2018 11:02 AM INFORMATICS ANALYST Plan of Treatment Health Maintenance Due Date Last Done Comments ASCVD Statin 1960 Hepatitis C 1976 DTaP, Tdap and Td Vaccines ( 1 - Tdap) 1977 Pneumococcal Vaccine: 50+ Years (1 of 2 - PCV) 1977 Zoster Vaccines (1 of 2) 2008 RSV Immunization or 60+ Years (1 - Risk 60-74 years 1-dose series) 2018 ASCVD LDL 09/15/2018 09/15/2017 Colorectal Cancer Screening Colonoscopy (10 Years) 03/03/2019 03/03/2009 (Previously completed) Annual Medicare Wellness Visit 2023 COVID-19 Vaccine (1 - 2023-2 5 season) 2023 Meningococcal B Vaccine Aged Out No l onger eligible based on patient's age to complete this topic Meningococcal Vaccine Aged Out No diane shavon eligible based on patient's age to complete this topic RSV Immunizations Under 20 Months Aged Out No longer eligible b ased on patient's age to complete this topic Procedures Procedure Name Priority Date/Time Associated Diagnosis Comments LIPID PANEL Routine 09/15/2017 4:38 AM CDT from Last 3 Months or Most Recently Relevant to Health Maintenance Results * (ABNORMAL) LIPID PANEL (09/15/2017 4:38 AM CDT) CHOLESTEROL 153 0 - 200 MG/DL 09/15/2017 5:18 AM CDT [facility] Comment:DESIRABLE: <200 TRIGLYCERIDES 130 0 - 149 MG/DL 09/15/2017 5:18 AM CDT [facility] Comment:<150 NORMAL HDL 31(L) >39 MG/DL 09/15/2017 5:18 AM CDT [facility] Comment:LOW: <40 DIRECT LDL 105 0 - 129 MG/DL 09/15/2017 5:18 AM CDT [facility] Comment:100-129 NEAR OR ABOV E OPTIMAL 09/15/2017 4:38 AM CDT us Kenn Vargas MD LABORATORY Final Result [facility] [address] [id number], [id number] from Last 3 Months or Most Recently Relevant to Health Maintenance Insurance MEDICARE MEDICARE Advance Directives * Full Code (Latest Code Status on File) Date Activated Date Inactivated Comments 04/26/2018 5:20 AM 04/27/2018 7:17 PM * Full Code Date Activated Date Inactivated Comments 09/16/2017 6:42 PM 09/17/2017 12:11 PM * Full Code Date Activated Date Inactivated Comments 09/14/2017 11:05 PM 09/16/2017 6:42 PM Care Teams Parking Lot Attendant Relationship Specialty Start Date End Date Zack Caruso PA [address] [facility] [address] [place] [id number] PCP - General PHYSICIAN REVENUE ENFORCEMENT AGENT 04/06/24 Jarrod Castro MD [address] [place] [address] Arthur Circular Saw Operator CARDIOVASCULAR DISEASE 08/07/16 Che Ramirez, CONSUMER ELECTRONIC RETAIL SPECIALIST, FILM REPLACEMENT ORDERER-C [address] [facility] [address] [place] [address] NURSE PRACTITIONER 01/24/20
--- OUTSIDE RECORDS SUMMARY | 2024-07-14 09:01 | XMS_ITS | Encounter Summary ---
Author Organization [facility] Address [address] [place] [address] Phone Care Team Providers Care Blaster Helper Name Role Phone Rodrigue Zhao MD Primary Care Provider [phone] Zack Caruso Primary Care Provider Reason for Referral * Radiology Services (Routine) - Closed Specialty Diagnoses / Procedures Referred By Selene hyatt Referred To Contact Radiology Diagnoses Pain in right hip Other intervertebral disc displacement, lumbar region Procedures XR LUMBAR MYELO 1 PHY PC PAIN CONSULT Dusty Contreras MD Phone: tel: fax: Referral ID Status Reason Start Date Expiration Date Visits Re quested Visits Authorized [id number] Closed 11/28/2020 1 1 Encounter Details Date Type Department Care Team (Latest Contact Info) Description 11/28/2020 Transcribe Orders [facility] [address] [place] [address] Dusty Contreras MD [address] [place], [place] [id number] Pain in right hip (Primary Dx); Other intervertebral disc displacement, lumbar region Social History Tobacco Use Types Packs/Day Years Used Date Smoking Tobacco: Every Day Cigarettes Smokeless Tobacco: Former Chew Comments:smokes 1 pack in a weel Alcohol Use Standard Drinks/Week Comments No 0 (1 standard drink = 0.6 oz pur e alcohol) Sex and Gender Information Value Date Recorded Sex Assigned at Not on file Legal Sex Male 2:23 PM TRACTOR OPERATOR BATTERY Gender Identity Not on file Sexual Orientation Not on file COVID-19 Exposure Response Date Recorded In the last month, have you been in contact with someone who was confirmed or suspected to have Coronavirus / COVID-19? No / Unsure 10/31/2020 1:25 PM CDT documented as of this encounter Plan of Treatment Not on file documented as of this encounter Results * CT LUMBAR SPINE WO CONTRAST (12/27/2020 1:41 PM CDT) Anatomical Region Laterality Modality Spine N/A Computed Tomogra phy 12/28/2020 11:2 5 AM CDT Impressions 12/28/2020 11:28 AM CDT IMPRESSION: 1. Please note previous imaging studies are not available for comparison. An addendum can be made once priors are provided. 2. Posterior decompression and fusion at L5-S1. The surgical spinal canal is patent. 3. Adjacent level degeneration at L4-L5 with severe spinal canal narrowing. 4. Mild spondylotic changes in the remainder of the lumbar spine and additional findings as discussed above. Narrative 12/28/2020 11:28 AM CDT EXAM DESCRIPTION: CT LUMBAR SPINE WO CONTRAST REASON FOR STUDY: Pain in right hip, other intervertebral disc displacement, lumbar region. History of L5-S1 fusion in 2005. Lumbar epidural steroid injection in 2017. TECHNIQUE: After performing lumbar myelogram, axial images were acquired through the lumbar spine without intravenous contrast. Reconstructed coronal and sagittal MPR images reviewed. All images stored on PACS. Automated exposure control was used as a dose optimization technique for this examination. COMPARISON: None available. FINDINGS: SEGMENTATION: There are 5 fos-ujz-wssvzqc lumbar type vertebral bodies. ALIGNMENT: Approximately 2 mm of anterolisthesis of L4 on L5. VERTEBRAE: Vertebral body heights are maintained. Mild endplate degenerative changes at the non operative levels. Multilevel bilateral facet arthropathy, most noticeable at L4-L5. DISCS: Mild intervertebral disc height loss favors L4-L5. HARDWARE: Previous posterior decompression at L5-S1 and posterior interbody fusion with bilateral vertical stabilization rods, bilateral L5 and S1 transpedicular screws and a single cross link. There is some osseous fusion across the L5-S1 disc space. Bone formation along the posterior elements on both sides. THECAL SAC: There is a mixture of intrathecal and extradural contrast, likely procedure related. Please refer to the separate report of the fluoroscopy guided lumbar puncture report for details regarding the administration of contrast. Positive contrast along the left posterior paraspinal soft tissues of L5-S1 is also presumed to be related to the contrast administration. Please correlate with prior imaging studies if there is a clinical concern for CSF leak. The conus medullaris terminates at L1-L2. INDIVIDUAL LEVELS: L1-L2: No significant disc bulge, spinal canal or osseous neural foraminal narrowing. L2-L3: No significant disc bulge, spinal canal or osseous neural foraminal narrowing. L3-L4: No significant disc bulge or spinal canal narrowing. There is mild bilateral facet arthropathy. No significant osseous neural foraminal narrowing. L4-L5: Anterolisthesis of L4 on L5 with unroofing of the disc. Thickened ligamentum flavum and facet arthropathy. Intermediate attenuation in the dorsal spinal canal could reflect thickened ligamentum flavum or possibly postoperative changes. Constellation of findings with severe spinal canal narrowing and near complete effacement of the thecal sac contrast. There is gekg-km-oeqyqlhb bilateral neural foraminal narrowing. L5-S1: Surgical level. The spinal canal is decompressed posteriorly. No significant osseous spinal canal narrowing. Question left greater than right osseous neural foraminal narrowing. VISUALIZED RIBS: No fractures. SOFT TISSUES: Calcified plaque at the abdominal aorta and iliac vasculature. Partially imaged nonspecific distended urinary bladder. OTHER: Sacroiliac joints with degenerative change. Defect in the lateral margin of the right posterior ilium would be compatible with region of prior bone harvest. THIS IS AN ELECTRONICALLY VERIFIED FINAL REPORT 12/28/2020 11:25 AM - Electronically signed by Jaquan Hernandez D.O. AP: AP Report ID: [id number] Reading Location: [id number] Procedure Note Jaquan Hernandez DO - 12/28/2020 EXAM DESCRIPTION: CT LUMBAR SPINE WO CONTRAST REASON FOR STUDY: Pain in right hip, other intervertebral disc displacement, lumbar region. History of L5-S1 fusion in 2005. Lumbar epidural steroid injection in 2017. TECHNIQUE: After performing lumbar myelogram, axial images were acquired through the lumbar spine without intravenous contrast. Reconstructed coronal and sagittal MPR images reviewed. All images stored on PACS. Automated exposure control was used as a dose optimization technique for this examination. COMPARISON: None available. FINDINGS: SEGMENTATION: There are 5 ekf-zhr-avqphwv lumbar type vertebral bodies. ALIGNMENT: Approximately 2 mm of anterolisthesis of L4 on L5. VERTEBRAE: Vertebral body heights are maintained. Mild endplate degenerative changes at the non operative levels. Multilevel bilateral facet arthropathy, most noticeable at L4-L5. DISCS: Mild intervertebral disc height loss favors L4-L5. HARDWARE: Previous posterior decompression at L5-S1 and posterior interbody fusion with bilateral vertical stabilization rods, bilateral L5 and S1 transpedicular screws and a single cross link. There is some osseous fusion across the L5-S1 disc space. Bone formation along the posterior elements on both sides. THECAL SAC: There is a mixture of intrathecal and extradural contrast, likely procedure related. Please refer to the separate report of the fluoroscopy guided lumbar puncture report for details regarding the administration of contrast. Positive contrast along the left posterior paraspinal soft tissues of L5-S1 is also presumed to be related to the contrast administration. Please correlate with prior imaging studies if there is a clinical concern for CSF leak. The conus medullaris terminates at L1-L2. INDIVIDUAL LEVELS: L1-L2: No significant disc bulge, spinal canal or osseous neural foraminal narrowing. L2-L3: No significant disc bulge, spinal canal or osseous neural foraminal narrowing. L3-L4: No significant disc bulge or spinal canal narrowing. There is mild bilateral facet arthropathy. No significant osseous neural foraminal narrowing. L4-L5: Anterolisthesis of L4 on L5 with unroofing of the disc. Thickened ligamentum flavum and facet arthropathy. Intermediate attenuation in the dorsal spinal canal could reflect thickened ligamentum flavum or possibly postoperative changes. Constellation of findings with severe spinal canal narrowing and near complete effacement of the thecal sac contrast. There is eztb-no-ycygdatc bilateral neural foraminal narrowing. L5-S1: Surgical level. The spinal canal is decompressed posteriorly. No significant osseous spinal canal narrowing. Question left greater than right osseous neural foraminal narrowing. VISUALIZED RIBS: No fractures. SOFT TISSUES: Calcified plaque at the abdominal aorta and iliac vasculature. Partially imaged nonspecific distended urinary bladder. OTHER: Sacroiliac joints with degenerative change. Defect in the lateral margin of the right posterior ilium would be compatible with region of prior bone harvest. THIS IS AN ELECTRONICALLY VERIFIED FINAL REPORT 12/28/2020 11:25 AM - Electronically signed by Jaquan Hernandez D.O. AP: AP Report ID: [id number] Reading Location: [id number] IMPRESSION: 1. Please note previous imaging studies are not available for comparison. An addendum can be made once priors are provided. 2. Posterior decompression and fusion at L5-S1. The surgical spinal canal is patent. 3. Adjacent level degeneration at L4-L5 with severe spinal canal narrowing. 4. Mild spondylotic changes in the remainder of the lumbar spine and additional findings as discussed above. Dusty Contreras MD IMG CT ORDERABLES Final Result * XR LUMBAR MYELO 1 PHY (12/27/2020 1:16 PM CDT) Anatomical Region Laterality Modality Spine, L-spine N/A Radio Fluoroscop y 12/27/2020 4:00 PM CDT Impressions 12/27/2020 4:02 PM CDT IMPRESSION: Lumbar myelogram performed for CT Myelography. Please refer to the report of the CT Myelogram for detailed diagnostic evaluation. Narrative 12/27/2020 4:02 PM CDT EXAM DESCRIPTION: XR LUMBAR MYELO 1 PHY REASON FOR STUDY: Chronic back pain COMPARISON: None FLUOROSCOPY TIME/IMAGE COUNT: Fluoro Time: 1.23 minutes Image Count: Single TECHNIQUE: Fluoroscopic guided lumbar myelogram. PROCEDURE: After fluoroscopic localization, sterile skin prep was performed with Betadine. Local Anesthesia performed with 1% Lidocaine. Using fluoroscopic guidance, a 22-gauge spinal needle was advanced to the thecal sac via paracentral approach at the L5-S1 level. Position confirmed with return of CSF. Needle placement was documented with fluoroscopic images. At this point, 10 cc's of myelographic contrast was injected under fluoroscopic monitoring without complication. Needle was removed and a bandage applied. No post procedural neurologic changes or complications. Patient sent to CT scan for additional imaging. Discharge instructions were provided. Estimated blood loss: <5 mL FINDINGS: Contrast is present in the thecal sac. THIS IS AN ELECTRONICALLY VERIFIED FINAL REPORT 12/27/2020 4:00 PM - Electronically signed by David Arechiga M.D. NC: NC Report ID: [id number] Reading Location: [id number] Procedure Note David Arechiga MD - 12/27/2020 EXAM DESCRIPTION: XR LUMBAR MYELO 1 PHY REASON FOR STUDY: Chronic back pain COMPARISON: None FLUOROSCOPY TIME/IMAGE COUNT: Fluoro Time: 1.23 minutes Image Count: Single TECHNIQUE: Fluoroscopic guided lumbar myelogram. PROCEDURE: After fluoroscopic localization, sterile skin prep was performed with Betadine. Local Anesthesia performed with 1% Lidocaine. Using fluoroscopic guidance, a 22-gauge spinal needle was advanced to the thecal sac via paracentral approach at the L5-S1 level. Position confirmed with return of CSF. Needle placement was documented with fluoroscopic images. At this point, 10 cc's of myelographic contrast was injected under fluoroscopic monitoring without complication. Needle was removed and a bandage applied. No post procedural neurologic changes or complications. Patient sent to CT scan for additional imaging. Discharge instructions were provided. Estimated blood loss: <5 mL FINDINGS: Contrast is present in the thecal sac. THIS IS AN ELECTRONICALLY VERIFIED FINAL REPORT 12/27/2020 4:00 PM - Electronically signed by David Arechiga M.D. NC: SHAUNA Report ID: [id number] Reading Location: [id number] IMPRESSION: Lumbar myelogram performed for CT Myelography. Please refer to the report of the CT Myelogram for detailed diagnostic evaluation. Dusty Contreras MD IMG DIAGNOSTIC ORDERABLES Final Result documented in this encounter Visit Diagnoses Diagnosis Pain in right hip- Primary Pain in joint, pelvic region and thigh Other intervertebral disc displacement, lumbar region Spinal stenosis of lumbar region, unspecified whether neurogenic claudication present- Primary Pain in right hip Pain in joint, pelvic region and thigh Other intervertebral disc displacement, lumbar region Pain in right hip Pain in joint, pelvic region and thigh Other intervertebral disc displacement, lumbar region documented in this encounter Additional Health Concerns Infection Onset Date Last Indicated Resolved Time COVID - 19 Confirmed 02/26/2021 02/26/2021 022 12:16 AM TRACTOR OPERATOR BATTERY documented as of this encounter Care Teams Blaster Helper Relationship Specialty Start Date End Date Rodrigue Zhao MD [address] [place] [address] PCP - General Internal Medicine 09/18/16 12/04/20 Zack Caruso PAC [address] [place] [address] PCP - General Physician Award Clerk 12/05/20 documented as of this encounter
--- OUTSIDE RECORDS SUMMARY | 2024-07-14 09:01 | XMS_ITS | Encounter Summary ---
Author Organization [facility] Address [address] [place] [address] Phone Care Team Providers Care Artificial Insemination Technician Name Role Phone Zack Caruso Primary Care Provider [phone] Encounter Details Date Type Department Care Team (Late st Contact Info) Description 03/29/2021 [facility] [address] [place] [address] Bean Cooper MD [address] [place] [address] Pre-op testing (Primary Dx) Social History Tobacco Use Types Packs/Day Years Used Date Smoking Tobacco: Former Cigarettes 0.5 30 1 04/22/1990 - 02/19/2021 Smokeless Tobacco: Former Chew Comments:smokes 1 pack in a weeK Alcohol Use Standard Drinks/Week Comments No 0 (1 standard drink = 0.6 oz pur e alcohol) Sex and Gender Information Value Date Recorded Sex Assigned at Not on file Legal Sex Male 2:23 PM FINISHED YARN EXAMINER Gender Identity Not on file Sexual Orientation Not on file COVID-19 Exposure Response Date Recorded In the last month, have you been in contact with someone who was confirmed or suspected to have Coronavirus / COVID-19? No / Unsure 03/30/2021 12:19 PM FINISHED YARN EXAMINER documented as of this encounter Plan of Treatment Scheduled Orders Name Type Priority Associated Diagnoses Orde r Schedule SARS-COV-2 BY MOLECULAR Microbiology Routine Pre-op testing Expected: 04/02/2021, Expires: 06/27/2021 documented as of this encounter Visit Diagnoses Diagnosis Pre-op testing- Primary Preoperative examination, unspecified documented in this encounter Care Teams Artificial Insemination Technician Relationship Specialty Start Date End Date Zack Caruso, PAC [address] [place] [address] PCP - General Physician Quarry Supervisor Dimension Stone 12/05/20 documented as of this encounter
--- OUTSIDE RECORDS SUMMARY | 2024-07-14 09:01 | XMS_ITS | Clinical Summary ---
Author Organization [facility] Address [address] [place] [address] Phone Care Team Providers Care [employer] Pe Teacher Name Role Phone Zack Caruso Primary Care Provider [phone] Allergies Active Allergy Reactions Criticality Noted Date Comments Morphine Itching 09/18/2016 Penicillin G Unknown 09/18/2016 As a child, unaware of what reaction was Medications Atorvastatin Calcium (LIPITOR PO) Take 20 mg by mouth daily. Active pantoprazole (PROTONIX) 20 MG Tablet Delayed Response Take 20 mg by mouth daily. Active METOPROLOL TARTRATE PO Take 100 mg by mouth daily. Active AMLODIPINE BESYLATE PO Take 10 mg by mouth once. Active HYDROcodone-acetam inophen (NORCO) 7.5-325 MG TabletIndications: Sigmoid diverticulitis Take 1 Tablet by mouth every 6 hours as needed for Moderate or more severe pain. 15 Tablet 03/31/19 22 Active polyethylene glycol (GLYCOLAX, MIRALAX) 17 g PackIndications:Co nstipation Take 1 Packet by mouth 2 times daily as needed for Constipation - 1st line. Dissolve in 4-8 oz of liquid. Indications: Constipation 90 Packet 03/31/19 Active senna (SENOKOT) 8.6 MG Tablet Take 1 Tablet by mouth daily. 30 Tablet 03/31/19 22 Active Active Problems Problem Noted Date Diagnosed Date Lumbar spinal stenosis 09/18/2016 Hypertension COPD (chronic obstructive pulmonary disease) CAD (coronary artery disease) Overview (03/30/2021): [facility] Stroke Overview (03/30/2021): states has TIAS, last one 2020, no lasting deficits Sigmoid diverticulitis Elevated lactic acid level Leukocytosis Immunizations Immunization Administration Dates Next Due Covid-19, Mrna, Lnp-s, PF, 1 00 mcg/0.5 mL Dose (Moderna) 06/27/2020 Influenza Vaccine, Quadrivalent, PF 03/20/2015 Family History Medical History Relation Name Comments No Known Problems Father Heart Attack Mother Stroke Mother Relation Name Status Comments Father Mother Social History Tobacco Use Types Packs/Day Years Used Date Smoking Tobacco: Former Cigarettes 0.5 30 1 04/22/1990 - 02/19/2021 Smokeless Tobacco: Former Chew Comments:smokes 1 pack in a weeK Alcohol Use Standard Drinks/Week Comments No 0 (1 standard drink = 0.6 oz pur e alcohol) Sex and Gender Information Value Date Recorded Sex Assigned at Not on file Legal Sex Male 2:23 PM VENEER DRIER Gender Identity Not on file Sexual Orientation Not on file Last Filed Vital Signs Vital Sign Reading Time Taken Comments Blood Pressure 142/87 03/31/2021 7:46 AM VENEER DRIER Pulse 67 03/30/2021 10:00 PM VENEER DRIER Temperature 36.5 C (97.7 F) 03/31/2021 7:46 AM VENEER DRIER Respiratory Rate 20 03/31/2021 7:46 AM VENEER DRIER Oxygen Saturation 100% 03/31/2021 7:46 AM VENEER DRIER Inhaled Oxygen Concentration - - Weight 79.4 kg (175 lb) 03/30/2021 12:20 PM VENEER DRIER Height 182.9 cm (6') 03/30/2021 12:20 PM VENEER DRIER Body Mass Index 23.73 03/30/2021 12:20 PM VENEER DRIER Plan of Treatment Health Maintenance Due Date Last Done Comments Hepatitis C Virus (HCV) Screening 1960 Pneumococcal Immunization (50+ years) (1 of 2 - PCV) 1977 10/30/2013, 08/12/2008 Colonoscopy 2003 Colorectal Cancer Screening 2003 Cologuard 2008 Immunochemical Fecal Occult Blood 2008 Zoster Immunization (1 of 2) 2008 Respiratory Syncytial Virus (RSV) Immunization (Adult) (1 - Risk 60-74 years 1-dose series) 2018 Influenza Immunization (#1) 2023 10/0 04/2017, 11/01/2016, 11/08/2015, Additional history exists SARS-COV-2 Immunization ( season) 2023 01/15/2021, 07/25/2020, 06/27/2020 Pneumococcal Immunization Combined Discontinued 10/30/2013, 08/12/2008 DTaP/Tdap/Td Immunization Discontinued 08/21/2017, 01/2011 TdaP Immunization Completed 08/21/2017, 10/12/2010 Hepatitis B Immunization Aged Out No longer eligible based on patient's age to complete this topic Meningococcal Immunization (ACWY) Aged Out No longer eligible based on patient's age to complete this topic Rotavirus Immunization Aged Out No lo nger eligible based on patient's age to complete this topic Insurance MEDICARE Advance Directives * Full Code (Latest Code Status on File) Date Activated Date Inactivated Comments 03/30/2021 3:58 PM 03/31/2021 3:37 PM CPR-Full Jace atment: FULL ARREST: Attempt Resuscitation/CPR wit intubation and mechanical ventilation. PRE-ARREST: Use entire range of life support measures to stabilize the patient. Care Teams Middle [employer] Pe Teacher Relationship Specialty Start Date End Date Zack Caruso, [facility] [address] [place] [address] PCP - General Physician Sales Trainer 12/05/20
--- OUTSIDE RECORDS SUMMARY | 2024-07-14 09:01 | XMS_ITS | Encounter Summary ---
Author Organization [facility] Address [address] 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 No / Unsure 03/30/2021 12:19 PM SCRAP METAL COLLECTOR documented as of this encounter Plan of Treatment Scheduled Orders Name Type Priority Associated Diagnoses Orde r Schedule TYPE & SCREEN (CROSSMATCH CONVERTIBLE) Blood Bank Routine Pre-op testing Expected: 04/02/2021, Expires: 06/27/2021 documented as of this encounter Visit Diagnoses Diagnosis Pre-op testing- Primary Preoperative examination, unspecified documented in this encounter Care Teams Medical Microbiologist Relationship Specialty Start Date End Date Zack Caruso, PAC [address] [place] [address] PCP - General Physician Maxillofacial Pathology 12/05/20 documented as of this encounter
--- OUTSIDE RECORDS SUMMARY | 2024-07-14 09:01 | XMS_ITS | Encounter Summary ---
Author Organization [facility] Address [facility]ly [facility] [place] [address] Care Team Providers Care Credit Review Analyst Name Role Phone Jarrod Castro MD Unavailable Che Ramirez APRN, NP-C Unavailable Zack Caruso Primary Care Provider [phone] Encounter Details Date Type Department Care Team (Late st Contact Info) Description 05/17/2017 Abstract [facility] CONVERSION [address] [place] [address] , Generic ConversionMD Social History Tobacco Use Types Packs/Day Years Used Date Smoking Tobacco: Smoker, Current Status Unknown Cigarettes Alcohol Use Standard Drinks/Week Comments No 0 (1 standard drink = 0.6 oz pur e alcohol) Former ETOH abuse Sex and Gender Information Value Date Recorded Sex Assigned at Male 04/06/2024 9:17 AM PAPER COUNTER Legal Sex Male 9:13 AM CDT Gender Identity Not on file Sexual Orientation Not on file Occupation Industry Job Start Date Job End Date Disabled Not on file Not on file Not on file documented as of this encounter Plan of Treatment Not on file documented as of this encounter Visit Diagnoses Not on filedocumented in this encounter Care Teams Credit Review Analyst Relationship Specialty Start Date End Date Zack Caruso PA [address] [facility] [address] [place] [address] PCP - General PHYSICIAN CHIEF ENGINEER DRILLING AND RECOVERY 04/06/24 Jarrod Castro MD [address] [place] [id number] Felt Stitching Machine Operator CARDIOVASCULAR DISEASE 08/07/16 Che Ramirez, NERI, SOCIAL PSYCHOLOGIST-C [address] [facility] [address] [place] [address] NURSE PRACTITIONER 01/24/20 documented as of this encounter
--- OUTSIDE RECORDS SUMMARY | 2024-07-14 09:01 | XMS_ITS | Clinical Summary ---
Author Organization [facility] Address [address] [place] [address] Care Team Providers Care Information Security Architect Name Role Phone Unavailable Primary Care Provider Unavailabl e Source Comments [facility],non-owned Affiliates and Associated Physician Practices is amultiple site organization consisting of ambulatory clinics and hospital sitesin [place], [place], [place] and [place]. This disclosure is being madepursuant to the Care Everywhere program and may not contain all information available regarding this patient. Last updated 17.[facility] Active Problems Problem Noted Date Diagnosed Date Cerebrovascular accident (CVA), unspecified [facility] 08[facility]21 Social History Tobacco Use Types Packs/Day Years Used Date Smoking Tobacco: Never Assessed Sex and Gender Information Value Date Recorded Sex Assigned at Not on file Legal Sex Male 10:03 AM [employer] TE[employer] Gender Identity Not on file Sexual Orientation Not on file Plan of Treatment Health Maintenance Due Date Last Done Comments COLOGUARD (AGES 45-75) - COL ON CA SCREENING 1958 COLON MONITORING 1958 COLONOSCOPY - COLON CA SCREENING 1958 CT COLONOGRAPHY - COLON CA SCREENING 1958 Colorectal Cancer Screening 1958 FIT - COLON CA SCREENING 1958 FLEX SIG - COLON CA SCREENING 1958 LIPID TESTING 1958 HEPATITIS C SCREENING 03/03/1976 DTAP/TDAP/TD VACCINES (1 - Tdap) 1977 PNEUMOCOCCAL VACCINE 50+ (1 of 1 - PCV) 2008 ZOSTER VACCINE (1 of 2) 2008 COVID-19 VACCINE ( - 2023-2 5 season) 2023 DEPRESSION SCREENING 03/03/2024 INFLUENZA VACCINE (Season Ended) 2024 Respiratory Syncytial Virus (RSV) Vaccine Pt: or over 60 yrs (1 - 1-dose 75+ series) 2033 HEPATITIS B VACCINE Aged Out No longe r eligible based on patient's age to complete this topic HIB VACCINE Aged Out No longer eligi ble based on patient's age to complete this topic HPV VACCINE Aged Out No longer eligi ble based on patient's age to complete this topic MENINGOCOCCAL (Group B) VACC INE SHARED DECISION-MAKING Aged Out No longer eligibl e based on patient's age to complete this topic MENINGOCOCCAL GROUPS A/C/Y/W VACCINE Aged Out No longer eligible b ased on patient's age to complete this topic Insurance MEDICARE
--- OUTSIDE RECORDS SUMMARY | 2024-07-14 09:02 | XMS_ITS | Data Portability ---
Author Organization [facility] Address [address] [facility] [place] [address] Care Team Providers Care Static Balancer Name Role Phone SABRINA CARUSO Primary Care Provider Assessment No assessment recorded. Plan of Treatment Reminders Order Date Submit Date Provider Last Modified By Organization Details Last Modified Time Details Appointments ANY 15 2024 02:00P M Raj Mccoy MD Not available Not available Not available Lab TSH, serum or plasma 2024 025 [email or web address] [facility], [address] [place] [address], [id number], 06/10/2024 15:43:24 CBC 2024 025 [email or web address] [facility], [address] [place] [address], [id number], 06/10/2024 15:43:24 lipid panel, serum 2024 025 [email or web address] [facility], [address] [place] [address], [id number], 06/10/2024 15:43:24 CMP, serum or plasma 2024 025 [email or web address] [facility], [address] [place] [address], [id number], 06/10/2024 15:43:24 HbA1c (hemoglo bin A1c), blood 2024 025 [email or web address] [facility], [address] [place] [address], [id number], 06/10/2024 15:43:24 Referral wound care referral 2024 025 maura Courtney [facility], [address], [place], [address], 07/12/2024 08:47:44 Procedures None recorded . Surgeries None recorded . Imaging US, abdomen - Soft Tissue 2024 025 [facility], [address] [place], [address], 07/12/2024 11:39:49 Medication Orders Medrol (Ayad) 4 mg tablets in a dose pack 2024 025 [facility]acy #[id number], [address] [place], [address], 07/12/2024 10:10:04 sulfamet hoxazole 800 mg-trime thoprim 160 mg tablet 2024 025 [facility]acy #[id number], [address] [place], [address], 07/12/2024 10:10:09 mupiroci n 2 % topical ointment 2024 025 [facility]armacy #[id number], [address] [place], [address], 06/21/2024 16:34:23 nitrogly cerin 0.4 mg sublingu al tablet 2024 025 [email or web address] [facility]/Pharmacy #[id number], [address] [place], [address], 06/10/2024 15:23:07 sulfamet hoxazole 800 mg-trime thoprim 160 mg tablet 2024 025 [email or web address] [facility]/Pharmacy #[id number], [address] [place], [address], 07/12/2024 10:10:03 Patient TargetsNo targets recorded. Patient Instructions Encounter Date Encounter Id Patient Instructions Last Modified By Organization Details Last Modified Time 05/28/2024 [id number] A healthy lifestyle: care instructions [email or web address] Not available 05/28/2024 12:07:20 learning about high blood pressure jnanney Not available 05/28/2024 12:07:20 06/10/2024 [id number] Quitting Tobacco : Care Instructions [email or web address] Not available 06/10/2024 15:23:07 06/21/2024 [id number] learning about high blood pressure jnanney Not available 06/21/2024 16:34:10 Reason for Referral Referring Physician: Sabrina cash, Family Medicine, Encounter Date: 04/05/2024 Results Created Date Observation Date Name Description Value Unit Range Abnormal Flag Note LastModifiedBy Organization Detail LastModifiedTime 03/09/19 25 03/10/2024 COMP. METAB OLIC PANEL (14) glucose 179 mg/dL 70-99 above high normal Not Available [facility] ([facility]) [address] [place], [address], 03/10/2024 08:25:05 03/09/19 25 03/10/2024 COMP. METAB OLIC PANEL (14) BUN 18 mg/dL 8-27 Not Available [facility] ([facility]) [address] [place], [address], 03/10/2024 08:25:05 03/09/19 25 03/10/2024 COMP. METAB OLIC PANEL (14) creatinine 1.06 mg/dL 0.76-1 .27 Not Available [facility] ([facility]) [address] [place], [address], 03/10/2024 08:25:05 03/09/19 25 03/10/2024 COMP. METAB OLIC PANEL (14) eGFR 77 mL/mi n/1.7 3 >59 Not Available [facility] ([facility]) [address] [place], [address], 03/10/2024 08:25:05 03/09/19 25 03/10/2024 COMP. METAB OLIC PANEL (14) BUN/creatini ne ratio 17 10-24 Not Available [facility] ([facility]) [address] [place], [address], 03/10/2024 08:25:05 03/09/19 25 03/10/2024 COMP. METAB OLIC PANEL (14) sodium 139 mmol/ L 134-14 4 Not Available [facility] ([facility]) [address] [place], [address], 03/10/2024 08:25:05 03/09/19 25 03/10/2024 COMP. METAB OLIC PANEL (14) potassium 4.6 mmol/ L 3.5-5. 2 Not Available [facility] ([facility]) [address] [place], [address], 03/10/2024 08:25:05 03/09/19 25 03/10/2024 COMP. METAB OLIC PANEL (14) chloride 104 mmol/ L 96-106 Not Available [facility] ([facility]) [address] [place], [address], 03/10/2024 08:25:05 03/09/19 25 03/10/2024 COMP. METAB OLIC PANEL (14) carbon dioxide, total 21 mmol/ L 20-29 Not Available [facility] ([facility]) [address] [place], [address], 03/10/2024 08:25:05 03/09/19 25 03/10/2024 COMP. METAB OLIC PANEL (14) calcium 8.8 mg/dL 8.6-10 .2 Not Available [facility] ([facility]) [address] [place], [address], 03/10/2024 08:25:05 03/09/19 25 03/10/2024 COMP. METAB OLIC PANEL (14) protein, total 5.8 g/dL 6.0-8. 5 below low normal Not Available [facility] ([facility]) [address] [place], [address], 03/10/2024 08:25:05 03/09/19 25 03/10/2024 COMP. METAB OLIC PANEL (14) albumin 4.1 g/dL 3.9-4. 9 Not Available [facility] ([facility]) [address] [place], [address], 03/10/2024 08:25:05 03/09/19 25 03/10/2024 COMP. METAB OLIC PANEL (14) globulin, total 1.7 g/dL 1.5-4. 5 Not Available [facility] ([facility]) [address] [place], [address], 03/10/2024 08:25:05 03/09/19 25 03/10/2024 COMP. METAB OLIC PANEL (14) bilirubin, total 0.9 mg/dL 0.0-1. 2 Not Available [facility] ([facility]) [address] [place], [address], 03/10/2024 08:25:05 03/09/19 25 03/10/2024 COMP. METAB OLIC PANEL (14) alkaline phosphatase 76 IU/L 44-121 Not Available [facility] ([facility]) [address] [place], [address], 03/10/2024 08:25:05 03/09/19 25 03/10/2024 COMP. METAB OLIC PANEL (14) AST (SGOT) 13 IU/L 0-40 Not Available [facility] ([facility]) [address] [place], [address], 03/10/2024 08:25:05 03/09/19 25 03/10/2024 COMP. METAB OLIC PANEL (14) ALT (SGPT) 10 IU/L 0-44 Not Available [facility] ([facility]) [address] [facility], [place], [address], 03/10/2024 08:25:05 03/09/19 25 03/10/2024 HEMOG LOBIN A1C hemoglobin A1C - % Test not perfo rmed. No laven abi top tube submi tted. Predi abete s: 5.7 - 6.4 Diabe petey: >6.4 Glyce mindy contr ol for adult s with diabe petey: <7.0 Not Available [facility] ([facility]) [address] [facility], [place], [address], 03/10/2024 08:25:07 03/11/19 25 03/11/2024 elect rocar diogr am No observ ation record ed. ELSA In-Office Order Internal Use Only DO Not Attach Compendium DO Not Attach Compendium, Do Not Delete/merge, [id number] 03/11/2024 16:04:43 03/11/19 elect rocar diogr am No observ ation record ed. [email or web address] Not Available 2024 16:04:44 Result Notes None recorded. Problems Name Problem SNOMED Code Status Onset Date Resolution Date Notes Provider Name and Address Organization Details Recorded Time Chest pain 39528421 Active 2021 Lauren Castorena LPN [place], [place] - [facility] 4 10:17:24 Coronary arteriosc lerosis 95375871 Active Yanet Louise [place] [facility] 10:31:27 Dyslipide tyson 157885692 Active Yanet Louise [place] [facility] 1 10:31:27 Low back strain 086374000 Active Yanet Louise [place] [facility] 10:31:27 Low back pain 683838466 Active Yanet Louise [place] [facility] 1 10:31:27 Lumbar radiculop athy 127630563 Active Yanet Louise [place] [facility] 10:31:27 Muscle strain 44653219 Active Yanet Louise [place] [facility] 1 10:31:27 Impingeme nt syndrome of shoulder region 341372383 Active Yanet Louise [place] [facility] 1 10:31:28 Tobacco user 442397340 Completed 202312/21/2023 Lauren Castorena LPN [place] [facility] 4 10:18:32 Sacroilia c disorder 821703579 Active Yanet Louise [place] [facility] 1 10:31:28 Low blood pressure 50232839 Active Yanet Louise [place] [facility] 1 10:31:28 Pain in left lower limb 796964104 Active Yanet Louise [place] [facility] 1 10:31:28 Acute exacerbat ion of chronic obstructi ve pulmonary disease 079669747 Active Yanet Louise [place] [facility] 1 10:31:28 Atypical chest pain 807040613 Active Yanet Louise [place] [facility] 3 17:34:01 Syncope 184615853 Active Yanet Louise [place] [facility] 1 10:31:28 Chronic anxiety 760374961 Active 2020 Yanet Louise [place] [facility] 3 17:34:01 Sciatica 36423501 Active Yanet Louise [place] [facility] 3 17:34:01 Diabetes mellitus 56190697 Active 2022 Yanet Louise [place] [facility] 12:38:39 Benign paroxysma l positiona l vertigo 521976380 Active 2012 Lauren Castorena LPN [place] [facility] 4 10:17:24 Leukocyto sis 497653944 Active Lauren Castore[place]PN [place] [facility] 4 10:17:24 Chronic obstructi ve pulmonary disease 10606614 Active 2013 Lauren Castore[place] LPN [place] [facility] 4 10:17:24 Fall Active 2021 Lauren Castore[place] LPN [place] [facility] 4 10:17:24 Insomnia 726784739 Active 2010 Lauren Castorena [employer] [place] [facility] 4 10:17:24 Generaliz ed anxiety disorder 82485123 Active Lauren Castore[place] LPN [place] [facility] 10:17:24 Cerebrova scular accident 541408736 Active 2021 Lauren Castorena [employer] [place] [facility] 4 10:19:06 Gastroeso phageal reflux disease 860562695 Active 2013 Lauren Castore[place] [facility] 10:17:24 Mixed hyperlipi demia 063099930 Active Lauren Castore[place] LPN [place] [facility] 4 10:17:24 Confusion al state 136333794 Active 2021 Lauren Castorena [employer] [place] [facility] 10:17:24 Syncope and collapse 346278581 Active 2013 Lauren Castorena [employer] [place] [facility] 10:17:24 Depressiv e disorder 85015347 Active 2008 Lauren Castore[place] LPN [place] [facility] 10:17:24 Hypertens noah disorder 69875444 Active 2021 Lauren Castorena [employer] [place] [facility] 10:17:24 Inguinal hernia 486491074 Active 2022 Lauren Castore[place] LPN [place] [facility] 10:17:24 History of placement of stent for coronary artery disease 530771684 Active 2016 Lauren Castore[place] LPN [place] [facility] 10:17:24 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 830413477 Active 2016 Lauren Kell, [employer] [place] [facility] 10:17:24 Preinfarc tion syndrome 5902078 Active Lauren Castorena [employer] [place] [facility] 4 10:17:24 Perforati on of sigmoid colon due to diverticu litis 059498831422 9102 Active 2023 Lauren Castorena [employer] [place] [facility] 4 10:18:32 Epidermal burn of left wrist 912936160851 47222 Active 2023 Lauren Castorena [employer] [place] [facility] 4 10:18:32 Mixed anxiety and depressiv e disorder 355381483 Active 2008 Lauren Castore[place] LPN [place] [facility] 4 10:18:32 History of cerebrova scular accident 052419603 Active 2023 Lauren Castore[place] LPN [place] [facility] 4 10:18:32 Nutrition al marasmus 32966454 Active 2023 Lauren Castorena [employer] [place] [facility] 4 10:18:32 Type 2 diabetes mellitus without complicat ion 903399467 Active 2022 Lauren Castorena [employer] [place] [facility] 10:18:32 Acute coronary syndrome 046045787 Active 2022 Lauren Castorena [employer] [place] [facility] 10:18:32 Diverticu litis of large intestine 8435728 Active 2023 Lauren Castorena [employer] [place] [facility] 4 10:18:32 Gastroint estinal perforati on 85094215 Active 2023 Lauren Castore[place] LPN [place] [facility] 4 10:18:32 Mixed hyperlipi demia due to type 2 diabetes mellitus 567114538921 Active Lauren Castore[place] LPN [place] [facility] 4 10:18:32 Marijuana user 725658903 Completed 202312/21/2023 Lauren Castorena LPN null, [place] - [facility] 4 10:18:32 Problem Notes None recorded. Procedures Surgical History Date Name Laterality Status Provider Name and Address Organization Details Recorded Time repair of colon completed Nichelle Buck MA [place] - [facility] 08/08/2023 10:58:31 Imaging Results Imaging Date Name Status LastModified by Organization Details LastModified Time 03/11/2024 electrocardiogram completed ELSA In-Offi ce Order Internal Use Only DO Not Attach Compendium DO Not Attach Compendium, Do Not Delete/merge, [id number] 03/11/2024 16:04:43 03/11/2024 electrocardiogram completed Informa tion not available 03/11/2024 16:04:44 Procedure Notes None recorded. Medical Equipment None Reported. Allergies Allergen ID Allergen Name Allergen Category Reaction Reaction Severity Criticality Documentation Date Start Date Code Code System Note Provider Name and Address Organization Details Recorded Time 428226 Product containin g penicilli n (product) medicatio n Not available Not available Not available 05/19/2020 40184 8001 SNOMED Josie Arboleda MA null, [place] - [facility] 1 11:01:30 303498 morphine medicatio n hives Not available Not available 12/31/20232023 7052 RxNorm ROHINI Flowers, [place] - [facility] 4 10:17:57 Medications Name Sig Start Date Stop Date Status Note LastModified by Organization Details LastModified Time cyclobenz aprine 10 mg tablet Take 1 tablet every 8 hours by oral route as needed for 30 days. 06/12 completed Not Available Not Available Not Available atorvasta tin 40 mg tablet Take 1 tablet every day by oral route in the evening for 90 days. 09/20 completed Not Available Not Available Not Available silver sulfadiaz ine 1 % topical cream 01/07 completed Not Available Not Available Not Available metformin 500 mg tablet TAKE 1 TABLET TWICE A DAY BY ORAL ROUTE FOR 90 DAYS. 05/25 completed Not Available Not Available Not Available atorvasta tin 80 mg tablet TAKE 1 TABLET BY MOUTH EVERY DAY 06/21 completed Not Available Not Available Not Available clonidine HCl 0.1 mg tablet Take 1 tablet twice a day by oral route for 90 days. 09/17 completed Not Available Not Available Not Available prednison e 10 mg tablet 01/16 completed Not Available Not Available Not Available cefuroxim e axetil 250 mg tablet 05/19 completed Not Available Not Available Not Available atorvasta tin 20 mg tablet Take 1 tablet every day by oral route. 10/12 completed Not Available Not Available Not Available clindamyc in HCl 300 mg capsule Take 1 capsule every 6 hours by oral route for 10 days. 12/24 completed Not Available Not Available Not Available polyethyl nathaniel glycol 3350 17 gram oral powder packet Take 17 g by oral route. 01/07 completed Not Available Not Available Not Available triamcino lone acetonide 0.5 % topical cream APPLY A THIN LAYER TO THE AFFECTED AREA(S) BY TOPICAL ROUTE 2 TIMES PER DAY 08/06 completed Not Available Not Available Not Available atorvasta tin 10 mg tablet Take 1 tablet every day by oral route. 06/21 completed Not Available Not Available Not Available alprazola m 1 mg tablet TAKE 1 TABLET BY MOUTH 3 TIMES DAILY FOR 1 DAY. 07/09 completed Not Available Not Available Not Available metoprolo l tartrate 100 mg tablet Take 1 tablet every day by oral route. 09/04 completed Not Available Not Available Not Available hydrocodo ne 5 mg-acetam inophen 325 mg tablet TAKE ONE TABLET BY MOUTH EVERY 6 HOURS NEEDED 06/08 completed Not Available Not Available Not Available Medrol (Ayad) 4 mg tablets in a dose pack Take 1 dose pk by oral route as directed . 07/12 completed Not Available Not Available Not Available prednison e 20 mg tablet 05/19 completed Not Available Not Available Not Available metoprolo l succinate ER 100 mg tablet,ex tended release 24 hr TAKE 1 TABLET BY MOUTH EVERY DAY active Not Available Not Available No t Available metronida zole 250 mg tablet 05/11 completed Not Available Not Available Not Available amlodipin e 2.5 mg tablet 09/19 completed Not Available Not Available Not Available metronida zole 500 mg tablet PLEASE SEE ATTACHED FOR DETAILED DIRECTIO NS 12/10 completed Not Available Not Available Not Available clopidogr el 75 mg tablet TAKE 1 TABLET BY MOUTH EVERY DAY active Not Available Not Available No t Available amlodipin e 5 mg tablet TAKE 1 TABLET BY MOUTH EVERY DAY 05/28 completed Not Available Not Available Not Available ciproflox acin 500 mg tablet TAKE 1 TABLET BY MOUTH EVERY 12 HOURS 05/25 completed Not Available Not Available Not Available sulfameth oxazole 800 mg-trimet hoprim 160 mg tablet Take 1 tablet every 12 hours by oral route for 10 days. 07/12 completed Not Available Not Available Not Available hydrocodo ne 10 mg-acetam inophen 325 mg tablet 03/14 completed Not Available Not Available Not Available tramadol 50 mg tablet TAKE 1 TABLET BY MOUTH EVERY 6 HOURS NEEDED FOR PAIN 08/07 completed Not Available Not Available Not Available amoxicill in 500 mg tablet TAKE 1 TABLET BY MOUTH 3 TIMES A DAY FOR 10 DAYS 08/07 completed Not Available Not Available Not Available acyclovir 800 mg tablet Take 1 tablet 5 times a day by oral route for 5 days. 06/12 completed Not Available Not Available Not Available oxycodone -acetamin ophen 5 mg-325 mg tablet TAKE 1 TABLET BY MOUTH EVERY 6 HOURS NEEDED FOR PAIN 05/25 completed Not Available Not Available Not Available isosorbid e mononitra te ER 60 mg tablet,ex tended release 24 hr TAKE 1 TABLET BY MOUTH EVERY DAY 05/28 completed stopped by hospital Not Available Not Available Not Available alprazola m 0.5 mg tablet TAKE 1 TABLET BY MOUTH THREE TIMES A DAY NEEDED active Not Available Not Available No t Available alprazola m 0.25 mg tablet TAKE 1 TABLET BY MOUTH DAILY. 08/21 completed Not Available Not Available Not Available citalopra m 20 mg tablet Take 1 tablet every day by oral route. 08/06 completed Not Available Not Available Not Available OneTouch Ultra Test strips USE TO TEST TWICE A DAY active Not Available Not Available No t Available amlodipin e 10 mg tablet TAKE 1 TABLET BY MOUTH EVERY DAY active Not Available Not Available No t Available hydrocodo ne 7.5 mg-acetam inophen 325 mg tablet TAKE 1 TABLET BY MOUTH EVERY 6 HOURS NEEDED FOR PAIN 05/11 completed Not Available Not Available Not Available bisacodyl 10 mg rectal supposito ry 10 mg by rectal route. 12/19 completed Not Available Not Available Not Available pantopraz ole 40 mg tablet,de layed release TAKE 1 TABLET BY MOUTH TWICE A DAY active Not Available Not Available No t Available telmisart an 40 mg tablet 05/19 completed Not Available Not Available Not Available buspirone 10 mg tablet Take 1 tablet twice a day by oral route for 90 days. 08/06 completed Not Available Not Available Not Available lidocaine 5 % topical patch APPLY 1 PATCH BY TOPICAL ROUTE ONCE DAILY (MAY WEAR UP TO 12HOURS. ) 06/12 completed Not Available Not Available Not Available clotrimaz ole 1 % topical solution THREE DROPS IN INFECTED EAR THREE TIMES PER DAY 03/14 completed Not Available Not Available Not Available nicotine 21 mg/24 hr daily transderm al patch Apply 1 patch every day by transder mal route. 08/06 completed Not Available Not Available Not Available nitroglyc ary 0.4 mg sublingua l tablet PLACE 1 TABLET UNDER TONGUE FOR CHEST PAIN. MAY REPEAT UP TO 3 DOSES. active Not Available Not Available No t Available docusate sodium 100 mg capsule Take 100 mg twice a day by oral route. 01/07 completed Not Available Not Available Not Available gabapenti n 300 mg capsule Take 1 capsule 3 times a day by oral route for 30 days. 03/14 completed has it but doesn't take it Not Available Not Available Not Available Senna Laxative 8.6 mg tablet TAKE 1 TABLET BY MOUTH EVERY DAY 03/14 completed Not Available Not Available Not Available aspirin 81 mg chewable tablet 81 mg by oral route. active Not Available Not Available No t Available hydroxyzi ne HCl 25 mg tablet Take 1 tablet 3 times a day by oral route as needed for 30 days. 08/06 completed Not Available Not Available Not Available mupirocin 2 % topical ointment APPLY A SMALL AMOUNT TO THE AFFECTED AREA BY TOPICAL ROUTE 3 TIMES PER DAY 2024 active Not Available Not Available Not Avai lable levofloxa raleigh 750 mg tablet 06/08 completed Not Available Not Available Not Available neomycin 500 mg tablet PLEASE SEE ATTACHED FOR DETAILED DIRECTIO NS 08/07 completed Not Available Not Available Not Available cefdinir 300 mg capsule 05/19 completed Not Available Not Available Not Available amoxicill in 875 mg-potass ium clavulana te 125 mg tablet TAKE 1 TABLET BY MOUTH EVERY 12 HOURS 08/07 completed Not Available Not Available Not Available nicotine 7 mg/24 hr daily transderm al patch Apply 1 patch every day by transder mal route. 08/06 completed Not Available Not Available Not Available Ventolin HFA 90 mcg/actua tion aerosol inhaler INHALE 2 PUFFS BY MOUTH EVERY 4 HOURS NEEDED FOR SHORTNES S OF BREATH/W HEEZING 08/07 completed Not Available Not Available Not Available buspirone 15 mg tablet TAKE 1 TABLET TWICE A DAY BY ORAL ROUTE FOR 90 DAYS. 2024 active Not Available Not Available Not Avai lable oxycodone 5 mg tablet TAKE 1 TABLET BY MOUTH EVERY 8 HOURS NEEDED FOR PAIN 06/08 completed Not Available Not Available Not Available neomycin- polymyxin -hydrocor t 3.5 mg-10,000 unit/mL-1 % ear drops,alison p INSTILL 4 DROPS INTO AFFECTED EAR(S) 3 TIMES A DAY 05/25 completed Not Available Not Available Not Available azithromy raleigh 500 mg tablet Take 1 tablet every day by oral route for 3 days. 02/08 completed Not Available Not Available Not Available ezetimibe 10 mg tablet TAKE 1 TABLET BY MOUTH EVERY DAY active Not Available Not Available No t Available Aleve 01/16 completed 6-8 a day Not Available Not Available Not Available Asprin Ec Low Dose 03/17 completed Not Available Not Available Not Available pen needle, diabetic 10/25 completed Not Available Not Available Not Available ranolazin e ER 500 mg tablet,ex tended release,1 2 hr TAKE 1 TABLET BY MOUTH TWICE A DAY 2024 active Not Available Not Available Not Avai lable oxycodone 10 mg tablet TAKE 1 TABLET (10 MG TOTAL) BY MOUTH EVERY 6 (SIX) HOURS NEEDED FOR PAIN FOR UP TO 7 DAYS 12/10 completed Not Available Not Available Not Available Purelax 17 gram/dose oral powder PLEASE SEE ATTACHED FOR DETAILED DIRECTIO NS 01/07 completed Not Available Not Available Not Available Repatha SureClick 140 mg/mL subcutane ous pen injector INJECT 1 ML SUBCUTAN EOUSLY EVERY 2 WEEKS active Not Available Not Available No t Available OneTouch Ultra2 Meter USE DIRECTED active Not Available Not Available No t Available OneTouch Delica Plus Lancet 33 gauge USE TO TEST TWICE A DAY active Not Available Not Available No t Available OneTouch Delica Plus Lancing Device kit USE TO TEST 2-3 TIMES A DAY 2023 active Not Available Not Available Not Avai lable OneTouch Delica Plus Lancet 30 gauge USE TO TEST TWICE A DAY 2023 active Not Available Not Available Not Avai lable Paxlovid 300 mg (150 mg x 2)-100 mg tablets in a dose pack TAKE 1 DOSE PACK BY MOUTH DIRECTED 03/14 completed Not Available Not Available Not Available Vitals Date Recorded Body height Body mass index (BMI) Body weight Oxygen saturation Oxygen saturation in Arterial blood by Pulse oximetry Heart rate Respiratory rate Systolic blood pressure Diastolic blood pressure Provider Name and Address Organization Details Last Updated DateTime 5 182.88 cm 23.5 kg/m2 20804.9 2 g 95 % 95 % 82 /min 18 /min 122 mm[Hg] 82 mm[Hg] Krystal Black [place] - [facility] 5 11:37:05 Date Recorded Body height Body mass index (BMI) Body weight Oxygen saturation Oxygen saturation in Arterial blood by Pulse oximetry Heart rate Systolic blood pressure Diastolic blood pressure Provider Name and Address Organization Details Last Updated DateTime 5 182.88 cm 23.9 kg/m2 41968.6 9 g 95 % 95 % 64 /min 102 mm[Hg] 64 mm[Hg] Krystal Black MA [facility] 5 11:50:53 Date Recorded Systolic blood pressure Diastolic blood pressure Provider Name and Address Organization Details Last Updated DateTime 05/28/2024 90 mm[Hg] 58 mm[Hg] Yanet Louise [place] - [facility] 05/28/2024 11:56:16 Date Recorded Body height Body mass index (B [id number]|[id number]|2024-07-14 09:02:00|2024-07-14 09:02:00|XMS_ITS|MATTIE EDMOND|External Medical Summaries|[id number]|" Encounter Summary Created on: July 14, 2024 Omar Mayer : 1960 Sex: Male Author Organization [facility] Address [facility] [place] [address] Care Team Providers Care Static Balancer Name Role Phone Jarrod Castro MD Unavailable Che Ramirez APRN, NP-C Unavailable Sabrina Caruso Primary Care Provider [phone] Encounter Details Date Type Department Care Team (Late st Contact Info) Description 10/14/2017 Abstract [facility] [address] [place] [address] Jarrod Castro MD [address] [place] [address] Social History Tobacco Use Types Packs/Day Years Used Date Smoking Tobacco: Smoker, Current Status Unknown Cigarettes Smokeless Tobacco: Never Alcohol Use Standard Drinks/Week Comments No 0 (1 standard drink = 0.6 oz pur e alcohol) Former ETOH abuse Sex and Gender Information Value Date Recorded Sex Assigned at Male 04/06/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 Sex Male 9:13 AM CDT Gender Identity Not on file Sexual Orientation Not on file Occupation Industry Job Start Date Job End Date Disabled Not on file Not on file Not on file documented as of this encounter Plan of Treatment Not on file documented as of this encounter Visit Diagnoses Not on filedocumented in this encounter Care Teams Static Balancer Relationship Specialty Start Date End Date Sabrina Caruso PA [address] [facility] [address] [place] [phone] PCP - General PHYSICIAN CRIME PREVENTION POLICE OFFICER 04/06/24 Jarrod Castro MD [address] [place] [phone] [place] [employer] [facility] CARDIOVASCULAR DISEASE 08/07/16 Che Ramirez APRN, MANAGER GIFT-[employer] [address] [facility] [address] [place] [phone] NURSE PRACTITIONER 01/24/20 documented as of this encounter "
== END 2024-07-14 08:55 | disposition home or self-care (01) ==
LOC: CHSIMG 08:55
PROVIDERS: PCP Physician Assistant; Visit Provider Physician Assistant
DX: R19.00 Intra-abdominal and pelvic swelling, mass and lump, unspecified site (principal)
CPT/HCPCS: 76705

== ENCOUNTER 2024-08-10 08:52 | Outpatient (CLI) | payer MEDICARE, SELFPAY ==
--- NOTE | ~2024-08-10 | CT_ITS ---
Non-contrast CT scan of the Abdomen and Pelvis Clinical indication: Abdominal pain Technique: 2.5 mm axial scans were obtained through the abdomen and pelvis without intravenous or or al contrast. Dose reduction technique was used on this scan by utilizing automated exposure control a nd iterative reconstruction technique. The dose-length product (DLP) was 598.72 mGy-cm. COMPARISON: 05/23/2023 Findings: Images through the lung bases reveal no abnormalities. There is no evidence of renal or ureteral calculi. The kidneys and the ureters are nondilated. The liver, spleen, pancreas, and adrenals appear normal. Cholecystectomy clips are present. There are atherosclerotic calcifications of the aorta. . There is no evidence of bowel obstruction. Images through the pelvis were performed. There is no evidence of ascites or lymphadenopathy. Urinary bladder unremarkable. No pelvic mass. Impression: No significant abnormality seen. Reviewed, dictated and finalized at [facility]. Impression: No significant abnormality seen.
--- OUTSIDE RECORDS SUMMARY | 2024-08-10 09:14 | XMS_ITS | Encounter Summary ---
Author Organization [facility] Address [address] [place] [address] Phone Care Team Providers Care Insurance Sales Supervisor Name Role Phone Rodrigue Zhao MD Primary Care Provider [phone] Zack Caruso Primary Care Provider [phone] Reason for Referral * Radiology Services (Routine) - Closed Specialty Diagnoses / Procedures Referred By Selene hyatt Referred To Contact Radiology Diagnoses Pain in right hip Other intervertebral disc displacement, lumbar region Procedures XR LUMBAR MYELO 1 PHY PC PAIN CONSULT Dusty Contreras MD Phone: tel: fax: Referral ID Status Reason Start Date Expiration Date Visits Re quested Visits Authorized [id number] Closed 11/28/2020 1 1 Encounter Details Date Type Department Care Team (Latest Contact Info) Description 11/28/2020 Transcribe Orders [facility] [address] [place] [address] Dusty Contreras MD [address] [place], [place] [id number] Pain in right hip (Primary Dx); Other [...] on file Legal Sex Male 2:23 PM EDITOR Gender Identity Not on file Sexual Orientation [...] None available. FINDINGS: SEGMENTATION: There are 5 mry-ebh-vurqhty lumbar type vertebral bodies. ALIGNMENT: Approximately 2 [...] of the thecal sac contrast. There is jcyi-ga-cpgkhlbp bilateral neural foraminal narrowing. L5-S1: Surgical level. [...] Jaquan Hernandez D.O. AP: AP Report ID: [id number] Reading Location: [id number] Procedure Note Jaquan Hernandez DO - 12/28/2020 [...] None available. FINDINGS: SEGMENTATION: There are 5 etr-exw-iyrwkyo lumbar type vertebral bodies. ALIGNMENT: Approximately 2 [...] of the thecal sac contrast. There is ubso-lq-ubdgrrxx bilateral neural foraminal narrowing. L5-S1: Surgical level. [...] Jaquan Hernandez D.O. AP: AP Report ID: [id number] Reading Location: [id number] IMPRESSION: 1. Please note previous imaging studies [...] David Arechiga M.D. NC: NC Report ID: [id number] Reading Location: [id number] Procedure Note David Arechiga MD - 12/27/2020 [...] David Arechiga M.D. NC: SHAUNA Report ID: [id number] Reading Location: [id number] IMPRESSION: Lumbar myelogram performed for CT Myelography. [...] 19 Confirmed 02/26/2021 02/26/2021 022 12:16 AM EDITOR documented as of this encounter Care Teams Insurance Sales Supervisor Relationship Specialty Start Date End Date Rodrigue Zhao MD [address] [place] [address] PCP - General Internal Medicine 09/18/16 12/04/20 Zack Caruso PAC [address] [place] [id number] PCP - General Physician Coagulator 12/05/20 documented as of this encounter
--- OUTSIDE RECORDS SUMMARY | 2024-08-10 09:14 | XMS_ITS | Referral Summary ---
Author Organization [facility] Address [address] [place] [address] Care Team Providers Care Senior Training Specialist Name Role Phone Zack Caruso Primary Care Provider [phone] Juliann Comer NP Unavailable [phone] Ling Matias MD Unavailable [phone] Encounters Date Type Department Care Team Description 06/03/2024 [facility] Post Discharge Follow up phone call [facility] Surgery Care [address] [place] [address] Alecia Tay 05/24/2024 Orders Only [facility] Cardiology [address] [place] [id number] Deja Dutton 05/21/2024 5:35 PM CDT - 05/24/2024 6:32 PM CDT Hospital Encounter [facility] IMU 1 [place] [address] Didier Pagan MD Huynh, MD Cristino Rothman Mena, MD Bross, Torrie Rosario MD Acute chest pain (Primary Dx); Coronary artery disease involving manchester coronary artery of manchester heart, unspecified whether angina present; S/P coronary [...] acute EKG changes so less likely active UT. BNP negative. TTE on 05/22/24 showed impaired [...] KEITH/ARB Assessment & Plan (05/06/2023 9:33 AM STAFF DESIGN ENGINEER): This is a chronic condition which is [...] zetia. Assessment & Plan (01/28/2023 4:13 PM STAFF DESIGN ENGINEER): This is a chronic condition which is [...] (05/29/2022): Added automatically from request for surgery [id number] Fall 02/09/2022 Confusion 02/08/2022 Assessment & Plan (02/09/2022 1:15 PM STAFF DESIGN ENGINEER): 61M with history of previous stroke and [...] vitals. Assessment & Plan (05/06/2023 9:34 AM STAFF DESIGN ENGINEER): This is a chronic condition which is [...] B/P Assessment & Plan (01/28/2023 4:13 PM STAFF DESIGN ENGINEER): This is a chronic condition which is at goal of less than 140/90 Personally reviewed labs. Continue amlodipine, metoprolol Encouraged to monitor weight and B/P at home Encouraged to take medications as prescribed. Assessment & Plan (02/09/2022 1:15 PM STAFF DESIGN ENGINEER): Pt taking metoprolol XL 100mg daily prior [...] pain. Assessment & Plan (02/09/2022 1:16 PM STAFF DESIGN ENGINEER): Stable on: - plavix 75mg daily - [...] week. Assessment & Plan (05/06/2023 9:34 AM STAFF DESIGN ENGINEER): This is a chronic condition which is at goal of LDL less than 70 Continue zetia Encouraged to eat healthy, include fresh fruits and vegetables daily and avoid eating fried foods more than once per week. Encouraged to take medications as prescribed. 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 Patient declined 05/24/2024 Do you belong to any clubs o r organizations such as presybeterian groups, unions, fraternal or athletic groups, or [...] staff should administer the PHQ-9) 4 05/29/2023 [employer] of Occupat ional Health - Occupational Stress [...] place to sleep or slept in a jail (including now)? No 05/27/2023 PHQ-9 Answer Date [...] any time in the past 12 m [facility], were you homeless or living in a jail (including now)? No 05/24/2024 Personal Safety Answer [...] on file Legal Sex Male 6:45 PM STAFF DESIGN ENGINEER Gender Identity Not on file Sexual Orientation [...] on file Medical Devices Implanted Type Area Moss Gatherer Device Identifier Shelf Expiration Date Model / Serial / Lot [employer] Mike Synergy 3mm 8mm 144cm Radiopaque 1 Access Port Inflation Lumen [id number] - [id number] Implanted:Qty: 1 on 07/23/2021 by Ling Matias MD at [facility] [employer] Mike 01/11/2022 [id number] / / [id number] [employer] Mike Synergy 3mm 24mm 144cm Radiopaque 1 Access Port Inflation Lumen [id number] - [id number] Implanted:Qty: 1 on 08/07/2021 by Ling Matias MD at [facility] [employer] Mike 06/08/2022 [id number] / / [id number] [employer] Mike Synergy 2.25mm 24mm 144cm Radiopaque 1 Access Port Inflation [id number] - [id number] Implanted:Qty: 1 on 08/07/2021 by Ling Matias MD at [facility] [employer] Mike 01/25/2022 [id number] / / [id number] Med[employer] Progrip 15x9cm Self Verification Manager Rectangle Mesh Surgical Polyester Hernia [id number] - [id number] Implanted:Qty: 1 on 06/04/2022 by Jona Sarmiento MD at [facility] Left: Abdomen [employer] Inc 09/30/2026 [id number] / / [id number] Procedures Procedure Name Priority Date/Time Associated Diagnosis Comments POCT GLUCOSE DEVICE Routine 05/24/2024 4 :47 PM CDT POCT GLUCOSE DEVICE Routine 05/24/2024 1 2:24 PM CDT STRESS TEST FOR DUAL READ IP Routine 05/24/2024 11:19 AM CDT NM MPI SPECT (REST AND/OR STRESS) MULTIPLE STUDIES IP Routine 05/24/2024 11:19 AM CDT POCT GLUCOSE DEVICE Routine 05/24/2024 7:58 AM CDT EGFR Routine 05/24/2024 2:12 AM [...] CDT LIPID PANEL Routine 01/28/2023 10:53 AM STAFF DESIGN ENGINEER Type 2 diabetes mellitus without complication, unspecified whether long-term insulin use (HCC) ALBUMIN CREATININE RATIO, URINE Routine 01/28/2023 10:53 AM STAFF DESIGN ENGINEER Type 2 diabetes mellitus without complication, unspecified whether long-term insulin use (HCC) from Last 3 Months or Most Recently Relevant to Health Maintenance Results * POCT glucose (05/24/2024 4:47 PM CDT) Glucose, POC 92 70 - 199 mg/dL Blood 05/24/2024 4:47 PM CDT 05/24/2024 4:47 PM CDT Torrie Carey MD LAB POCT ORDERABLES - DEV ICE Final Result Performing Organization Address City/[facility]/ZIP Co de Phone Number PEPE ALEXANDER ([place]) 1 [facility] of [address] [place] [address] * POCT glucose (05/24/2024 12:24 PM CDT) Glucose, POC 152 70 - 199 mg/dL Blood 05/24/2024 12:2 4 PM CDT 05/24/2024 12:24 PM CDT Torrie Carey MD LAB POCT ORDERABLES - DEV ICE Final Result Performing Organization Address City/[facility]/ZIP Co de Phone Number PEPE ALEXANDER ([place]) 1 [facility] [address] [place] [address] * NM MPI SPECT (Rest and/or Stress) [...] myocardial perfusion images were obtained after tracer injection at the peak effect of the drug. COMPARISON: Myocardial perfusion study 08/06/2022 FINDINGS: Image quality is adequate at rest and adequate at stress. Mild diaphragmatic attenuation in the inferior wall. No significant reversibility. The left ventricular cavity size is normal . Gated tomographic images demonstrate normal wall motion and wall thickening with a left ventricular ejection fraction of 65 % poststress (normal >45%). IMPRESSION: No scintigraphic evidence of myocardial ischemia. Mild diaphragmatic attenuation artifact in the inferior wall is grossly similar. Normal left ventricular ejection fraction of 65 % poststress. Normal wall motion. THIS IS AN ELECTRONICALLY VERIFIED FINAL REPORT 05/24/2024 12:00 PM - Electronically signed by Sheng Garcia M.D. LB: PAM Report ID: [id number] Reading Location: [id number] Procedure Note Sheng Garcia MD - 05/24/2024 EXAM DESCRIPTION: NM MPI SPECT (REST AND/OR STRESS) MULTIPLE STUDIES REASON FOR STUDY: Chest pain. RADIOPHARMACEUTICAL: Rest: 11 mCi Tc-99m tetrofosmin Pharmacologic Stress: 32.9 mCi Tc-99m tetrofosmin Injection site: Right arm IV site TECHNIQUE: Standard myocardial perfusion SPECT images were obtained after resting tracer injection. Subsequently, an intravenous infusion of 0.4 mg Lexiscan was performed. Standard myocardial perfusion images wereobtained after tracer injection at the peak effect of the drug. COMPARISON: Myocardial perfusion study 08/06/2022 FINDINGS: Image quality is adequate at rest and adequate at stress. Mild diaphragmatic attenuation in the inferior wall. No significant reversibility. The left ventricular cavity size is normal . Gated tomographic images demonstrate normal wall motion and wallthickening with a left ventricular ejection fraction of 65 % poststress (normal>45%). IMPRESSION: No scintigraphic evidence of myocardial ischemia. Mild diaphragmatic attenuation artifact in the inferior wall is grossly similar. Normal left ventricular ejection fraction of 65 % poststress. Normal wall motion. THIS IS AN ELECTRONICALLY VERIFIED FINAL REPORT 05/24/2024 12:00 PM - Electronically signed by Sheng Garcia M.D. LB: LB Report ID: [id number] Reading Location: [id number] Ling Matias MD IMG NM PROCEDURES Final Res ult * Stress Test for Myocardial Perfusion (05/24/2024 11:19 AM CDT) Anatomical Region Laterality Modality Nuclear Medicine 05/24/2024 6:30 AM CDT Narrative 05/24/2024 4:57 PM CDT [address] [address] [employer] Report Patient Name: ELEANOR SEGURA G : 1960 Study Date: 05/24/2024 6:30:00 AM Gender: M Tech: deja dutton Location: [id number] Ref Provider: LING MATISA Height(Cm): 183 BSA: 2.96 Weight(Kg): 172 Heart Rate: 131 Order Provider: LING MATIAS PROCEDURES: Pharmacologic SPECT Report.: Myocardial perfusion imaging with Sestamibi SPECT at rest and post regadenoson (Lexiscan) infusion. INDICATIONS: Chest Pain. FINDINGS: Procedure Data: Resting HR 67 bpm Peak HR: 100 bpm Predicted Maximal HR 154 bpm Target HR: 131 bpm Percent Max Predicted HR Achieved: 64.94 % Baseline BP: 135/103 mmHg Peak BP: 151/86 mmHg Exercise Time: 00:12 Performed By: Supervising Physician: The Supervising Physician is taylor. Reason for Termination: Lexiscan protocol complete. Resting ECG: Normal sinus rhythm. Post Pharm ECG: No diagnostic ST changes. Arrhythmia: No arrhythmias seen. CONCLUSIONS: 1. Negative Lexiscan pharmacologic stress test for chest pain or EKG changes. 2. Nuclear images are pending and they will be reported separately. Electronically Signed By: Ling Matias MD [facility] 05/24/2024 3:45:04 PM CDT Procedure Note Ling Matias MD - 05/24/2024 [place] [address] [employer] Report Patient Name: ELEANOR SEGURA G : 1960 Study Date: 05/24/2024 6:30:00 AM Gender: M Tech: deja [place] Location: [address] Provider: LING MATIAS Height(Cm): 183 BSA: 2.96 Weight(Kg): 172 Heart Rate: 131 Order Provider: LING MATIAS PROCEDURES: Pharmacologic SPECT Report.: Myocardial perfusion imaging with Sestamibi SPECT at rest and postregadenoson (Lexiscan) infusion. INDICATIONS: Chest Pain. FINDINGS: Procedure Data: Resting HR 67 bpm Peak HR: 100 bpm Predicted Maximal HR 154 bpm Target HR: 131 bpm Percent Max Predicted HR Achieved: 64.94 % Baseline BP: 135/103 mmHg Peak BP: 151/86 mmHg Exercise Time: 00:12 Performed By: Supervising Physician: The Supervising Physician is taylor. Reason for Termination: Lexiscan protocol complete. Resting ECG: Normal sinus rhythm. Post Pharm ECG: No diagnostic ST changes. Arrhythmia: No arrhythmias seen. CONCLUSIONS: 1. Negative Lexiscan pharmacologic stress test for chest pain or EKGchanges. 2. Nuclear images are pending and they will be reported separately. Electronically Signed By: Ling Matias MD [facility] 05/24/2024 3:45:04 PM CDT Ling Matias MD CV STRESS PROCEDURES Final Result * POCT glucose (05/24/2024 7:58 AM CDT) Glucose, POC 107 70 - 199 mg/dL Blood 05/24/2024 7:58 AM CDT 05/24/2024 7:58 AM CDT Torrie Carey MD LAB POCT ORDERABLES - DEV ICE Final Result [facility] [place] 1 [facility] Department of Laboratories [place], [place] [id number] * eGFR (05/24/2024 2:12 AM CDT) eGFR 73 >=60 mL/min/1. 73 m2 Comment: Interpretive Data Reference Interval Normal >/= 90 mL/min/1.73m2 Mildly decreased* 60 - 89 mL/min/1.73m2 Mildly to moderately decreased 45 - 59 mL/min/1.73m2 Moderately to severely decreased 30 - 44 mL/min/1.73m2 Severely decreased 15 - 29 mL/min/1.73m2 Kidney Failure < 15 mL/min/1.73m2 *Relative to young adult level Estimated glomerular filtration rate is determined by the 2020 CKD-EPI equation recommended by the National Kidney Foundation (A Unifying Approach to GFR Estimation: Recommendations of the NKF-ASK Task Force on Reassessing the Inclusion of Race in Diagnosing Kidney Disease, JASN 2020). The CKD-EPI equation should not be used for patients with unstable renal function and has not been validated in children and those over 70. Current interpretive data was last reviewed 2021. Blood 05/24/2024 2:12 AM CDT 05/24/2024 2:33 AM CDT us Torrie Carey MD LAB BLOOD ORDERABLES Bozena hernandez Result [facility] ([place]) 1 [facility] Department [place] [address] * (ABNORMAL) Differential, auto (05/24/2024 2:12 AM CDT) Neutrophil abs 6.3 1.5 - 6.5 K/cumm Imm gran abs 0.1 0.0 - 0.1 K/cumm [facility] ([place]) Lymphocyte abs 2.7 0.8 - 3.3 K/cumm [facility] ([place]) Monocyte abs 1.1(H) 0.2 - 0.8 K/cumm [facility] ([place]) Eosinophil abs 0.7(H) 0.0 - 0.5 K/cumm [facility] ([place]) Basophil abs 0.1 0.0 - 0.1 K/cumm [facility] ([place]) Neutrophil pct 57.7 % [facility] ([place]) Comment: Interpretive Data Percent cell count reference ranges are not reported, since discordance with absolute values may lead to misinterpretation of CBC data. Current Interpretive Data was last revised on 2017. Imm gran pct 0.7 % [facility] ([place]) Comment: Interpretive Data Percent cell count reference ranges are not reported, since discordance with absolute values may lead to misinterpretation of CBC data. Current Interpretive Data was last revised on 2017. Lymphocyte pct 24.5 % [facility] ([place]) Comment: Interpretive Data Percent cell count reference ranges are not reported, since discordance with absolute values may lead to misinterpretation of CBC data. Current Interpretive Data was last revised on 2017. Monocyte pct 9.6 % [facility] ([place]) Comment: Interpretive Data Percent cell count reference ranges are not reported, since discordance with absolute values may lead to misinterpretation of CBC data. Current Interpretive Data was last revised on 2017. Eosinophil pct 6.4 % [facility] ([place]) Comment: Interpretive Data Percent cell count reference ranges are not reported, since discordance with absolute values may lead to misinterpretation of CBC data. Current Interpretive Data was last revised on 2017. Basophil pct 1.1 % [facility] ([place]) Comment: Interpretive Data Percent cell count reference ranges are not reported, since discordance with absolute values may lead to misinterpretation of CBC data. Current Interpretive Data was last revised on 2017. Blood 05/24/2024 2:12 AM CDT 05/24/2024 2:33 AM CDT us Torrie Carey MD LAB BLOOD ORDERABLES Bozena hernandez Result [facility] ([place]) 1 [facility] Department [place] [address] * (ABNORMAL) CBC with auto differential (05/24/2024 2:12 AM CDT) WBC 11.0(H) 3.8 - 9.9 K/cumm Hgb 16.1 13.0 - 17.5 g/dL [facility] ([place]) Hct 48.8 38.9 - 50.3 % [facility] ([place]) Plt 250 150 - 400 K/cumm [facility] ([place]) MPV 9.4 9.1 - 12.3 fL [facility] ([place]) RBC 5.17 4.30 - 5.80 M/cumm [facility] ([place]) MCV 94.4 81.3 - 96.4 fL [facility] ([place]) MCH 31.1 27.1 - 33.3 pg [facility] ([place]) MCHC 33.0 32.3 - 35.7 g/dL [facility] ([place]) RDW CV 13.1 11.1 - 14.9 % [facility] ([place]) RDW SD 45.8 35.7 - 48.1 fL [facility] ([place]) NRBC abs 0.00 0.00 - 0.01 K/cumm [facility] ([place]) Blood 05/24/2024 2:12 AM CDT 05/24/2024 2:33 AM CDT us Torrie Carey MD LAB BLOOD ORDERABLES Bozena hernandez Result [facility] ([place]) 1 [facility] Department [place] [address] * Basic metabolic panel (05/24/2024 2:12 AM CDT) Sodium 136 135 - 145 mmol/L Potassium, pl 3.9 3.3 - 4.9 mmol/L [facility] ([place]) Chloride 101 97 - 110 mmol/L [facility] CO2 22 22 - 32 mmol/L [facility] ([place]) Anion gap 13 2 - 15 mmol/L [facility] ([place]) BUN 16 6 - 25 mg/dL [facility] ([place]) Creatinine 1.11 0.80 - 1.30 mg/dL [facility] ([place]) Glucose 161 70 - 199 mg/dL [facility] ([place]) Comment: Interpretive Data Fasting glucose >/= 126 mg/dl is diagnostic for diabetes. Fasting is defined as no caloric intake for at least 8 hours. Fasting glucose between 100 mg/dl to 125 mg/dl is diagnostic of prediabetes. In a patient with classic symptoms of hyperglycemia or hyperglycemic crisis, a random glucose >/= 200 mg/dl is diagnostic for diabetes. In the absence of unequivocal hyperglycemia, results should be confirmed by repeat testing. The classification and Diagnosis of Diabetes Diabetes Care 2021; 46: S19-S40. Current interpretive data was last revised 2022. Calcium 9.3 8.5 - 10.3 mg/dL [facility] ([place]) Blood 05/24/2024 2:12 AM CDT 05/24/2024 2:33 AM CDT Torrie Carey MD LAB BLOOD ORDERABLES Bozena l Result PEPE ALEXANDER ([place]) 1 [facility] [address] [place] [address] * POCT glucose (05/24/2024 1:26 AM CDT) Glucose, POC 137 70 - 199 mg/dL Blood 05/24/2024 1:26 AM CDT 05/24/2024 1:26 AM CDT Torrie Carey MD LAB POCT ORDERABLES - DEV ICE Final Result Performing Organization Address [facility] Co de Phone Number [facility] ([place]) 1 [facility] [address] [place] [address] * POCT glucose (05/23/2024 8:05 PM CDT) Glucose, POC 127 70 - 199 mg/dL Blood 05/23/2024 8:05 PM CDT 05/23/2024 8:05 PM CDT Torrie Carey MD LAB POCT ORDERABLES - DEV ICE Final Result Performing Organization Address City/[facility] Co de Phone Number [facility] ([place]) 1 [facility] [address] [place] [address] * POCT glucose (05/23/2024 5:06 PM CDT) Glucose, POC 108 70 - 199 mg/dL Blood 05/23/2024 5:06 PM CDT 05/23/2024 5:06 PM CDT Torrie Carey MD LAB POCT ORDERABLES - DEV ICE Final Result PEPE ALEXANDER ([place]) 1 [facility] [place] [address] * Troponin T high-sensitivity 6-hour (05/23/2024 2:32 PM CDT) Trop T hs 10 <=22 ng/L Comment: Interpretive Data For further hscTnT resources including the diagnostic algorithm and an aid in interpretation, copy and paste this link: https://nrl.testcatWadeCo Specialties.org/show/hsTrop Current Interpretive Data last revised 2020. Trop T hs delta See Comment ng/L CE RNADIS ALEXANDER ([place]) Comment:Inappropriate collec tion time to report a delta. Trop T hs pct delta See Comment % [facility]PE ALEXANDER ([place]) Comment:Inappropriate collec tion time to report a delta. Trop T hs interp See Comment Rufino ALEXANDER ([place]) Comment:Inappropriate collec tion time to report a delta. Blood 05/23/2024 2:32 PM CDT 05/23/2024 2:39 PM CDT Torrie Carey MD LAB BLOOD ORDERABLES Bozena l Result PEPE ALEXANDER ([place]) 1 [facility] [place] [address] * Troponin T high-sensitivity 4-hour (05/23/2024 12:45 PM CDT) Trop T hs 9 <=22 ng/L Comment: Interpretive Data For further hscTnT resources including the diagnostic algorithm and an aid in interpretation, copy and paste this link: https://nrl.testcatWadeCo Specialties.org/show/hsTrop Current Interpretive Data last revised 2020. Trop T hs delta See Comment ng/L CE RNER BENJAMIN ([place]) Comment:Inappropriate collec tion time to report a delta. Trop T hs pct delta See Comment % PEPE ALEXANDER ([place]) Comment:Inappropriate collec tion time to report a delta. Trop T hs interp See Comment C PARKER ALEXANDER ([place]) Comment:Inappropriate collec tion time to report a delta. Blood 05/23/2024 12:4 5 PM CDT 05/23/2024 1:07 PM CDT Torrie Carey MD LAB BLOOD ORDERABLES Bozena l Result PEPE ALEXANDER ([place]) 1 [facility] [address] [place] [address] * POCT glucose (05/23/2024 12:01 PM CDT) Glucose, POC 101 70 - 199 mg/dL Blood 05/23/2024 12:0 1 PM CDT 05/23/2024 12:01 PM CDT Torrie Carey MD LAB POCT ORDERABLES - DEV ICE Final Result Performing Organization Address City/[facility]/ZIP Co de Phone Number PEPE ALEXANDER ([place]) 1 [facility] [address] [place] [address] * Troponin T high-sensitivity 2-hour (05/23/2024 11:52 AM CDT) Trop T hs 10 <=22 ng/L Comment: Interpretive Data For further hscTnT resources including the diagnostic algorithm and an aid in interpretation, copy and paste this link: https://nrl.testcatalog.org/show/hsTrop Current Interpretive Data last revised 2020. Trop T hs delta See Comment ng/L CE RAKAN ALEXANDER ([place]) Comment:Inappropriate collec tion time to report a delta. Trop T hs pct delta See Comment % PEPE ALEXANDER ([place]) Comment:Inappropriate collec tion time to report a delta. Trop T hs interp See Comment Rufino ALEXANDER ([place]) Comment:Inappropriate collec tion time to report a delta. Blood 05/23/2024 11:5 2 AM CDT 05/23/2024 11:55 AM CDT Torrie Carey MD LAB BLOOD ORDERABLES Bozena l Result Performing Organization Address City/[facility]/ZIP Co de Phone Number PEPE ALEXANDER ([place]) 1 [facility] [place] [address] * Troponin T high-sensitivity series (baseline, 2hr, 4hr, 6hr) (05/23/2024 11:52 AM CDT) Trop T hs 11 <=22 ng/L Comment: Interpretive Data For further hscTnT resources including the diagnostic algorithm and an aid in interpretation, copy and paste this link: https://nrl.testcatWadeCo Specialties.org/show/hsTrop Current Interpretive Data last revised 2020. Blood 05/23/2024 11:5 2 AM CDT 05/23/2024 11:55 AM CDT us Ling Matias MD LAB BLOOD ORDERABLES Final Result Performing Organization Address [facility] Co de Phone Number PEPE ALEXANDER ([place]) 1 [facility] [address] [place] [address] * Troponin T high-sensitivity series (baseline, 2hr, 4hr, 6hr) (05/23/2024 8:16 AM CDT) Trop T hs 12 <=22 ng/L Comment: Interpretive Data For further hscTnT resources including the diagnostic algorithm and an aid in interpretation, copy and paste this link: https://nrl.testEuphoria App.org/show/hsTrop Current Interpretive Data last revised 2020. Blood 05/23/2024 8:16 AM CDT 05/23/2024 8:24 AM CDT Torrie Carey MD LAB BLOOD ORDERABLES Bozena l Result Performing Organization Address City/[facility]/ZIP Co de Phone Number PEPE ALEXANDER ([place]) 1 [facility] [place] [address] * POCT glucose (05/23/2024 8:14 AM CDT) Glucose, POC 113 70 - 199 mg/dL Blood 05/23/2024 8:14 AM CDT 05/23/2024 8:14 AM CDT Torrie Carey MD LAB POCT ORDERABLES - DEV ICE Final Result Performing Organization Address [facility] Co de Phone Number [facility] ([facility] 1 [facility] Department [place] [address] * ECG 12 lead (05/23/2024 8:03 AM CDT) 05/23/2024 8:03 AM CDT Narrative [facility] - 05/24/2024 7:23 AM CDT Vent Rate: 62 bpm RR Interval: 956 msec RI Interval: 155 msec QRS Duration: 78 msec QT Interval: 374 msec QTC Interval: 380 msec P-R-T Parthenon: 43 - -24 - 137 degrees IMPRESSION: Baseline artifact, probable SINUS RHYTHM BORDERLINE LEFT AXIS DEVIATION [QRS AXIS < -20] POSSIBLE RIGHT VENTRICULAR CONDUCTION DELAY [RSR (QR) IN V1/V2] ABNORMAL ECG Compared to prior EKG, heart rate has decreased Electronically Signed By: Abdulaziz Bruno MD Sulma Velazquez DO ECG ORDERABLES Final Resul t Performing Organization Address [facility] de Phone Number [facility] [employer] [facility] * eGFR (05/23/2024 4:13 AM CDT) eGFR 77 >=60 mL/min/1. 73 m2 Comment: Interpretive Data Reference Interval Normal >/= 90 mL/min/1.73m2 Mildly decreased* 60 - 89 mL/min/1.73m2 Mildly to moderately decreased 45 - 59 mL/min/1.73m2 Moderately to severely decreased 30 - 44 mL/min/1.73m2 Severely decreased 15 - 29 mL/min/1.73m2 Kidney Failure < 15 mL/min/1.73m2 *Relative to young adult level Estimated glomerular filtration rate is determined by the 2020 CKD-EPI equation recommended by the National Kidney Foundation (A Unifying Approach to GFR Estimation: Recommendations of the NKF-ASK Task Force on Reassessing the Inclusion of Race in Diagnosing Kidney Disease, JASN 2020). The CKD-EPI equation should not be used for patients with unstable renal function and has not been validated in children and those over 70. Current interpretive data was last reviewed 2021. Blood 05/23/2024 4:13 AM CDT 05/23/2024 4:29 AM CDT us Torrie Carey MD LAB BLOOD ORDERABLES Bozena hernandez Result [facility] ([facility]) 1 [facility] Department [place] [address] * (ABNORMAL) Differential, auto (05/23/2024 4:13 AM CDT) Neutrophil abs 5.4 1.5 - 6.5 K/cumm Imm gran abs 0.1 0.0 - 0.1 K/cumm [facility] ([facility]) Lymphocyte abs 2.7 0.8 - 3.3 K/cumm [facility] ([facility]) Monocyte abs 1.3(H) 0.2 - 0.8 K/cumm [facility] ([facility]) Eosinophil abs 0.7(H) 0.0 - 0.5 K/cumm [facility] ([place]) Basophil abs 0.1 0.0 - 0.1 K/cumm [facility] ([facility]) Neutrophil pct 52.3 % [facility] ([facility]) Comment: Interpretive Data Percent cell count reference ranges are not reported, since discordance with absolute values may lead to misinterpretation of CBC data. Current Interpretive Data was last revised on 2017. Imm gran pct 0.6 % [facility] ([facility]) Comment: Interpretive Data Percent cell count reference ranges are not reported, since discordance with absolute values may lead to misinterpretation of CBC data. Current Interpretive Data was last revised on 2017. Lymphocyte pct 26.3 % [facility] ([facility]) Comment: Interpretive Data Percent cell count reference ranges are not reported, since discordance with absolute values may lead to misinterpretation of CBC data. Current Interpretive Data was last revised on 2017. Monocyte pct 12.6 % [facility] ([facility]) Comment: Interpretive Data Percent cell count reference ranges are not reported, since discordance with absolute values may lead to misinterpretation of CBC data. Current Interpretive Data was last revised on 2017. Eosinophil pct 7.2 % [facility] ([facility]) Comment: Interpretive Data Percent cell count reference ranges are not reported, since discordance with absolute values may lead to misinterpretation of CBC data. Current Interpretive Data was last revised on 2017. Basophil pct 1.0 % [facility] ([facility]) Comment: Interpretive Data Percent cell count reference ranges are not reported, since discordance with absolute values may lead to misinterpretation of CBC data. Current Interpretive Data was last revised on 2017. Blood 05/23/2024 4:13 AM CDT 05/23/2024 4:29 AM CDT us Torrie Carey MD LAB BLOOD ORDERABLES Bozena hernandez Result [facility] ([facility]) 1 [facility] Department [place] [address] * (ABNORMAL) CBC with auto differential (05/23/2024 4:13 AM CDT) WBC 10.3(H) 3.8 - 9.9 K/cumm Hgb 16.6 13.0 - 17.5 g/dL [facility] ([facility]) Hct 50.1 38.9 - 50.3 % [facility] ([facility]) Plt 242 150 - 400 K/cumm [facility] ([facility]) MPV 9.3 9.1 - 12.3 fL [facility] ([facility]) RBC 5.24 4.30 - 5.80 M/cumm [facility] ([facility]) MCV 95.6 81.3 - 96.4 fL [facility] ([facility]) MCH 31.7 27.1 - 33.3 pg [facility] ([facility]) MCHC 33.1 32.3 - 35.7 g/dL [facility] ([facility]) RDW CV 13.2 11.1 - 14.9 % [facility] ([facility]) RDW SD 46.6 35.7 - 48.1 fL [facility] ([facility]) NRBC abs 0.00 0.00 - 0.01 K/cumm [facility] Blood 05/23/2024 4:13 AM CDT 05/23/2024 4:29 AM CDT us Torrie Carey MD LAB BLOOD ORDERABLES Bozena hernandez Result [facility] ([facility]) 1 [facility] Department [place] [address] * Basic metabolic panel (05/23/2024 4:13 AM CDT) Sodium 136 135 - 145 mmol/L Potassium, pl 4.1 3.3 - 4.9 mmol/L [facility] Chloride 105 97 - 110 mmol/L [facility] ([facility]) CO2 22 22 - 32 mmol/L [facility] ([facility]) Anion gap 10 2 - 15 mmol/L [facility] ([facility]) BUN 14 6 - 25 mg/dL [facility] Creatinine 1.06 0.80 - 1.30 mg/dL [facility] ([facility]) Glucose 124 70 - 199 mg/dL [facility] Comment: Interpretive Data Fasting glucose >/= 126 mg/dl is diagnostic for diabetes. Fasting is defined as no caloric intake for at least 8 hours. Fasting glucose between 100 mg/dl to 125 mg/dl is diagnostic of prediabetes. In a patient with classic symptoms of hyperglycemia or hyperglycemic crisis, a random glucose >/= 200 mg/dl is diagnostic for diabetes. In the absence of unequivocal hyperglycemia, results should be confirmed by repeat testing. The classification and Diagnosis of Diabetes Diabetes Care 2021; 46: S19-S40. Current interpretive data was last revised 2022. Calcium 8.9 8.5 - 10.3 mg/dL [facility] ([place]) Blood 05/23/2024 4:13 AM CDT 05/23/2024 4:29 AM CDT us Torrie Carey MD LAB BLOOD ORDERABLES Bozena l Result [facility] ([place]) 1 [facility] [address] [place] [address] * POCT glucose (05/23/2024 2:11 AM CDT) Glucose, POC 178 70 - 199 mg/dL Blood 05/23/2024 2:11 AM CDT 05/23/2024 2:11 AM CDT Torrie Carey MD LAB POCT ORDERABLES - DEV ICE Final Result Performing Organization Address [facility]/ZIP Co de Phone Number [facility] ([place]) 1 [facility] [address] [place] [address] * POCT glucose (05/22/2024 9:00 PM CDT) Glucose, POC 121 70 - 199 mg/dL Blood 05/22/2024 9:00 PM CDT 05/22/2024 9:00 PM CDT Torrie Carey MD LAB POCT ORDERABLES - DEV ICE Final Result [facility] ([place]) 1 [facility] [address] [place] [address] * POCT glucose (05/22/2024 5:04 PM CDT) Glucose, POC 98 70 - 199 mg/dL Blood 05/22/2024 5:04 PM CDT 05/22/2024 5:04 PM CDT Torrie Carey MD LAB POCT ORDERABLES - DEV ICE Final Result [facility] ([place]) [address] [place] [id number] * POCT glucose (05/22/2024 12:14 PM CDT) Glucose, POC 98 70 - 199 mg/dL Blood 05/22/2024 12:1 4 PM CDT 05/22/2024 12:14 PM CDT Torrie Carey MD LAB POCT ORDERABLES - DEV ICE Final Result Performing Organization Address [facility] Co de Phone Number PEPE LassiterW[place]) [address] [place] [phone] * TRANSTHORACIC ECHO (TTE) COMPLETE W DOPPLER/CF W CONTRAST (05/22/2024 9:53 AM CDT) [facility] LV EF 60 % CONS SCIMAGE Anatomical Region Laterality Modality Ultrasound 05/22/2024 9:20 AM CDT Narrative 05/22/2024 12:36 PM CDT [address] [address] Echocardiogram Report Patient Name: ELEANOR SEGURA G : 1960 Study Date: 05/22/2024 9:20:09 AM Gender: M 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 INDICATIONS: Chest Pain. MEASUREMENTS: 2D/MM Value Range Doppler Value Range EF Teich MM 60.0 % [ 52.0 - 72.0 ] MAUDE Vmax 4.34 cm2 Estimated EF 60 % AV Mean PG 1 mmHg LVIDd MM 6.10 cm [ 4.20 - 5.80 ] AV Peak Shin 0.72 m/s [ 1.00 - 1.70 ] LVIDs MM 4.10 cm [ 2.50 - 4.00 ] AV VTI 14.19 cm LVPWd MM 1.00 cm [ 0.60 - 1.00 ] LVOT Diam 2.33 cm IVSd MM 1.10 cm [ 0.60 - 1.00 ] LVOT Peak Shin 0.73 m/s [ 0.70 - 1.10 ] LA Dimension MM 3.73 cm [ 3.00 - 4.00 ] LVOT VTI 17.39 cm AoR Diam MM 3.39 cm [ 3.10 - 3.70 ] MV E Peak Shin 0.52 m/s [ 0.60 - 1.30 ] ACS MM 1.85 cm [ 1.50 - 2.60 ] MV A Peak Shin 0.76 m/s [ 1.00 - 1.20 ] MV Mean PG 1 mmHg MV PHT 50 msec [ 20 - 100 ] MVA 4.40 MV Decel Time 250 msec [ 104 - 258 ] PV Peak Shin 0.79 m/s [ 0.40 - 0.80 ] TR Peak Shin 2.28 m/s [ 1.00 - 2.80 ] TR Peak PG 21 mmHg RVSP 24.00 mmHg [ 10.00 - 36.00 ] E` 0.06 m/s E/E` 8.71 [ <= 10.00 ] PA Pressure 24.00 mmHg [ 10.00 - 36.00 ] 2D/MM Value Range Doppler Value Range - FINDINGS: Atrial Septum: The atrial septum is not well visualized. Left Ventricle: Normal left ventricular systolic function with no focal wall motion abnormalities. Normal left ventricular size. Optison contrast agent used to visually enhance endocardial wall motion and contractility. Normal left ventricular wall thickness. Impaired diastolic relaxation Grade I. Ejection Fraction is estimated to be 60 %. Left Atrium: The left atrium is normal in size. Right Ventricle: Normal right ventricular size. Normal right ventricular systolic function. Right Atrium: The right atrium is normal in size. Aortic Valve: Normal structure of the aortic valve. Mitral Valve: Normal structure of the mitral valve. Pulmonic Valve: Pulmonic valve not well visualized. Tricuspid Valve: Tricuspid valve not well visualized. Right Ventricular Systolic Pressure could not be estimated due to inadequate visualization of TR jet. Pericardium: Normal pericardium with no significant pericardial effusion. Aorta: Aortic root not well visualized. IVC: The IVC is not well visualized. CONCLUSIONS: Normal left ventricular systolic function with no focal wall motion abnormalities. Normal left ventricular size. Optison contrast agent used to visually enhance endocardial wall motion and contractility. Normal left ventricular wall thickness. Impaired diastolic relaxation Grade I. Ejection Fraction is estimated to be 60 %. Normal right ventricular size. Normal right ventricular systolic function. Normal structure of the mitral valve. Normal structure of the aortic valve. Tricuspid valve not well visualized. Right Ventricular Systolic Pressure could not be estimated due to inadequate visualization of TR jet. Technically difficult study with limited views. Electronically Signed By: Ling Matias MD 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 INDICATIONS: Chest Pain. MEASUREMENTS: 2D/MM Value Range Doppler ValueRange EF Teich MM 60.0 % [ 52.0 - 72.0 ] MAUDE Vmax 4.34cm2 Estimated EF 60 % AV Mean PG 1 mmHg LVIDd MM 6.10 cm [ 4.20 - 5.80 ] AV Peak Shin 0.72 m/s[ 1.00 - 1.70 ] LVIDs MM 4.10 cm [ 2.50 - 4.00 ] AV VTI 14.19cm LVPWd MM 1.00 cm [ 0.60 - 1.00 ] LVOT Diam 2.33cm IVSd MM 1.10 cm [ 0.60 - 1.00 ] LVOT Peak Shin 0.73 m/s[ 0.70 - 1.10 ] LA Dimension MM 3.73 cm [ 3.00 - 4.00 ] LVOT VTI 17.39cm AoR Diam MM 3.39 cm [ 3.10 - 3.70 ] MV E Peak Shin 0.52 m/s[ 0.60 - 1.30 ] ACS MM 1.85 cm [ 1.50 - 2.60 ] MV A Peak Shin 0.76 m/s[ 1.00 - 1.20 ] MV Mean PG 1 mmHg MV PHT 50 msec [ 20 - 100 ] MVA 4.40 MV Decel Time 250 msec [ 104 - 258 ] PV Peak Shin 0.79 m/s [ 0.40 - 0.80 ] TR Peak Shin 2.28 m/s [ 1.00 - 2.80 ] TR Peak PG 21 mmHg RVSP 24.00 mmHg [ 10.00 - 36.00 ] E` 0.06 m/s E/E` 8.71 [ <= 10.00 ] PA Pressure 24.00 mmHg [ 10.00 - 36.00 ] 2D/MM Value Range Doppler ValueRange - FINDINGS: Atrial Septum: The atrial septum is not well visualized. Left Ventricle: Normal left ventricular systolic function with no focal wall motionabnormalities. Normal left ventricular size. Optison contrast agent used to visually enhanceendocardial wall motion and contractility. Normal left ventricular wall thickness. Impaireddiastolic relaxation Grade I. Ejection Fraction is estimated to be 60 %. Left Atrium: The left atrium is normal in size. Right Ventricle: Normal right ventricular size. Normal right ventricular systolicfunction. Right Atrium: The right atrium is normal in size. Aortic Valve: Normal structure of the aortic valve. Mitral Valve: Normal structure of the mitral valve. Pulmonic Valve: Pulmonic valve not well visualized. Tricuspid Valve: Tricuspid valve not well visualized. Right Ventricular Systolic Pressurecould not be estimated due to inadequate visualization of TR jet. Pericardium: Normal pericardium with no significant pericardial effusion. Aorta: Aortic root not well visualized. IVC: The IVC is not well visualized. CONCLUSIONS: Normal left ventricular systolic function with no focal wall motionabnormalities. Normal left ventricular size. Optison contrast agent used to visually enhanceendocardial wall motion and contractility. Normal left ventricular wall thickness. Impaireddiastolic relaxation Grade I. Ejection Fraction is estimated to be 60 %. Normal right ventricular size. Normal right ventricular systolicfunction. Normal structure of the mitral valve. Normal structure of the aortic valve. Tricuspid valve not well visualized. Right Ventricular Systolic Pressurecould not be estimated due to inadequate visualization of TR jet. Technically difficult study with limited views. Electronically Signed By: Ling Matias MD [facility] 05/22/2024 12:35:07 PM CDT us Amado Rojas MD CV ECHO PROCEDURES Final Result * POCT glucose (05/22/2024 8:20 AM CDT) Glucose, POC 128 70 - 199 mg/dL Blood 05/22/2024 8:20 AM CDT 05/22/2024 8:20 AM CDT us Torrie Carey MD LAB POCT ORDERABLES - DEV ICE Final Result [facility] [place]) 1 [facility] [place] [address] * POCT glucose (05/22/2024 2:03 AM CDT) Pathologist [facility] [place] Glucose, POC 120 70 - 199 mg/dL Blood 05/22/2024 2:03 AM CDT 05/22/2024 2:03 AM CDT Luna Gregg MD LAB POCT ORDERABLES - DEVICE Fin al Result Performing Organization Address [facility]/ZIP Co de Phone Number [facility] ([place]) 1 [place] [address] * Troponin T high-sensitivity 6-hour (05/22/2024 12:46 AM CDT) [facility] Trop T hs 13 <=22 ng/L Comment: Interpretive Data For further hscTnT resources including the diagnostic algorithm and an aid in interpretation, copy and paste this link: https://nrl.testcatalog.org/show/hsTrop Current Interpretive Data last revised 2020. Trop T hs delta See Comment ng/L CE RNADIS [facility] ([place]) Comment:Inappropriate collec tion time to report a delta. Trop T hs pct delta See Comment % CERCOURTNEY ALEX[facility]ER ([place]) Comment:Inappropriate collec tion time to report a delta. Trop T hs interp See Comment C P[facility]ER [facility] ([place]) Comment:Inappropriate collec tion time to report a delta. Blood 05/22/2024 12:4 6 AM CDT 05/22/2024 1:02 AM CDT Didier Pagan MD LAB BLOOD ORDERABLES Final R esult [facility] ([place]) 1 [facility] [address] [place] [address] * eGFR (05/22/2024 12:46 AM CDT) Pathologist [facility] [place] eGFR 87 >=60 mL/min/1. 73 m2 Comment: Interpretive Data Reference Interval Normal >/= 90 mL/min/1.73m2 Mildly decreased* 60 - 89 mL/min/1.73m2 Mildly to moderately decreased 45 - 59 mL/min/1.73m2 Moderately to severely decreased 30 - 44 mL/min/1.73m2 Severely decreased 15 - 29 mL/min/1.73m2 Kidney Failure < 15 mL/min/1.73m2 *Relative to young adult level Estimated glomerular filtration rate is determined by the 2020 CKD-EPI equation recommended by the National Kidney Foundation (A Unifying Approach to GFR Estimation: Recommendations of the NKF-ASK Task Force on Reassessing the Inclusion of Race in Diagnosing Kidney Disease, JASN 2020). The CKD-EPI equation should not be used for patients with unstable renal function and has not been validated in children and those over 70. Current interpretive data was last reviewed 2021. Blood 05/22/2024 12:4 6 AM CDT 05/22/2024 1:02 AM CDT Didier Pagan MD LAB BLOOD ORDERABLES Final R esult [facility] ([place]) 1 [facility] Department [place] [address] * (ABNORMAL) Differential, auto (05/22/2024 12:46 AM CDT) Neutrophil abs 6.8(H) 1.5 - 6.5 K/cumm Imm gran abs 0.1 0.0 - 0.1 K/cumm [facility] ([facility]) Lymphocyte abs 2.7 0.8 - 3.3 K/cumm [facility] ([place]) Monocyte abs 1.0(H) 0.2 - 0.8 K/cumm [facility] ([place]) Eosinophil abs 0.6(H) 0.0 - 0.5 K/cumm [facility] ([place]) Basophil abs 0.1 0.0 - 0.1 K/cumm [facility] ([place]) Neutrophil pct 60.5 % [facility] ([place]) Comment: Interpretive Data Percent cell count reference ranges are not reported, since discordance with absolute values may lead to misinterpretation of CBC data. Current Interpretive Data was last revised on 2017. Imm gran pct 0.6 % [facility] ([place]) Comment: Interpretive Data Percent cell count reference ranges are not reported, since discordance with absolute values may lead to misinterpretation of CBC data. Current Interpretive Data was last revised on 2017. Lymphocyte pct 23.5 % [facility] ([place]) Comment: Interpretive Data Percent cell count reference ranges are not reported, since discordance with absolute values may lead to misinterpretation of CBC data. Current Interpretive Data was last revised on 2017. Monocyte pct 9.2 % [facility] ([place]) Comment: Interpretive Data Percent cell count reference ranges are not reported, since discordance with absolute values may lead to misinterpretation of CBC data. Current Interpretive Data was last revised on 2017. Eosinophil pct 5.4 % [facility] ([place]) Comment: Interpretive Data Percent cell count reference ranges are not reported, since discordance with absolute values may lead to misinterpretation of CBC data. Current Interpretive Data was last revised on 2017. Basophil pct 0.8 % [facility] ([place]) Comment: Interpretive Data Percent cell count reference ranges are not reported, since discordance with absolute values may lead to misinterpretation of CBC data. Current Interpretive Data was last revised on 2017. Blood 05/22/2024 12:4 6 AM CDT 05/22/2024 1:02 AM CDT Didier Pagan MD LAB BLOOD ORDERABLES Final R esult [facility] (RYAN) 1 [facility] Department [place] [address] * (ABNORMAL) CBC with auto differential (05/22/2024 12:46 AM CDT) WBC 11.3(H) 3.8 - 9.9 K/cumm Hgb 16.2 13.0 - 17.5 g/dL [facility] ([place]) Hct 49.8 38.9 - 50.3 % [facility] (RYAN) Plt 218 150 - 400 K/cumm [facility] ([facility]) MPV 9.5 9.1 - 12.3 fL [facility] ([place]) RBC 5.17 4.30 - 5.80 M/cumm [facility] ([place]) MCV 96.3 81.3 - 96.4 fL [facility] ([place]) MCH 31.3 27.1 - 33.3 pg [facility] ([place]) MCHC 32.5 32.3 - 35.7 g/dL [facility] ([place]) RDW CV 13.4 11.1 - 14.9 % [facility] RDW SD 47.9 35.7 - 48.1 fL [facility] ([place]) NRBC abs 0.00 0.00 - 0.01 K/cumm [facility] ([place]) Blood 05/22/2024 12:4 6 AM CDT 05/22/2024 1:02 AM CDT Didier Pagan MD LAB BLOOD ORDERABLES Final R esult [facility] ([place]) 1 [facility] Department of Laboratories [place] [id number] * (ABNORMAL) Basic metabolic panel (05/22/2024 12:46 AM CDT) Sodium 134(L) 135 - 145 mmol/L Potassium, pl 4.7 3.3 - 4.9 mmol/L [facility] ([place]) Comment:Moderately Hemolyzed Specimen. Results may be affected. Chloride 102 97 - 110 mmol/L [facility] ([place]) CO2 21(L) 22 - 32 mmol/L [facility] ([place]) Anion gap 11 2 - 15 mmol/L [facility] ([place]) BUN 10 6 - 25 mg/dL [facility] ([place]) Creatinine 0.96 0.80 - 1.30 mg/dL [facility] ([place]) Glucose 167 70 - 199 mg/dL [facility] ([place]) Comment: Interpretive Data Fasting glucose >/= 126 mg/dl is diagnostic for diabetes. Fasting is defined as no caloric intake for at least 8 hours. Fasting glucose between 100 mg/dl to 125 mg/dl is diagnostic of prediabetes. In a patient with classic symptoms of hyperglycemia or hyperglycemic crisis, a random glucose >/= 200 mg/dl is diagnostic for diabetes. In the absence of unequivocal hyperglycemia, results should be confirmed by repeat testing. The classification and Diagnosis of Diabetes Diabetes Care 2021; 46: S19-S40. Current interpretive data was last revised 2022. Calcium 8.2(L) 8.5 - 10.3 mg/dL [facility] ([place]) Blood 05/22/2024 12:4 6 AM CDT 05/22/2024 1:02 AM CDT Didier Pagan MD LAB BLOOD ORDERABLES Final R esult Performing Organization Address City/[facility]/ZIP Co de Phone Number [facility] ([place]) 1 [facility] [place] [address] * Troponin T high-sensitivity 4-hour (05/21/2024 10:28 PM CDT) Trop T hs 13 <=22 ng/L Comment: Interpretive Data For further hscTnT resources including the diagnostic algorithm and an aid in interpretation, copy and paste this link: https://nrl.testcatalog.org/show/hsTrop Current Interpretive Data last revised 2020. Trop T hs delta 2 ng/L [facility] ([facility]) Trop T hs interp Insignificant [facility] (RYAN) Blood 05/21/2024 10:2 8 PM CDT 05/21/2024 10:45 PM CDT Didier Pagan MD LAB BLOOD ORDERABLES Final R esult [facility] ([place]) 1 [facility] [place] [address] * POCT glucose (05/21/2024 8:56 PM CDT) Glucose, POC 101 70 - 199 mg/dL Blood 05/21/2024 8:56 PM CDT 05/21/2024 8:56 PM CDT us Amado Rojas MD LAB POCT ORDERABLES - DEVICE Fi nal Result Performing Organization Address [facility] Co de Phone Number PE[facility] ALEX[facility]ER ([place]) 1 [facility] [place] [address] * Troponin T high-sensitivity 2-hour (05/21/2024 7:56 PM CDT) Trop T hs 11 <=22 ng/L Comment: Interpretive Data For further hscTnT resources including the diagnostic algorithm and an aid in interpretation, copy and paste this link: https://nrl.testcatalog.org/show/hsTrop Current Interpretive Data last revised 2020. Trop T hs delta 0 ng/L [facility] ([place]) Trop T hs interp Insignificant [facility] ([place]) Blood 05/21/2024 7:5 6 PM CDT 05/21/2024 8:05 PM CDT us Didier Pagan MD LAB BLOOD ORDERABLES Final R esult Performing Organization Address [facility] Co de Phone Number PEPE ALEXANDER ([place]) 1 [facility] of [address] [place] [address] * XR Chest PA Lateral 2 Views (05/21/2024 6:12 PM CDT) Anatomical Region Laterality Modality Body, Chest N/A Computed Radiogr aphy 05/21/2024 6:22 PM CDT Narrative 05/21/2024 6:25 PM CDT EXAM DESCRIPTION: XR CHEST PA LATERAL 2 VIEWS REASON FOR STUDY: chest pain c/o sudden onset mid L sided chest pain that goes down his L arm and into his jaw. Hc of COPD, CAD, HTN, UT, cardiac stents Current smoker TECHNIQUE: There are 2 radiographic view(s) of the chest. COMPARISON: Prior exam 12/20/2023, 09/17/2022 and 08/04/2022 FINDINGS: LUNGS: Pulmonary vascularity appears normal. No confluent infiltrate or effusion. Costophrenic angles are sharp. HEART/MEDIASTINUM: Cardiac silhouette normal in size. Mediastinal and hilar contours appear normal. LINES/TUBES: None. BONES: Mild multilevel spondylosis thoracic spine. IMPRESSION: No acute findings or infiltrate. THIS IS AN ELECTRONICALLY VERIFIED FINAL REPORT 05/21/2024 6:25 PM - Electronically signed by Ronnie JARAMILLO: CLINT Report ID: [id number] Reading Location: [place] [address] Procedure Note Ronnie Romo MD - 05/21/2024 EXAM DESCRIPTION: XR CHEST PA LATERAL 2 VIEWS REASON FOR STUDY: chest pain c/o sudden onset mid L sided chest pain that goes down his L arm and intohis jaw. Hc of COPD, CAD, HTN, UT, cardiac stents Current smoker TECHNIQUE: There are 2 radiographic view(s) of the chest. COMPARISON: Prior exam 12/20/2023, 09/17/2022 and 08/04/2022 FINDINGS: LUNGS: Pulmonary vascularity appears normal. No confluent infiltrate or effusion. Costophrenic angles are sharp. HEART/MEDIASTINUM: Cardiac silhouette normal in size. Mediastinal andhilar contours appear normal. LINES/TUBES: None. BONES: Mild multilevel spondylosis thoracic spine. IMPRESSION: No acute findings or infiltrate. THIS IS AN ELECTRONICALLY VERIFIED FINAL REPORT 05/21/2024 6:25 PM - Electronically signed by Ronnie JARAMILLO: CLINT Report ID: [id number] Reading Location: [place] [address] us Didier Pagan MD IMG XR PROCEDURES Final Resu lt * Troponin T high-sensitivity series (baseline, 2hr, 4hr, 6hr) (05/21/2024 5:44 PM CDT) Trop T hs 11 <=22 ng/L Comment: Interpretive Data For further hscTnT resources including the diagnostic algorithm and an aid in interpretation, copy and paste this link: [email or web address].testcatalog.org/show/hsTrop Current Interpretive Data last revised 2020. Blood 05/21/2024 5:44 PM CDT 05/21/2024 5:46 PM CDT Didier Pagan MD LAB BLOOD ORDERABLES Final R esult [facility] ([place]) 1 [facility] [place] [address] * eGFR (05/21/2024 5:44 PM CDT) eGFR 82 >=60 mL/min/1. 73 m2 Comment: Interpretive Data Reference Interval Normal >/= 90 mL/min/1.73m2 Mildly decreased* 60 - 89 mL/min/1.73m2 Mildly to moderately decreased 45 - 59 mL/min/1.73m2 Moderately to severely decreased 30 - 44 mL/min/1.73m2 Severely decreased 15 - 29 mL/min/1.73m2 Kidney Failure < 15 mL/min/1.73m2 *Relative to young adult level Estimated glomerular filtration rate is determined by the 2020 CKD-EPI equation recommended by the National Kidney Foundation (A Unifying Approach to GFR Estimation: Recommendations of the NKF-ASK Task Force on Reassessing the Inclusion of Race in Diagnosing Kidney Disease, JASN 2020). The CKD-EPI equation should not be used for patients with unstable renal function and has not been validated in children and those over 70. Current interpretive data was last reviewed 2021. Blood 05/21/2024 5:44 PM CDT 05/21/2024 5:46 PM CDT Didier Pagan MD LAB BLOOD ORDERABLES Final R esult [facility] ([place]) 1 [facility] [place] [address] * (ABNORMAL) Differential, auto (05/21/2024 5:44 PM CDT) Neutrophil abs 7.4(H) 1.5 - 6.5 K/cumm Imm gran abs 0.1 0.0 - 0.1 K/cumm [facility] ([place]) Lymphocyte abs 2.3 0.8 - 3.3 K/cumm [facility] ([place]) Monocyte abs 1.3(H) 0.2 - 0.8 K/cumm [facility] ([place]) Eosinophil abs 0.6(H) 0.0 - 0.5 K/cumm [facility] ([place]) Basophil abs 0.1 0.0 - 0.1 K/cumm [facility] ([place]) Neutrophil pct 63.3 % [facility] ([place]) Comment: Interpretive Data Percent cell count reference ranges are not reported, since discordance with absolute values may lead to misinterpretation of CBC data. Current Interpretive Data was last revised on 2017. Imm gran pct 0.6 % [facility] ([place]) Comment: Interpretive Data Percent cell count reference ranges are not reported, since discordance with absolute values may lead to misinterpretation of CBC data. Current Interpretive Data was last revised on 2017. Lymphocyte pct 19.6 % [facility] ([place]) Comment: Interpretive Data Percent cell count reference ranges are not reported, since discordance with absolute values may lead to misinterpretation of CBC data. Current Interpretive Data was last revised on 2017. Monocyte pct 10.7 % [facility] ([place]) Comment: Interpretive Data Percent cell count reference ranges are not reported, since discordance with absolute values may lead to misinterpretation of CBC data. Current Interpretive Data was last revised on 2017. Eosinophil pct 4.9 % [facility] ([place]) Comment: Interpretive Data Percent cell count reference ranges are not reported, since discordance with absolute values may lead to misinterpretation of CBC data. Current Interpretive Data was last revised on 2017. Basophil pct 0.9 % [facility] ([place]) Comment: Interpretive Data Percent cell count reference ranges are not reported, since discordance with absolute values may lead to misinterpretation of CBC data. Current Interpretive Data was last revised on 2017. Blood 05/21/2024 5:44 PM CDT 05/21/2024 5:46 PM CDT us Didier Pagan MD LAB BLOOD ORDERABLES Final R esult [facility] [place] 1 [facility] Department [place] [address] * Pro B-type natriuretic peptide (05/21/2024 5:44 PM CDT) NT-proBNP <36 <=300 pg/mL Comment: Interpretive Comments: A. Dyspnea in Acute Care Setting All Ages: < 300 pg/ml, acute heart failure unlikely. < 50 yrs: 300 - 450 pg/ml, further investigation warranted. > 450 pg/ml, acute heart failure likely. 50 - 74 yrs: 300 - 900 pg/ml, further investigation warranted. > 900 pg/ml, acute heart failure likely . > or = 75 yrs: 450 - 1800 pg/ml, further investigation warranted. > 1800 pg/ml, acute heart failure likely. B. Non-acute Setting < 75 yrs < 125 pg/ml, rules out heart failure. > or = 125 pg/ml, further investigation warranted. > or = 75 yrs < 450 pg/ml, rules out heart failure. > or = 450 pg/ml, further investigation warranted. - Knowledge of each individual patient's NT-proBNP range may be more useful than using similar cut-points for every patient. Please note that marked elevations in NT-proBNP levels may be observed in state other than Left Ventricular Congestive Failure, including: acute coronary syndromes, right heart strain/failure (including pulmonary embolism and cor pulmonale), critical illness, renal failure, as well as advanced age. - References: 1. Obinna HURST et.al. Eur Heart J. 2006:27:330-337. 2. Oren MANCILLA, Tucker KEANE. J. AM Myriam Cardiol: Cardiovasc Imag. 2009;2: 216- 225. Interpretive Data Last Revised Date: 2017. Blood 05/21/2024 5:44 PM CDT 05/21/2024 6:14 PM CDT Didier Pagan MD LAB BLOOD ORDERABLES Final R esult [facility] ([place]) 1 [facility] Department [place] [address] * (ABNORMAL) CBC with auto differential (05/21/2024 5:44 PM CDT) [facility] WBC 11.7(H) 3.8 - 9.9 K/cumm Hgb 16.6 13.0 - 17.5 g/dL [facility] ([place]) Hct 48.5 38.9 - 50.3 % [facility] ([place]) Plt 265 150 - 400 K/cumm [facility] ([place]) MPV 9.3 9.1 - 12.3 fL [facility] ([place]) RBC 5.21 4.30 - 5.80 M/cumm [facility] ([place]) MCV 93.1 81.3 - 96.4 fL [facility] ([place]) MCH 31.9 27.1 - 33.3 pg [facility] ([place]) MCHC 34.2 32.3 - 35.7 g/dL [facility] ([place]) RDW CV 13.4 11.1 - 14.9 % [facility] ([place]) RDW SD 45.9 35.7 - 48.1 fL [facility] NRBC abs 0.00 0.00 - 0.01 K/cumm [facility] Blood Venous blood specimen / Unknown 05/21/2024 5:44 PM CDT 05/21/2024 5:46 PM CDT Didier Pagan MD LAB BLOOD ORDERABLES Final R esult [facility] ([place]) 1 [facility] Department [place] [address] * D-dimer, quantitative (05/21/2024 5:44 PM CDT) [facility] D-Dimer <215 <=499 ng/mL [facility] ([place]) Comment: Interpretive data FDA approved the D-dimer, in conjunction with a low or moderate pretest probability score, to exclude venous thromboembolic events (VTE) (PE and DVT) in outpatients when the D-dimer result is < 500 ng/ml FEU. Evidence supports using an age-adjusted D-dimer cut-off for outpatients older than 50 (age x 10) to improve specificity without sacrificing sensitivity. Example: age 68, VTE cut-off 680 ng/ml FEU. References; Jarrett HT et al. Brit Med J. 2013;346:f2492. Lacy et al. Annals Int Med. 2015;163:701-11. Current interpretive data was last revised on 2019. Blood 05/21/2024 5:44 PM CDT 05/21/2024 5:46 PM CDT Didier Pagan MD LAB BLOOD ORDERABLES Final R esult Performing Organization Address City/[facility]/ZIP Co de Phone Number [facility] ([place]) 1 [facility] [place] [address] * Magnesium (05/21/2024 5:44 PM CDT) [facility] Magnesium 2.0 1.4 - 2.5 mg/dL Blood 05/21/2024 5:44 PM CDT 05/21/2024 6:14 PM CDT Didier Pagan MD LAB BLOOD ORDERABLES Final R esult Performing Organization Address [facility]/ZIP Co de Phone Number [facility] ([place]) 1 [facility] [address] [place] [address] * (ABNORMAL) Comprehensive metabolic panel (05/21/2024 5:44 PM CDT) [facility] Sodium 132(L) 135 - 145 mmol/L Potassium, pl 4.0 3.3 - 4.9 mmol/L [facility] ([place]) Chloride 98 97 - 110 mmol/L [facility] ([place]) CO2 22 22 - 32 mmol/L [facility] ([place]) Anion gap 12 2 - 15 mmol/L [facility] ([place]) BUN 11 6 - 25 mg/dL [facility] ([place]) Creatinine 1.01 0.80 - 1.30 mg/dL [facility] ([place]) Glucose 199 70 - 199 mg/dL [facility] ([place]) Comment: Interpretive Data Fasting glucose >/= 126 mg/dl is diagnostic for diabetes. Fasting is defined as no caloric intake for at least 8 hours. Fasting glucose between 100 mg/dl to 125 mg/dl is diagnostic of prediabetes. In a patient with classic symptoms of hyperglycemia or hyperglycemic crisis, a random glucose >/= 200 mg/dl is diagnostic for diabetes. In the absence of unequivocal hyperglycemia, results should be confirmed by repeat testing. The classification and Diagnosis of Diabetes Diabetes Care 2021; 46: S19-S40. Current interpretive data was last revised 2022. Calcium 8.3(L) 8.5 - 10.3 mg/dL [facility] ([place]) Bilirubin, total 0.4 0.1 - 1.2 mg/dL [facility] ([place]) Protein, pl 6.5 6.5 - 8.5 g/dL [facility] ([place]) Albumin 4.0 3.5 - 5.0 g/dL [facility] ([place]) Alk phos 75 40 - 130 Units/L [facility] ([place]) ALT 11 7 - 55 Units/L [facility] ([place]) AST 19 10 - 50 Units/L [facility] ([place]) Comment:Slightly Hemolyzed S pecimen Blood 05/21/2024 5:44 PM CDT 05/21/2024 5:46 PM CDT us Didier Pagan MD LAB BLOOD ORDERABLES Final R esult [facility] ([place]) 1 [facility] Department [place] [address] * ECG 12 lead (05/21/2024 5:42 PM CDT) 05/21/2024 5:42 PM CDT Narrative [facility] - 05/22/2024 7:46 AM CDT Vent Rate: 91 bpm RR Interval: 659 msec RI Interval: 150 msec QRS Duration: 87 msec QT Interval: 347 msec QTC Interval: 395 msec P-R-T Parthenon: 30 - -33 - 64 degrees IMPRESSION: SINUS RHYTHM LEFT AXIS DEVIATION [QRS AXIS < -30] ABNORMAL ECG NO CHANGE FROM PREVIOUS TRACING NOTED Electronically Signed By: Abdulaziz Bruno MD us Didier Pagan MD ECG ORDERABLES Final Result [facility] * POCT hemoglobin A1c (11/11/2023 8:56 AM CDT) Hemoglobin A1C, POC 6.3 4.0 - 5.6 % Blood 11/11/2023 8:56 AM CDT Juliann Dixon NP POINT OF CARE TEST ORDERABLES F inal Result * CT Abdomen Pelvis W Contrast (09/20/2023 5:26 PM CDT) Anatomical Region Laterality Modality Body N/A Computed Tomogra phy 09/20/2023 5:55 PM CDT Narrative 09/20/2023 6:03 PM CDT EXAM DESCRIPTION: CT ABDOMEN PELVIS W CONTRAST REASON FOR STUDY: Constipation, colostomy closure 08/27/2023 Patient had his colostomy reversed on 08/27/2023 and has not had a bowel movement in two weeks Extreme pain TECHNIQUE: CT scan of the abdomen and pelvis performed with intravenous and without oral contrast using helical scanning technique with dynamic intravenous contrast injection. Reconstructed coronal and sagittal MPR images reviewed. All images stored on PACS. Automated exposure control was used as a dose optimization technique for this examination. CONTRAST TYPE/DOSE: 75mL of IOVERSOL 350 MG IODINE/ML INTRAVENOUS SYRINGE injected COMPARISON: 05/26/2023 FINDINGS: LOWER CHEST: Mild scattered subsegmental atelectasis and slight pulmonary parenchymal scarring. Mild pulmonary emphysema. No pleural effusion. Imaged portions of the heart are normal. LIVER: Normal size. No identified cystic or solid masses. The hepatic and portal veins are patent. GALLBLADDER: Prior cholecystectomy. BILE DUCTS: Mild intrahepatic biliary ductal dilatation with normal caliber of the extrahepatic bile ducts most likely due to prior cholecystectomy and reservoir effect. SPLEEN: Normal size. No focal lesions. PANCREAS: No identified cystic or solid masses. No significant calcifications. No adjacent inflammation or peripancreatic fluid collections. Pancreatic duct not dilated. ADRENALS: Normal. KIDNEYS/URINARY TRACT: There are hypoattenuating lesions in both kidneys measuring up to 10 mm which are too small to characterize. No visualized stones. No hydronephrosis or hydroureter. Symmetric enhancement. There is mild circumferential thickening of the urinary bladder wall considering the degree of distension. GI: Small hiatal hernia. The stomach is otherwise unremarkable. A few mildly dilated loops of small bowel in the upper abdomen are present and the vast majority of the small bowel demonstrates normal caliber and there is no evidence of small-bowel obstruction, inflammation or perforation. Pseudo fecalization of some small-bowel loop contents suggestive of slow bowel transit. The appendix is normal. There has been interval partial sigmoid colectomy with reanastomosis and left lower quadrant colostomy takedown. Colonic diverticulosis with no CT evidence of acute diverticulitis. There is no colonic obstruction or perforation. Moderate volume colonic stool burden is present. PERITONEUM: No ascites or free air. No lymphadenopathy. RETROPERITONEUM: No mass or adenopathy. REPRODUCTIVE: Mild enlargement of the prostate gland. VASCULATURE: No abdominal aortic aneurysm. The abdominal aorta and its branches are patent with atherosclerotic calcifications. MUSCULOSKELETAL: No acute fractures or aggressive osseous lesions. Instrumented posterior spinal fusion at L5-S1 with posterior decompression. IMPRESSION: 1. Interval partial sigmoid colectomy with reanastomosis and left lower quadrant colostomy takedown. Colonic diverticulosis with no CT evidence of acute diverticulitis. No CT evidence of small bowel or colonic obstruction. 2. Moderate volume colonic stool burden. Pseudo fecalization of some small-bowel loop contents suggestive of slow bowel transit. THIS IS AN ELECTRONICALLY VERIFIED FINAL REPORT 09/20/2023 6:03 PM - Electronically signed by Torsten Manzano M.D. AT: AT Report ID: [id number] Reading Location: [id number] Procedure Note Torsten Manzano MD - 09/20/2023 EXAM DESCRIPTION: CT ABDOMEN PELVIS W CONTRAST REASON FOR STUDY: Constipation, colostomy closure 08/27/2023 Patient had his colostomy reversed on 08/27/2023 and has not had a bowel movement in two weeks Extreme pain TECHNIQUE: CT scan of the abdomen and pelvis performed with intravenousand without oral contrast using helical scanning technique with dynamic intravenous contrast injection. Reconstructed coronal and sagittal MPRimages reviewed. All images stored on PACS. Automated exposure control was usedas a dose optimization technique for this examination. CONTRAST TYPE/DOSE: 75mL of IOVERSOL 350 MG IODINE/ML INTRAVENOUSSYRINGE injected COMPARISON: 05/26/2023 FINDINGS: LOWER CHEST: Mild scattered subsegmental atelectasis and slightpulmonary parenchymal scarring. Mild pulmonary emphysema. No pleural effusion.Imaged portions of the heart are normal. LIVER: Normal size. No identified cystic or solid masses. The hepaticand portal veins are patent. GALLBLADDER: Prior cholecystectomy. BILE DUCTS: Mild intrahepatic biliary ductal dilatation with normalcaliber of the extrahepatic bile ducts most likely due to prior cholecystectomyand reservoir effect. SPLEEN: Normal size. No focal lesions. PANCREAS: No identified cystic or solid masses. No significant calcifications. No adjacent inflammation or peripancreatic fluidcollections. Pancreatic duct not dilated. ADRENALS: Normal. KIDNEYS/URINARY TRACT: There are hypoattenuating lesions in both kidneys measuring up to 10 mm which are too small to characterize. No visualized stones. No hydronephrosis or hydroureter. Symmetric enhancement. Thereis mild circumferential thickening of the urinary bladder wall consideringthe degree of distension. GI: Small hiatal hernia. The stomach is otherwise unremarkable. A few mildly dilated loops of small bowel in the upper abdomen are present andthe vast majority of the small bowel demonstrates normal caliber and there isno evidence of small-bowel obstruction, inflammation or perforation. Pseudo fecalization of some small-bowel loop contents suggestive of slow bowel transit. The appendix is normal. There has been interval partial sigmoid colectomy with reanastomosis and left lower quadrant colostomy takedown. Colonic diverticulosis with no CT evidence of acute diverticulitis. Thereis no colonic obstruction or perforation. Moderate volume colonic stoolburden is present. PERITONEUM: No ascites or free air. No lymphadenopathy. RETROPERITONEUM: No mass or adenopathy. REPRODUCTIVE: Mild enlargement of the prostate gland. VASCULATURE: No abdominal aortic aneurysm. The abdominal aorta and its branches are patent with atherosclerotic calcifications. MUSCULOSKELETAL: No acute fractures or aggressive osseous lesions. Instrumented posterior spinal fusion at L5-S1 with posteriordecompression. IMPRESSION: 1. Interval partial sigmoid colectomy with reanastomosis and left lower quadrant colostomy takedown. Colonic diverticulosis with no CT evidenceof acute diverticulitis. No CT evidence of small bowel or colonicobstruction. 2. Moderate volume colonic stool burden. Pseudo fecalization of some small-bowel loop contents suggestive of slow bowel transit. THIS IS AN ELECTRONICALLY VERIFIED FINAL REPORT 09/20/2023 6:03 PM - Electronically signed by Torsten Manzano M.D. AT: AT Report ID: [id number] Reading Location: [id number] Gavino Sousa NP IMG CT PROCEDURES Final Res ult * Colonoscopy (08/26/2023 12:38 PM CDT) Anatomical Region Laterality Modality Other Narrative Procedure Note Paul Tabor MD - 08/26/2023 12:38 PM CDT [facility] Patient Name: Eleanor Segura Procedure Date: 08/26/2023 12:38 PM Date of : 1960 Admit Type: Outpatient Age: 63 Gender: Male Attending MD: Paul Tabor M.D. Room: [facility] ENDOSCOPY ROOM 2 Note Status: Finalized Patient Profile: Refer to note in patient chart for documentation of history and physical. Procedure: Colonoscopy Indications: Screening for colorectal malignant neoplasm Referring MD: Providers: Paul Tabor M.D. Impression: - Preparation of the colon was poor. - Diverticulosis in the transverse colon and in the ascending colon. - No specimens collected. Recommendation: - Discharge patient to home. - Resume previous diet. - Continue present medications. - Repeat colonoscopy in 1 year for surveillance. Medicines: Propofol per Anesthesia Complications: No immediate complications. Estimated Blood Loss: Estimated blood loss: none. Procedure: Pre-Anesthesia Assessment: - Prior to the procedure, a History and Physicalwas performed, and patient medications and allergieswere reviewed. The patient's tolerance of previous anesthesia was also reviewed. The risks andbenefits of the procedure and the sedation options and risks were discussed with the patient. All questions were answered, and informed consent was obtained. Prior Anticoagulants: The patient has taken noanticoagulant or antiplatelet agents. ASA Grade Assessment: III -A patient with severe systemic disease. Afterreviewing the risks and benefits, the patient was deemed in satisfactory condition to undergo the procedure. The benefits, risks and alternatives of theprocedure and sedation were discussed and informed consentwas obtained. All questions were answered. Please referto the signed informed consent document in the medical record. The scope was passed under direct vision.The Endoscope [id number] was introduced through the colostomy and advanced to the the cecum, identified by appendiceal orifice and ileocecalvalve. The colonoscopy was performed without difficulty.The patient tolerated the procedure well. The qualityof the bowel preparation was poor. The ileocecalvalve, appendiceal orifice, and rectum were photographed. Scope withdrawal time was 12 minutes. Thecolonoscopy was performed without difficulty. The patient tolerated the procedure well. Once this portion was performed we directed our attention to the anuswhere the scope was then inserted. We attempted toadvance it to our staple line however a significant amountof mucus was encountered. Despite irrigation attemptsand withdrawing it on suction we could not make it allthe way to our previous suture line. The procedure was then aborted The bowel preparation used was Miralax via single dose instruction. Bowel prep was administered using a single dose. Findings: Many small-mouthed diverticula were found in the transverse colon and ascending colon. Paul Tabor M.D. 08/26/2023 1:27:25 PM Number of Addenda: 0 Note Initiated On: 08/26/2023 12:38 PM Procedure Code(s): --- Professional --- 72854, Colonoscopy, flexible; diagnostic, including collection of specimen(s) by brushing or washing, when performed (separateprocedure) --- Technical --- 02816, Colonoscopy, flexible; diagnostic, including collection of specimen(s) by brushing or washing, when performed (separateprocedure) Diagnosis Code(s): --- Professional --- Z12.11, Encounter for screening for malignant neoplasm of colon K57.30, Diverticulosis of large intestine without perforation orabscess without bleeding --- Technical --- Z12.11, Encounter for screening for malignant neoplasm of colon K57.30, Diverticulosis of large intestine without perforation orabscess without bleeding CPT copyright 2020 [employer] [employer]. All rights reserved. The codes documented in this report are preliminary and upon cpc coder reviewmay be revised to meet current compliance requirements. Recognized by the [place] [employer] for promoting quality in endoscopy us Paul Tabor MD ENDOSCOPY PROCED URES Final Result * Albumin Creatinine Ratio, Urine (01/28/2023 10:53 AM STAFF DESIGN ENGINEER) Albumin Ur <12.0 mg/L [facility] ([place]) Comment: Interpretive Data No reference range established. Current interpretive data was last revised 2018. Testing performed by: [address] [address] Creatinine Ur 33.6 mg/dL [facility] ([place]) Comment: Interpretive Data No reference range established. Current interpretive data was last revised 2018. Testing performed by: [address] [address] Albumin Creatinine Ratio, Ur See Comment 1 - 29 [facility] ([place]) Comment: Unable to calculate Testing performed by: [address], [address] Urine 01/28/2023 10:5 3 AM STAFF DESIGN ENGINEER 01/28/2023 5:59 PM STAFF DESIGN ENGINEER us Juliann Dixon NP LAB URINE ORDERABLES Final Resu lt [facility] ([place]) 1 [facility] Department [place] [address] * (ABNORMAL) Lipid panel (01/28/2023 10:53 AM STAFF DESIGN ENGINEER) Cholesterol 137 30 - 199 mg/dL [facility] ([place]) Comment: Interpretive Data Ages < or = 19 years Acceptable: <170 mg/dL Borderline high: 170-199 mg/dL High: >or= 200 mg/dL Ages > or = 20 years Desirable: <200 mg/dL Borderline high: 200-239 mg/dL High: >or= 240 mg/dL Literature References: 1. Expert Panel on Integrated Guidelines for Cardiovascular Health and Risk Reduction in Children and Adolescents. Pediatrics 2011;128:S213 2. NCEP Expert Panel. Circulation 2004;110:227 Current Interpretive Data was last revised on 2017. Triglycerides 152(H) <=149 mg/dL [facility] ([place]) Comment: Interpretive Data Ages < or = 9 years Acceptable: <75 mg/dL Borderline high: 75-99 mg/dL High: >or= 100 mg/dL Ages 10 to 20 years Acceptable: <90 mg/dL Borderline high: 90-129 mg/dL High: >or= 130 mg/dL Ages > or = 20 years Desirable: <150 mg/dL Borderline high: 150-199 mg/dL High: 200-499 mg/dL Very high: >or= 499 mg/dL Literature References: 1. Expert Panel on Integrated Guidelines for Cardiovascular Health and Risk Reduction in Children and Adolescents. Pediatrics 2011;128:S213 2. NCEP Expert Panel. Circulation 2004;110:227 Current Interpretive Data was last revised on 2017. HDL 45 >=40 mg/dL [facility] ([place]) Comment: Interpretive Data Ages < or = 19 years Acceptable: >45 mg/dL Borderline low: 40-45 mg/dL Low: <40 mg/dL Ages > or = 20 years Desirable: >or= 60 mg/dL Low: <40 mg/dL Literature References: 1. Expert Panel on Integrated Guidelines for Cardiovascular Health and Risk Reduction in Children and Adolescents. Pediatrics 2011;128:S213 2. NCEP Expert Panel. Circulation 2004;110:227 Current Interpretive Data was last revised on 2017. LDL, calculated 62 <=129 mg/dL [facility] ([place]) Comment: Interpretive Data Ages < or = 19 years Acceptable: <110 mg/dL Borderline high: 110-129 mg/dL High: >or= 130 mg/dL Ages > or = 20 years Optimal: <100 mg/dL Near optimal: 100-129 mg/dL Borderline high: 130-159 mg/dL High: >160 mg/dL Literature References: 1. Expert Panel on Integrated Guidelines for Cardiovascular Health and Risk Reduction in Children and Adolescents. Pediatrics 2011;128:S213 2. NCEP Expert Panel. Circulation 2004;110:227 Current Interpretive Data was last revised on 2017. Non-HDL Cholesterol 92 mg/dL PEPE ALEXANDER (RYAN) Comment: Interpretive Data Ages < or = 19 years Acceptable: <120 mg/dL Borderline high: 120-144 mg/dL High: >145 mg/dL Ages > or = 20 years When triglycerides are >200 mg/dL, Non-HDL cholesterol is a secondary target of therapy with treatment goals that are 30 mg/dL greater than the LDL cholesterol target. Literature References: 1. Expert Panel on Integrated Guidelines for Cardiovascular Health and Risk Reduction in Children and Adolescents. Pediatrics 2011;128:S213 2. NCEP Expert Panel. Circulation 2004;110:227 Current Interpretive Data was last revised on 2017. Chol/HDL ratio 3 ASHLEE ALEXANDER (RYAN) Blood 01/28/2023 10:5 3 AM STAFF DESIGN ENGINEER 01/28/2023 1:44 PM STAFF DESIGN ENGINEER Narrative PEPE ALEXANDER (RYAN) - 01/28/2023 2:05 PM STAFF DESIGN ENGINEER These lab test should be done fasting. This means do not eat or drink for at least 12 hours prior to getting your blood drawn. us Juliann Dixon NP LAB BLOOD ORDERABLES Final Resu lt PEPE ALEXANDER (RYAN) 1 [facility] Department [place] [address] from Last 3 Months or Most Recently Relevant to Health Maintenance Insurance [facility] MEDICARE ADVANTAGE [facility] MEDICARE ADVANTAGE [facility] MEDICARE ADVANTAGE Advance Directives For more information, please contact: [phone] * Full Code (Latest Code Status on File) Date Activated Date Inactivated Comments 05/21/2024 7:30 PM 05/24/2024 10:37 PM * Full Code Date Activated Date Inactivated Comments 12/20/2023 9:26 AM 12/22/2023 11:13 PM * Full Code Date Activated Date Inactivated Comments 08/26/2023 2:18 PM 09/01/2023 5:13 PM * Full Code Date Activated Date Inactivated Comments 08/26/2023 11:51 AM 08/26/2023 2:18 PM * Full Code Date Activated Date Inactivated Comments 08/26/2023 11:51 AM 08/26/2023 11:51 AM Care Teams Senior Training Specialist Relationship Specialty Start Date End Date Zack Caruso PA [address] [place] [address] PCP - General 07/24/21 Juliann Comer NP [address] DIV MEDICAL ONCOLOGY, [facility] [address] [place] [address] Nurse Practitioner Medical Oncology 05/30/22 Ling Matias MD [address] [place] [id number] Consulting Physician Cardiology 05/24/24
--- OUTSIDE RECORDS SUMMARY | 2024-08-10 09:14 | XMS_ITS | Encounter Summary ---
Author Organization [facility] Address [address] 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 No / Unsure 03/30/2021 12:19 PM COAT JOINER documented as of this encounter Plan of Treatment Scheduled Orders Name Type Priority Associated Diagnoses Orde r Schedule SARS-COV-2 BY MOLECULAR Microbiology Routine Pre-op testing Expected: 04/02/2021, Expires: 06/27/2021 documented as of this encounter Visit Diagnoses Diagnosis Pre-op testing- Primary Preoperative examination, unspecified documented in this encounter Care Teams Director Talent Relationship Specialty Start Date End Date Zack Caruso, PAC [address] [place] [address] PCP - General Physician Offset Lithographic Press Setter 12/05/20 documented as of this encounter
--- OUTSIDE RECORDS SUMMARY | 2024-08-10 09:14 | XMS_ITS | Encounter Summary ---
Author Organization [facility] Address [address] [place] [address] Phone Care Team Providers Care Voice Over Artist Name Role Phone Zack Caruso Primary Care Provider [phone] Encounter Details Date Type Department Care Team (Latest Contact Info) Description 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 No / Unsure 03/30/2021 12:19 PM MACHINE SHOP INSPECTOR documented as of this encounter Plan of Treatment Scheduled Orders Name Type Priority Associated Diagnoses Orde r Schedule TYPE & SCREEN (CROSSMATCH CONVERTIBLE) Blood Bank Routine Pre-op testing Expected: 04/02/2021, Expires: 06/27/2021 documented as of this encounter Visit Diagnoses Diagnosis Pre-op testing- Primary Preoperative examination, unspecified documented in this encounter Care Teams Voice Over Artist Relationship Specialty Start Date End Date Zack Caruso, PAC [address] [place] [address] PCP - General Physician Blanking Machine Operator 12/05/20 documented as of this encounter
--- OUTSIDE RECORDS SUMMARY | 2024-08-10 09:14 | XMS_ITS | Clinical Summary ---
Author Organization [facility] Address [address] [place] [address] Care Team Providers Care Surfacer Operator Name Role Phone Unavailable Primary Care Provider Unavailabl e Source Comments [facility],non-owned Affiliates and Associated Physician Practices is amultiple site organization consisting of ambulatory clinics and hospital sitesin [place], [place], [place] and [place]. This disclosure is being madepursuant to the Care Everywhere program and may not contain all information available regarding this patient. 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
--- OUTSIDE RECORDS SUMMARY | 2024-08-10 09:14 | XMS_ITS | Clinical Summary ---
Author Organization [facility] Address [address] [place] [address] Phone Care Team Providers Care Dial Maker Name Role Phone Zack Caruso Primary Care Provider [phone] Allergies Active Allergy Reactions Criticality Noted Date [...] disease) Overview (03/30/2021): 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 Gender Identity Not on file Sexual Orientation Not on file Last Filed Vital Signs Vital Sign Reading Time Taken Comments Blood Pressure 142/87 03/31/2021 7:46 AM REGULATORY AFFAIRS ASSOCIATE Pulse 67 03/30/2021 10:00 PM REGULATORY AFFAIRS ASSOCIATE Temperature 36.5 C (97.7 F) 03/31/2021 7:46 AM REGULATORY AFFAIRS ASSOCIATE Respiratory Rate 20 03/31/2021 7:46 AM REGULATORY AFFAIRS ASSOCIATE Oxygen Saturation 100% 03/31/2021 7:46 AM REGULATORY AFFAIRS ASSOCIATE Inhaled Oxygen Concentration - - Weight 79.4 kg (175 lb) 03/30/2021 12:20 PM REGULATORY AFFAIRS ASSOCIATE Height 182.9 cm (6') 03/30/2021 12:20 PM REGULATORY AFFAIRS ASSOCIATE Body Mass Index 23.73 03/30/2021 12:20 PM REGULATORY AFFAIRS ASSOCIATE Plan of Treatment Health Maintenance Due Date Last Done Comments Hepatitis C Virus (HCV) Screening 1960 Pneumococcal Immunization (50+ years) (1 of 2 - PCV) 1977 10/30/2013, 08/12/2008 Cologuard 2003 Colonoscopy 2003 Colorectal Cancer Screening 2003 Immunochemical Fecal Occult Blood 2003 Zoster Immunization (1 of 2) 2008 Respiratory Syncytial Virus (RSV) Immunization (Adult) (1 - Risk 60-74 years 1-dose series) 2018 SARS-COV-2 Immunization ( season) 2023 01/15/2021, 07/25/2020, 06/27/2020 Influenza Immunization (Season Ended) 2024 12/02/2017, 11/01/2016, 11/08/2015, Additional history exists Pneumococcal Immunization Combined Discontinued 10/30/2013, 08/12/2008 DTaP/Tdap/Td Immunization Discontinued 08/21/2017, 01/2011 TdaP Immunization Completed 08/21/2017, 10/12/2010 Hepatitis B Immunization Aged Out No longer eligible based on patient's age to complete this topic Human Papillomavirus (HPV) Immunization Aged Out No longer eligible based on patient's age to complete this topic Meningococcal Immunization (ACWY) Aged Out No longer eligible based on patient's age to complete this topic Rotavirus Immunization Aged Out No lo nger eligible based on patient's age to complete this topic Insurance MEDICARE Member Subscriber Plan / Payer (Ef fective 2003-Present) Name:Omar Mayer Member ID:[id number] Relation to Subscriber:Self Name:Omar Mayer Subscriber ID:[id number] Payer ID:[id number] Group ID:Not on file Type:Not on file Address: [facility] [address] [facility] [employer] [facility] [place] [address] Advance Directives * Full Code (Latest Code Status on File) Date Activated Date Inactivated Comments 03/30/2021 3:58 PM 03/31/2021 3:37 PM CPR-Full Jace atment: FULL ARREST: Attempt Resuscitation/CPR wit intubation and mechanical ventilation. PRE-ARREST: Use entire range of life support measures to stabilize the patient. Care Teams Dial Maker Relationship Specialty Start Date End Date Zack Caruso, [facility] [address] [place] [address] PCP - General Physician Field Case Manager 12/05/20
--- OUTSIDE RECORDS SUMMARY | 2024-08-10 09:15 | XMS_ITS | Clinical Summary ---
Author Organization [facility] Address [address] [place] [address] Care Team Providers Care Mainframe Applications Developer Name Role Phone Zack Caruso Primary Care Provider [phone] Juliann Comer NP Unavailable [phone] Ling Matias MD Unavailable [phone] Allergies Active Allergy Reactions Criticality Noted Date [...] acute EKG changes so less likely active ID. BNP negative. TTE on 05/22/24 showed impaired [...] KEITH/ARB Assessment & Plan (05/06/2023 9:33 AM CASEWORK MANAGER): This is a chronic condition which is at goal of less than 7%. Personally reviewed most recent A1c - Lab Results Component Value Date HGBA1C 6.2 05/06/2023 Personally reviewed POC blood sugar- at goal 80-180 Lab Results Component Value Date POCGLU 114 05/06/2023 Medication- none Monitor blood sugar daily Encouraged annual eye exam. He would like to go to [facility] Monofilament foot exam completed. protective senses intact Personally reviewed CMP eGFR- 95 Kidney function- normal Urine microalbumin/creatinine ratio - at goal <30 treated with amlodipine, metoprolol. B/P today- not at goal of <140/90. continue amlodipine, metoprolol. Home monitors blood pressure Personally reviewed lipid panel. at Goal of less than 70. Continue zetia. Assessment & Plan (01/28/2023 4:13 PM CASEWORK MANAGER): This is a chronic condition which is [...] (05/29/2022): Added automatically from request for surgery [id number] Fall 02/09/2022 Confusion 02/08/2022 Assessment & Plan (02/09/2022 1:15 PM CASEWORK MANAGER): 61M with history of previous stroke and [...] vitals. Assessment & Plan (05/06/2023 9:34 AM CASEWORK MANAGER): This is a chronic condition which is [...] B/P Assessment & Plan (01/28/2023 4:13 PM CASEWORK MANAGER): This is a chronic condition which is at goal of less than 140/90 Personally reviewed labs. Continue amlodipine, metoprolol Encouraged to monitor weight and B/P at home Encouraged to take medications as prescribed. Assessment & Plan (02/09/2022 1:15 PM CASEWORK MANAGER): Pt taking metoprolol XL 100mg daily prior [...] pain. Assessment & Plan (02/09/2022 1:16 PM CASEWORK MANAGER): Stable on: - plavix 75mg daily - [...] week. Assessment & Plan (05/06/2023 9:34 AM CASEWORK MANAGER): This is a chronic condition which is at goal of LDL less than 70 Continue zetia Encouraged to eat healthy, include fresh fruits and vegetables daily and avoid eating fried foods more than once per week. Encouraged to take medications as prescribed. Assessment & Plan (01/28/2023 4:14 PM CASEWORK MANAGER): This is a chronic condition which is [...] Date Type Department Care Team Description 06/03/2024 [facility] Post Discharge Follow up phone call [facility] [address] [place] [address] Alecia Tay 05/24/2024 Orders Only [facility] [address] [place] [address] Deja Dutton 05/21/2024 5:35 PM CDT - 05/24/2024 6:32 PM CDT Hospital Encounter [facility] IMU [address] [place] [id number] Didier Pagan MD Huynh, Kiet T., MD Metias, Mena, MD Bross, Torrie Rosario MD Acute chest pain (Primary Dx); Coronary artery disease involving [place] coronary artery of [place] heart, unspecified whether angina present; S/P coronary artery stent placement; Primary hypertension; Mixed 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 (HCC); Type 2 diabetes mellitus without complication, without long-term current use of insulin (HCC); Gastroesophageal reflux disease without esophagitis; Other emphysema ([facility]); Mixed anxiety and depressive disorder; Cerebrovascular accident [...] History Date Comments Hypertension Coronary artery disease ID (myocardial infarction) (HCC) Stroke (HCC) Headache, tension-type [...] oz pur e alcohol) 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 Patient declined 05/24/2024 Do you belong to any clubs o r organizations such as caodaism groups, unions, fraternal or athletic groups, or [...] staff should administer the PHQ-9) 4 05/29/2023 [facility] Occupat ional [facility] - Occupational Stress Questionnaire Answer Date Recorded [...] place to sleep or slept in a long-term (including now)? No 05/27/2023 PHQ-9 Answer Date [...] any time in the past 12 m [facility], were you homeless or living in a long-term (including now)? No 05/24/2024 Personal Safety Answer [...] on file Legal Sex Male 6:45 PM CASEWORK MANAGER Gender Identity Not on file Sexual Orientation [...] 04/12/2021 Well Visit 65+ 2023 Covid-19 Vaccine ( - 2023-2 5 season) 2023 01/15/2021, 07/25/2020, 06/27/2020 Albumin Creatinine Ratio, Urine 01/29/2024 3 Lipid Panel 01/29/2024 01/28/2023, 08/31, 02/09/2022, Additional history exists Hemoglobin A1C 05/10/2024 [...] history exists Medical Devices Implanted Type Area Biomass Production Manager Device Identifier Shelf Expiration Date Model / Serial / Lot [employer] Mike Synergy 3mm 8mm 144cm Radiopaque 1 Access Port Inflation Lumen [id number] - [id number] Implanted:Qty: 1 on 07/23/2021 by Ling Matias MD at [facility] [employer] Mike 01/11/2022 [id number] / / [id number] [employer] Mike Synergy 3mm 24mm 144cm Radiopaque 1 Access Port Inflation Lumen [id number] - [id number] Implanted:Qty: 1 on 08/07/2021 by Ling Matias MD at [facility] [employer] Mike 06/08/2022 [id number] / / [id number] [employer] Mike Synergy 2.25mm 24mm 144cm Radiopaque 1 Access Port Inflation [id number] - [id number] Implanted:Qty: 1 on 08/07/2021 by Ling Matias MD at [facility] Agendize Mike 01/25/2022 [id number] / / [id number] [employer] Progrip 15x9cm Self Diamond Sizer And Grader Rectangle Mesh Surgical Polyester Hernia [id number] - [id number] Implanted:Qty: 1 on 06/04/2022 by Jona Sarmiento MD at [facility] Left: Abdomen [employer] Inc 09/30/2026 [id number] / / [id number] Procedures Procedure Name Priority Date/Time Associated Diagnosis [...] CDT LIPID PANEL Routine 01/28/2023 10:53 AM CASEWORK MANAGER Type 2 diabetes mellitus without complication, unspecified whether care home insulin use (HCC) ALBUMIN CREATININE RATIO, URINE Routine 01/28/2023 10:53 AM CASEWORK MANAGER Type 2 diabetes mellitus without complication, unspecified whether care home insulin use (HCC) from Last 3 Months or Most Recently Relevant to Health Maintenance Results * POCT glucose (05/24/2024 4:47 PM CDT) Glucose, POC 92 70 - 199 mg/dL Blood 05/24/2024 4:47 PM CDT 05/24/2024 4:47 PM CDT us Torrie Carey MD LAB POCT ORDERABLES - DEV ICE Final Result [facility] [place]) 1 [facility] Department of [employer] [place] [address] * POCT glucose (05/24/2024 12:24 PM CDT) Glucose, POC 152 70 - 199 mg/dL Blood 05/24/2024 12:2 4 PM CDT 05/24/2024 12:24 PM CDT Torrie Carey MD LAB POCT ORDERABLES - DEV ICE Final Result [facility] ([place]) 1 [facility] [place] [address] * NM MPI SPECT (Rest and/or Stress) [...] Sheng Garcia M.D. LB: PAM Report ID: [id number] Reading Location: [id number] Procedure Note Sheng Garcia MD - 05/24/2024 [...] Sheng Garcia M.D. LB: PAM Report ID: [id number] Reading Location: [id number] Ling Matias MD [facility] [place] PROCEDURES Final Res ult * Stress Test for Myocardial Perfusion (05/24/2024 11:19 AM CDT) Anatomical Region Laterality Modality Nuclear Medicine 05/24/2024 6:30 AM CDT Narrative 05/24/2024 4:57 PM CDT [address] [address] Lexiscan Report Patient Name: ELEANOR SEGURA Fadumo : 1960 Study Date: 05/24/2024 6:30:00 AM Gender: M Tech: deja dutton Location: [place] [address] Ref Provider: LING MATIAS Height(Cm): 183 BSA: 2.96 [...] Signed By: Ling Matias MD [facility] 05/24/2024 3:45:04 PM CDT Procedure Note Ling Matias MD - 05/24/[address] [address] Intern Report Patient Name: ELEANOR SEGURA G : 1960 Study Date: 05/24/2024 6:30:00 AM Gender: M Tech: deja dutton Location: [place] [address] Ref Provider: LING MATIAS Height(Cm): 183 BSA: 2.96 [...] separately. Electronically Signed By: Ling Matias MD B 05/24/2024 3:45:04 PM CDT Ling Matias MD CV STRESS PROCEDURES Final Result * POCT glucose (05/24/2024 7:58 AM CDT) Glucose, POC 107 70 - 199 mg/dL Blood 05/24/2024 7:58 AM CDT 05/24/2024 7:58 AM CDT Torrie Carey MD LAB POCT ORDERABLES - DEV ICE Final Result [facility] [place]) 1 [facility] Department of [employer] [place] [address] * eGFR (05/24/2024 2:12 AM CDT) eGFR [...] LAB BLOOD ORDERABLES Bozena hernandez Result [facility] INCLUDES THE [facility] ([place]) 1 [facility] Department [place] [address] * (ABNORMAL) Differential, auto (05/24/2024 2:12 AM [...] LAB BLOOD ORDERABLES Bozena hernandez Result [facility] ([place]) 1 [facility] [place] [address] * (ABNORMAL) CBC with auto differential (05/24/2024 [...] RDW CV 13.1 11.1 - 14.9 % [facility] ([place]) RDW SD 45.8 35.7 - 48.1 fL [facility] ([place]) NRBC abs 0.00 0.00 - 0.01 K/cumm [facility] Blood 05/24/2024 2:12 AM CDT 05/24/2024 2:33 AM CDT Torrie Carey MD LAB BLOOD ORDERABLES Bozena hernandez Result [facility] ([place]) 1 [facility] Department of Laboratories [place] [id number] * Basic metabolic panel (05/24/2024 2:12 AM CDT) Pathologist [facility] Sodium 136 135 - 145 mmol/L Potassium, pl 3.9 3.3 - 4.9 mmol/L [facility] ([place]) Chloride 101 97 - 110 mmol/L [facility] ([place]) CO2 22 22 - 32 mmol/L [facility] ([place] Anion gap 13 2 - 15 mmol/L [facility] ([place]) BUN 16 6 - 25 mg/dL [facility] ([place]) Creatinine 1.11 0.80 - 1.30 mg/dL [facility] ([place]) Glucose 161 70 - 199 mg/dL [facility] ([place]) [...] 2022. Calcium 9.3 8.5 - 10.3 mg/dL [facility] INCLUDES [facility] ([place]) Blood 05/24/2024 2:12 AM CDT 05/24/2024 2:33 AM CDT Torrie Carey MD LAB BLOOD ORDERABLES Bozena l Result Performing Organization Address City/[facility] [address]/ZIP Co de Phone Number PEPE COUNT INCLUDES THE [facility] ([place]) 1 [facility] [place] [address] * POCT glucose (05/24/2024 1:26 AM CDT) Glucose, POC 137 70 - 199 mg/dL Blood 05/24/2024 1:26 AM CDT 05/24/2024 1:26 AM CDT Torrie Carey MD LAB POCT ORDERABLES - DEV ICE Final Result [facility] INCLUDES THE [facility] ([place]) 1 [facility] [place] [address] * POCT glucose (05/23/2024 8:05 PM CDT) Glucose, POC 127 70 - 199 mg/dL Blood 05/23/2024 8:05 PM CDT 05/23/2024 8:05 PM CDT Torrie Carey MD LAB POCT ORDERABLES - DEV ICE Final Result [facility] ([place]) 1 [facility] [place] [address] * POCT glucose (05/23/2024 5:06 PM CDT) Glucose, POC 108 70 - 199 mg/dL Blood 05/23/2024 5:06 PM CDT 05/23/2024 5:06 PM CDT Torrie Carey MD LAB POCT ORDERABLES - DEV ICE Final Result Performing Organization Address [facility] [address]/[facility] Co de Phone Number MEÑOCOURTNEY ALEXANDER ([place]) 1 [facility] [employer] [place] [address] * Troponin T high-sensitivity 6-hour (05/23/2024 2:32 PM CDT) Trop T hs 10 <=22 ng/L Comment: Interpretive Data For further hscTnT resources including the diagnostic algorithm and an aid in interpretation, copy and paste this link: https://nrl.testcatalog.org/show/hsTrop Current Interpretive Data last revised 2020. Trop T hs delta See Comment ng/L CE RAKAN ALEX[facility]ER ([place]) Comment:Inappropriate collec tion time to report a delta. Trop T hs pct delta See Comment % [facility] ([place]) Comment:Inappropriate collec tion time to report a delta. Trop T hs interp See Comment C PARKER ALEX[facility] ([place]) Comment:Inappropriate collec tion time to report a delta. Blood 05/23/2024 2:32 PM CDT 05/23/2024 2:39 PM CDT Torrie Carey MD LAB BLOOD ORDERABLES Bozena l Result Performing Organization Address City/[facility] [address]/ZIP Co de Phone Number MEÑOCOURTNEY ALEXANDER ([place]) 1 [facility] [employer] [place] [address] * Troponin T high-sensitivity 4-hour (05/23/2024 12:45 PM CDT) Trop T hs 9 <=22 ng/L Comment: Interpretive Data For further hscTnT resources including the diagnostic algorithm and an aid in interpretation, copy and paste this link: https://nrl.testcatalog.org/show/hsTrop Current Interpretive Data last revised 2020. Trop T hs delta See Comment ng/L CE RNER BENJAMIN ([place]) Comment:Inappropriate collec tion time to report a delta. Trop T hs pct delta See Comment % [facility] ([place]) Comment:Inappropriate collec tion time to report a delta. Trop T hs interp See Comment C PARKER ALEXANDER ([place]) Comment:Inappropriate collec tion time to report a delta. Blood 05/23/2024 12:4 5 PM CDT 05/23/2024 1:07 PM CDT Torrie Carey MD LAB BLOOD ORDERABLES Bozena l Result [facility] BENJAMIN ([place]) 1 [facility] [employer] [place] [address] * POCT glucose (05/23/2024 12:01 PM CDT) Glucose, POC 101 70 - 199 mg/dL Blood 05/23/2024 12:0 1 PM CDT 05/23/2024 12:01 PM CDT Torrie Carey MD LAB POCT ORDERABLES - DEV ICE Final Result [facility] ([place]) 1 [facility] [employer] [place] [address] * Troponin T high-sensitivity 2-hour (05/23/2024 11:52 AM CDT) Trop T hs 10 <=22 ng/L Comment: Interpretive Data For further hscTnT resources including the diagnostic algorithm and an aid in interpretation, copy and paste this link: https://nrl.testcatKabanchik.org/show/hsTrop Current Interpretive Data last revised 2020. Trop T hs delta See Comment ng/L CE RNER BENJAMIN ([place]) Comment:Inappropriate collec tion time to report a delta. Trop T hs pct delta See Comment % CERCOURTNEY BENJAMIN ([place]) Comment:Inappropriate collec tion time to report a delta. Trop T hs interp See Comment C ERNER BENJAMIN ([place]) Comment:Inappropriate collec tion time to report a delta. Blood 05/23/2024 11:5 2 AM CDT 05/23/2024 11:55 AM CDT Torrie Carey MD LAB BLOOD ORDERABLES Bozena l Result Performing Organization Address [facility] [address]/[facility] Co de Phone Number PEPE COUNT INCLUDES THE [facility] ([place]) [address] [place] [address] [employer] [place] [address] * Troponin T high-sensitivity series (baseline, 2hr, 4hr, 6hr) (05/23/2024 11:52 AM CDT) Trop T hs 11 <=22 ng/L Comment: Interpretive Data For further hscTnT resources including the diagnostic algorithm and an aid in interpretation, copy and paste this link: https://nrl.testTriggit.org/show/hsTrop Current Interpretive Data last revised 2020. Blood 05/23/2024 11:5 2 AM CDT 05/23/2024 11:55 AM CDT us Ling Matias MD LAB BLOOD ORDERABLES Final Result Performing Organization Address City/[facility] [address]/[facility] Co de Phone Number [facility] ([place]) [address] [place] [address] [employer] [place] [address] * Troponin T high-sensitivity series (baseline, 2hr, 4hr, 6hr) (05/23/2024 8:16 AM CDT) Trop T hs 12 <=22 ng/L Comment: Interpretive Data For further hscTnT resources including the diagnostic algorithm and an aid in interpretation, copy and paste this link: https://nrl.testcatalog.org/show/hsTrop Current Interpretive Data last revised 2020. Blood 05/23/2024 8:16 AM CDT 05/23/2024 8:24 AM CDT us Torrie Carey MD LAB BLOOD ORDERABLES Bozena l Result [facility] ALEXANDER ([place]) 1 [facility] [employer] [place] [address] * POCT glucose (05/23/2024 8:14 AM CDT) [facility] Signature Glucose, POC 113 70 - 199 mg/dL Blood 05/23/2024 8:14 AM CDT 05/23/2024 8:14 AM CDT Torrie Carey MD LAB POCT ORDERABLES - DEV ICE Final Result Performing Organization Address [facility] de Phone Number [facility] ALEXANDER ([place]) 1 [facility] [place] [address] * ECG 12 lead (05/23/2024 8:03 AM CDT) 05/23/2024 8:03 AM CDT Narrative [facility] - 05/24/2024 7:23 AM CDT Vent Rate: 62 bpm RR Interval: 956 msec WA Interval: 155 msec QRS Duration: 78 msec QT Interval: 374 msec QTC Interval: 380 msec P-R-T [place]: 43 - -24 - 137 degrees IMPRESSION: Baseline artifact, probable SINUS RHYTHM BORDERLINE LEFT AXIS DEVIATION [QRS AXIS < -20] POSSIBLE RIGHT VENTRICULAR CONDUCTION DELAY [RSR (QR) IN V1/V2] ABNORMAL ECG Compared to prior EKG, heart rate has decreased Electronically Signed By: Abdulaziz Bruno MD us Sulma Velazquez DO ECG ORDERABLES Final Resul t [facility] * eGFR (05/23/2024 4:13 AM CDT) eGFR [...] MD LAB BLOOD ORDERABLES Bozena l Result [facility] ([place]) 1 [facility] [place] [address] * (ABNORMAL) Differential, auto (05/23/2024 4:13 AM [...] LAB BLOOD ORDERABLES Bozena hernandez Result [facility] BENJAMIN ([place]) 1 [facility] [place] [address] * (ABNORMAL) CBC with auto differential (05/23/2024 [...] NRBC abs 0.00 0.00 - 0.01 K/cumm [facility] ([place]) Blood 05/23/2024 4:13 AM CDT 05/23/2024 4:29 AM CDT us Torrie Carey MD LAB BLOOD ORDERABLES Bozena hernandez Result [facility] 1 [facility] [place] [address] * Basic metabolic panel (05/23/2024 4:13 AM CDT) Sodium 136 135 - 145 mmol/L Potassium, pl 4.1 3.3 - 4.9 mmol/L [facility] ([place]) Chloride 105 97 - 110 mmol/L [facility] ([place]) CO2 22 22 - 32 mmol/L [facility] ([place]) Anion gap 10 2 - 15 mmol/L [facility] ([place]) BUN 14 6 - 25 mg/dL [facility] ([place]) Creatinine 1.06 0.80 - 1.30 mg/dL [facility] ([place]) Glucose 124 70 - 199 mg/dL [facility] ([place]) Comment: Interpretive Data Fasting [...] 2022. Calcium 8.9 8.5 - 10.3 mg/dL [facility] ([place]) Blood 05/23/2024 4:13 AM CDT 05/23/2024 4:29 AM CDT Torrie Carey MD LAB BLOOD ORDERABLES Bozena l Result [facility] COUNT INCLUDES THE [facility] ([place]) 1 [facility] [employer] [place] [address] * POCT glucose (05/23/2024 2:11 AM CDT) Glucose, POC 178 70 - 199 mg/dL Blood 05/23/2024 2:11 AM CDT 05/23/2024 2:11 AM CDT Torrie Carey MD LAB POCT ORDERABLES - DEV ICE Final Result [facility] 1 [facility] [employer] [place] [address] * POCT glucose (05/22/2024 9:00 PM CDT) Glucose, POC 121 70 - 199 mg/dL Blood 05/22/2024 9:00 PM CDT 05/22/2024 9:00 PM CDT Torrie Carey MD LAB POCT ORDERABLES - DEV ICE Final Result Performing Organization Address City/[facility] [address]/ZIP Co de Phone Number [place] [place] [address] [place] [address] * POCT glucose (05/22/2024 5:04 PM CDT) Glucose, POC 98 70 - 199 mg/dL Blood 05/22/2024 5:04 PM CDT 05/22/2024 5:04 PM CDT Torrie Carey MD LAB POCT ORDERABLES - DEV ICE Final Result Performing Organization Address [facility] [address]/[facility] Co de Phone Number [place] [place]) [address] [place] [address] * POCT glucose (05/22/2024 12:14 PM CDT) Glucose, POC 98 70 - 199 mg/dL Blood 05/22/2024 12:1 4 PM CDT 05/22/2024 12:14 PM CDT Torrie Carey MD LAB POCT ORDERABLES - DEV ICE Final Result Performing Organization Address [facility] [address]/[facility] Co de Phone Number [facility] ALEXANDER ([place]) [address] [place] [address] * TRANSTHORACIC ECHO (TTE) COMPLETE W DOPPLER/CF W CONTRAST (05/22/2024 9:53 AM CDT) Pathologist [facility] LV EF 60 % CONS SCIMAGE Anatomical Region Laterality Modality Ultrasound 05/22/2024 9:20 AM CDT Narrative 05/22/2024 12:36 PM CDT [address] [address] Echocardiogram Report Patient Name: ELEANOR SEGURA G : 1960 Study Date: 05/22/2024 9:20:09 AM Gender: M Tech: PASSENGER REPRESENTATIVE Location: [id number] Ref Provider: AMADO ROJAS Height(Cm): 183 BSA: [...] views. Electronically Signed By: Ling Matias MD Sangeetha 05/22/2024 12:35:07 PM CDT Procedure Note Ling Matias MD - 05/22/[address] [place] [address] Echocardiogram Report Patient Name: ELEANOR SEGURA G : 1960 Study Date: 05/22/2024 9:20:09 AM Gender: M Tech: PASSENGER REPRESENTATIVE Location: [address] Provider: AMADO ROJAS Height(Cm): 183 BSA: 1.99 [...] views. Electronically Signed By: Ling Matias MD [facility] 05/22/2024 12:35:07 PM CDT us Amado Rojas MD CV ECHO PROCEDURES Final Result * POCT glucose (05/22/2024 8:20 AM CDT) Glucose, POC 128 70 - 199 mg/dL Blood 05/22/2024 8:20 AM CDT 05/22/2024 8:20 AM CDT us Torrie Carey MD LAB POCT ORDERABLES - DEV ICE Final Result [facility] ALEXANDER ([place]) 1 [facility] [employer] [place] [address] * POCT glucose (05/22/2024 2:03 AM CDT) Glucose, POC 120 70 - 199 mg/dL Blood 05/22/2024 2:03 AM CDT 05/22/2024 2:03 AM CDT Luna Gregg MD LAB POCT ORDERABLES - DEVICE Fin al Result Performing Organization Address City/[facility] [address]/ZIP Co de Phone Number MEÑOCOURTNEY ALEXANDER ([place]) 1 [facility] [employer] [place] [address] * Troponin T high-sensitivity 6-hour (05/22/2024 12:46 AM CDT) Trop T hs 13 <=22 ng/L Comment: Interpretive Data For further hscTnT resources including the diagnostic algorithm and an aid in interpretation, copy and paste this link: https://nrl.testcatalog.org/show/hsTrop Current Interpretive Data last revised 2020. Trop T hs delta See Comment ng/L CE RAKAN ALEXANDER ([place]) Comment:Inappropriate collec tion time to report a delta. Trop T hs pct delta See Comment % [facility] ALEXANDER ([place]) Comment:Inappropriate collec tion time to report a delta. Trop T hs interp See Comment C PARKER ALEXANDER ([place]) Comment:Inappropriate collec tion time to report a delta. Blood 05/22/2024 12:4 6 AM CDT 05/22/2024 1:02 AM CDT Didier Pagan MD LAB BLOOD ORDERABLES Final R esult Performing Organization Address City/[facility] [address]/[facility] Co de Phone Number [facility] ALEXANDER ([place]) 1 [facility] [employer] [place] [address] * eGFR (05/22/2024 12:46 AM CDT) eGFR 87 >=60 mL/min/1. 73 m2 Comment: [...] ORDERABLES Final R esult Performing Organization Address City/[facility] [address]/ZIP Co de Phone Number PEPE ALEXANDER ([place]) 1 [facility] Department of [employer] [place] [address] * (ABNORMAL) Differential, auto (05/22/2024 12:46 AM [...] Final R esult [facility] ALEXAND[facility] ([place]) 1 [facility] [place] [address] * (ABNORMAL) CBC with auto differential (05/22/2024 12:46 AM CDT) WBC 11.3(H) 3.8 - 9.9 K/cumm Hgb 16.2 13.0 - 17.5 g/dL [facility] ([place]) Hct 49.8 38.9 - 50.3 % [facility] ([place]) Plt 218 150 - 400 K/cumm [facility] ([place]) MPV 9.5 9.1 - 12.3 fL [facility] ([place]) RBC 5.17 4.30 - 5.80 M/cumm [facility] ([place]) MCV 96.3 81.3 - 96.4 fL [facility] ([place]) MCH 31.3 27.1 - 33.3 pg [facility] ([place]) MCHC 32.5 32.3 - 35.7 g/dL [facility] ([place]) RDW CV 13.4 11.1 - 14.9 % [facility] ([place]) RDW SD 47.9 35.7 - 48.1 fL [facility] NRBC abs 0.00 0.00 - 0.01 K/cumm [facility] Blood 05/22/2024 12:4 6 AM CDT 05/22/2024 1:02 AM CDT Didier Pagan MD LAB BLOOD ORDERABLES Final R esult [facility] ([place]) [facility] Department [place] [address] * (ABNORMAL) Basic metabolic panel (05/22/2024 12:46 AM CDT) Pathologist [facility] Sodium 134(L) 135 - 145 mmol/L Potassium, pl 4.7 3.3 - 4.9 mmol/L [facility] ([place]) Comment:Moderately Hemolyzed Specimen. Results may be affected. Chloride 102 97 - 110 mmol/L [facility] ([place]) CO2 21(L) 22 - 32 mmol/L [facility] ([place]) Anion gap 11 2 - 15 mmol/L [facility] ([place]) BUN 10 6 - 25 mg/dL [facility] ([place]) Creatinine 0.96 0.80 - 1.30 mg/dL [facility] ([place]) Glucose 167 70 - 199 mg/dL [facility] ([place]) Comment: Interpretive Data Fasting glucose [...] 2022. Calcium 8.2(L) 8.5 - 10.3 mg/dL [facility] ([place]AN) Blood 05/22/2024 12:4 6 AM CDT 05/22/2024 1:02 AM CDT us Didier Pagan MD LAB BLOOD ORDERABLES Final R esult [facility] ([place]) 1 [facility] Department [place] [address] * Troponin T high-sensitivity 4-hour (05/21/2024 10:28 PM CDT) Trop T hs 13 <=22 ng/L Comment: Interpretive Data For further hscTnT resources including the diagnostic algorithm and an aid in interpretation, copy and paste this link: https://nrl.testcatalog.org/show/hsTrop Current Interpretive Data last revised 2020. Trop T hs delta 2 ng/L [facility] ([facility]) Trop T hs interp Insignificant [facility] ([place]) Blood 05/21/2024 10:2 8 PM CDT 05/21/2024 10:45 PM CDT Didier Pagan MD LAB BLOOD ORDERABLES Final R esult Performing Organization Address City/[facility] [address]/ZIP Co de Phone Number [facility] ALEXANDER ([place]) 1 [facility] [place] [address] * POCT glucose (05/21/2024 8:56 PM CDT) Glucose, POC 101 70 - 199 mg/dL Blood 05/21/2024 8:56 PM CDT 05/21/2024 8:56 PM CDT Amado Rojas MD LAB POCT ORDERABLES - DEVICE Fi nal Result Performing Organization Address [facility] [address]/[facility] Co de Phone Number [facility] ALEXANDER ([place]) 1 [facility] [place] [address] * Troponin T high-sensitivity 2-hour (05/21/2024 7:56 PM CDT) Trop T hs 11 <=22 ng/L Comment: Interpretive Data For further hscTnT resources including the diagnostic algorithm and an aid in interpretation, copy and paste this link: https://nrl.testcatalog.org/show/hsTrop Current Interpretive Data last revised 2020. Trop T hs delta 0 ng/L [facility] ([facility]) Trop T hs interp Insignificant [facility] ([place]) Blood 05/21/2024 7:56 PM CDT 05/21/2024 8:05 PM CDT Didier Pagan MD LAB BLOOD ORDERABLES Final R esult Performing Organization Address City/[facility] [address]/ZIP Co de Phone Number [facility] ALEXANDER ([place]) 1 [facility] [place] [address] * XR Chest PA Lateral 2 Views [...] his jaw. Hc of COPD, CAD, HTN, ID, cardiac stents Current smoker TECHNIQUE: There are [...] 6:25 PM - Electronically signed by Ronnie Romo M.D. MJ: CLINT Report ID: [id number] Reading Location: [place] [address] Procedure Note Ronnie Romo MD - 05/21/2024 EXAM DESCRIPTION: XR CHEST PA LATERAL 2 VIEWS REASON FOR STUDY: chest pain c/o sudden onset mid L sided chest pain that goes down his L arm and intohis jaw. Hc of COPD, CAD, HTN, ID, cardiac stents Current smoker TECHNIQUE: There are [...] 6:25 PM - Electronically signed by Ronnie Romo M.D. MJ: CLINT Report ID: [id number] Reading Location: [id number] Didier Pagan MD IMG XR PROCEDURES Final [...] MD LAB BLOOD ORDERABLES Final R esult [facility] [place]) 6 [facility] Department [place] [address] * eGFR (05/21/2024 5:44 PM CDT) eGFR [...] BLOOD ORDERABLES Final R esult [facility] ([place]) 1 [facility] Department [place] [address] * (ABNORMAL) Differential, auto (05/21/2024 5:44 PM [...] LAB BLOOD ORDERABLES Final R esult [facility] BENJAMIN ([place]) 1 [facility] Department of Laboratories [place], [place] [id number] * Pro B-type natriuretic peptide (05/21/2024 5:44 [...] BLOOD ORDERABLES Final R esult [facility] ([place]) 1 [facility] Department [place] [address] * (ABNORMAL) CBC with auto differential (05/21/2024 5:44 PM CDT) WBC 11.7(H) 3.8 - 9.9 K/cumm Hgb [...] RDW SD 45.9 35.7 - 48.1 fL [facility] ([place]) NRBC abs 0.00 0.00 - 0.01 K/cumm [facility] ([place]) Blood Venous blood specimen / Unknown 05/21/2024 5:44 PM CDT 05/21/2024 5:46 PM CDT Didier Pagan MD LAB BLOOD ORDERABLES Final R esult [place] [place] 1 [facility] [place] [address] * D-dimer, quantitative (05/21/2024 5:44 PM CDT) D-Dimer <215 <=499 ng/mL FEU [facility] COUNT INCLUDES THE [facility] ([place]) Comment: Interpretive data FDA approved the D-dimer, [...] 68, VTE cut-off 680 ng/ml FEU. References; Schouten HT et al. Brit Med J. 2013;346:f2492. Lacy et al. Annals Int Med. 2015;163:701-11. Current interpretive data was last revised on 2019. Blood 05/21/2024 5:44 PM CDT 05/21/2024 5:46 PM CDT Didier Pagan MD LAB BLOOD ORDERABLES Final R esult Performing Organization Address City/[facility] [address]/ZIP Co de Phone Number PE[facility] ALEXANDER ([place]) 1 [facility] [place] [address] * Magnesium (05/21/2024 5:44 PM CDT) Magnesium 2.0 1.4 - 2.5 mg/dL Blood 05/21/2024 5:44 PM CDT 05/21/2024 6:14 PM CDT us Didier Pagan MD LAB BLOOD ORDERABLES Final R esult [facility] ([place]) 1 [facility] Department [place] [address] * (ABNORMAL) Comprehensive metabolic panel (05/21/2024 5:44 PM CDT) Sodium 132(L) 135 - 145 mmol/L Potassium, pl 4.0 3.3 - 4.9 mmol/L [facility] ([place]) Chloride 98 97 - 110 mmol/L [...] classification and Diagnosis of Diabetes Diabetes Care 202; 46: S19-S40. Current interpretive data was last [...] (RYAN) AST 19 10 - 50 Units/L [facility] ([place]) Comment:Slightly Hemolyzed S pecimen Blood 05/21/2024 5:44 PM CDT 05/21/2024 5:46 PM CDT Didier Pagan MD LAB BLOOD ORDERABLES Final R esult Performing Organization Address City/[facility] [address]/ZIP Co de Phone Number [facility] ALEXANDER ([place]) 1 [facility] Department [place] [address] * ECG 12 lead (05/21/2024 5:42 PM CDT) 05/21/2024 5:42 PM CDT Narrative [facility] - 05/22/2024 7:46 AM CDT Vent Rate: 91 bpm RR Interval: 659 msec WA Interval: 150 msec QRS Duration: 87 msec QT Interval: 347 msec QTC Interval: 395 msec P-R-T [place]: 30 - -33 - 64 degrees IMPRESSION: SINUS RHYTHM LEFT AXIS DEVIATION [QRS AXIS < -30] ABNORMAL ECG NO CHANGE FROM PREVIOUS TRACING NOTED Electronically Signed By: Abdulaziz Bruno MD Didier Pagan MD ECG ORDERABLES Final Result Performing Organization Address [facility] [address]/[facility] Co de Phone Number [facility] [employer] [facility] * POCT hemoglobin A1c (11/11/2023 8:56 AM [...] Torsten Manzano M.D. AT: AT Report ID: [id number] Reading Location: [id number] Procedure Note Torsten Manzano MD - 09/20/2023 [...] Torsten Manzano M.D. AT: AT Report ID: [id number] Reading Location: [id number] Gavino Sousa NP IM CT PROCEDURES Final Res ult * Colonoscopy (08/26/2023 12:38 PM CDT) Anatomical Region Laterality Modality Other Narrative Procedure Note Paul Tabor MD - 08/26/2023 12:38 PM CDT [facility] Patient Name: Eleanor Segura Procedure Date: 08/26/2023 12:38 PM Date of : 1960 Admit Type: Outpatient Age: 63 Gender: Male Attending MD: Paul Tabor M.D. Room: COUNT INCLUDES THE [facility] ENDOSCOPY ROOM 2 Note Status: Finalized Patient [...] was passed under direct vision.The Endoscope [id number] was introduced through the colostomy and advanced [...] 12:38 PM Procedure Code(s): --- Professional --- 40884, Colonoscopy, flexible; diagnostic, including collection of specimen(s) by brushing or washing, when performed (separateprocedure) --- Technical --- 76368, Colonoscopy, flexible; diagnostic, including collection of specimen(s) by brushing or washing, when performed (separateprocedure) Diagnosis Code(s): --- Professional --- Z12.11, Encounter for screening for malignant neoplasm of colon K57.30, Diverticulosis of large intestine without perforation orabscess without bleeding --- Technical --- Z12.11, Encounter for screening for malignant neoplasm of colon K57.30, Diverticulosis of large intestine without perforation orabscess without bleeding CPT copyright 2020 [employer]. All rights reserved. The codes documented in this report are preliminary and upon linen folder reviewmay be revised to meet current compliance requirements. Recognized by the [employer] for promoting quality in endoscopy us Paul Tabor MD ENDOSCOPY PROCED URES Final Result * Albumin Creatinine Ratio, Urine (01/28/2023 10:53 AM CASEWORK MANAGER) Albumin Ur <12.0 mg/L [facility] Oneal ([place]AN) Comment: Interpretive Data No reference range established. Current interpretive data was last revised 2018. Testing performed by: [address], [address] Creatinine Ur 33.6 mg/dL [facility] ([place]) Comment: Interpretive Data No reference range established. Current interpretive data was last revised 2018. Testing performed by: [address] [address] Albumin Creatinine Ratio, Ur See Comment 1 - 29 [facility] A[facility]ER ([place]) Comment: Unable to calculate Testing performed by: [address], [address] Urine 01/28/2023 10:5 3 AM CASEWORK MANAGER 01/28/2023 5:59 PM CASEWORK MANAGER Juliann Dixon NP LAB URINE ORDERABLES Final Resu lt [facility] ([place]) 1 [facility] Department of Laboratories [place], [place] [id number] * (ABNORMAL) Lipid panel (01/28/2023 10:53 AM CASEWORK MANAGER) Cholesterol 137 30 - 199 mg/dL [facility] ([place]) Comment: Interpretive Data [...] revised on 2017. Triglycerides 152(H) <=149 mg/dL [facility] ([place]) Comment: Interpretive Data Ages < [...] ALEXANDER ([place]) Blood 01/28/2023 10:5 3 AM CASEWORK MANAGER 01/28/2023 1:44 PM CASEWORK MANAGER Narrative [facility] A[facility]ER ([place]) - 01/28/2023 2:05 PM CASEWORK MANAGER These lab test should be done fasting. This means do not eat or drink for at least 12 hours prior to getting your blood drawn. us Juliann Dixon NP LAB BLOOD ORDERABLES Final Resu lt [facility]AND[facility] ([place]) 1 [facility] [place] [address] from Last 3 Months or Most Recently Relevant to Health Maintenance Insurance [facility] MEDICARE ADVANTAGE MEDICARE ADVANTAGE MEDICARE ADVANTAGE Advance Directives For more information, please contact: [phone] * Full Code (Latest Code Status on [...] 11:51 AM 08/26/2023 11:51 AM Care Teams Mainframe Applications Developer Relationship Specialty Start Date End Date Zack Caruso PA [address] [place] [address] PCP - General 07/24/21 Juliann Comer NP [address] DIV MEDICAL ONCOLOGY, [address] [address] Nurse Practitioner Medical Oncology 05/30/22 Ling Matias MD [address] [place] [id number] Consulting Physician Cardiology 05/24/24
--- OUTSIDE RECORDS SUMMARY | 2024-08-10 09:15 | XMS_ITS | Data Portability ---
[facility] [address] [place] [address] Care Team Providers Care Interpreter Name Role Phone SABRINA CARUSO Primary Care Provider Assessment No assessment recorded. Plan of Treatment Reminders Order Date Submit Date Provider Last Modified By Organization Details Last Modified Time Details Appointments ANY 15 2024 02:00P M Raj Mccoy MD Not available Not available Not available Lab TSH, serum or plasma 2024 025 [email or web address] [facility], [address] [place] [address], [id number], 06/10/2024 15:43:24 CBC 2024 025 [email or web address] [facility], [address] [place] [address], [id number], 06/10/2024 15:43:24 lipid panel, serum 2024 025 [email or web address] [facility], [address] [place] [address], [id number], 06/10/2024 15:43:24 CMP, serum or plasma 2024 025 [email or web address] [facility], [address] [place] [address], [id number], 06/10/2024 15:43:24 HbA1c (hemoglo bin A1c), blood 2024 025 [email or web address] [facility], [address] [place] [address], [id number], 06/10/2024 15:43:24 Referral wound care referral 2024 025 maura Courtney [facility], [address], [place], [address], 07/12/2024 08:47:44 Procedures None recorded . Surgeries None recorded . Imaging US, abdomen - Soft Tissue 2024 025 [facility], [address] [place], [address], 07/15/2024 08:27:22 Medication Orders Medrol (Ayad) 4 mg tablets in a dose pack 2024 025 [id number], [address] [place], [address], 07/12/2024 10:10:04 sulfamet hoxazole 800 mg-trime thoprim 160 mg tablet 2024 025 [id number], [address] [place], [address], 07/12/2024 10:10:09 mupiroci n 2 % topical ointment 2024 025 [id number], [address] [place], [address], 06/21/2024 16:34:23 nitrogly cerin 0.4 mg sublingu al tablet 2024 025 [facility] #[id number], [address] [place], [address], 06/10/2024 15:23:07 sulfamet hoxazole 800 mg-trime thoprim 160 mg tablet 2024 025 [email or web address] [facility] #[id number], [address] [place], [address], 07/12/2024 10:10:03 Patient TargetsNo targets recorded. Patient Instructions Encounter Date Encounter Id Patient Instructions Last Modified By Organization Details Last Modified Time 05/28/2024 [id number] A healthy lifestyle: care instructions jnanney Not available 05/28/2024 12:07:20 learning about high blood pressure jnanney Not available 05/28/2024 12:07:20 06/10/2024 [id number] Quitting Tobacco : Care Instructions [email or web address] Not available 06/10/2024 15:23:07 06/21/2024 [id number] learning about high blood pressure jnanney Not available 06/21/2024 16:34:10 Reason for Referral Referring Physician: Sabrina cash, Family Medicine, Encounter Date: 04/05/2024 Results Created Date Observation Date Name Description Value Unit Range Abnormal Flag Note LastModifiedBy Organization Detail LastModifiedTime 03/09/19 25 03/10/2024 COMP. METAB OLIC PANEL (14) glucose 179 mg/dL 70-99 above high normal Not Available [facility] ([facility]) [address] [place], [address], 03/10/2024 08:25:05 03/09/19 25 03/10/2024 COMP. METAB OLIC PANEL (14) BUN 18 mg/dL 8-27 Not Available [facility] ([facility]) [address] [place], [address], 03/10/2024 08:25:05 03/09/19 25 03/10/2024 COMP. METAB OLIC PANEL (14) creatinine 1.06 mg/dL 0.76-1 .27 Not Available [facility] ([facility]) [address] [place], [address], 03/10/2024 08:25:05 03/09/19 25 03/10/2024 COMP. METAB OLIC PANEL (14) eGFR 77 mL/mi n/1.7 3 >59 Not Available [facility] ([facility]) [address] [place], [address], 03/10/2024 08:25:05 03/09/19 25 03/10/2024 COMP. METAB OLIC PANEL (14) BUN/creatini ne ratio 17 10-24 Not Available [facility] ([facility]) [address] [facility] [place], [address], 03/10/2024 08:25:05 03/09/19 25 03/10/2024 COMP. METAB OLIC PANEL (14) sodium 139 mmol/ L 134-14 4 Not Available [facility] ([facility]) [address] [facility] [place], [address], 03/10/2024 08:25:05 03/09/19 25 03/10/2024 COMP. METAB OLIC PANEL (14) potassium 4.6 mmol/ L 3.5-5. 2 Not Available [facility] ([facility]) [address] [facility] [place], [address], 03/10/2024 08:25:05 03/09/19 25 03/10/2024 COMP. METAB OLIC PANEL (14) chloride 104 mmol/ L 96-106 Not Available [facility] ([facility]) [address] [place], [address], 03/10/2024 08:25:05 03/09/19 25 03/10/2024 COMP. METAB OLIC PANEL (14) carbon dioxide, total 21 mmol/ L 20-29 Not Available [facility] ([facility]) [address] [place], [address], 03/10/2024 08:25:05 03/09/19 25 03/10/2024 COMP. METAB OLIC PANEL (14) calcium 8.8 mg/dL 8.6-10 .2 Not Available [facility] ([facility]) [address] [place], [address], 03/10/2024 08:25:05 03/09/19 25 03/10/2024 COMP. METAB OLIC PANEL (14) protein, total 5.8 g/dL 6.0-8. 5 below low normal Not Available [facility] ([facility]) [address] [facility] [place], [address], 03/10/2024 08:25:05 03/09/19 25 03/10/2024 COMP. METAB OLIC PANEL (14) albumin 4.1 g/dL 3.9-4. 9 Not Available [facility] ([facility]) [address] [facility] [place], [address], 03/10/2024 08:25:05 03/09/19 25 03/10/2024 COMP. METAB OLIC PANEL (14) globulin, total 1.7 g/dL 1.5-4. 5 Not Available [facility] ([facility]) [address] [place], [address], 03/10/2024 08:25:05 03/09/19 25 03/10/2024 COMP. METAB OLIC PANEL (14) bilirubin, total 0.9 mg/dL 0.0-1. 2 Not Available [facility] ([facility]) [address] [place], [address], 03/10/2024 08:25:05 03/09/19 25 03/10/2024 COMP. METAB OLIC PANEL (14) alkaline phosphatase 76 IU/L 44-121 Not Available [facility] ([facility]) [address] [place], [address], 03/10/2024 08:25:05 03/09/19 25 03/10/2024 COMP. METAB OLIC PANEL (14) AST (SGOT) 13 IU/L 0-40 Not Available [facility] ([facility]) [address] [place], [address], 03/10/2024 08:25:05 03/09/19 25 03/10/2024 COMP. METAB OLIC PANEL (14) ALT (SGPT) 10 IU/L 0-44 Not Available [facility] ([facility]) [address] [facility], [place], [address], 03/10/2024 08:25:05 03/09/1903/10/2024 HEMOG LOBIN A1C hemoglobin A1C - % Test not perfo rmed. No laven abi top tube submi tted. Predi abete s: 5.7 - 6.4 Diabe petey: >6.4 Glyce mindy contr ol for adult s with diabe petey: <7.0 Not Available [facility] ([facility]) [address] [facility], [place], [address], 03/10/2024 08:25:07 03/11/1903/11/2024 elect rocar diogr am No observ ation record ed. [facility] In-Office Order Internal Use Only DO Not Attach Compendium DO Not Attach Compendium, Do Not Delete/merge, [id number] 03/11/2024 16:04:43 03/11/19 elect rocar diogr am No observ ation record ed. [email or web address] Not Available 2024 16:04:44 07/16/19 25 07/14/2024 US, abdom en No observ ation record ed. [facility] [address] [place], [address], 07/15/2024 10:57:46 Result Notes None recorded. Problems Name Problem SNOMED Code Status Onset Date Resolution Date Notes Provider Name and Address Organization Details Recorded Time Chest pain 19001727 Active 2021 Lauren Castorena LPN [place], [place] [facility] 4 10:17:24 Coronary arteriosc lerosis 82334759 Active Yanet Louise [place] [facility] 1 10:31:27 Dyslipide tyson 119782726 Active Yanet Louise [place] [facility] 1 10:31:27 Low back strain 546703408 Active Yanet Louise [place] [facility] 1 10:31:27 Low back pain 196309043 Active Yanet Louise [place] [facility] 1 10:31:27 Lumbar radiculop athy 291739437 Active Yanet Louise [place] [facility] 1 10:31:27 Muscle strain 71355969 Active Yanet [place] [facility] 1 10:31:27 Impingeme nt syndrome of shoulder region 528266713 Active Yanet [place] [facility] 1 10:31:28 Tobacco user [id number] Completed 202312/21/2023 Lauren Castore[place] LPN [place] [facility] 4 10:18:32 Sacroilia c disorder 606697574 Active Yanet Louise [place] [facility] 1 10:31:28 Low blood pressure 51364951 Active Yanet Louise [place] [facility] 1 10:31:28 Pain in left lower limb 723544791 Active Yanet [place] [facility] 1 10:31:28 Acute exacerbat ion of chronic obstructi ve pulmonary disease 560933558 Active Yanet [place] [facility] 1 10:31:28 Atypical chest pain 148752356 Active Yanet [place] [facility] 3 17:34:01 Syncope 162791322 Active Yanet [place] [facility] 1 10:31:28 Chronic anxiety 171818717 Active 2020 Yanet Louise [place] [facility] 3 17:34:01 Sciatica 59478194 Active Yanet ROBYN [place] [facility] 3 17:34:01 Diabetes mellitus 66214803 Active 2022 Yanet LouiseROBYN [place] [facility] 3 12:38:39 Benign paroxysma l positiona l vertigo 021772895 Active 2012 Lauren Kell, ACUTE CARE CERTIFIED NURSING ASSISTANT [place] [facility] 4 10:17:24 Leukocyto sis 082413517 Active Lauren Castorena ACUTE CARE CERTIFIED NURSING ASSISTANT [place] [facility] 4 10:17:24 Chronic obstructi ve pulmonary disease 90776795 Active 2013 Lauren Barcenasll ACUTE CARE CERTIFIED NURSING ASSISTANT [place] [facility] 4 10:17:24 Fall Active 2021 Lauren Barcenasll ACUTE CARE CERTIFIED NURSING ASSISTANT [place] [facility] 4 10:17:24 Insomnia 406051769 Active 2010 Lauren Barcenassocorro ACUTE CARE CERTIFIED NURSING ASSISTANT [place] [facility] 4 10:17:24 Generaliz ed anxiety disorder 81699450 Active Lauren Barcenasll ACUTE CARE CERTIFIED NURSING ASSISTANT [place] [facility] 4 10:17:24 Cerebrova scular accident 504215949 Active 2021 Lauren Barcenassocorro ACUTE CARE CERTIFIED NURSING ASSISTANT [place] [facility] 4 10:19:06 Gastroeso phageal reflux disease 768505769 Active 2013 Lauren Barcenassocorro ACUTE CARE CERTIFIED NURSING ASSISTANT [place] [facility] 4 10:17:24 Mixed hyperlipi demia 244865583 Active Lauren Castorena ACUTE CARE CERTIFIED NURSING ASSISTANT [place] [facility] 4 10:17:24 Confusion al state 678337457 Active 2021 Lauren Barcenassocorro ACUTE CARE CERTIFIED NURSING ASSISTANT [place] [facility] 4 10:17:24 Syncope and collapse 520700605 Active 2013 Lauren Kell, ACUTE CARE CERTIFIED NURSING ASSISTANT [place] [facility] 4 10:17:24 Depressiv e disorder 18841952 Active 2008 Lauren Castorena ACUTE CARE CERTIFIED NURSING ASSISTANT [place] [facility] 4 10:17:24 Hypertens noah disorder 46604125 Active 2021 Lauren Castorena ACUTE CARE CERTIFIED NURSING ASSISTANT [place] [facility] 4 10:17:24 Inguinal hernia 951019009 Active 2022 Lauren Castorena ACUTE CARE CERTIFIED NURSING ASSISTANT [place] [facility] 4 10:17:24 History of placement of stent for coronary artery disease 596801532 Active 2016 Lauren Castore[place] [facility] 4 10:17:24 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 817675261 Active 2016 Lauren Castore[place] L[place] [facility] 4 10:17:24 Preinfarc tion syndrome 5432185 Active Lauren Castore[place] [facility] 4 10:17:24 Perforati on of sigmoid colon due to diverticu litis 154286433476 9102 Active 2023 Lauren Castore[place] L[place] [facility] 4 10:18:32 Epidermal burn of left wrist 228981156560 61512 Active 2023 Lauren Castore[place] L[place] [facility] 4 10:18:32 Mixed anxiety and depressiv e disorder 975198288 Active 2008 Lauren Castore[place] L[place] [facility] 4 10:18:32 History of cerebrova scular accident 780377888 Active 2023 Lauren Castore[place] L[place] [facility] 4 10:18:32 Nutrition al marasmus 26693258 Active 2023 Lauren Castore[place] L[place] [facility] 4 10:18:32 Type 2 diabetes mellitus without complicat ion 889690645 Active 2022 Lauren Castore[place] [facility] 4 10:18:32 Acute coronary syndrome 419356122 Active 2022 Lauren Castore[place] [facility] 4 10:18:32 Diverticu litis of large intestine 1744145 Active 2023 Lauren Castore[place] L[place] [facility] 4 10:18:32 Gastroint estinal perforati on 91420878 Active 2023 Lauren Castore[place] L[place] [facility] 4 10:18:32 Mixed hyperlipi demia due to type 2 diabetes mellitus 592653052543 Active Lauren Castorena ROHINI anny, [place] - [facility] 4 10:18:32 Marijuana user 574445464 Completed 202312/21/2023 Lauren Castorena ROHINI null, [place] [facility] 4 10:18:32 Problem Notes None recorded. Procedures Surgical History Date Name Laterality Status Provider Name and Address Organization Details Recorded Time repair of colon completed Nichelle Buck [place] - [facility] 08/08/2023 10:58:31 Imaging Results None recorded. Procedure Notes None recorded. Medical Equipment None Reported. Allergies Allergen ID Allergen Name Allergen Category Reaction Reaction Severity Criticality Documentation Date Start Date Code Code System Note Provider Name and Address Organization Details Recorded Time 547291 Product containin g penicilli n (product) medicatio n Not available Not available Not available 05/19/2020 40015 8001 SNOMED Josie Arboleda [place] null, [place] [facility] 1 11:01:30 236577 morphine medicatio n hives Not available Not available 12/31/20232023 7052 RxNorm Lauren Castorena ROHINI null, [place] [facility] 4 10:17:57 Medications Name Sig [...] day by oral route for 90 days. 07/18 /2023 completed Not Available Not Available Not Available [...] completed Not Available Not Available Not Available [employer] Ultra Test strips USE TO TEST TWICE [...] PLEASE SEE ATTACHED FOR DETAILED DIRECTIO NS 06/07 /2024 completed Not Available Not Available Not Available [...] TAKE 1 TABLET BY MOUTH EVERY DAY 2024 active Not Available Not Available Not Avai lable Aleve 01/16 completed 6-8 a day Not [...] Updated DateTime 5 182.88 cm 23.5 kg/m2 31957.9 2 g 95 % 95 % 82 /min 18 /min 122 mm[Hg] 82 mm[Hg] Krystal Black MA [facility] 5 11:37:05 Date Recorded Systolic blood pressure Diastolic blood pressure Provider Name and Address Organization Details Last Updated DateTime 05/28/2024 90 mm[Hg] 58 mm[Hg] Yanet Louise MA [facility] 05/28/2024 11:56:16 Date Recorded Body height Body mass index (BMI) Body weight Oxygen saturation Oxygen saturation in Arterial blood by Pulse oximetry Heart rate Systolic blood pressure Diastolic blood pressure Provider Name and Address Organization Details Last Updated DateTime 5 182.88 cm 23.9 kg/m2 74390.6 9 g 95 % 95 % 64 /min 102 mm[Hg] 64 mm[Hg] Krystal Black MA [facility] 5 11:50:53 Date Recorded Body height Body mass index (BMI) Body weight Heart rate Oxygen saturation Oxygen saturation in Arterial blood by Pulse oximetry Systolic blood pressure Diastolic blood pressure Provider Name and Address Organization Details Last Updated DateTime 5 182.88 cm 24.4 kg/m2 74074.6 3 g 76 /min 97 % 97 % 110 mm[Hg] 60 mm[Hg] Cherelle Grady RN [facility] 5 15:06:12 Date Recorded Body height Body mass index (BMI) Body weight Oxygen saturation Oxygen saturation in Arterial blood by Pulse oximetry Heart rate Systolic blood pressure Diastolic blood pressure Provider Name and Address Organization Details Last Updated DateTime 5 182.88 cm 23.7 kg/m2 70654.6 6 g 95 % 95 % 83 /min 112 mm[Hg] 72 mm[Hg] Yanet Louise MA [facility] 5 16:02:12 Date Recorded Body height Body mass index (BMI) Body weight Oxygen saturation Oxygen saturation in Arterial blood by Pulse oximetry Heart rate Respiratory rate Systolic blood pressure Diastolic blood pressure Provider Name and Address Organization Details Last Updated DateTime 5 182.88 cm 24 kg/m2 29374.8 5 g 96 % 96 % 78 /min 18 /min 130 mm[Hg] 78 mm[Hg] Krystal Black MA [facility] 5 10:12:27 Social History Question Answer Notes LastModified by Organizat ion Details LastModified Time Tobacco Smoking Status Current Some Day Smoker Just quit 05/2021, finishing up michaela patches now Esperanza Aragon MA [facility], [facility] 04/25/2022 10:31:35 What Is Your Level Of Caffeine Consumption? Heavy Information not available 05/19/2020 In The 14 Days Before Symptom Onset, Have You Had Close Contact With A Laboratory-confir med COVID-19 While That Case Was Ill? No Information not available 05/19/2020 In The 14 Days Before Symptom Onset, Have You Had Close Contact With A Person Who Is Under Investigation For COVID-19 While That Person Was Ill? No Information not available 05/19/2020 Have You Been To An Area Known To Be High Risk For COVID-19? No Information not available 05/19/2020 What Type Of Diet Are You Following? REGULAR Information not available 05/19/2020 What Was The Date Of Your Most Recent Tobacco Screening? 07/12/2024 Information not available 07/12/2024 What Is Your Relationship Status? Information not available 05/19/2020 Do You Use Your Seat Belt Or Car Seat Routinely? Yes [email or web address] Information not available 09/04/2021 Do You Have Smoke And Carbon Monoxide Detectors In Your Home? Yes Information not available 09/19/2020 Are You Passively Exposed To Smoke? Yes Information no t available 09/19/2020 How Much Tobacco Do You Smoke? 1 PPW Information not available 08/08/2023 Has Tobacco Cessation Counseling Been Provided? Yes Information not available 12/16/2022 On What Date Was Tobacco Cessation Counseling Provided? 07/12/2024 Information not available 07/12/2024 Sex: Male Functional Status Question Answer Note LastModified by Organizat ion Details LastModified Time Do you use any illicit or recreational drugs? Yes marijuana Information not available 05/19/2020 Do you or have you ever used any other forms of tobacco or nicotine? Yes Information not available 05/19/2020 What is your level of alcohol consumption? None Information not available 05/19/2020 Do you or have you ever used smokeless tobacco? Currently chews tobacco Information not available 12/11/2023 Are you currently employed? No disability Information not available 05/19/2020 Are you able to care for yourself? Yes Information not available 05/19/2020 Do you or have you ever used e-cigarettes or vape? Never used electronic cigarettes Information not available 05/19/2020 Mental Status Question Answer Note LastModified by Organization D etails LastModified Time Do you feel stressed (tense, restless, nervous, or anxious, or unable to sleep at night)? [id number] [email or web address] Information not available 05/15/2022 Family History Relationship Description Onset Age of this Age Resolved Age Notes LastModified by Organization Details LastModified Time Mother Heart disease tono Not available 05/01 11:04:40 Medical History Condition Response Coronary Artery Disease N Other N High Blood Pressure Y Atrial Fibrillation N Thyroid Problems N Kidney or Bladder Problems N GI Problems N Depression N COPD N Blood Clots N Skin Problems N Eating Disorder N Anemia N Heart Attack ([place]) Y Anxiety Disorder N Diabetes N Muscle, Joint, or Bone Problems N Seizures/Epilepsy N Acid Reflux (GERD) N Cancer N Stroke N Asthma N Allergies N ADHD N Substance Abuse N High Cholesterol Y Hepatitis N Liver Disease N Schizophrenia N Headaches N Heart Failure N Osteoporosis N Immunizations Vaccine Type Date Status Note Provider Nam e and Address Organization Details Recorded Time Influenza, split virus, quadrivalent, preservative 6 completed Lauren Kell, ACUTE CARE CERTIFIED NURSING ASSISTANT [place], [place] [facility] 12/31/2023 10:17:43 Influenza, split virus, quadrivalent, PF 8 completed Not Available [facility] 04/03/[facility]23 13:17:12 Tdap 8 completed Lauren Kell, ACUTE CARE CERTIFIED NURSING ASSISTANT [place] [facility] 12/31/2023 10:17:43 Influenza, split virus, trivalent, preservative 7 completed Lauren Kell, ACUTE CARE CERTIFIED NURSING ASSISTANT [place] [facility] 12/31/2023 10:17:43 influenza, unspecified formulation 2 completed Lauren Kell, ACUTE CARE CERTIFIED NURSING ASSISTANT [place] [facility] 12/31/2023 10:17:35 Influenza, split virus, quadrivalent, PF 6 completed Lauren Kell, ACUTE CARE CERTIFIED NURSING ASSISTANT [place] [facility] 12/31/2023 10:17:35 zoster recombinant 2 completed Lauren Kell, ACUTE CARE CERTIFIED NURSING ASSISTANT [place] [facility] 12/31/2023 10:17:43 COVID-19, mRNA, LNP-S, PF, 100 mcg/0.5mL dose or 50 mcg/0.25mL dose 1 completed Lauren Kell, ACUTE CARE CERTIFIED NURSING ASSISTANT [place] [facility] 12/31/2023 10:17:43 COVID-19, mRNA, LNP-S, PF, 100 mcg/0.5mL dose or 50 mcg/0.25mL dose 1 completed Lauren Castorena ACUTE CARE CERTIFIED NURSING ASSISTANT [place] [facility] 12/31/2023 10:17:43 COVID-19, mRNA, LNP-S, PF, 100 mcg/0.5mL dose or 50 mcg/0.25mL dose 1 completed Lauren Castorena ACUTE CARE CERTIFIED NURSING ASSISTANT [place] [facility] 12/31/2023 10:17:43 COVID-19, mRNA, LNP-S, bivalent, PF, 30 mcg/0.3 mL dose 2 completed Yanet [place] [facility] 01/01/2022 12:51:58 Influenza, split virus, quadrivalent, preservative 2 completed Yanet [place] [facility] 01/01/2022 12:51:58 Influenza, split virus, quadrivalent, preservative 3 completed [place]YN [place] [facility] 12/10/2022 13:43:30 Pneumococcal conjugate PCV20, polysaccharide [id number] conjugate, adjuvant, PF 4 completed [place] [facility] 03/14/2023 12:23:46 Influenza, high-dose, trivalent, PF 4 completed Yanet [place] [facility] 02/05/2024 17:08:24 Past Encounters Encounter ID Performer Location Encounter Start Date Encounter Closed Date Diagnosis/Indication Diagnosis SNOMED-CT Code Diagnosis ICD10 Code Diagnosis Note [id number] Jayro Epstein MD [facility] [address] [place] [address] 05/19/2020 10:44:44 05/23/2020 16:52:24 Pain of left shoulder joint 3101039038 6070045 M25.512 History of transient ischemic attack 223569382 Z86.73 Coronary arteriosclerosis 00317788 I25.10 History of myocardial infarction 545972875 I25.2 Atopic dermatitis 927923 01 L20.9 [id number] Jayro Epstein MD [facility] [address] [place] [address] 06/12/2020 17:30:40 06/13/2020 09:00:44 Primary hypertriglyceridemia 088550654 E78.1 [id number] Jayro Epstein MD [facility] [address] [place] [address] 09/19/2020 10:59:32 09/19/2020 12:22:23 Strain of hamstring muscle 1906928959 04 S76.311A Screening for malignant neoplasm of prostate 045252682 Z12.5 Screening for malignant neoplasm of colon 038975206 Z12.11 [id number] Sabrina Caruso PA-C [facility] [address] [place] [address] 01/16/2021 10:28:35 01/16/2021 11:22:44 Lumbar radiculopathy 456932122 M54.16 Exanthem d ue to herpes zoster 526193528 B08.8 Generalize d anxiety disorder 06708964 F41.1 Screening for malignant neoplasm of prostate 381659940 Z12.5 [id number] Sabrina Caruso PA-C [facility] [address] [place] [address] 03/20/2021 14:52:36 03/20/2021 16:04:41 Lumbar radiculopathy 507178669 M54.16 Generalize d anxiety disorder 43913653 F41.1 [id number] Sabrina Caruso PA-C [facility] [address] [place] [address] 03/30/2021 11:26:32 03/30/2021 12:19:18 Lumbar radiculopathy 719084348 M54.16 Diverticulitis 082952437 K57.92 Coronary arteriosclerosis 16497707 I25.10 Dyslipidemia 062360341 E 78.5 [id number] Jayro Epstein MD [facility] [address] [place] [address] 05/11/2021 15:17:06 05/15/2021 06:20:16 Lumbar radiculopathy 420588749 M54.16 Opioid dependence 654618 00 F11.20 [id number] Jayro Epstein MD [facility] [address] [place] [address] 06/12/2021 16:47:09 06/12/2021 17:26:24 Generalized anxiety disorder 55381242 F41.1 Nicotine dependence 5629 4008 F17.269 [id number] Jayro Epstein MD [facility] [address] [place] [address] 06/28/2021 15:56:10 06/28/2021 16:00:09 Long-term drug therapy 594834040 Z79.935 [id number] Sabrina Caruso PA-C [facility] [address] [place] [address] 07/20/2021 15:36:38 07/20/2021 19:06:27 Coronary arteriosclerosis 98498538 I25.10 Dyspnea on exertion 6084 5006 R06.09 [id number] Sabrina Caruso PA-C [facility] [address] [place] [address] 07/26/2021 11:08:55 07/26/2021 11:53:21 Multi vessel coronary artery disease 263140186 I25.10 History of myocardial infarction 507158695 I25.2 [id number] Jayro Epstein MD [facility] [address] [place] [address] 08/06/2021 11:54:27 08/06/2021 12:39:17 Angina pectoris 949963721 I20.1 [id number] Jayro Epstein MD [facility] [address] [place] [address] 08/13/2021 13:51:56 08/13/2021 14:36:02 Coronary arteriosclerosis [id number] I25.10 Generalize d anxiety disorder 85126207 F41.1 [id number] Jayro Epstein MD [facility] [address] [place] [address] 09/04/2021 09:56:17 09/04/2021 11:26:12 Multi vessel coronary artery disease 214305719 I25.10 History of transient ischemic attack 235215894 Z86.73 [id number] Sabrina Caruso PA-C [facility] [address] [place] [address] 09/20/2021 10:56:47 09/20/2021 11:55:27 Low back pain 630492462 M54.59 Backache w ith radiating pain 982973008 M54.06 Coronary atherosclerosis 519080883 I25.110 Exanthem d ue to herpes zoster 918259420 B08.8 [id number] Sabrina Caruso PA-C [facility] [address] [place] [address] 10/31/2021 10:53:14 10/31/2021 12:43:36 Suspected COVID-19 084371574 Z20.828 Acute COVID-19 551368992 8 U07.1 [id number] Sabrina Caruso PA-C [facility] [address] [place] [address] 01/01/2022 11:15:10 01/01/2022 11:36:56 Administration of SARS-CoV-2 antigen vaccine 506148495 Z23 [id number] Sabrina Caruso PA-C [facility] [address] [place] [address] 01/01/2022 11:15:40 01/01/2022 11:36:49 Active or passive immunization 841350983 Z23 [id number] Sabrina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
[2024-08-10 09:31] LABS: Estimated Glomerular Filt Rate > 60
== END 2024-08-10 08:53 | disposition home or self-care (01) ==
LOC: CHSIMG 08:54
PROVIDERS: PCP Physician Assistant; Visit Provider Nurse Practitioner Family
DX: R10.10 Upper abdominal pain, unspecified (principal)
CPT/HCPCS: 74176

== ENCOUNTER 2024-10-27 10:05 | Emergency (ER) | payer MEDICARE, SELFPAY ==
[2024-10-27 10:06] VITALS: BP 145/91; PULSE 88; RESP 18; TEMP 36.7; O2SAT 96
--- NOTE | 2024-10-27 10:09 | ED.DENTAL ---
HPI - Dental/Oral General Chief complaint: Dental/Oral Stated complaint: dental pain Time Seen by Provider: 10/27/24 10:09 Source: patient Mode of arrival: ambulatory Limitations: no limitations History of Present Illness HPI Narrative: 64-year-old male with a history of diabetes mellitus, dyslipidemia, GERD, diverticulitis/perforated sigmoid post colostomy/reversal, status post lumbar fusion, cholecystitis status post cholecystectomy, kidney stone,COPD, hypertension, CAD status post stent presents to the ED with -- dental pain. the patient saw his primary care physician and received an antibiotic. The patient has ongoing pain and is here to get pain medication. Patient has a history drug use more than 20 years ago. Subsequently he lost most of his teeth. No fever or chills MD Complaint: tooth pain ( on the incisors present on the lower jaw and these appear to be carious) Location: Tooth # ( on the grounds of the upper jaw missing. He has infected roots/ gingivitis. ) Onset (ago): day(s) Duration: constant Severity: moderate Relieving factors: nothing Exacerbating factors: nothing Context: history of dental caries and poor dental care Treatment prior to arrival: none Related Data Home Medications ?Medication ?Instructions ?Recorded ?Confirmed ?Last Taken ?Type amlodipine 2.5 mg tablet (Norvasc) 5 mg PO DAILY 01/09/19 08/05/24 08/25/21 09:00 History pantoprazole 40 mg tablet,delayed 40 mg PO DAILY 01/09/19 08/05/24 08/25/21 09:00 History release (Protonix) aspirin 81 mg tablet,delayed 81 mg PO DAILY 03/27/20 08/05/24 08/25/21 21:00 History release clopidogrel 75 mg tablet (Plavix) 75 mg PO DAILY 10/15/20 08/05/24 08/25/21 09:00 History alprazolam 0.5 mg tablet 1 tablet PO TID PRN Anxiety 08/26/21 08/05/24 08/25/21 21:00 History buspirone 15 mg tablet 1 tablet PO BID 08/26/21 08/05/24 08/25/21 21:00 History metoprolol succinate 100 mg 1 tablet PO DAILY 08/26/21 08/05/24 08/25/21 09:00 History tablet,extended release 24 hr ezetimibe 10 mg tablet 10 mg PO DAILY 10/22/23 06/05/25 Unknown History nitroglycerin 0.4 mg sublingual 0.4 mg sublingual Q5M PRN 08/05/24 08/05/24 Unknown History tablet ranolazine 500 mg tablet,extended 500 mg PO BID 08/05/24 08/05/24 Unknown History release,12 hr Allergies Allergy/AdvReac Type Severity Reaction Status Date / Time Penicillins Allergy Unknown Unknown Verified 08/05/24 10:47 morphine AdvReac Unknown Unknown Verified 08/05/24 10:47 Review of Systems Review of Systems: All systems reviewed & are unremarkable except as noted in HPI and below PMFSH Past Medical History Medical History History of diverticulitis GERD (gastroesophageal reflux disease) Abdominal distension Abdominal bloating Abdominal wall bulge Upper abdominal pain Marijuana smoker Anxiety Impingement syndrome, shoulder, left History of cardiac disorder COPD (chronic obstructive pulmonary disease) Hypertension Surgical History Surgical History History of colon resection History of hernia surgery Hx of heart artery stent History of cholecystectomy History of hand surgery History of arthroscopic surgery of shoulder History of lumbar fusion L5-S1 Family History Family History Father , Father committed suicide at age 53. Suicide Mother , Mother of stroke at age 74 Cerebrovascular accident Other Family history of arthritis Social History Social History Smoking packs per day: 1 Smoking cigarettes per day: 20.0 Years smoked: 34 Smoking pack-years: 34.00 Smoking status: Current every day smoker Tobacco type: cigarettes Smokeless tobacco user: chewing tobacco Second hand tobacco smoke exposure: Yes Additional smoking assessment comments: Has smoked part of one cigarette in the past 4 months. Alcohol intake: former Drinks per week: 0 Substance use: unknown Substance use type: marijuana Other substance usage details: Marijuana every 2-3 months. Quit drinking 22 years ago. Do You Feel Safe in your Home?: Yes Lack of Transportation: No Lack of Food: Sometimes True Current Housing: I Have Housing Concerned About Future Housing: No Difficulty Paying Gas/Electric Bills: No Difficulty Paying for Meds: No Currently Unemployed: No Education: High School Diploma/GED Difficulty w/ Childcare or Family Care: No Gender identity (if verbalized by the patient): Male Spiritual care concerns: No Exam Const: General: no acute distress Orientation/consciousness: patient oriented x3 Limitations: no limitations HENMT: Head: normal to inspection Ears: external ears normal Face/Nose/Sinus: Normal external nose present Face and sinus: normal facial exam Mouth: Yes Normal oral and palatal mucosa present Teeth and gingiva: dentition normal ( lower jaw has all teeth missing except incisors. these are carious.) and abnormal tooth and associated gingiva ( upper jaw has all crowns missing. gingivitis) Throat: posterior oropharynx normal and uvula midline Eyes: Conjunctivae: conjunctivae normal Pupils: Equal, round and reactive pupils present EOM: EOMs intact bilaterally Direct Ophthalmoscopy: no photophobia Neck: Neck: normal visual inspection, no lymphadenopathy and no meningeal signs Chest: Chest palpation & inspection: normal inspection of the chest Resp: Effort & Inspection: normal respiratory effort Auscultation: diminished lung sounds Cardio: Rate: regular rate Rhythm: regular rhythm GI: Auscultation: normal bowel sounds Other: no tenderness/rigidity/rebound Back/Spine/Pelvis: Back: no CVA tenderness Skin: General skin exam: normal color Rashes: no rashes Wounds: no wounds Neuro: General: patient oriented x3, moves all extremities, no meningeal signs, no focal motor deficits and CN's II-XI intact bilaterally Cranial nerves: Yes Nystagmus not present Speech: normal speech Gait exam (Neuro): Normal gait present Extrem: General: normal to inspection and no clubbing, cyanosis or edema Psych: Mental Status: mental status grossly normal Affect: normal affect Course Course Emergency Course: gingivitis dental caries dental pain Vital Signs Vital signs: Vital Signs Temperature 36.7 C 10/27/24 10:06 Pulse Rate 88 10/27/24 10:06 Respiratory Rate 18 10/27/24 10:06 Blood Pressure 145/91 H 10/27/24 10:06 Pulse Oximetry 96 10/27/24 10:06 Oxygen Delivery Room Air 10/27/24 10:06 Temperature 36.7 C 10/27/24 10:06 Pulse Rate 88 10/27/24 10:06 Respiratory Rate 18 10/27/24 10:06 Blood Pressure 145/91 H 08/27/25 10:06 Pulse Oximetry 96 10/27/24 10:06 Oxygen Delivery Room Air 10/27/24 10:06 MDM - Dental/Oral MDM Narrative Medical decision making narrative: gingivitis dental caries dental pain Differential Diagnosis Differential diagnosis: Likely toothache and dental abscess Medical Records Attestation: I reviewed the patient's medical records. Lab Data Attestation: I reviewed the patient's lab results. Discharge Plan Discharge Clinical Impression: Dental caries, Gingivitis, Toothache Patient Disposition: Home Condition: Stable Instructions: Antibiotic Form, Gingivitis (ED), Toothache (ED) Patient Language: Yakut Prescriptions: New hydrocodone-acetaminophen 5-325 mg tablet 1 tablet PO Q8H PRN (Reason: pain) Qty: 10 0RF No Action clopidogrel [Plavix] 75 mg tablet 75 mg PO DAILY amlodipine [Norvasc] 2.5 mg tablet 5 mg PO DAILY pantoprazole [Protonix] 40 mg tablet,delayed release (DR/EC) 40 mg PO DAILY ezetimibe 10 mg tablet 10 mg PO DAILY aspirin 81 mg tablet,delayed release (DR/EC) 81 mg PO DAILY nitroglycerin 0.4 mg tablet, sublingual 0.4 mg sublingual Q5M PRN Rx Instructions: do not exceed 3 doses per episode ranolazine 500 mg tablet extended release 12 hr 500 mg PO BID buspirone 15 mg tablet 1 tablet PO BID alprazolam 0.5 mg tablet 1 tablet PO TID PRN (Reason: Anxiety) metoprolol succinate 100 mg tablet extended release 24 hr 1 tablet PO DAILY Follow-up/Referrals: Shady,TARAH Medrano [Primary Care Provider] Stand Alone Forms: Work/School Release IP Time of Disposition: 10:36
--- OUTSIDE RECORDS SUMMARY | 2024-10-27 10:29 | XMS_ITS | Encounter Summary ---
Author Organization [facility] Address [address] [place] [address] Phone Care Team Providers Care Senior Financial Accountant Name Role Phone Rodrigue Zhao MD Primary Care Provider [phone] Zack Caruso Primary Care Provider [phone] Reason for Referral * Radiology Services (Routine) - Closed Specialty Diagnoses / Procedures Referred By Selene hyatt Referred To Contact Radiology Diagnoses Pain in right hip Other intervertebral disc displacement, lumbar region Procedures XR LUMBAR MYELO 1 PHY PC PAIN CONSULT Dusty Contreras MD Phone: tel: fax: Referral ID Status Reason Start Date Expiration Date Visits Re quested Visits Authorized [id number] Closed 11/28/2020 1 1 Encounter Details Date Type Department Care Team (Latest Contact Info) Description 11/28/2020 Transcribe Orders [facility] [address] [place] [address] Dusty Contreras MD [address] [place], [place] [id number] Pain in right hip (Primary Dx); Other [...] on file Legal Sex Male 2:23 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 FINDINGS: SEGMENTATION: There are 5 srs-mgd-pmdzpuw lumbar type vertebral bodies. ALIGNMENT: Approximately 2 [...] of the thecal sac contrast. There is clyt-ml-bqicidee bilateral neural foraminal narrowing. L5-S1: Surgical level. [...] Jaquan Hernandez D.O. AP: AP Report ID: [id number] Reading Location: [id number] Procedure Note Jaquan Hernandez DO - 12/28/2020 [...] None available. FINDINGS: SEGMENTATION: There are 5 bgv-dof-siphjye lumbar type vertebral bodies. ALIGNMENT: Approximately 2 [...] of the thecal sac contrast. There is dmnh-pn-noomepxd bilateral neural foraminal narrowing. L5-S1: Surgical level. [...] Jaquan Hernandez D.O. AP: AP Report ID: [id number] Reading Location: [id number] IMPRESSION: 1. Please note previous imaging studies [...] David Arechiga M.D. NC: NC Report ID: [id number] Reading Location: [id number] Procedure Note David Arechiga MD - 12/27/2020 [...] David Arechiga M.D. NC: SHAUNA Report ID: [id number] Reading Location: [id number] IMPRESSION: Lumbar myelogram performed for CT Myelography. [...] 19 Confirmed 02/26/2021 02/26/2021 022 12:16 AM BALLPOINT PEN CARTRIDGE TESTER documented as of this encounter Care Teams Senior Financial Accountant Relationship Specialty Start Date End Date Rodrigue Zhao MD [address] [place] [address] PCP - General Internal Medicine 09/18/16 12/04/20 Zack Caruso PAC [address] [place] [id number] PCP - General Physician Ball Maker 12/05/20 documented as of this encounter
--- OUTSIDE RECORDS SUMMARY | 2024-10-27 10:29 | XMS_ITS | Clinical Summary ---
Author Organization [facility] Address [address] [place] [address] Care Team Providers Care Historic Site Administrator Name Role Phone Unavailable Primary Care Provider Unavailabl e Source Comments [facility],non-owned Affiliates and Associated Physician Practices is amultiple site organization consisting of ambulatory clinics and hospital sitesin [place], [place], [place] and [place]. This disclosure is being madepursuant to the Care Everywhere program and may not contain all information available regarding this patient. Last updated 17.[facility] Active Problems Problem Noted Date Diagnosed Date Cerebrovascular accident (CVA), unspecified [facility] 08/26/2021 Social History Tobacco Use Types Packs/Day Years Used Date Smoking Tobacco: Never Assessed Sex and Gender Information Value Date Recorded Sex Assigned at Not on file Legal Sex Male 10:03 AM TRANSFORMER MECHANIC Gender Identity Not on file Sexual Orientation [...] season) 2023 DEPRESSION SCREENING 03/03/2024 INFLUENZA VACCINE (#1) 2024 Respiratory Syncytial Virus (RSV) Vaccine Pt: [...]
--- OUTSIDE RECORDS SUMMARY | 2024-10-27 10:29 | XMS_ITS | Clinical Summary ---
Author Organization [facility] Address [address] [place] [address] Care Team Providers Care Tipple Boss Name Role Phone Zack Caruso Primary Care Provider [phone] Juliann Comer NP Unavailable [phone] Evens Russo MD Unavailable [phone] Allergies Active Allergy Reactions Criticality Noted Date [...] acute EKG changes so less likely active PR. BNP negative. TTE on 05/22/24 showed impaired [...] KEITH/ARB Assessment & Plan (05/06/2023 9:33 AM SUPERVISOR ORCHARD): This is a chronic condition which is at goal of less than 7%. Personally reviewed most recent A1c - Lab Results Component Value Date HGBA1C 6.2 05/06/2023 Personally reviewed POC blood sugar- at goal 80-180 Lab Results Component Value Date POCGLU 114 05/06/2023 Medication- none Monitor blood sugar daily Encouraged annual eye exam. He would like to go to [facility] Monofilament foot exam completed. protective senses intact Personally reviewed CMP eGFR- 95 Kidney function- normal Urine microalbumin/creatinine ratio - at goal <30 treated with amlodipine, metoprolol. B/P today- not at goal of <140/90. continue amlodipine, metoprolol. Home monitors blood pressure Personally reviewed lipid panel. at Goal of less than 70. Continue zetia. Assessment & Plan (01/28/2023 4:13 PM SUPERVISOR ORCHARD): This is a chronic condition which is [...] (05/29/2022): Added automatically from request for surgery [id number] Fall 02/09/2022 Confusion 02/08/2022 Assessment & Plan (02/09/2022 1:15 PM SUPERVISOR ORCHARD): 61M with history of previous stroke and [...] vitals. Assessment & Plan (05/06/2023 9:34 AM SUPERVISOR ORCHARD): This is a chronic condition which is [...] B/P Assessment & Plan (01/28/2023 4:13 PM SUPERVISOR ORCHARD): This is a chronic condition which is at goal of less than 140/90 Personally reviewed labs. Continue amlodipine, metoprolol Encouraged to monitor weight and B/P at home Encouraged to take medications as prescribed. Assessment & Plan (02/09/2022 1:15 PM SUPERVISOR ORCHARD): Pt taking metoprolol XL 100mg daily prior [...] pain. Assessment & Plan (02/09/2022 1:16 PM SUPERVISOR ORCHARD): Stable on: - plavix 75mg daily - [...] week. Assessment & Plan (05/06/2023 9:34 AM SUPERVISOR ORCHARD): This is a chronic condition which is at goal of LDL less than 70 Continue zetia Encouraged to eat healthy, include fresh fruits and vegetables daily and avoid eating fried foods more than once per week. Encouraged to take medications as prescribed. Assessment & Plan (01/28/2023 4:14 PM SUPERVISOR ORCHARD): This is a chronic condition which is [...] History Date Comments Hypertension Coronary artery disease PR (myocardial infarction) (HCC) Stroke (HCC) Headache, tension-type TIA (transient ischemic attack) multiple TIA's GERD (gastroesophageal reflux disease) Type 2 diabetes mellitus Anxiety Blood clots in brain multiple mi [...] oz pur e alcohol) 22 yrs recovered [facility] Utilities Answer Date Recorded In the past 12 months has [facility] [employer], oil, or water [employer] threatened to shut off services in your [...] or ex-partner? No 05/29/2023 Social Connection and Isolation Panel Answer Date Recorded In a typical week, how many times do you talk on the phone with family, friends, or neighbors? More than three times a week 05/24/2024 How often do you get togethe r with friends or relatives? More than three times a week 05/24/2024 How often do you attend [facility] or baptism services? Patient declined 05/24/2024 Do you belong to any clubs o r organizations such as anglican groups, unions, fraternal or athletic groups, or school groups? Patient declined 05/24/2024 How often do you attend meet ings of the clubs or organizations you belong to? Patient declined 05/24/2024 Are you , , di vorced, , never , or living with a partner? Never 05/24/2024 AUDIT-C Answer Date Recorded Q1: How often do you have a drink containing alc ohol? Never 09/09/2023 Average Number of Drinks Not on file 024 Frequency of Binge Drinking Not on file 11/2023 Overall Financial Resource Strain (CARDIA) Answe r Date Recorded How hard is it for you to pa y for the very basics like food, housing, medical care, and heating? Somewhat hard 05/24/2024 PHQ-2 Answer Date Recorded PHQ-2 Total Score (If total score is 3 or more points, staff should administer the PHQ-9) 4 05/29/2023 [facility] - Occupational Stress Questionnaire Answer Date Recorded [...] place to sleep or slept in a retirement (including now)? No 05/27/2023 PHQ-9 Answer Date [...] any time in the past 12 m [facility], were you homeless or living in a retirement (including now)? No 05/24/2024 Personal Safety Answer [...] on file Legal Sex Male 6:45 PM SUPERVISOR ORCHARD Gender Identity Not on file Sexual Orientation [...] Pneumococcal vaccine 65+ (2 of 2 - PPSV23, PCV20, or PCV21) 12/25/2013 10/30/2013, 08/12/2008 Zoster Vaccine (2 of 2) 06/07/2021 04/12/2021 Well Visit 65+ 2023 Covid-19 Vaccine (4 - 2023-2 5 season) 2023 01/15/2021, 07/25/2020, 06/27/2020 Albumin Creatinine Ratio, Urine 01/29/2024 Lipid Panel 01/29/2024 01/28/2023, 08/31, 02/09/2022, Additional history exists Hemoglobin A1C 05/10/2024 11/11/2023, 03/0 07/2023, 01/28/2023, Additional history exists Depression Screening 05/28/2024 05/29/2023, 05/26/19 Influenza Vaccine (#1) 2024 , 12/10/2022, 01/01/2022, Additional history exists Foot Exam 11/10/2024 11/11/2023, 03/0 07/2023, 01/28/2023 [...] Completed 09/20/2023, 05/26/2023, 03/30/2021, Additional history exists Medical Devices Implanted Type Area Machine Sneller Device Identifier Shelf Expiration Date Model / Serial / Lot [employer] Mike Synergy 3mm 8mm 144cm Radiopaque 1 Access Port Inflation Lumen [id number] - [id number] Implanted:Qty: 1 on 07/23/2021 by Evens Russo MD at [facility] [employer] Mike 01/11/2022 [id number] / / [id number] [employer] Mike Synergy 3mm 24mm 144cm Radiopaque 1 Access Port Inflation Lumen [id number] - [id number] Implanted:Qty: 1 on 08/07/2021 by Evens Russo MD at [facility] [employer] Mike 06/08/2022 [id number] / / [id number] [employer] Mike Synergy 2.25mm 24mm 144cm Radiopaque 1 Access Port Inflation [id number] - [id number] Implanted:Qty: 1 on 08/07/2021 by Evens Russo MD at [facility] [employer] Mike 01/25/2022 [id number] / / [id number] Med[employer] Progrip 15x9cm Self Dry Transfer Man Rectangle Mesh Surgical Polyester Hernia [id number] - [id number] Implanted:Qty: 1 on 06/04/2022 by Jona Sarmiento MD at [facility] Left: Abdomen [employer] 09/30/2026 [id number] / / [id number] Procedures Procedure Name Priority Date/Time Associated Diagnosis Comments EGFR Routine 05/24/2024 2:12 AM CDT POCT HEMOGLOBIN A1C Routine 11/11/2023 8 :56 AM CDT Type 2 diabetes mellitus without complication, without long-term current use of insulin (HCC) CT ABDOMEN PELVIS W CONTRAST ED 09/20/2023 5:26 PM CDT COLONOSCOPY 08/26/2023 12:38 PM CDT LIPID PANEL Routine 01/28/2023 10:53 AM SUPERVISOR ORCHARD Type 2 diabetes mellitus without complication, unspecified whether bed bug exterminator insulin use (HCC) ALBUMIN CREATININE RATIO, URINE Routine 01/28/2023 10:53 AM SUPERVISOR ORCHARD Type 2 diabetes mellitus without complication, unspecified whether bed bug exterminator insulin use (HCC) from Last 3 Months or Most Recently Relevant to Health Maintenance Results * eGFR (05/24/2024 2:12 AM CDT) eGFR [...] BLOOD ORDERABLES Bozena hernandez Result [facility] [address] [facility] Department [place] [address] * POCT hemoglobin A1c (11/11/2023 8:56 AM CDT) Hemoglobin A1C, POC 6.3 4.0 - 5.6 % Blood 11/11/2023 8:56 AM CDT us Juliann Dixno NP POINT OF CARE TEST ORDERABLES F [...] Torsten Manzano M.D. AT: AT Report ID: [id number] Reading Location: [id number] Procedure Note Torsten Manzano MD - 09/20/2023 [...] Torsten Manzano M.D. AT: AT Report ID: [id number] Reading Location: [id number] us Gavino Douglass Merry ROTOR PLATE WASHER IMG CT PROCEDURES Final Res ult * Colonoscopy (08/26/2023 12:38 PM CDT) Anatomical Region Laterality Modality Other Narrative Procedure Note Paul Tabor MD - 08/26/2023 12:[address] [facility] Patient Name: Omar Mayer Procedure Date: 08/26/2023 12:38 PM Date of : 1960 Admit Type: Outpatient Age: 63 Gender: Male Attending MD: Paul Tabor M.D. Room: [facility] ENDOSCOPY ROOM 2 Note Status: Finalized Patient [...] was passed under direct vision.The Endoscope [id number] was introduced through the colostomy and advanced [...] 12:38 PM Procedure Code(s): --- Professional --- 94092, Colonoscopy, flexible; diagnostic, including collection of specimen(s) by brushing or washing, when performed (separateprocedure) --- Technical --- 00808, Colonoscopy, flexible; diagnostic, including collection of specimen(s) by brushing or washing, when performed (separateprocedure) Diagnosis Code(s): --- Professional --- Z12.11, Encounter for screening for malignant neoplasm of colon K57.30, Diverticulosis of large intestine without perforation orabscess without bleeding --- Technical --- Z12.11, Encounter for screening for malignant neoplasm of colon K57.30, Diverticulosis of large intestine without perforation orabscess without bleeding CPT copyright 2020 [employer]. All rights reserved. The codes documented in this report are preliminary and upon strategic planning analyst reviewmay be revised to meet current compliance requirements. Recognized by the [employer] for promoting quality in endoscopy Paul Tabor MD ENDOSCOPY PROCED URES Final Result * Albumin Creatinine Ratio, Urine (01/28/2023 10:53 AM SUPERVISOR ORCHARD) Albumin Ur <12.0 mg/L PEPE Oneal (RYAN) Comment: Interpretive Data No reference range established. Current interpretive data was last revised 2018. Testing performed by: [address] [address] Creatinine Ur 33.6 mg/dL [facility] ALEXANDER (RYAN) Comment: Interpretive Data No reference range established. Current interpretive data was last revised 2018. Testing performed by: [address] [address] Albumin Creatinine Ratio, Ur See Comment 1 - 29 [facility] ALEX[facility]ER (RYAN) Comment: Unable to calculate Testing performed by: [address] [address] Urine 01/28/2023 10:5 3 AM SUPERVISOR ORCHARD 01/28/2023 5:59 PM SUPERVISOR ORCHARD us Juliann Dixon NP LAB URINE ORDERABLES Final Resu lt [facility] ALEXANDER (RYAN) [address] [facility] Department [place] [address] * (ABNORMAL) Lipid panel (01/28/2023 10:53 AM SUPERVISOR ORCHARD) Cholesterol 137 30 - 199 mg/dL PEPE [...] on 2017. Triglycerides 152(H) <=149 mg/dL [facility] ALEXANDER (RYAN) Comment: Interpretive Data [...] ALEXANDER (RYAN) Blood 01/28/2023 10:5 3 AM SUPERVISOR ORCHARD 01/28/2023 1:44 PM SUPERVISOR ORCHARD Narrative [facility] ALEXANDER (RYAN) - 01/28/2023 2:05 PM SUPERVISOR ORCHARD These lab test should be done fasting. This means do not eat or drink for at least 12 hours prior to getting your blood drawn. us Juliann Dixon NP LAB BLOOD ORDERABLES Final Resu lt [facility] (RYAN) [address] [facility] Department [place] [address] from Last 3 Months or Most Recently Relevant to Health Maintenance Insurance [facility] MED[facility] ADVANTAGE [facility] Address: [address] [address] [place] [id number] [facility] Address: [address] [address] [place] [address] [facility] Address: [address] [address] [place] [id number] Advance Directives For more information, please contact: [phone] * Full Code (Latest Code Status on [...] 11:51 AM 08/26/2023 11:51 AM Care Teams Tipple Boss Relationship Specialty Start Date End Date Zack Caruso PA [address] [place] [address] PCP - General 07/24/21 Juliann Comer ROTOR PLATE WASHER [address] DIV MEDICAL ONCOLOGY, [facility] [address] [place] [address] Nurse Practitioner Medical Oncology 05/30/22 Evens Russo MD [address] [place] [address] [address] [place] [address] Consulting Physician Cardiology 05/24/24
--- OUTSIDE RECORDS SUMMARY | 2024-10-27 10:29 | XMS_ITS | Clinical Summary ---
Author Organization [facility] Address [address] [place] [address] Phone Care Team Providers Care Field Talent Qualification Specialist Name Role Phone Zack Caruso Primary Care Provider [phone] Allergies Active Allergy Reactions Criticality Noted Date [...] disease) Overview (03/30/2021): [facility] Stroke Overview (03/30/2021): states has [...] on file Legal Sex Male 2:23 PM CAKE WRAPPER Gender Identity Not on file Sexual Orientation Not on file Last Filed Vital Signs Vital Sign Reading Time Taken Comments Blood Pressure 142/87 03/31/2021 7:46 AM CAKE WRAPPER Pulse 67 03/30/2021 10:00 PM CAKE WRAPPER Temperature 36.5 C (97.7 F) 03/31/2021 7:46 AM CAKE WRAPPER Respiratory Rate 20 03/31/2021 7:46 AM CAKE WRAPPER Oxygen Saturation 100% 03/31/2021 7:46 AM CAKE WRAPPER Inhaled Oxygen Concentration - - Weight 79.4 kg (175 lb) 03/30/2021 12:20 PM CAKE WRAPPER Height 182.9 cm (6') 03/30/2021 12:20 PM CAKE WRAPPER Body Mass Index 23.73 03/30/2021 12:20 PM CAKE WRAPPER Plan of Treatment Health Maintenance Due Date [...] season) 2023 01/15/2021, 07/25/2020, 06/27/2020 Influenza Immunization (#1) 11/01/202404/2017, 11/01/2016, 11/08/2015, Additional history exists Pneumococcal Immunization [...] measures to stabilize the patient. Care Teams Field Talent Qualification Specialist Relationship Specialty Start Date End Date Nanney, Zack E, PAC [address] [place] [address] PCP - General Physician Almond Pan Finisher 12/05/20
--- OUTSIDE RECORDS SUMMARY | 2024-10-27 10:29 | XMS_ITS | Encounter Summary ---
Author Organization [facility] Address [address] [place] [address] Phone Care Team Providers Care Brick Shader Name Role Phone Zack Caruso Primary Care Provider [phone] Encounter Details Date Type Department Care Team (Late st Contact Info) Description 03/29/2021 [facility] [address] [place] [address] Bean Cooper MD [address] [place] [address] Pre-op testing (Primary Dx) Social History Tobacco [...] on file Legal Sex Male 2:23 PM TIRE FINISHER Gender Identity Not on file Sexual Orientation Not on file COVID-19 Exposure Response Date Recorded In the last month, have you been in contact with someone who was confirmed or suspected to have Coronavirus / COVID-19? No / Unsure 03/30/2021 12:19 PM TIRE FINISHER documented as of this encounter Plan of Treatment Scheduled Orders Name Type Priority Associated Diagnoses Orde r Schedule SARS-COV-2 BY MOLECULAR Microbiology Routine Pre-op testing Expected: 04/02/2021, Expires: 06/27/2021 documented as of this encounter Visit Diagnoses Diagnosis Pre-op testing- Primary Preoperative examination, unspecified documented in this encounter Care Teams Brick Shader Relationship Specialty Start Date End Date Zack Caruso, PAC [address] [place] [address] PCP - General Physician Shirring Tender 12/05/20 documented as of this encounter
--- OUTSIDE RECORDS SUMMARY | 2024-10-27 10:29 | XMS_ITS | Encounter Summary ---
Author Organization [facility] Address [address] [place] [address] Phone Care Team Providers Care Mechanical Spreader Operator Name Role Phone Zack Caruso Primary Care Provider [phone] Encounter Details Date Type Department Care Team (Latest Contact Info) Description 03/29[facility] [address] [place] [address] Dusty Contreras MD [address] [place] [address] Pre-op testing (Primary Dx) Social History Tobacco [...] on file Legal Sex Male 2:23 PM NECK BAND OPERATOR Gender Identity Not on file Sexual Orientation Not on file COVID-19 Exposure Response Date Recorded In the last month, have you been in contact with someone who was confirmed or suspected to have Coronavirus / COVID-19? No / Unsure 03/30/2021 12:19 PM NECK BAND OPERATOR documented as of this encounter Plan of Treatment Scheduled Orders Name Type Priority Associated Diagnoses Orde r Schedule TYPE & SCREEN (CROSSMATCH CONVERTIBLE) Blood Bank Routine Pre-op testing Expected: 04/02/2021, Expires: 06/27/2021 documented as of this encounter Visit Diagnoses Diagnosis Pre-op testing- Primary Preoperative examination, unspecified documented in this encounter Care Teams Mechanical Spreader Operator Relationship Specialty Start Date End Date Zack Caruso, PAC [address] [place] [address] PCP - General Physician Venetian Blind Machine Operator 12/05/20 documented as of this encounter
--- OUTSIDE RECORDS SUMMARY | 2024-10-27 10:51 | XMS_ITS | Clinical Summary ---
Author Organization [facility] Address [address] [place] [address] Care Team Providers Care Sweeping Compound Blender Name Role Phone Unavailable Primary Care Provider Unavailabl e Source Comments [facility] Operations,non-owned Affiliates and Associated Physician Practices is amultiple site organization consisting of ambulatory clinics and hospital sitesin [place], [place], [place] and [place]. This disclosure is being madepursuant to the Care Everywhere program and may not contain all information available regarding this patient. Last updated 17.[facility] Active Problems Problem Noted Date Diagnosed Date Cerebrovascular accident (CVA), unspecified [facility] 08/26/2021 Social History Tobacco Use Types Packs/Day Years Used Date Smoking Tobacco: Never Assessed Sex and Gender Information Value Date Recorded Sex Assigned at Not on file Legal Sex Male 10:03 AM TELEVISION PROGRAM DIRECTOR Gender Identity Not on file Sexual Orientation [...]
--- OUTSIDE RECORDS SUMMARY | 2024-10-27 10:51 | XMS_ITS | Clinical Summary ---
Author Organization [facility] Address [address] [place] [address] Care Team Providers Care Meters Superintendent Name Role Phone Zack Caruso Primary Care Provider [phone] Juliann Comer NP Unavailable [phone] Evens Russo MD Unavailable [phone] Allergies Active Allergy Reactions Criticality Noted Date [...] acute EKG changes so less likely active OH. BNP negative. TTE on 05/22/24 showed impaired [...] KEITH/ARB Assessment & Plan (05/06/2023 9:33 AM KAIAWHINA KOHANGA REO): This is a chronic condition which is at goal of less than 7%. Personally reviewed most recent A1c - Lab Results Component Value Date HGBA1C 6.2 05/06/2023 Personally reviewed POC blood sugar- at goal 80-180 Lab Results Component Value Date POCGLU 114 05/06/2023 Medication- none Monitor blood sugar daily Encouraged annual eye exam. He would like to go to [facility] Monofilament foot exam completed. protective senses intact Personally reviewed CMP eGFR- 95 Kidney function- normal Urine microalbumin/creatinine ratio - at goal <30 treated with amlodipine, metoprolol. B/P today- not at goal of <140/90. continue amlodipine, metoprolol. Home monitors blood pressure Personally reviewed lipid panel. at Goal of less than 70. Continue zetia. Assessment & Plan (01/28/2023 4:13 PM KAIAWHINA KOHANGA REO): This is a chronic condition which is [...] (05/29/2022): Added automatically from request for surgery [id number] Fall 02/09/2022 Confusion 02/08/2022 Assessment & Plan (02/09/2022 1:15 PM KAIAWHINA KOHANGA REO): 61M with history of previous stroke and [...] vitals. Assessment & Plan (05/06/2023 9:34 AM KAIAWHINA KOHANGA REO): This is a chronic condition which is [...] B/P Assessment & Plan (01/28/2023 4:13 PM KAIAWHINA KOHANGA REO): This is a chronic condition which is at goal of less than 140/90 Personally reviewed labs. Continue amlodipine, metoprolol Encouraged to monitor weight and B/P at home Encouraged to take medications as prescribed. Assessment & Plan (02/09/2022 1:15 PM KAIAWHINA KOHANGA REO): Pt taking metoprolol XL 100mg daily prior [...] pain. Assessment & Plan (02/09/2022 1:16 PM KAIAWHINA KOHANGA REO): Stable on: - plavix 75mg daily - [...] week. Assessment & Plan (05/06/2023 9:34 AM KAIAWHINA KOHANGA REO): This is a chronic condition which is at goal of LDL less than 70 Continue zetia Encouraged to eat healthy, include fresh fruits and vegetables daily and avoid eating fried foods more than once per week. Encouraged to take medications as prescribed. Assessment & Plan (01/28/2023 4:14 PM KAIAWHINA KOHANGA REO): This is a chronic condition which is [...] History Date Comments Hypertension Coronary artery disease OH (myocardial infarction) (HCC) Stroke (HCC) Headache, tension-type [...] oz pur e alcohol) 22 yrs recovered [facility] Utilities Answer Date Recorded In the past 12 months has [facility] [place], oil, or water Survature threatened to shut off services in your [...] 05/24/2024 How often do you attend [facility] or latter day services? Patient declined 05/24/2024 Do you belong to any clubs o r organizations such as scientology groups, unions, fraternal or athletic groups, or [...] staff should administer the PHQ-9) 4 05/29/2023 [facility] of Occupat ional [facility] - Occupational Stress Questionnaire Answer Date Recorded [...] place to sleep or slept in a senior living (including now)? No 05/27/2023 PHQ-9 Answer Date [...] any time in the past 12 m [facility], were you homeless or living in a senior living (including now)? No 05/24/2024 Personal Safety Answer [...] on file Legal Sex Male 6:45 PM KAIAWHINA KOHANGA REO Gender Identity Not on file Sexual Orientation [...] history exists Medical Devices Implanted Type Area Level Designer Device Identifier Shelf Expiration Date Model / Serial / Lot [employer] Mike Synergy 3mm 8mm 144cm Radiopaque 1 Access Port Inflation Lumen [id number] - [id number] Implanted:Qty: 1 on 07/23/2021 by Evens Russo MD at [facility] [employer] Mike 01/11/2022 [id number] / / [id number] [employer] Mike Synergy 3mm 24mm 144cm Radiopaque 1 Access Port Inflation Lumen [id number] - [id number] Implanted:Qty: 1 on 08/07/2021 by Evens Russo MD at [facility] [employer] Mike 06/08/2022 [id number] / / [id number] [employer] Mike Synergy 2.25mm 24mm 144cm Radiopaque 1 Access Port Inflation [id number] - [id number] Implanted:Qty: 1 on 08/07/2021 by Evens Russo MD at [facility] [employer] Scientific Mike 01/25/2022 [id number] / / [id number] Medtronic Inc Progrip 15x9cm Self Glass Cylinder Flanger Rectangle Mesh Surgical Polyester Hernia [id number] - [id number] Implanted:Qty: 1 on 06/04/2022 by Jona Sarmiento MD at [facility] Left: Abdomen Medtronic Inc 09/30/2026 [id number] / / [id number] Procedures Procedure Name Priority Date/Time Associated Diagnosis Comments EGFR Routine 05/24/2024 2:12 AM CDT POCT HEMOGLOBIN A1C Routine 11/11/2023 8 :56 AM CDT Type 2 diabetes mellitus without complication, without long-term current use of insulin (HCC) CT ABDOMEN PELVIS W CONTRAST ED 09/20/2023 5:26 PM CDT COLONOSCOPY 08/26/2023 12:38 PM CDT LIPID PANEL Routine 01/28/2023 10:53 AM KAIAWHINA KOHANGA REO Type 2 diabetes mellitus without complication, unspecified whether vocational ed instructor insulin use (HCC) ALBUMIN CREATININE RATIO, URINE Routine 01/28/2023 10:53 AM KAIAWHINA KOHANGA REO Type 2 diabetes mellitus without complication, unspecified whether vocational ed instructor insulin use (HCC) from Last 3 Months [...] BLOOD ORDERABLES Bozena hernandez Result [facility] 1 [facility] [place] [address] * POCT hemoglobin A1c (11/11/2023 8:56 AM CDT) Hemoglobin A1C, POC 6.3 4.0 - 5.6 % Blood 11/11/2023 8:56 AM CDT us Juliann Dixon NP POINT OF CARE TEST [...] 6:03 PM - Electronically signed by Torsten Mnazano M.D. AT: AT Report ID: [id number] Reading Location: [id number] Procedure Note Torsten Manzano MD - 09/20/2023 [...] Torsten Manzano M.D. AT: AT Report ID: [id number] Reading Location: [id number] us Gavino Douglass Merry SENIOR SALES OPERATIONS ANALYST IMG CT PROCEDURES Final Res ult * Colonoscopy (08/26/2023 12:38 PM CDT) Anatomical Region Laterality Modality Other Narrative Procedure Note Paul Tabor MD - 08/26/2023 12:38 PM CDT [facility] Patient Name: Omar Mayer Procedure Date: 08/26/2023 12:38 PM Date of : 1960 Admit Type: Outpatient Age: 63 Gender: Male Attending MD: Paul Tabor M.D. Room: [facility] ENDOSCOPY ROOM 2 Note Status: Finalized Patient [...] was passed under direct vision.The Endoscope [id number] was introduced through the colostomy and advanced [...] 12:38 PM Procedure Code(s): --- Professional --- 38055, Colonoscopy, flexible; diagnostic, including collection of specimen(s) by brushing or washing, when performed (separateprocedure) --- Technical --- 07321, Colonoscopy, flexible; diagnostic, including collection of specimen(s) by brushing or washing, when performed (separateprocedure) Diagnosis Code(s): --- Professional --- Z12.11, Encounter for screening for malignant neoplasm of colon K57.30, Diverticulosis of large intestine without perforation orabscess without bleeding --- Technical --- Z12.11, Encounter for screening for malignant neoplasm of colon K57.30, Diverticulosis of large intestine without perforation orabscess without bleeding CPT copyright 2020 [employer]. All rights reserved. The codes documented in this report are preliminary and upon relaster reviewmay be revised to meet current compliance requirements. Recognized by the [employer] for promoting quality in endoscopy Paul Tabor MD ENDOSCOPY PROCED URES Final Result * Albumin Creatinine Ratio, Urine (01/28/2023 10:53 AM KAIAWHINA KOHANGA REO) Albumin Ur <12.0 mg/L PEPE Oneal (RYAN) Comment: Interpretive Data No reference range established. Current interpretive data was last revised 2018. Testing performed by: [address] [address] Creatinine Ur 33.6 mg/dL PEPE ALEXANDER (RYAN) Comment: Interpretive Data No reference range established. Current interpretive data was last revised 2018. Testing performed by: [address] [address] Albumin Creatinine Ratio, Ur See Comment 1 - 29 PEPE ALEXANDER (RYAN) Comment: Unable to calculate Testing performed by: [address] [address] Urine 01/28/2023 10:5 3 AM KAIAWHINA KOHANGA REO 01/28/2023 5:59 PM KAIAWHINA KOHANGA REO us Juliann Dixon NP LAB URINE ORDERABLES Final Resu lt PEPE ALEXANDER (RYAN) 1 [facility] Department [place] [address] * (ABNORMAL) Lipid panel (01/28/2023 10:53 AM KAIAWHINA KOHANGA REO) Cholesterol 137 30 - 199 mg/dL PEPE [...] ALEXANDER (RYAN) Blood 01/28/2023 10:5 3 AM KAIAWHINA KOHANGA REO 01/28/2023 1:44 PM KAIAWHINA KOHANGA REO Narrative PEPE ALEXANDER (RYAN) - 01/28/2023 2:05 PM KAIAWHINA KOHANGA REO These lab test should be done fasting. This means do not eat or drink for at least 12 hours prior to getting your blood drawn. us Juliann Dixon NP LAB BLOOD ORDERABLES Final Resu lt PEPE ALEXANDER (RYNA) 1 [facility] Department [place] [address] from Last 3 Months or Most Recently Relevant to Health Maintenance Insurance [facility] MEDICARE ADVANTAGE [place] [id number] [place] [id number] Advance Directives For more information, please contact: [phone] * Full Code (Latest Code Status on [...] 11:51 AM 08/26/2023 11:51 AM Care Teams Meters Superintendent Relationship Specialty Start Date End Date Zack Caruso PA [address] [place] [address] PCP - General 07/24/21 Juliann Comer SENIOR SALES OPERATIONS ANALYST [address] DIV MEDICAL ONCOLOGY, [facility] [address] [place] [address] Nurse Practitioner Medical Oncology 05/30/22 Evens Russo MD [address] [place] [address] [address] [place] [address] Consulting Physician Cardiology 05/24/24
== END 2024-10-27 10:44 | disposition home or self-care (01) ==
PROVIDERS: Emergency Provider Internal Medicine Critical Care Medicine; PCP Physician Assistant
DX: K02.9 Dental caries, unspecified (principal); K05.10 Chronic gingivitis, plaque induced; E11.9 Type 2 diabetes mellitus without complications; E78.5 Hyperlipidemia, unspecified; I25.10 Atherosclerotic heart disease of native coronary artery without angina pectoris; I10 Essential (primary) hypertension; J44.9 Chronic obstructive pulmonary disease, unspecified; F17.210 Nicotine dependence, cigarettes, uncomplicated
CPT/HCPCS: 99283

== ENCOUNTER 2024-11-19 11:39 | Emergency (ER) | payer MEDICARE, MEDICAID, SELFPAY ==
[2024-11-19 11:39] VITALS: BP 134/85; PULSE 76; RESP 16; TEMP 36.4; O2SAT 97
--- OUTSIDE RECORDS SUMMARY | 2024-11-19 11:41 | XMS_ITS | Clinical Summary ---
Author Organization [facility] Address [address] [place] [address] Care Team Providers Care Commissioned Police Officer Name Role Phone Unavailable Primary Care Provider Unavailabl e Source Comments [facility] [employer],non-owned Affiliates and Associated Physician Practices is amultiple site organization consisting of ambulatory clinics and hospital sitesin [place], [place], [place] and [place]. This disclosure is being madepursuant to the Care Everywhere program and may not contain all information available regarding this patient. Last updated 17.[facility] [employer] Active Problems Problem Noted Date Diagnosed Date Cerebrovascular accident (CVA), [facility] Social History Tobacco Use Types Packs/Day Years Used Date Smoking Tobacco: Never Assessed Sex and Gender Information Value Date Recorded Sex Assigned at Not on file Legal Sex Male 10:03 AM TEST ADMINISTRATOR Gender Identity Not on file Sexual Orientation [...] 2008 ZOSTER VACCINE (1 of 2) 2008 DEPRESSION SCREENING 03/03/2024 COVID-19 VACCINE ( - 2023-2 5 season) 2024 INFLUENZA VACCINE (#1) 2024 Respiratory Syncytial Virus [...]
--- OUTSIDE RECORDS SUMMARY | 2024-11-19 11:41 | XMS_ITS | Encounter Summary ---
Author Organization [facility] Address [address] [place] [address] Phone Care Team Providers Care Bushing And Broach Operator Name Role Phone Zack Caruso Primary Care Provider [phone] Encounter Details Date Type Department Care Team (Latest Contact Info) Description 03/29/20[address] [facility] Pre[facility]Pac[facility] [address] [place] [address] Dusty Contreras MD [address] [place] [address] Pre-op testing (Primary Dx) Social History Tobacco [...] on file Legal Sex Male 2:23 PM CULINARY INSTRUCTOR Gender Identity Not on file Sexual Orientation Not on file COVID-19 Exposure Response Date Recorded In the last month, have you been in contact with someone who was confirmed or suspected to have Coronavirus / COVID-19? No / Unsure 03/30/2021 12:19 PM CULINARY INSTRUCTOR documented as of this encounter Plan of Treatment Scheduled Orders Name Type Priority Associated Diagnoses Orde r Schedule TYPE & SCREEN (CROSSMATCH CONVERTIBLE) Blood Bank Routine Pre-op testing Expected: 04/02/2021, Expires: 06/27/2021 documented as of this encounter Visit Diagnoses Diagnosis Pre-op testing- Primary Preoperative examination, unspecified documented in this encounter Care Teams Bushing And Broach Operator Relationship Specialty Start Date End Date Zack Caruso, PAC [address] [place] [address] PCP - General Physician Poultry Tender 12/05/20 documented as of this encounter
--- OUTSIDE RECORDS SUMMARY | 2024-11-19 11:41 | XMS_ITS | Encounter Summary ---
Author Organization [facility] Address [facility] [place] [address] Care Team Providers Care Prop And Effects Designer Name Role Phone Jarrod Castro MD Unavailable Che Ramirez APRN, NP-C Unavailable [phone] Zack Caruso Primary Care Provider [phone] Encounter Details Date Type Department Care Team (Late st Contact Info) Description 05/17/2017 Abstract [facility] [address] [place] [address] , Generic ConversionMD Social History Tobacco Use Types Packs/Day Years Used Date Smoking Tobacco: Smoker, Current Status Unknown Cigarettes Alcohol Use Standard Drinks/Week Comments No 0 (1 standard drink = 0.6 oz pur e alcohol) Former ETOH abuse Sex and Gender Information Value Date Recorded Sex Assigned at Male 04/06/2024 9:17 AM INFANT TODDLER LEAD TEACHER Legal Sex Male 9:13 AM CDT Gender Identity Not on file Sexual Orientation Not on file Occupation Industry Job Start Date Job End Date Disabled Not on file Not on file Not on file documented as of this encounter Plan of Treatment Not on file documented as of this encounter Visit Diagnoses Not on filedocumented in this encounter Care Teams Prop And Effects Designer Relationship Specialty Start Date End Date Zack Caruso PA [address] [facility] [address] [place] [address] PCP - General PHYSICIAN MANAGER PORTABLE 04/06/24 Jarrod Castro MD [address] [place] [address] Norvell Trommel Tender CARDIOVASCULAR DISEASE 08/07/16 Che Ramirez, NERI, CONE MACHINE FEEDER-C [address] [facility] [address] [place] [address] NURSE PRACTITIONER 01/24/20 documented as of this encounter
--- OUTSIDE RECORDS SUMMARY | 2024-11-19 11:41 | XMS_ITS | Encounter Summary ---
Author Organization [facility] Address [address] [place] [address] Phone Care Team Providers Care Director Informatics Name Role Phone Zack Caruso Primary Care Provider Encounter Details Date Type Department Care Team (Late st Contact Info) Description 03/29/2021 [facility] [address] [place] [address] Bean Cooper MD [address] [place] [address] Pre-op testing (Primary Dx) Social History Tobacco [...] on file Legal Sex Male 2:23 PM PEOPLESOFT HRMS DEVELOPER Gender Identity Not on file Sexual Orientation Not on file COVID-19 Exposure Response Date Recorded In the last month, have you been in contact with someone who was confirmed or suspected to have Coronavirus / COVID-19? No / Unsure 03/30/2021 12:19 PM PEOPLESOFT HRMS DEVELOPER documented as of this encounter Plan of Treatment Scheduled Orders Name Type Priority Associated Diagnoses Orde r Schedule SARS-COV-2 BY MOLECULAR Microbiology Routine Pre-op testing Expected: 04/02/2021, Expires: 06/27/2021 documented as of this encounter Visit Diagnoses Diagnosis Pre-op testing- Primary Preoperative examination, unspecified documented in this encounter Care Teams Director Informatics Relationship Specialty Start Date End Date Zack Caruso, PAC [address] [place] [address] PCP - General Physician Mid Level Developer 12/05/20 documented as of this encounter
--- OUTSIDE RECORDS SUMMARY | 2024-11-19 11:41 | XMS_ITS | Clinical Summary ---
Author Organization [facility] Address [address] [place] [address] Phone Care Team Providers Care Hydrostatic Tubing Tester Name Role Phone Zack Caruso Primary Care Provider [phone] Allergies Active Allergy Reactions Criticality Noted Date [...] disease) Overview (03/30/2021): [facility] Stroke Overview (03/30/2021): states has [...] on file Legal Sex Male 2:23 PM WOOD PILE DRIVER OPERATOR Gender Identity Not on file Sexual Orientation Not on file Last Filed Vital Signs Vital Sign Reading Time Taken Comments Blood Pressure 142/87 03/31/2021 7:46 AM WOOD PILE DRIVER OPERATOR Pulse 67 03/30/2021 10:00 PM WOOD PILE DRIVER OPERATOR Temperature 36.5 C (97.7 F) 03/31/2021 7:46 AM WOOD PILE DRIVER OPERATOR Respiratory Rate 20 03/31/2021 7:46 AM WOOD PILE DRIVER OPERATOR Oxygen Saturation 100% 03/31/2021 7:46 AM WOOD PILE DRIVER OPERATOR Inhaled Oxygen Concentration - - Weight 79.4 kg (175 lb) 03/30/2021 12:20 PM WOOD PILE DRIVER OPERATOR Height 182.9 cm (6') 03/30/2021 12:20 PM WOOD PILE DRIVER OPERATOR Body Mass Index 23.73 03/30/2021 12:20 PM WOOD PILE DRIVER OPERATOR Plan of Treatment Health Maintenance Due Date [...] years 1-dose series) 2018 Influenza Immunization (#1) 2024 10/0 04/2017, 11/01/2016, 11/08/2015, Additional history exists SARS-COV-2 Immunization ( season) 2024 01/15/2021, 07/25/2020, 06/27/2020 Pneumococcal Immunization Combined Discontinued [...] measures to stabilize the patient. Care Teams Hydrostatic Tubing Tester Relationship Specialty Start Date End Date Nanney, Zack E, PAC [address] [place] [address] PCP - General Physician Coating Line Worker 12/05/20
--- OUTSIDE RECORDS SUMMARY | 2024-11-19 11:41 | XMS_ITS | Encounter Summary ---
Author Organization [facility] Address [facility] [place] [address] Care Team Providers Care Automobile Or Truck Rental Dispatcher Name Role Phone Jarrod Castro MD Unavailable Che Ramirez APRN, NP-C Unavailable Zack Caruso Primary Care Provider [phone] Encounter Details Date Type Department Care Team ([facility] st Contact Info) Description 10/14/2017 Abstract [facility] [address] [place] [address] Jarrod Castro MD [address] [place] [address] Social History Tobacco Use Types Packs/Day Years Used Date Smoking Tobacco: Smoker, Current Status Unknown Cigarettes Smokeless Tobacco: Never Alcohol Use Standard Drinks/Week Comments No 0 (1 standard drink = 0.6 oz pur e alcohol) Former ETOH abuse Sex and Gender Information Value Date Recorded Sex Assigned at Male 04/06/2024 9:17 AM DIRECTOR PERSONAL Legal Sex Male 9:13 AM CDT Gender Identity Not on file Sexual Orientation Not on file Occupation Industry Job Start Date Job End Date Disabled Not on file Not on file Not on file documented as of this encounter Plan of Treatment Not on file documented as of this encounter Visit Diagnoses Not on filedocumented in this encounter Care Teams Automobile Or Truck Rental Dispatcher Relationship Specialty Start Date End Date Zack Caruso PA [address] [facility] [address] [place] [address] PCP - General PHYSICIAN PAPER CARRIER 04/06/24 Jarrod Castro MD [address] [place] [address] [place] Assistant Offset Press Operator CARDIOVASCULAR DISEASE 08/07/16 Ceh Ramirez APRN, ANALYTICS DIRECTOR-C [address] [facility] [address] [place] [address] NURSE PRACTITIONER 01/24/20 documented as of this encounter
--- OUTSIDE RECORDS SUMMARY | 2024-11-19 11:41 | XMS_ITS | Encounter Summary ---
Author Organization [facility] Address [address] [place] [address] Phone Care Team Providers Care Airfield Defence Guard Name Role Phone Rodrigue Zhao MD Primary Care Provider [phone] Zack Caruso Primary Care Provider [phone] Reason for Referral * Radiology Services (Routine) - Closed Specialty Diagnoses / Procedures Referred By Selene hyatt Referred To Contact Radiology Diagnoses Pain in right hip Other intervertebral disc displacement, lumbar region Procedures XR LUMBAR MYELO 1 PHY PC PAIN CONSULT Dusty Contreras MD Phone: tel: fax: Referral ID Status Reason Start Date Expiration Date Visits Re quested Visits Authorized [id number] Closed 11/28/2020 1 1 Encounter Details Date Type Department Care Team (Latest Contact Info) Description 11/28/2020 Transcribe Orders [facility] [address] [place] [address] Dusty Contreras MD [address] [place], [place] [id number] Pain in right hip (Primary Dx); Other [...] on file Legal Sex Male 2:23 PM PER DIEM NURSE Gender Identity Not on file Sexual Orientation [...] None available. FINDINGS: SEGMENTATION: There are 5 rpv-pdy-hlnlcqd lumbar type vertebral bodies. ALIGNMENT: Approximately 2 [...] of the thecal sac contrast. There is iejx-xt-zepymiyc bilateral neural foraminal narrowing. L5-S1: Surgical level. [...] Jaquan Hernandez D.O. AP: AP Report ID: [id number] Reading Location: [id number] Procedure Note Jaquan Hernandez DO - 12/28/2020 [...] None available. FINDINGS: SEGMENTATION: There are 5 jsd-tmv-fphlzly lumbar type vertebral bodies. ALIGNMENT: Approximately 2 [...] of the thecal sac contrast. There is iwgl-lf-tgmdzrkr bilateral neural foraminal narrowing. L5-S1: Surgical level. [...] Jaquan Hernandez D.O. AP: AP Report ID: [id number] Reading Location: [id number] IMPRESSION: 1. Please note previous imaging studies [...] David Arechiga M.D. NC: NC Report ID: [id number] Reading Location: [id number] Procedure Note David Arechiga MD - 12/27/2020 [...] David Arechiga M.D. NC: SHAUNA Report ID: [id number] Reading Location: [id number] IMPRESSION: Lumbar myelogram performed for CT Myelography. [...] 19 Confirmed 02/26/2021 02/26/2021 022 12:16 AM PER DIEM NURSE documented as of this encounter Care Teams Airfield Defence Guard Relationship Specialty Start Date End Date Rodrigue Zhao MD [address] [place] [address] PCP - General Internal Medicine 09/18/16 12/04/20 Zack Caruso PAC [address] [place] [address] PCP - General Physician Home Health Travel Pt 12/05/20 documented as of this encounter
--- OUTSIDE RECORDS SUMMARY | 2024-11-19 11:41 | XMS_ITS | Encounter Summary ---
Author Organization [facility] Address [facility] [place] [address] Care Team Providers Care Hat Former Name Role Phone Jarrod Castro MD Unavailable [phone] Che Ramirez APRN, NP-C Unavailable [phone] Zack Caruso Primary Care Provider [phone] Encounter Details Date Type Department Care Team (Late st Contact Info) Description 07/25/2016 Abstract [facility] [address] [place] [id number] Abstract, Doc [facility] Social History Tobacco Use Types Packs/Day Years Used Date Smoking Tobacco: Smoker, Current Status Unknown Cigarettes Alcohol Use Standard Drinks/Week Comments No 0 (1 standard drink = 0.6 oz pur e alcohol) Former ETOH abuse Sex and Gender Information Value Date Recorded Sex Assigned at Male 04/06/2024 9:17 AM BLUEPRINTER Legal Sex Male 9:13 AM CDT Gender [...] on filedocumented in this encounter Care Teams Hat Former Relationship Specialty Start Date End Date Zack Caruso PA [address] [address] PCP - General PHYSICIAN TENDERIZER TENDER 04/06/24 Jarrod Castro MD [address] [place] [address] [place] Dock Superintendent CARDIOVASCULAR DISEASE 08/07/16 Che Ramirez, COMPLIANCE CLERK, CHANNEL MARKETING MANAGER-C [address] [address] NURSE PRACTITIONER 01/24/20 documented as of this encounter
--- OUTSIDE RECORDS SUMMARY | 2024-11-19 11:41 | XMS_ITS | Clinical Summary ---
Author Organization [facility] Address [facility] [place] [address] Care Team Providers Care Roads And Parking Lots Sweeper Operator Name Role Phone Jarrod Castro MD Unavailable [phone] Che Ramirez APRN, NP-C Unavailable Zack Caruso Primary Care Provider [phone] Allergies Active Allergy Reactions Criticality Noted Date [...] Sex Assigned at Male 04/06/2024 9:17 AM LICENSE INSPECTOR Legal Sex Male 9:13 AM CDT Gender Identity Not on file Sexual Orientation Not on file Occupation Industry Job Start Date Job End Date Disabled Not on file Not on file Not on file Last Filed Vital Signs Vital Sign Reading Time Taken Comments Blood Pressure 123/79 04/27/2018 1:45 PM LICENSE INSPECTOR Pulse 70 04/27/2018 1:45 PM LICENSE INSPECTOR Temperature 36.5 C (97.7 F) 04/27/2018 1:45 PM LICENSE INSPECTOR Respiratory Rate 20 04/27/2018 1:45 PM LICENSE INSPECTOR Oxygen Saturation 100% 04/27/2018 1:45 PM LICENSE INSPECTOR Inhaled Oxygen Concentration - - Weight 78 kg (171 lb 15.3 oz) 04/27/2018 11:02 A M LICENSE INSPECTOR Height 175.3 cm (5' 9) 04/27/2018 11:02 AM LICENSE INSPECTOR Body Mass Index 25.39 04/27/2018 11:02 AM LICENSE INSPECTOR Plan of Treatment Health Maintenance Due Date [...] COVID-19 Vaccine (1 - 2023-2 5 season) 2024 Meningococcal B Vaccine Aged Out No l [...] - 200 MG/DL 09/15/2017 5:18 AM CDT [facility] Comment:DESIRABLE: <200 TRIGLYCERIDES 130 0 - 149 MG/DL 09/15/2017 5:18 AM CDT [facility] Comment:<150 NORMAL HDL 31(L) >39 MG/DL 09/15/2017 5:18 AM CDT [facility] Comment:LOW: <40 DIRECT LDL 105 0 - 129 MG/DL 09/15/2017 5:18 AM CDT [facility] Comment:100-129 NEAR OR ABOV E OPTIMAL 09/15/2017 4:38 AM CDT us Kenn Vargas MD LABORATORY Final Result [facility] [address] [id number], [id number] from Last 3 Months or Most Recently [...] 11:05 PM 09/16/2017 6:42 PM Care Teams Roads And Parking Lots Sweeper Operator Relationship Specialty Start Date End Date Zack Caruso PA [address] [facility] [address] [place] [id number] PCP - General PHYSICIAN CNA LTC 04/06/24 Jarrod Castro MD [address] [place] [address] [place] Editor Continuity And Script CARDIOVASCULAR DISEASE 08/07/16 Che Ramirez, [employer], [employer]GR[employer] DIRECTOR-C [address] [facility] [address] [place] [address] NURSE PRACTITIONER 01/24/20
--- OUTSIDE RECORDS SUMMARY | 2024-11-19 11:41 | XMS_ITS | Clinical Summary ---
Author Organization [facility] Address [address] [place] [address] Care Team Providers Care Golf Club Manager Name Role Phone Zack Caruso Primary Care Provider [phone] Juliann Comer NP Unavailable Evens Russo MD Unavailable [phone] Allergies Active Allergy Reactions Criticality Noted Date Comments Morphine Hives Medium 12/20/2023 Penicillin G Unknown 05/26/2023 As a child Medications clopidogrel (PLAVIX) 75 mg tablet Take 1 tablet (75 mg total) by mouth daily Active metoprolol XL (TOPROL-XL) 100 mg 24 hr tablet Take 1 tablet (100 mg total) by mouth daily 30 tablet 2 08/10/19 22 Active atorvastatin (LIPITOR) 80 mg tablet Take 1 tablet (80 mg total) by mouth nightly 90 tablet 3 08/18/19 22 Active ezetimibe (ZETIA) 10 mg tablet Take 1 tablet (10 mg total) by mouth daily 30 tablet 11 10/05/19 22 Active ALPRAZolam (XANAX) 0.5 mg tablet Take [...] Test strip 2 (two) times a day 05/29/19 23 Active OneTouch Delica Plus Lancet 33 gauge misc 2 (two) times a day 06/03/[address] (PROTONIX) 40 mg EC tablet Take 1 tablet (40 mg total) by mouth daily 07/12/19 24 Active OneTouch Delica Plus Lanc Dev kit USE TO TEST 2-3 TIMES A DAY 08/11/19 24 Active ranolazine ER (RANEXA) 500 mg 12 hr tablet Take 1 tablet (500 mg total) by mouth 2 (two) times a day Active Repatha SureClick 140 mg/mL pen injector 1 mL (140 mg total) by abdominal subcutaneous route every 2 (two) weeks Takes every other Friday05/11/19 25 Active amLODIPine (NORVASC) 10 mg tablet Take 1 tablet (10 mg total) by mouth daily 30 tablet 05/26/19 25 Active isosorbide mononitrate ER (IMDUR) 30 mg 24 hr tablet Take 1 tablet (30 mg total) by mouth daily 30 tablet 10/30/19 026 Active nitroglycerin (NITROSTAT) 0.[address] 1 tablet (0.4 mg total) under the tongue every 5 (five) minutes as needed for chest pain May repeat dose q 5 min, up to 3 doses total 90 tablet 10/30/19 025 Active nitroglycerin (NITRODUR) 0.4 mg/hr Place 1 patch on the skin daily 025 Discontin ued(Thera py completed ) Active Problems Problem Noted Date Diagnosed Date [...] acute EKG changes so less likely active NM. BNP negative. TTE on 05/22/24 showed impaired [...] KEITH/ARB Assessment & Plan (05/06/2023 9:33 AM INTERIOR DESIGN COORDINATOR): This is a chronic condition which is at goal of less than 7%. Personally reviewed most recent A1c - Lab Results Component Value Date HGBA1C 6.2 05/06/2023 Personally reviewed POC blood sugar- at goal 80-180 Lab Results Component Value Date POCGLU 114 05/06/2023 Medication- none Monitor blood sugar daily Encouraged annual eye exam. He would like to go to [facility] Monofilament foot exam completed. protective senses intact Personally reviewed CMP eGFR- 95 Kidney function- normal Urine microalbumin/creatinine ratio - at goal <30 treated with amlodipine, metoprolol. B/P today- not at goal of <140/90. continue amlodipine, metoprolol. Home monitors blood pressure Personally reviewed lipid panel. at Goal of less than 70. Continue zetia. Assessment & Plan (01/28/2023 4:13 PM INTERIOR DESIGN COORDINATOR): This is a chronic condition which is [...] (05/29/2022): Added automatically from request for surgery [id number] Fall 02/09/2022 Confusion 02/08/2022 Assessment & Plan (02/09/2022 1:15 PM INTERIOR DESIGN COORDINATOR): 61M with history of previous stroke and [...] vitals. Assessment & Plan (05/06/2023 9:34 AM INTERIOR DESIGN COORDINATOR): This is a chronic condition which is [...] B/P Assessment & Plan (01/28/2023 4:13 PM INTERIOR DESIGN COORDINATOR): This is a chronic condition which is at goal of less than 140/90 Personally reviewed labs. Continue amlodipine, metoprolol Encouraged to monitor weight and B/P at home Encouraged to take medications as prescribed. Assessment & Plan (02/09/2022 1:15 PM INTERIOR DESIGN COORDINATOR): Pt taking metoprolol XL 100mg daily prior [...] pain. Assessment & Plan (02/09/2022 1:16 PM INTERIOR DESIGN COORDINATOR): Stable on: - plavix 75mg daily - [...] week. Assessment & Plan (05/06/2023 9:34 AM INTERIOR DESIGN COORDINATOR): This is a chronic condition which is at goal of LDL less than 70 Continue zetia Encouraged to eat healthy, include fresh fruits and vegetables daily and avoid eating fried foods more than once per week. Encouraged to take medications as prescribed. Assessment & Plan (01/28/2023 4:14 PM INTERIOR DESIGN COORDINATOR): This is a chronic condition which is [...] & Plan (08/07/2021 3:24 AM CDT): Continue manisha Randhawa Xanax and SSRI Encounters Date Type Department Care Team Description 10/29/2024 2:30 PM CDT Office Visit [facility] Specialist at [address] [place] [phone] Evens Russo MD Stable angina pectoris (Primary Dx) from Last 3 Months Immunizations Immunization Administration [...] History Date Comments Hypertension Coronary artery disease NM (myocardial infarction) (HCC) Stroke (HCC) Headache, tension-type [...] oz pur e alcohol) 22 yrs recovered [facility] Utilities Answer Date Recorded In the [...] 05/24/2024 How often do you attend chur ch or mosque services? Patient declined 05/24/2024 Do you belong to any clubs o r organizations such as shinto groups, unions, fraternal or athletic groups, or [...] staff should administer the PHQ-9) 4 05/29/2023 [facility] - [...] place to sleep or slept in a correction (including now)? No 05/27/2023 PHQ-9 Answer Date [...] any time in the past 12 m [facility] were you homeless or living in a correction (including now)? No 05/24/2024 Personal Safety Answer [...] on file Legal Sex Male 6:45 PM INTERIOR DESIGN COORDINATOR Gender Identity Not on file Sexual Orientation Not on file Obstetrics History Last Filed Vital Signs Vital Sign Reading Time Taken Comments Blood Pressure 114/72 10/29/2024 2:57 PM CDT Pulse 83 10/29/2024 2:57 PM CDT Temperature 36.8 C (98.2 F) 05/24/2024 3:09 PM CDT Respiratory Rate 14 10/29/2024 2:57 PM CDT Oxygen Saturation 93% 05/24/2024 3:09 PM CDT Inhaled Oxygen Concentration - - Weight 76.8 kg (169 lb 6.4 oz) 10/29/2024 2:57 P M CDT Height 182.9 cm (6') 10/29/2024 2:57 PM CDT Body Mass Index 22.97 10/29/2024 2:57 PM CDT Plan of Treatment Health Maintenance Due Date Last Done Comments Hepatitis C Screening 1960 Prostate Cancer Screening-PSA 1960 Dilated Eye Exam 1960 Hepatitis B Screening 1976 Pneumococcal vaccine 65+ (2 of 2 - PPSV23, PCV20, or PCV21) 12/25/2013 10/30/2013, 08/12/2008 Zoster Vaccine (2 of 2) 06/07/2021 04/12/2021 Well Visit 65+ 2023 Albumin Creatinine Ratio, Urine 01/29/2024 Lipid Panel 01/29/2024 01/28/2023, 07/1 11/2022, 02/09/2022, Additional history exists Hemoglobin A1C 05/10/2024 11/11/2023, 03/0 07/2023, 01/28/2023, Additional history exists Depression Screening 05/28/2024 05/29/2023, 05/26/19 24 Covid-19 Vaccine ( - 2024-2 6 season) 2024 01/15/2021, 07/25/2020, 06/27/2020 Influenza Vaccine (#1) 2024 , 12/10/2022, 01/01/2022, [...] history exists Medical Devices Implanted Type Area Sifting Operator Device Identifier Shelf Expiration Date Model / Serial / Lot [employer] Mike Synergy 3mm 8mm 144cm Radiopaque 1 Access Port Inflation Lumen [id number] - [id number] Implanted:Qty: 1 on 07/23/2021 by Evens Russo MD at [facility] [employer] Mike 01/11/2022 [id number] / / [id number] [employer] Mike Synergy 3mm 24mm 144cm Radiopaque 1 Access Port Inflation Lumen [id number] - [id number] Implanted:Qty: 1 on 08/07/2021 by Evens Russo MD at [facility] [employer] Mike 06/08/2022 [id number] / / [id number] [employer] Mike Synergy 2.25mm 24mm 144cm Radiopaque 1 Access Port Inflation [id number] - [id number] Implanted:Qty: 1 on 08/07/2021 by Evens Russo MD at [facility] [employer] Mike 01/25/2022 [id number] / / [id number] Med[employer] Progrip 15x9cm Self Dry Wall Plasterer Rectangle Mesh Surgical Polyester Hernia [id number] - [id number] Implanted:Qty: 1 on 06/04/2022 by Jona Sarmiento MD at [facility] Left: Abdomen [employer] 09/30/2026 [id number] / / [id number] Procedures Procedure Name Priority Date/Time Associated Diagnosis Comments EGFR Routine 05/24/2024 2:12 AM CDT POCT HEMOGLOBIN A1C Routine 11/11/2023 8 :56 AM CDT Type 2 diabetes mellitus without complication, without long-term current use of insulin (HCC) CT ABDOMEN PELVIS W CONTRAST ED 09/20/2023 5:26 PM CDT COLONOSCOPY 08/26/2023 12:38 PM CDT LIPID PANEL Routine 01/28/2023 10:53 AM INTERIOR DESIGN COORDINATOR Type 2 diabetes mellitus without complication, unspecified whether watermaster insulin use (HCC) ALBUMIN CREATININE RATIO, URINE Routine 01/28/2023 10:53 AM INTERIOR DESIGN COORDINATOR Type 2 diabetes mellitus without complication, unspecified whether jail insulin use (HCC) from Last 3 Months [...] CDT Torrie Carey MD LAB BLOOD ORDERABLES Boezna l Result [facility] [place]) [address] [facility] Department [place] [address] * POCT hemoglobin A1c (11/11/2023 8:56 AM [...] Torsten Manzano M.D. AT: AT Report ID: [id number] Reading Location: [id number] Procedure Note Torsten Manzano MD - 09/20/2023 [...] Torsten Manzano M.D. AT: AT Report ID: [id number] Reading Location: [place] [address] Gavino Sousa NP [facility] CT PROCEDURES Final Res ult * Colonoscopy (08/26/2023 12:38 PM CDT) Anatomical Region Laterality Modality Other Narrative Procedure Note Paul Tabor MD - 08/26/2023 12:38 PM CDT [facility] Patient Name: Omar Mayer Procedure Date: 08/26/2023 12:38 PM Date of : 1960 Admit Type: Outpatient Age: 63 Gender: Male Attending MD: Paul Tabor M.D. Room: [facility] ENDOSCOPY ROOM 2 Note Status: Finalized [...] was passed under direct vision.The Endoscope [id number] was introduced through the colostomy and advanced [...] 12:38 PM Procedure Code(s): --- Professional --- 39436, Colonoscopy, flexible; diagnostic, including collection of specimen(s) by brushing or washing, when performed (separateprocedure) --- Technical --- 61952, Colonoscopy, flexible; diagnostic, including collection of specimen(s) by brushing or washing, when performed (separateprocedure) Diagnosis Code(s): --- Professional --- Z12.11, Encounter for screening for malignant neoplasm of colon K57.30, Diverticulosis of large intestine without perforation orabscess without bleeding --- Technical --- Z12.11, Encounter for screening for malignant neoplasm of colon K57.30, Diverticulosis of large intestine without perforation orabscess without bleeding CPT copyright 2020 [employer]. All rights reserved. The codes documented in this report are preliminary and upon hand patcher reviewmay be revised to meet current compliance requirements. Recognized by the [employer] [place] [employer] for promoting quality in endoscopy us Paul Tabor MD ENDOSCOPY PROCED URES Final Result * Albumin Creatinine Ratio, Urine (01/28/2023 10:53 AM INTERIOR DESIGN COORDINATOR) Albumin Ur <12.0 mg/L [facility] ([facility]) Comment: Interpretive Data No reference range established. Current interpretive data was last revised 2018. Testing performed by: [facility], [address] [place] [address]., [id number] Creatinine Ur 33.6 mg/dL [facility] ([facility]) Comment: Interpretive Data No reference range established. Current interpretive data was last revised 2018. Testing performed by: [facility], [address] [place] [address]., [id number] Albumin Creatinine Ratio, Ur See Comment 1 - 29 [facility] ([facility]) Comment: Unable to calculate Testing performed by: [facility], [address] [place] [address]., [id number] Urine 01/28/2023 10:5 3 AM INTERIOR DESIGN COORDINATOR 01/28/2023 5:59 PM INTERIOR DESIGN COORDINATOR us Juliann Dixon NP LAB URINE ORDERABLES Final Resu lt [facility] ([place]) [facility] Department [place] [address] * (ABNORMAL) Lipid panel (01/28/2023 10:53 AM INTERIOR DESIGN COORDINATOR) Cholesterol 137 30 - 199 mg/dL [facility] [...] revised on 2017. Triglycerides 152(H) <=149 mg/dL [facility] ([facility]) Comment: Interpretive Data Ages < [...] [facility]LEX[facility]ER (RYAN) Blood 01/28/2023 10:5 3 AM INTERIOR DESIGN COORDINATOR 01/28/2023 1:44 PM INTERIOR DESIGN COORDINATOR Narrative [facility] ([facility]) - 01/28/2023 2:05 PM INTERIOR DESIGN COORDINATOR These lab test should be done fasting. This means do not eat or drink for at least 12 hours prior to getting your blood drawn. us Juliann Dixon NP LAB BLOOD ORDERABLES Final Resu lt [facility] ([facility]) 1 [facility] Department of Laboratories [place], [place] [id number] from Last 3 Months or Most Recently Relevant to Health Maintenance Insurance [facility] MEDICARE ADVANTAGE [facility] MEDICARE Address: [facility] [address] [place] [address] [facility] MEDICARE ADVANTAGE [facility] MEDICARE Address: [address] [place] [phone] [facility] MEDICARE ADVANTAGE [facility] MEDICARE Address: [id number] [place] [address] Advance Directives For more information, please contact: [phone] * Full Code (Latest Code Status on [...] 11:51 AM 08/26/2023 11:51 AM Care Teams Golf Club Manager Relationship Specialty Start Date End Date Zack Caruso PA [address] [place] [address] PCP - General 07/24/21 Juliann Comer NP [address] [facility], [place] [address] Nurse Practitioner Medical Oncology 05/30/22 Evens Russo MD 2 [facility] [address] [address] Consulting Physician Cardiology 05/24/24
--- NOTE | 2024-11-19 11:45 | ED.DENTAL ---
HPI - Dental/Oral General Chief complaint: Dental/Oral Stated complaint: DENTAL PAIN Time Seen by Provider: 11/19/24 11:45 Source: patient Mode of arrival: ambulatory Limitations: no limitations History of Present Illness HPI Narrative: Patient is a 64-year-old male with upper and lower dental pain for the past 3 months. He has poor dentition and multiple cavities with decay and fractures of the teeth. He has surgery planned in the next month with his dentist. The dentist gave him azithromycin oral today to fill to start for antibiotics. He came for pain control at this time. Patient was in the ER a few weeks ago and given Orient and antibiotics. He was only given 10 Orient and he made that last for 3 weeks. He was only asking for 10 tablets to get him through until surgery. MD Complaint: tooth pain Location: Tooth # (Most of the teeth are decayed and pain with cavities) Onset (ago): month(s) (3) Duration: constant Severity: moderate Severity scale (1-10): 8 Relieving factors: nothing Exacerbating factors: nothing Context: history of dental caries and poor dental care Associated symptoms: other (None) Treatment prior to arrival: none Related Data Home Medications ?Medication ?Instructions ?Recorded ?Confirmed ?Last Taken ?Type amlodipine 2.5 mg tablet (Norvasc) 5 mg PO DAILY 01/09/19 08/05/24 08/25/21 09:00 History pantoprazole 40 mg tablet,delayed 40 mg PO DAILY 01/09/19 08/05/24 08/25/21 09:00 History release (Protonix) aspirin 81 mg tablet,delayed 81 mg PO DAILY 03/27/20 08/05/24 08/25/21 21:00 History release clopidogrel 75 mg tablet (Plavix) 75 mg PO DAILY 10/15/20 08/05/24 08/25/21 09:00 History alprazolam 0.5 mg tablet 1 tablet PO TID PRN Anxiety 08/26/21 08/05/24 08/25/21 21:00 History buspirone 15 mg tablet 1 tablet PO BID 08/26/21 08/05/24 08/25/21 21:00 History metoprolol succinate 100 mg 1 tablet PO DAILY 08/26/21 08/05/24 08/25/21 09:00 History tablet,extended release 24 hr ezetimibe 10 mg tablet 10 mg PO DAILY 12/22/22 08/05/24 Unknown History nitroglycerin 0.4 mg sublingual 0.4 mg sublingual Q5M PRN 08/05/24 08/05/24 Unknown History tablet ranolazine 500 mg tablet,extended 500 mg PO BID 08/05/24 08/05/24 Unknown History release,12 hr Allergies Allergy/AdvReac Type Severity Reaction Status Date / Time Penicillins Allergy Unknown Unknown Verified 11/19/24 11:45 morphine AdvReac Unknown Unknown Verified 11/19/24 11:45 Review of Systems Review of Systems: All systems reviewed & are unremarkable except as noted in HPI and below Constitutional: Constitutional: Reports no additional constitutional complaints Eyes: Eyes: Reports no additional eye complaints ENT: Reports system reviewed and no additional complaints, except as documented Cardiovascular: Cardiovascular: Reports no additional cardiovascular complaints Respiratory: Respiratory: Reports no additional respiratory complaints Gastrointestinal: Gastrointestinal: Reports no additional gastrointestinal complaints Genitourinary: Genitourinary: Reports no additional male genitourinary complaints Musculoskeletal: Musculoskeletal: Reports no additional musculoskeletal complaints Integumentary/Breasts: Skin/Breast: Reports system reviewed and no additional complaints, except as docu Neurologic: Reports system reviewed and no additional complaints, except as documented Psychiatric: Psychiatric: Reports no additional psychiatric complaints Endocrine: Endocrine: Reports no additional endocrine complaints Hematologic/Lymphatic: Hematologic/Lymphatic: Reports no additional hematologic/lymphatic complaints Allergic/Immunologic: Allergic/Immunologic: Reports no additional allergic/immunologic complaints PMFSH Past Medical History Medical History History of diverticulitis GERD (gastroesophageal reflux disease) Abdominal distension Abdominal bloating Abdominal wall bulge Upper abdominal pain Marijuana smoker Anxiety Impingement syndrome, shoulder, left History of cardiac disorder COPD (chronic obstructive pulmonary disease) Hypertension Surgical History Surgical History History of colon resection History of hernia surgery Hx of heart artery stent History of cholecystectomy History of hand surgery History of arthroscopic surgery of shoulder History of lumbar fusion L5-S1 Family History Family History Father , Father committed suicide at age 53. Suicide Mother , Mother of stroke at age 74 Cerebrovascular accident Other Family history of arthritis Social History Social History Smoking packs per day: 1 Smoking cigarettes per day: 20.0 Years smoked: 34 Smoking pack-years: 34.00 Smoking status: Current every day smoker Tobacco type: cigarettes Smokeless tobacco user: chewing tobacco Second hand tobacco smoke exposure: Yes Additional smoking assessment comments: Has smoked part of one cigarette in the past 4 months. Alcohol intake: former Drinks per week: 0 Substance use: unknown Substance use type: marijuana Other substance usage details: Marijuana every 2-3 months. Quit drinking 22 years ago. Do You Feel Safe in your Home?: Yes Lack of Transportation: No Lack of Food: Sometimes True Current Housing: I Have Housing Concerned About Future Housing: No Difficulty Paying Gas/Electric Bills: No Difficulty Paying for Meds: No Currently Unemployed: No Education: High School Diploma/GED Difficulty w/ Childcare or Family Care: No Gender identity (if verbalized by the patient): Male Spiritual care concerns: No Exam Const: General: healthy appearing Nutritional Appearance: well nourished Orientation/consciousness: patient oriented x3 HENMT: Head: normal to inspection Ears: external ears normal Face/Nose/Sinus: Normal external nose present Other: Generalized poor dentition throughout the entire mouth cavity with fractures and dental decay without abscess Eyes: Conjunctivae: conjunctivae normal Pupils: Equal, round and reactive pupils present EOM: EOMs intact bilaterally Neck: Neck: normal visual inspection Chest: Chest palpation & inspection: normal inspection of the chest Resp: Effort & Inspection: normal respiratory effort and not labored Auscultation: clear to auscultation bilaterally and no crackles Cardio: Rate: regular rate Rhythm: regular rhythm Heart sounds: no murmurs GI: Inspection: non-distended GI Palp: Yes Soft to palpation and No Tenderness to palpation present (GI) Auscultation: normal bowel sounds : General: Yes bladder normal to palpation Back/Spine/Pelvis: Back: no CVA tenderness Skin: General skin exam: normal color Rashes: no rashes Wounds: no wounds Neuro: General: patient oriented x3, moves all extremities and no meningeal signs Extrem: General: normal to inspection Psych: Mental Status: mental status grossly normal Affect: normal affect Attitude: cooperative Course Vital Signs Vital signs: Vital Signs Temperature 36.4 C L 11/19/24 11:39 Pulse Rate 76 11/19/24 11:39 Respiratory Rate 16 11/19/24 11:39 Blood Pressure 134/85 11/19/24 11:39 Pulse Oximetry 97 11/19/24 11:39 Oxygen Delivery Room Air 11/19/24 11:39 Temperature 36.4 C L 11/19/24 12:21 Pulse Rate 76 11/19/24 12:21 Respiratory Rate 16 11/19/24 12:21 Blood Pressure 134/85 11/19/24 12:21 Pulse Oximetry 97 11/19/24 12:21 Oxygen Delivery Room Air 11/19/24 12:21 MDM - Dental/Oral MDM Narrative Medical decision making narrative: Patient is a 64-year-old male with dental decay and pain. He has upcoming surgery for implants. Refill Orient with 10 tablets only at this time. Patient understands that this cannot be recurrent and cannot be done again. This was a courtesy refill due to his severe pain. No drug-seeking behaviors appreciated. Discharge Plan Discharge Clinical Impression: Maxilla pain Patient Disposition: Home Condition: Stable Instructions: Toothache (ED) Patient Language: Congolese Prescriptions: New hydrocodone-acetaminophen 5-325 mg tablet 1 tablet PO Q8H PRN (Reason: pain) Qty: 10 0RF No Action clopidogrel [Plavix] 75 mg tablet 75 mg PO DAILY amlodipine [Norvasc] 2.5 mg tablet 5 mg PO DAILY pantoprazole [Protonix] 40 mg tablet,delayed release (DR/EC) 40 mg PO DAILY ezetimibe 10 mg tablet 10 mg PO DAILY hydrocodone-acetaminophen 5-325 mg tablet 1 tablet PO Q8H PRN (Reason: pain) Qty: 10 0RF aspirin 81 mg tablet,delayed release (DR/EC) 81 mg PO DAILY nitroglycerin 0.4 mg tablet, sublingual 0.4 mg sublingual Q5M PRN Rx Instructions: do not exceed 3 doses per episode ranolazine 500 mg tablet extended release 12 hr 500 mg PO BID buspirone 15 mg tablet 1 tablet PO BID alprazolam 0.5 mg tablet 1 tablet PO TID PRN (Reason: Anxiety) metoprolol succinate 100 mg tablet extended release 24 hr 1 tablet PO DAILY Follow-up/Referrals: Shady,TARAH Medrano [Primary Care Provider] Time of Disposition: 11:51
--- OUTSIDE RECORDS SUMMARY | 2024-11-19 12:06 | XMS_ITS | Encounter Summary ---
Author Organization [facility] Address [address] [place] [address] Phone Care Team Providers Care Hog Counter Name Role Phone Zack Caruso Primary Care Provider Encounter Details Date Type Department Care Team (Late st Contact Info) Description 03/29/2021 [facility] [address] [place] [address] Bean Cooper MD [address] [place] [address] Pre-op testing (Primary Dx) Social History Tobacco [...] on file Legal Sex Male 2:23 PM LOAF COUNTER Gender Identity Not on file Sexual Orientation Not on file COVID-19 Exposure Response Date Recorded In the last month, have you been in contact with someone who was confirmed or suspected to have Coronavirus / COVID-19? No / Unsure 03/30/2021 12:19 PM LOAF COUNTER documented as of this encounter Plan of Treatment Scheduled Orders Name Type Priority Associated Diagnoses Orde r Schedule SARS-COV-2 BY MOLECULAR Microbiology Routine Pre-op testing Expected: 04/02/2021, Expires: 06/27/2021 documented as of this encounter Visit Diagnoses Diagnosis Pre-op testing- Primary Preoperative examination, unspecified documented in this encounter Care Teams Hog Counter Relationship Specialty Start Date End Date Zack Caruso, PAC [address] [place] [address] PCP - General Physician Bricklayer Apprentice 12/05/20 documented as of this encounter
--- OUTSIDE RECORDS SUMMARY | 2024-11-19 12:06 | XMS_ITS | Clinical Summary ---
Author Organization [facility] Address [facility] [place] [address] Care Team Providers Care Golf Cart Repairer Name Role Phone Jarrod Castro MD Unavailable [phone] Che Ramirez APRN, NP-C Unavailable Zack Caruso Primary Care Provider [phone] Allergies Active Allergy Reactions Criticality Noted Date [...] Sex Assigned at Male 04/06/2024 9:17 AM WELLNESS CONSULTANT Legal Sex Male 9:13 AM CDT Gender Identity Not on file Sexual Orientation Not on file Occupation Industry Job Start Date Job End Date Disabled Not on file Not on file Not on file Last Filed Vital Signs Vital Sign Reading Time Taken Comments Blood Pressure 123/79 04/27/2018 1:45 PM WELLNESS CONSULTANT Pulse 70 04/27/2018 1:45 PM WELLNESS CONSULTANT Temperature 36.5 C (97.7 F) 04/27/2018 1:45 PM WELLNESS CONSULTANT Respiratory Rate 20 04/27/2018 1:45 PM WELLNESS CONSULTANT Oxygen Saturation 100% 04/27/2018 1:45 PM WELLNESS CONSULTANT Inhaled Oxygen Concentration - - Weight 78 kg (171 lb 15.3 oz) 04/27/2018 11:02 A M WELLNESS CONSULTANT Height 175.3 cm (5' 9) 04/27/2018 11:02 AM WELLNESS CONSULTANT Body Mass Index 25.39 04/27/2018 11:02 AM WELLNESS CONSULTANT Plan of Treatment Health Maintenance Due Date [...] - 200 MG/DL 09/15/2017 5:18 AM CDT [facility] Comment:DESIRABLE: <200 TRIGLYCERIDES 130 0 - 149 MG/DL 09/15/2017 5:18 AM CDT [facility] Comment:<150 NORMAL HDL 31(L) >39 MG/DL 09/15/2017 5:18 AM CDT [facility] Comment:LOW: <40 DIRECT LDL 105 0 - 129 MG/DL 09/15/2017 5:18 AM CDT [facility] Comment:100-129 NEAR OR ABOV E OPTIMAL 09/15/2017 4:38 AM CDT us Kenn Vargas MD LABORATORY Final Result [facility] [address] [id number], [id number] from Last 3 Months or Most Recently [...] 11:05 PM 09/16/2017 6:42 PM Care Teams Golf Cart Repairer Relationship Specialty Start Date End Date Zack Caruso PA [address] [facility] [address] [place] [phone] PCP - General PHYSICIAN COSMETIC DENTIST 04/06/24 Jarrod Castro MD [address] [place] [address] [place] Remote Operations Producer CARDIOVASCULAR DISEASE 08/07/16 Che Ramirez, UNITIZER, LAYOUT FORMER-C [address] [facility] [address] [place] [address] NURSE PRACTITIONER 01/24/20
--- OUTSIDE RECORDS SUMMARY | 2024-11-19 12:06 | XMS_ITS | Encounter Summary ---
Author Organization [facility] Address [facility] [place] [address] Care Team Providers Care Voice Data Communications Engineer Name Role Phone Jarrod Castro MD Unavailable [phone] Che Ramirez APRN, NP-C Unavailable Zack Caruso Primary Care Provider [phone] Encounter Details Date Type Department Care Team (Late st Contact Info) Description 05/17/2017 Abstract [facility] [address] [place] [address] , Generic ConversionMD Social History Tobacco Use Types Packs/Day Years Used Date Smoking Tobacco: Smoker, Current Status Unknown Cigarettes Alcohol Use Standard Drinks/Week Comments No 0 (1 standard drink = 0.6 oz pur e alcohol) Former ETOH abuse Sex and Gender Information Value Date Recorded Sex Assigned at Male 04/06/2024 9:17 AM GERENTOLOGICAL PHYSIOTHERAPIST Legal Sex Male 9:13 AM CDT Gender Identity Not on file Sexual Orientation Not on file Occupation Industry Job Start Date Job End Date Disabled Not on file Not on file Not on file documented as of this encounter Plan of Treatment Not on file documented as of this encounter Visit Diagnoses Not on filedocumented in this encounter Care Teams Voice Data Communications Engineer Relationship Specialty Start Date End Date Zack Caruso PA [address] [facility] [address] [place] [address] PCP - General PHYSICIAN COLLECTION CORRESPONDENT 04/06/24 Jarrod Castro MD [address] [place] [phone] [place] Propeller Driven Airplane Mechanic CARDIOVASCULAR DISEASE 08/07/16 Che Ramirez, NERI, MATCHBOOK MAKER-C [address] [facility] [address] [place] [address] NURSE PRACTITIONER 01/24/20 documented as of this encounter
--- OUTSIDE RECORDS SUMMARY | 2024-11-19 12:06 | XMS_ITS | Encounter Summary ---
Author Organization [facility] Address [address] [place] [address] Phone Care Team Providers Care Program Host Name Role Phone Rodrigue Zhao MD Primary Care Provider [phone] Zack Caruso Primary Care Provider [phone] Reason for Referral * Radiology Services (Routine) - Closed Specialty Diagnoses / Procedures Referred By Selene hyatt Referred To Contact Radiology Diagnoses Pain in right hip Other intervertebral disc displacement, lumbar region Procedures XR LUMBAR MYELO 1 PHY PC PAIN CONSULT Dusty Contreras MD Phone: tel: fax: Referral ID Status Reason Start Date Expiration Date Visits Re quested Visits Authorized [id number] Closed 11/28/2020 1 1 Encounter Details Date Type Department Care Team (Latest Contact Info) Description 11/28/2020 Transcribe Orders [facility] [address] [place] [address] Dusty Contreras MD [address] [place], [place] [id number] Pain in right hip (Primary Dx); Other [...] on file Legal Sex Male 2:23 PM SUPERVISOR GROUNDS Gender Identity Not on file Sexual Orientation [...] None available. FINDINGS: SEGMENTATION: There are 5 rxh-tqq-wlstape lumbar type vertebral bodies. ALIGNMENT: Approximately 2 [...] of the thecal sac contrast. There is pmwk-fb-lyjkoafe bilateral neural foraminal narrowing. L5-S1: Surgical level. [...] Jaquan Hernandez D.O. AP: AP Report ID: [id number] Reading Location: [id number] Procedure Note Jaquan Hernandez DO - 12/28/2020 [...] None available. FINDINGS: SEGMENTATION: There are 5 wea-czn-sjmrxaf lumbar type vertebral bodies. ALIGNMENT: Approximately 2 [...] of the thecal sac contrast. There is yxvr-rr-ycczsrhz bilateral neural foraminal narrowing. L5-S1: Surgical level. [...] Jaquan Hernandez D.O. AP: AP Report ID: [id number] Reading Location: [id number] IMPRESSION: 1. Please note previous imaging studies [...] David Arechiga M.D. NC: NC Report ID: [id number] Reading Location: [id number] Procedure Note David Arechiga MD - 12/27/2020 [...] David Arechiga M.D. NC: SHAUNA Report ID: [id number] Reading Location: [id number] IMPRESSION: Lumbar myelogram performed for CT Myelography. [...] 19 Confirmed 02/26/2021 02/26/2021 022 12:16 AM SUPERVISOR GROUNDS documented as of this encounter Care Teams Program Host Relationship Specialty Start Date End Date Rodrigue Zhao MD [address] [place] [address] PCP - General Internal Medicine 09/18/16 12/04/20 Zakc Caruso PAC [address] [place] [address] PCP - General Physician Automotive Quality Manager 12/05/20 documented as of this encounter
--- OUTSIDE RECORDS SUMMARY | 2024-11-19 12:06 | XMS_ITS | Encounter Summary ---
Author Organization [facility] Address [facility] [place] [address] Care Team Providers Care Principal Bioinformatics Specialist Name Role Phone Jarrod Castro MD Unavailable Che Ramirez APRN, NP-C Unavailable Zack Caruso Primary Care Provider [phone] Encounter Details Date Type Department Care Team ([facility] st Contact Info) Description 10/14/2017 Abstract [facility] [address] [place] [address] Jarrod Castro MD [address] [place] [address] Social History Tobacco Use Types Packs/Day Years Used Date Smoking Tobacco: Smoker, Current Status Unknown Cigarettes Smokeless Tobacco: Never Alcohol Use Standard Drinks/Week Comments No 0 (1 standard drink = 0.6 oz pur e alcohol) Former ETOH abuse Sex and Gender Information Value Date Recorded Sex Assigned at Male 04/06/2024 9:17 AM ELECTRICAL INSTALLATION INSPECTOR Legal Sex Male 9:13 AM CDT Gender Identity Not on file Sexual Orientation Not on file Occupation Industry Job Start Date Job End Date Disabled Not on file Not on file Not on file documented as of this encounter Plan of Treatment Not on file documented as of this encounter Visit Diagnoses Not on filedocumented in this encounter Care Teams Principal Bioinformatics Specialist Relationship Specialty Start Date End Date Zack Caruso PA [address] [facility] [address] [place] [address] PCP - General PHYSICIAN FNPS 04/06/24 Jarrod Castro MD [address] [place] [address] [place] Commercial Accountant CARDIOVASCULAR DISEASE 08/07/16 Che Ramirez APRN, AVID EDITOR-C [address] [facility] [address] [place] [address] NURSE PRACTITIONER 01/24/20 documented as of this encounter
--- OUTSIDE RECORDS SUMMARY | 2024-11-19 12:06 | XMS_ITS | Encounter Summary ---
Author Organization [facility] Address [facility] [place] [address] Care Team Providers Care Logistics Supervisor Name Role Phone Jarrod Castro MD Unavailable [phone] Che Ramirez APRN, NP-C Unavailable Zack Caruso Primary Care Provider [phone] Encounter Details Date Type Department Care Team (Late st Contact Info) Description 07/25/2016 Abstract [facility] [address] [place] [address] Abstract, Doc [facility] Social History Tobacco Use Types Packs/Day Years Used Date Smoking Tobacco: Smoker, Current Status Unknown Cigarettes Alcohol Use Standard Drinks/Week Comments No 0 (1 standard drink = 0.6 oz pur e alcohol) Former ETOH abuse Sex and Gender Information Value Date Recorded Sex Assigned at Male 04/06/2024 9:17 AM LAND EXAMINER Legal Sex Male 9:13 AM CDT Gender [...] on filedocumented in this encounter Care Teams Logistics Supervisor Relationship Specialty Start Date End Date Zack Caruso PA [address] [address] PCP - General PHYSICIAN QUALITY AUDITOR 04/06/24 Jarrod aCstro MD [address] [place] [address] [place] Director Of Radiology CARDIOVASCULAR DISEASE 08/07/16 Che Ramirez, CASE AIDE, SENIOR DIRECTOR INSIGHT-C [address] [address] NURSE PRACTITIONER 01/24/20 documented as of this encounter
--- OUTSIDE RECORDS SUMMARY | 2024-11-19 12:06 | XMS_ITS | Encounter Summary ---
Author Organization [facility] Address [address] [place] [address] Phone Care Team Providers Care Behavioral Health Case Manager Name Role Phone Zack Caruso Primary Care Provider [phone] Encounter Details Date Type Department Care Team (Latest Contact Info) Description 03/29/2021 [facility] [address] [place] [address] Dusty Contreras MD [address] [place] [address] Pre-op testing (Primary Dx) Social History Tobacco [...] on file Legal Sex Male 2:23 PM FACETOR Gender Identity Not on file Sexual Orientation Not on file COVID-19 Exposure Response Date Recorded In the last month, have you been in contact with someone who was confirmed or suspected to have Coronavirus / COVID-19? No / Unsure 03/30/2021 12:19 PM FACETOR documented as of this encounter Plan of Treatment Scheduled Orders Name Type Priority Associated Diagnoses Orde r Schedule TYPE & SCREEN (CROSSMATCH CONVERTIBLE) Blood Bank Routine Pre-op testing Expected: 04/02/2021, Expires: 06/27/2021 documented as of this encounter Visit Diagnoses Diagnosis Pre-op testing- Primary Preoperative examination, unspecified documented in this encounter Care Teams Behavioral Health Case Manager Relationship Specialty Start Date End Date Zack Caruso, PAC [address] [place] [address] PCP - General Physician Algorithm Design Engineer 12/05/20 documented as of this encounter
--- OUTSIDE RECORDS SUMMARY | 2024-11-19 12:06 | XMS_ITS | Clinical Summary ---
Author Organization [facility] Address [address] [place] [address] Phone Care Team Providers Care Well Surveying Engineer Name Role Phone Zack Caruso Primary Care Provider [phone] Allergies Active Allergy Reactions Criticality Noted Date [...] disease) Overview (03/30/2021): [facility] Stroke Overview (03/30/2021): states [...] on file Legal Sex Male 2:23 PM CHEMICAL ETCHING PROCESSOR Gender Identity Not on file Sexual Orientation Not on file Last Filed Vital Signs Vital Sign Reading Time Taken Comments Blood Pressure 142/87 03/31/2021 7:46 AM CHEMICAL ETCHING PROCESSOR Pulse 67 03/30/2021 10:00 PM CHEMICAL ETCHING PROCESSOR Temperature 36.5 C (97.7 F) 03/31/2021 7:46 AM CHEMICAL ETCHING PROCESSOR Respiratory Rate 20 03/31/2021 7:46 AM CHEMICAL ETCHING PROCESSOR Oxygen Saturation 100% 03/31/2021 7:46 AM CHEMICAL ETCHING PROCESSOR Inhaled Oxygen Concentration - - Weight 79.4 kg (175 lb) 03/30/2021 12:20 PM CHEMICAL ETCHING PROCESSOR Height 182.9 cm (6') 03/30/2021 12:20 PM CHEMICAL ETCHING PROCESSOR Body Mass Index 23.73 03/30/2021 12:20 PM CHEMICAL ETCHING PROCESSOR Plan of Treatment Health Maintenance Due Date [...] measures to stabilize the patient. Care Teams Well Surveying Engineer Relationship Specialty Start Date End Date Nanney, Zack E, PAC [address] [place] [address] PCP - General Physician Pulverizer Operator 12/05/20
--- OUTSIDE RECORDS SUMMARY | 2024-11-19 12:06 | XMS_ITS | Clinical Summary ---
Author Organization [facility] Address [address] [place] [address] Care Team Providers Care It Applications Developer Name Role Phone Unavailable Primary Care Provider Unavailabl e Source Comments [facility]non-owned Affiliates and Associated Physician Practices is amultiple site organization consisting of ambulatory clinics and hospital sitesin [place], [place], [place] and [place]. This disclosure is being madepursuant to the Care Everywhere program and may not contain all information available regarding this patient. Last updated 17.[facility] Active Problems Problem Noted Date Diagnosed Date Cerebrovascular accident (CVA), [facility]21 Social History Tobacco Use Types Packs/Day Years Used Date Smoking Tobacco: Never Assessed Sex and Gender Information Value Date Recorded Sex Assigned at Not on file Legal Sex Male 10:03 AM DENTAL COORDINATOR Gender Identity Not on file Sexual [...]
--- OUTSIDE RECORDS SUMMARY | 2024-11-19 12:06 | XMS_ITS | Clinical Summary ---
Author Organization [facility] Address [address] [place] [address] Care Team Providers Care Concrete Floor Installer Name Role Phone Zack Caruso Primary Care Provider [phone] Juliann Comer NP Unavailable [phone] Evens Russo MD Unavailable [phone] Allergies Active Allergy Reactions Criticality Noted Date [...] acute EKG changes so less likely active [place]. BNP negative. TTE on 05/22/24 showed impaired [...] KEITH/ARB Assessment & Plan (05/06/2023 9:33 AM GM VIDEO): This is a chronic condition which is at goal of less than 7%. Personally reviewed most recent A1c - Lab Results Component Value Date HGBA1C 6.2 05/06/2023 Personally reviewed POC blood sugar- at goal 80-180 Lab Results Component Value Date POCGLU 114 05/06/2023 Medication- none Monitor blood sugar daily Encouraged annual eye exam. He would like to go to [facility] Monofilament foot exam completed. protective senses intact Personally reviewed CMP eGFR- 95 Kidney function- normal Urine microalbumin/creatinine ratio - at goal <30 treated with amlodipine, metoprolol. B/P today- not at goal of <140/90. continue amlodipine, metoprolol. Home monitors blood pressure Personally reviewed lipid panel. at Goal of less than 70. Continue zetia. Assessment & Plan (01/28/2023 4:13 PM GM VIDEO): This is a chronic condition which is [...] (05/29/2022): Added automatically from request for surgery [id number] Fall 02/09/2022 Confusion 02/08/2022 Assessment & Plan (02/09/2022 1:15 PM GM VIDEO): 61M with history of previous stroke and [...] vitals. Assessment & Plan (05/06/2023 9:34 AM GM VIDEO): This is a chronic condition which is [...] B/P Assessment & Plan (01/28/2023 4:13 PM GM VIDEO): This is a chronic condition which is at goal of less than 140/90 Personally reviewed labs. Continue amlodipine, metoprolol Encouraged to monitor weight and B/P at home Encouraged to take medications as prescribed. Assessment & Plan (02/09/2022 1:15 PM GM VIDEO): Pt taking metoprolol XL 100mg daily prior [...] pain. Assessment & Plan (02/09/2022 1:16 PM GM VIDEO): Stable on: - plavix 75mg daily - [...] week. Assessment & Plan (05/06/2023 9:34 AM GM VIDEO): This is a chronic condition which is at goal of LDL less than 70 Continue zetia Encouraged to eat healthy, include fresh fruits and vegetables daily and avoid eating fried foods more than once per week. Encouraged to take medications as prescribed. Assessment & Plan (01/28/2023 4:14 PM GM VIDEO): This is a chronic condition which is [...] Description 10/29/2024 2:30 PM CDT Office Visit Truchas Clerk Operator at [address] [place] [id number] Evens Russo MD Stable angina pectoris [...] History Date Comments Hypertension Coronary artery disease [place] (myocardial infarction) (HCC) Stroke (HCC) Headache, tension-type [...] oz pur e alcohol) 22 yrs recovered [facility] Utilities Answer Date Recorded In the [...] often do you attend chur ch or zoroastrian services? Patient declined 05/24/2024 Do you belong to any clubs o r organizations such as jewish groups, unions, fraternal or athletic groups, or [...] staff should administer the PHQ-9) 4 05/29/2023 [facility] - Occupational Stress [...] place to sleep or slept in a custodial (including now)? No 05/27/2023 PHQ-9 Answer Date [...] any time in the past 12 m [facility], were you homeless or living in a custodial (including now)? No 05/24/2024 Personal Safety Answer [...] on file Legal Sex Male 6:45 PM GM VIDEO Gender Identity Not on file Sexual Orientation [...] history exists Medical Devices Implanted Type Area Slab Tripper Device Identifier Shelf Expiration Date Model / Serial / Lot [employer] Mike Synergy 3mm 8mm 144cm Radiopaque 1 Access Port Inflation Lumen [id number] - [id number] Implanted:Qty: 1 on 07/23/2021 by Evens Russo MD at [facility] [employer] Mike 01/11/2022 [id number] / / [id number] [employer] Mike Synergy 3mm 24mm 144cm Radiopaque 1 Access Port Inflation Lumen [id number] - [id number] Implanted:Qty: 1 on 08/07/2021 by Evens Russo MD at [facility] [employer] Mike 06/08/2022 [id number] / / [id number] [employer] Mike Synergy 2.25mm 24mm 144cm Radiopaque 1 Access Port Inflation [id number] - [id number] Implanted:Qty: 1 on 08/07/2021 by Evens Russo MD at [facility] [employer] Mike 01/25/2022 [id number] / / [id number] [employer] Progrip 15x9cm Self Switch Coupler Rectangle Mesh Surgical Polyester Hernia [id number] - [id number] Implanted:Qty: 1 on 06/04/2022 by Jona Sarmiento MD at [facility] Left: Abdomen [employer] 09/30/2026 [id number] / / [id number] Procedures Procedure Name Priority Date/Time Associated Diagnosis Comments EGFR Routine 05/24/2024 2:12 AM CDT POCT HEMOGLOBIN A1C Routine 11/11/2023 8 :56 AM CDT Type 2 diabetes mellitus without complication, without long-term current use of insulin (HCC) CT ABDOMEN PELVIS W CONTRAST ED 09/20/2023 5:26 PM CDT COLONOSCOPY 08/26/2023 12:38 PM CDT LIPID PANEL Routine 01/28/2023 10:53 AM GM VIDEO Type 2 diabetes mellitus without complication, unspecified whether predatory animal exterminator insulin use (HCC) ALBUMIN CREATININE RATIO, URINE Routine 01/28/2023 10:53 AM GM VIDEO Type 2 diabetes mellitus without complication, unspecified whether alf insulin use (HCC) from Last 3 Months [...] LAB BLOOD ORDERABLES Bozena l Result [facility] [place]) 1 [facility] [place] [address] * POCT hemoglobin A1c (11/11/2023 8:56 AM [...] Torsten Manzano M.D. AT: AT Report ID: [id number] Reading Location: [id number] Procedure Note Torsten Manzano MD - 09/20/2023 [...] Torsten Manzano M.D. AT: AT Report ID: [id number] Reading Location: [place] [address] Gavino Sousa NP [facility] CT PROCEDURES Final Res ult * Colonoscopy (08/26/2023 12:38 PM CDT) Anatomical Region Laterality Modality Other Narrative Procedure Note Paul Tabor MD - 08/26/2023 12:38 PM CDT [facility] Patient Name: Omar Mayer Procedure Date: 08/26/2023 12:38 PM Date of : 1960 Admit Type: Outpatient Age: 63 Gender: Male Attending MD: Paul Tabor M.D. Room: [facility] ENDOSCOPY ROOM 2 Note Status: [...] was passed under direct vision.The Endoscope [id number] was introduced through the colostomy and advanced [...] 12:38 PM Procedure Code(s): --- Professional --- 68362, Colonoscopy, flexible; diagnostic, including collection of specimen(s) by brushing or washing, when performed (separateprocedure) --- Technical --- 95488, Colonoscopy, flexible; diagnostic, including collection of specimen(s) by brushing or washing, when performed (separateprocedure) Diagnosis Code(s): --- Professional --- Z12.11, Encounter for screening for malignant neoplasm of colon K57.30, Diverticulosis of large intestine without perforation orabscess without bleeding --- Technical --- Z12.11, Encounter for screening for malignant neoplasm of colon K57.30, Diverticulosis of large intestine without perforation orabscess without bleeding CPT copyright 2020 [employer]. All rights reserved. The codes documented in this report are preliminary and upon digital computer operator reviewmay be revised to meet current compliance requirements. Recognized by the [employer] for promoting quality in endoscopy us Paul Tabor MD ENDOSCOPY PROCED URES Final Result * Albumin Creatinine Ratio, Urine (01/28/2023 10:53 AM GM VIDEO) Albumin Ur <12.0 mg/L [facility] ([facility]) Comment: Interpretive Data No reference range established. Current interpretive data was last revised 2018. Testing performed by: [facility], [address] [place] [address]., [id number] Creatinine Ur 33.6 mg/dL [facility] ([place]AN) Comment: Interpretive Data No reference range established. Current interpretive data was last revised 2018. Testing performed by: [facility], [address] [place] [address]., [address] Albumin Creatinine Ratio, Ur See Comment 1 - 29 [facility] ([place]) Comment: Unable to calculate Testing performed by: [facility], [address] [place] [address]., [address] Urine 01/28/2023 10:5 3 AM GM VIDEO 01/28/2023 5:59 PM GM VIDEO us Juliann Dixon NP LAB URINE ORDERABLES Final Resu lt [facility] 1 [facility] [place] [address] * (ABNORMAL) Lipid panel (01/28/2023 10:53 AM GM VIDEO) Cholesterol 137 30 - 199 mg/dL PEPE [...] ALEXANDER ([place]) Blood 01/28/2023 10:5 3 AM GM VIDEO 01/28/2023 1:44 PM GM VIDEO Narrative [facility] ([place]) - 01/28/2023 2:05 PM GM VIDEO These lab test should be done fasting. This means do not eat or drink for at least 12 hours prior to getting your blood drawn. us Juliann Dixon NP LAB BLOOD ORDERABLES Final Resu lt [facility] ([place]) 1 [facility] Department of Laboratories [place], [place] [id number] from Last 3 Months or Most Recently Relevant to Health Maintenance Insurance [facility] MEDICARE ADVANTAGE [facility] MEDICARE ADVANTAGE [facility] MEDICARE ADVANTAGE Advance Directives For more information, please contact: [phone] * Full Code (Latest Code Status on [...] 11:51 AM 08/26/2023 11:51 AM Care Teams Concrete Floor Installer Relationship Specialty Start Date End Date Zack Caruso PA [address] [place] [address] PCP - General 07/24/21 Juliann Comer NP [address] [facility], [place] [address] Nurse Practitioner Medical Oncology 05/30/22 Evens Russo MD 2 [facility] [address] [address] Consulting Physician Cardiology 05/24/24
[2024-11-19 12:21] VITALS: BP 134/85; PULSE 76; RESP 16; TEMP 36.4; O2SAT 97
== END 2024-11-19 12:21 | disposition home or self-care (01) ==
PROVIDERS: Emergency Provider Emergency Medicine; PCP Physician Assistant
DX: K02.9 Dental caries, unspecified (principal); J44.9 Chronic obstructive pulmonary disease, unspecified; I10 Essential (primary) hypertension; F17.210 Nicotine dependence, cigarettes, uncomplicated
CPT/HCPCS: 99283

== ENCOUNTER 2024-12-04 07:25 | Emergency (ER) | payer MEDICARE, SELFPAY ==
--- OUTSIDE RECORDS SUMMARY | 2024-12-04 07:27 | XMS_ITS | Encounter Summary ---
Author Organization [facility] Address [facility] [place] [address] Care Team Providers Care Carbon Furnace Operator Helper Name Role Phone Jarrod Castro MD Unavailable [phone] Che Ramirez APRN, NP-C Unavailable Zack Caruso Primary Care Provider [phone] Encounter Details Date Type Department Care Team (Late st Contact Info) Description 05/17/2017 Abstract [facility] CONVERSION [address] [place] [address] , Generic ConversionMD Social History Tobacco Use Types Packs/Day Years Used Date Smoking Tobacco: Smoker, Current Status Unknown Cigarettes Alcohol Use Standard Drinks/Week Comments No 0 (1 standard drink = 0.6 oz pur e alcohol) Former ETOH abuse Sex and Gender Information Value Date Recorded Sex Assigned at Male 04/06/2024 9:17 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 Legal Sex Male 9:13 AM CDT Gender Identity Not on file Sexual Orientation Not on file Occupation Industry Job Start Date Job End Date Disabled Not on file Not on file Not on file documented as of this encounter Plan of Treatment Not on file documented as of this encounter Visit Diagnoses Not on filedocumented in this encounter Care Teams Carbon Furnace Operator Helper Relationship Specialty Start Date End Date Zack Caruso PA [address] [facility] [address] [place] [address] PCP - General PHYSICIAN ROLL SHOP SUPERVISOR 04/06/24 Jarrod Castro MD [address] [place] [phone] Duncan Automatic Buffer CARDIOVASCULAR DISEASE 08/07/16 Che Ramirez, NERI, PUBLIC HEALTH INFORMATICIAN-C [address] [facility] [address] [place] [address] NURSE PRACTITIONER 01/24/20 documented as of this encounter
--- OUTSIDE RECORDS SUMMARY | 2024-12-04 07:28 | XMS_ITS | Encounter Summary ---
Author Organization [facility] Address [address] [place] [address] Phone Care Team Providers Care Nurse Technician Name Role Phone Rodrigue Zhao MD Primary Care Provider [phone] Zack Caruso Primary Care Provider [phone] Reason for Referral * Radiology Services (Routine) - Closed Specialty Diagnoses / Procedures Referred By Selene hyatt Referred To Contact Radiology Diagnoses Pain in right hip Other intervertebral disc displacement, lumbar region Procedures XR LUMBAR MYELO 1 PHY PC PAIN CONSULT Dusty Contreras MD Phone: tel: fax: Referral ID Status Reason Start Date Expiration Date Visits Re quested Visits Authorized [id number] Closed 11/28/2020 1 1 Encounter Details Date Type Department Care Team (Latest Contact Info) Description 11/28/2020 Transcribe Orders [facility] [address] [place] [address] Dusty Contreras MD [address] [place], [place] [id number] Pain in right hip (Primary Dx); Other [...] on file 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 FINDINGS: SEGMENTATION: There are 5 xye-qhk-lfqpome lumbar type vertebral bodies. ALIGNMENT: Approximately 2 [...] of the thecal sac contrast. There is muqv-sb-glejrsqv bilateral neural foraminal narrowing. L5-S1: Surgical level. [...] Jaquan Hernandez D.O. AP: AP Report ID: [id number] Reading Location: [id number] Procedure Note Jaquan Hernandez DO - 12/28/2020 [...] None available. FINDINGS: SEGMENTATION: There are 5 hxs-tqu-aigtzbl lumbar type vertebral bodies. ALIGNMENT: Approximately 2 [...] of the thecal sac contrast. There is tnbk-ic-buoujanr bilateral neural foraminal narrowing. L5-S1: Surgical level. [...] Jaquan Hernandez D.O. AP: AP Report ID: [id number] Reading Location: [id number] IMPRESSION: 1. Please note previous imaging studies [...] David Arechiga M.D. NC: NC Report ID: [id number] Reading Location: [id number] Procedure Note David Arechiga MD - 12/27/2020 [...] David Arechiga M.D. NC: SHAUNA Report ID: [id number] Reading Location: [id number] IMPRESSION: Lumbar myelogram performed for CT Myelography. [...] 19 Confirmed 02/26/2021 02/26/2021 022 12:16 AM FARM FIELD MANAGER documented as of this encounter Care Teams Nurse Technician Relationship Specialty Start Date End Date Rodrigue Zhao MD [address] [place] [address] PCP - General Internal Medicine 09/18/16 12/04/20 Zack Caruso PAC [address] [place] [address] PCP - General Physician Trash Hauler 12/05/20 documented as of this encounter
--- OUTSIDE RECORDS SUMMARY | 2024-12-04 07:28 | XMS_ITS | Data Portability ---
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 Plan of Treatment Reminders Order Date Submit Date Provider Last Modified By Organization Details Last Modified Time Details Appointments ANY 15 2024 10:30A M Raj Mccoy MD Not available Not available Not available Lab TSH, serum or plasma 2024 025 [facility], [address] [place] [address], [id number], 09/07/2024 12:17:50 CBC 2024 025 [email or web address] [facility], [address] [place] [address], [id number], 09/07/2024 12:17:50 lipid panel, serum 2024 025 [email or web address] [facility], [address] [place] [address], [id number], 09/07/2024 12:17:50 CMP, serum or plasma 2024 025 [email or web address] [facility], [address] [place] [address], [id number], 09/07/2024 12:17:50 HbA1c (hemoglob in A1c), blood 2024 025 [facility], [address] [place] [address], [id number], 09/07/2024 12:17:50 Referral gastroent erologist referral 2024 maura Simons MD, [address] [place] [address], [place], [address], 09/06/2024 14:38:15 Procedures None recorded. Surgeries None recorded. Imaging US, abdomen - Soft Tissue 2024 [facility], [address] [place], [address], 07/15/2024 08:27:22 Medication Orders nitroglyc ary 0.4 mg sublingua l tablet 2024 025 [id number], [address] [place], [address], 10/12/2024 10:18:38 amlodipin e 10 mg tablet 2024 025 [id number], [address] [place], [address], 09/07/2024 12:17:54 lisinopri l 20 mg tablet 2024 025 [id number], [address] [place], [address], 08/23/2024 10:21:20 Medrol (Ayad) 4 mg tablets in a dose pack 2024 025 [id number], [address] [place], [address], 07/12/2024 10:10:04 sulfameth oxazole 800 mg-trimet hoprim 160 mg tablet 2024 025 [id number], [address] [place], [address], 07/12/2024 10:10:09 mupirocin 2 % topical ointment 2024 025 [facility] #[id number], [address] [place], [address], 06/21/2024 16:34:23 Patient TargetsNo targets recorded. Patient Instructions Encounter Date Encounter Id Patient Instructions Last Modified By Organization Details Last Modified Time 06/21/2024 [id number] learning about high blood pressure jnanney Not available 06/21/2024 16:34:10 08/23/2024 [id number] learning about high blood pressure jnanney Not available 08/23/2024 10:21:15 09/07/2024 [id number] Quitting Tobacco : Care Instructions [email or web address] Not available 09/07/2024 12:17:50 10/12/2024 [id number] learning about type 2 diabetes jnanney Not available 10/12/2024 10:18:20 type 2 diabetes: care instructions jnanney Not available 10/12/2024 10:18:20 learning about high blood pressure jnanney Not available 10/12/2024 10:18:20 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 [facility] [address] [place], [address], 07/15/2024 10:57:46 08/11/19 25 08/10/2024 CT, abdom en + pelvi s, w/o contr ast No observ ation record ed. [facility] [address] [place], [address], 08/10/2024 12:29:09 Result Notes None recorded. Problems Name Problem SNOMED Code Status Onset Date Resolution Date Notes Provider Name and Address Organization Details Recorded Time Coronary arteriosc lerosis 56984766 Active Yanet Louise [place] null, [place] - [facility] 1 10:31:27 Dyslipide tyson 172652552 Active Yanet Louise [place] [facility] 1 10:31:27 Low back strain 015969872 Active Yanet Louise [place] [facility] 1 10:31:27 Low back pain 784804718 Active Yanet Louise [place] [facility] 1 10:31:27 Lumbar radiculop athy 310411312 Active Yanet Louise [place] [facility] 1 10:31:27 Muscle strain 81443399 Active Yanet Louise [place] [facility] 10:31:27 Impingeme nt syndrome of shoulder region 289731544 Active Yanet Louise [place] [facility] 1 10:31:28 Sacroilia c disorder 869513895 Active Yanet Louise [place] [facility] 1 10:31:28 Low blood pressure 98682851 Active Yanet Louise [place] [facility] 1 10:31:28 Pain in left lower limb 619423912 Active Yanet [place] [facility] 1 10:31:28 Acute exacerbat ion of chronic obstructi ve pulmonary disease 336182787 Active Yanet [place] [facility] 1 10:31:28 Atypical chest pain 935249618 Active Yanet Louise [place] [facility] 3 17:34:01 Syncope 410947353 Active Yanet [place] [facility] 1 10:31:28 Sciatica 57533108 Active Yanet Louise [place] [facility] 3 17:34:01 Leukocyto sis 800465385 Active Lauren Castorena LPN [place] [facility] 4 10:17:24 Generaliz ed anxiety disorder 51588312 Active Lauren Castore[place] LPN [place] [facility] 4 10:17:24 Mixed hyperlipi demia 476998443 Active Lauren TESSIE CastorenaN [place] [facility] 4 10:17:24 Preinfarc tion syndrome 3975528 Active Lauren KellTESSIE quintanillaN [place] [facility] 4 10:17:24 Mixed hyperlipi demia due to type 2 diabetes mellitus 647264996775 Active Lauren Castore[place] LPN [place] [facility] 4 10:18:32 Depressiv e disorder 37292551 Active 2008 Lauren Castorena LPN [place] [facility] 4 10:17:24 Mixed anxiety and depressiv e disorder 136917182 Active 2008 Lauren Castorena LPN [place] [facility] 4 10:18:32 Insomnia 545379054 Active 2010 Lauren Castorena LPN [place] [facility] 4 10:17:24 Benign paroxysma l positiona l vertigo 375997279 Active 2012 Lauren Castore[place] LPN [place] [facility] 4 10:17:24 Gastroeso phageal reflux disease 987583126 Active 2013 Lauren Castore[place] LPN [place] [facility] 4 10:17:24 Syncope and collapse 386818715 Active 2013 Lauren Castore[place] LPN [place] [facility] 4 10:17:24 Chronic obstructi ve pulmonary disease 84517477 Active 2013 Lauren Castore[place] LPN [place] [facility] 4 10:17:24 History of placement of stent for coronary artery disease 769545617 Active 2016 Lauren Castore[place] LPN [place] [facility] 4 10:17:24 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 318106817 Active 2016 Lauren Castore[place] LPN [place] [facility] 4 10:17:24 Chronic anxiety 690797003 Active 2020 ROBYN Calder[place], [place] - [facility] 3 17:34:01 Chest pain 58026453 Active 2021 Lauren Castorena [employer] [place] [facility] 4 10:17:24 Hypertens noah disorder 75834845 Active 2021 Lauren Castorena [employer] [place] [facility] 4 10:17:24 Cerebrova scular accident 186248239 Active 2021 Lauren Castorena [employer] [place] [facility] 4 10:19:06 Confusion al state 396891703 Active 2021 Lauren Castorena [employer] [place] [facility] 4 10:17:24 Fall Active 2021 Lauren Castorena [employer] [place] [facility] 4 10:17:24 Inguinal hernia 359520497 Active 2022 Lauren Catsorena [employer] [place] [facility] 4 10:17:24 Acute coronary syndrome 862049092 Active 2022 Lauren Castorena [employer] [place] [facility] 4 10:18:32 Type 2 diabetes mellitus without complicat ion 897846900 Active 2022 Lauren Castorena [employer] [place] [facility] 4 10:18:32 Diabetes mellitus 33065855 Active 2022 Yanet Louise [place] [facility] 3 12:38:39 Perforati on of sigmoid colon due to diverticu litis 576912445266 9102 Active 2023 Lauren Castorena [employer] [place] [facility] 4 10:18:32 Epidermal burn of left wrist 424099857577 61629 Active 2023 Lauren Castorena [employer] [place] [facility] 4 10:18:32 Diverticu litis of large intestine 8163060 Active 2023 Lauren Castorena [employer] [place] [facility] 4 10:18:32 Gastroint estinal perforati on 21685580 Active 2023 Lauren Castore[place] LPN [place] [facility] 4 10:18:32 Nutrition al amyus 64558484 Active 2023 Lauren Castore[place] LPN [place] [facility] 4 10:18:32 Tobacco user [id number] Completed 202312/21/2023 Lauren Castore[place] LPN [place] [facility] 4 10:18:32 History of cerebrova scular accident 545935173 Active 2023 Lauren Castore[place] LPN [place] [facility] 4 10:18:32 Marijuana user [id number] Completed 202312/21/2023 Lauren ROHINI Castorena [place] - [facility] 4 10:18:32 Notes:Some problems listed i n Document: #[id number] could not be added to this patient's chart. Please review this document and add these problems to the patient's chart manually as needed. Problem Notes None recorded. Procedures Surgical History Date Name Laterality Status Provider Name and Address Organization Details Recorded Time repair of colon completed Nichelle Buck MA [place] [facility] 08/08/2023 10:58:31 Imaging Results None recorded. Procedure Notes None recorded. Medical Equipment None Reported. Allergies Allergen ID Allergen Name Allergen Category Reaction Reaction Severity Criticality Documentation Date Start Date Code Code System Note Provider Name and Address Organization Details Recorded Time 730308 Product containin g penicilli n (product) medicatio n Not available Not available Not available 05/19/2020 37356 8001 SNOMED ROBYN Tran, [place] - [facility] 1 11:01:30 843486 morphine medicatio n hives Not available Not available 12/31/20232023 7052 RxNorm Lauren Castorena LPN null, [place] - [facility] 4 10:17:57 Medications Name Sig Start Date Stop Date Status Note LastModified by Organization Details LastModified Time cyclobenzap rine 10 mg tablet Take 1 tablet every 8 hours by oral route as needed for 30 days. 04/12 /2022 completed Not Available Not Available Not Available atorvastati n 40 mg tablet Take 1 tablet every day by oral route in the evening for 90 days. 09/20 completed Not Available Not Available Not Available silver sulfadiazin e 1 % topical cream APPLY A 1/16 INCH (1.5 MM) THICK LAYER TO ENTIRE BURN AREA BY TOPICALRO [place] 2 TIMES PER DAY 01/07 completed Not Available Not Available Not Available metformin 500 mg tablet TAKE 1 TABLET TWICE A DAY BY ORAL ROUTE FOR 90 DAYS. 05/25 completed Not Available Not Available Not Available atorvastati n 80 mg tablet TAKE 1 TABLET BY MOUTH EVERY DAY active Not Available Not Available No t Available clonidine HCl 0.1 mg tablet Take 1 tablet twice a day by oral route for 90 days. 09/17 completed Not Available Not Available Not Available prednisone 10 mg tablet 01/16 completed Not Available Not Available Not Available cefuroxime axetil 250 mg tablet 05/19 completed Not Available Not Available Not Available atorvastati n 20 mg tablet Take 1 tablet every day by oral route. 10/12 completed Not Available Not Available Not Available clindamycin HCl 300 mg capsule Take 1 capsule every 6 hours by oral route for 10 days. 11/12 completed Not Available Not Available Not Available polyethylen e glycol 3350 17 gram oral powder packet Take 17 g by oral route. 01/07 completed Not Available Not Available Not Available triamcinolo ne acetonide 0.5 % topical cream APPLY A THIN LAYER TO THE AFFECTED AREA(S) BY TOPICAL ROUTE 2 TIMES PER DAY 08/06 completed Not Available Not Available Not Available atorvastati n 10 mg tablet Take 1 tablet every day by oral route. 06/21 completed Not Available Not Available Not Available azithromyci n 250 mg tablet TAKE 2 TABLETS BY MOUTH TODAY, THEN TAKE 1 TABLET DAILY FOR 4 DAYS DIRECTED active Not Available Not Available No t Available alprazolam 1 mg tablet TAKE 1 TABLET BY MOUTH 3 TIMES DAILY FOR 1 DAY. 07/09 completed Not Available Not Available Not Available metoprolol tartrate 100 mg tablet Take 1 tablet every day by oral route. 09/04 completed Not Available Not Available Not Available hydrocodone 5 mg-acetamin ophen 325 mg tablet TAKE 1 TABLET BY MOUTH EVERY 8 HOURS NEEDED FOR PAIN active Not Available Not Available No t Available lisinopril 20 mg tablet TAKE 1 TABLET BY MOUTH EVERY DAY 2024 active Not Available Not Available Not Avai lable Medrol (Ayad) 4 mg tablets in a dose pack Take 1 dose pk by oral route as directed. 07/12 completed Not Available Not Available Not Available prednisone 20 mg tablet 05/19 completed Not Available Not Available Not Available isosorbide mononitrate ER 30 mg tablet,exte nded release 24 hr TAKE 1 TABLET BY MOUTH EVERY DAY active Not Available Not Available No t Available metoprolol succinate ER 100 mg tablet,exte nded release 24 hr TAKE 1 TABLET BY MOUTH EVERY DAY active Not Available Not Available No t Available metronidazo le 250 mg tablet 05/11 completed Not Available Not Available Not Available amlodipine 2.5 mg tablet 09/19 completed Not Available Not Available Not Available metronidazo le 500 mg tablet PLEASE SEE ATTACHED FOR DETAILED DIRECTION S 12/10 completed Not Available Not Available Not Available clopidogrel 75 mg tablet TAKE 1 TABLET BY MOUTH EVERY DAY active Not Available Not Available No t Available amlodipine 5 mg tablet TAKE 1 TABLET BY MOUTH EVERY DAY 05/28 completed Not Available Not Available Not Available ciprofloxac in 500 mg tablet TAKE 1 TABLET BY MOUTH EVERY 12 HOURS 05/25 completed Not Available Not Available Not Available sulfamethox azole 800 mg-trimetho prim 160 mg tablet Take 1 tablet every 12 hours by oral route for 10 days. 07/12 completed Not Available Not Available Not Available hydrocodone 10 mg-acetamin ophen 325 mg tablet 03/14 completed Not Available Not Available Not Available tramadol 50 mg tablet TAKE 1 TABLET BY MOUTH EVERY 6 HOURS NEEDED FOR PAIN 08/07 completed Not Available Not Available Not Available amoxicillin 500 mg tablet TAKE 1 TABLET BY MOUTH 3 TIMES A DAY FOR 10 DAYS 08/07 completed Not Available Not Available Not Available acyclovir 800 mg tablet Take 1 tablet 5 times a day by oral route for 5 days. 06/12 completed Not Available Not Available Not Available oxycodone-a cetaminophe n 5 mg-325 mg tablet TAKE 1 TABLET BY MOUTH EVERY 6 HOURS NEEDED FOR PAIN 05/25 completed Not Available Not Available Not Available isosorbide mononitrate ER 60 mg tablet,exte nded release 24 hr TAKE 1 TABLET BY MOUTH EVERY DAY 09/06 completed Not Available Not Available Not Available alprazolam 0.5 mg tablet TAKE 1 TABLET BY MOUTH THREE TIMES A DAY NEEDED active Not Available Not Available No t Available alprazolam 0.25 mg tablet TAKE 1 TABLET BY MOUTH DAILY. 08/21 completed Not Available Not Available Not Available citalopram 20 mg tablet Take 1 tablet every day by oral route. 08/06 completed Not Available Not Available Not Available EdaixiToLinea Ultra Test strips USE TO TEST TWICE A DAY active Not Available Not Available No t Available amlodipine 10 mg tablet TAKE 1 TABLET BY MOUTH EVERY DAY active Not Available Not Available No t Available hydrocodone 7.5 mg-acetamin ophen 325 mg tablet TAKE 1 TABLET BY MOUTH EVERY 6 HOURS NEEDED FOR PAIN 05/11 completed Not Available Not Available Not Available bisacodyl 10 mg rectal suppository 10 mg by rectal route. 12/19 completed Not Available Not Available Not Available pantoprazol e 40 mg tablet,jesus yed release TAKE 1 TABLET BY MOUTH TWICE A DAY active Not Available Not Available No t Available telmisartan 40 mg tablet 05/19 completed Not Available Not Available Not Available buspirone 10 mg tablet Take 1 tablet twice a day by oral route for 90 days. 08/06 completed Not Available Not Available Not Available lidocaine 5 % topical patch APPLY 1 PATCH BY TOPICAL ROUTE ONCE DAILY (MAY WEAR UP TO 12HOURS.) 06/12 completed Not Available Not Available Not Available clotrimazol e 1 % topical solution THREE DROPS IN INFECTED EAR THREE TIMES PER DAY 03/14 completed Not Available Not Available Not Available nicotine 21 mg/24 hr daily transdermal patch Apply 1 patch every day by transderm al route. 08/06 completed Not Available Not Available Not Available nitroglycer in 0.[address] 1 TABLET UNDER TONGUE EVERY 5 MINS, UP TO 3 DOSES NEEDED FOR CHEST PAIN active Not Available Not Available No t Available docusate sodium 100 mg capsule Take 100 mg twice a day by oral route. 01/07 completed Not Available Not Available Not Available gabapentin 300 mg capsule Take 1 capsule 3 times a day by oral route for 30 days. 03/14 completed has it but doesn 't take it Not Available Not Available Not Available Senna Laxative 8.6 mg tablet TAKE 1 TABLET BY MOUTH EVERY DAY 03/14 completed Not Available Not Available Not Available aspirin 81 mg chewable tablet 81 mg by oral route. active Not Available Not Available No t Available hydroxyzine HCl 25 mg tablet Take 1 tablet 3 times a day by oral route as needed for 30 days. 08/06 completed Not Available Not Available Not Available mupirocin 2 % topical ointment APPLY A SMALL AMOUNT TO THE AFFECTED AREA BY TOPICAL ROUTE 3 TIMES PER DAY 2024 active Not Available Not Available Not Avai lable levofloxaci n 750 mg tablet 06/08 completed Not Available Not Available Not Available neomycin 500 mg tablet PLEASE SEE ATTACHED FOR DETAILED DIRECTION S 08/07 completed Not Available Not Available Not Available cefdinir 300 mg capsule 05/19 completed Not Available Not Available Not Available atenolol 50 mg tablet active Not Available Not Available No t Available amoxicillin 875 mg-potassiu m clavulanate 125 mg tablet TAKE 1 TABLET BY MOUTH EVERY 12 HOURS 08/07 completed Not Available Not Available Not Available nicotine 7 mg/24 hr daily transdermal patch Apply 1 patch every day by transderm al route. 08/06 completed Not Available Not Available Not Available Ventolin HFA 90 mcg/actuati on aerosol inhaler INHALE 2 PUFFS BY MOUTH EVERY 4 HOURS NEEDED FOR SHORTNESS OF BREATH/WH EEZING 08/07 completed Not Available Not Available Not Available buspirone 15 mg tablet TAKE 1 TABLET TWICE A DAY BY ORAL ROUTE FOR 90 DAYS. active Not Available Not Available No t Available oxycodone 5 mg tablet TAKE 1 TABLET BY MOUTH EVERY 8 HOURS NEEDED FOR PAIN 06/08 completed Not Available Not Available Not Available neomycin-po lymyxin-hyd rocort 3.5 mg-10,000 unit/mL-1 % ear drops,susp INSTILL 4 DROPS INTO AFFECTED EAR(S) 3 TIMES A DAY 05/25 completed Not Available Not Available Not Available azithromyci n 500 mg tablet Take 1 tablet every [...] completed Not Available Not Available Not Available ranolazine ER 500 mg tablet,exte nded release,12 hr TAKE 1 TABLET BY MOUTH TWICE A DAY active Not Available Not Available No t Available oxycodone 10 mg tablet TAKE 1 TABLET (10 MG TOTAL) BY MOUTH EVERY 6 (SIX) HOURS NEEDED FOR PAIN FOR UP TO 7 DAYS 12/10 completed Not Available Not Available Not Available Purelax 17 gram/dose oral powder PLEASE SEE ATTACHED FOR DETAILED DIRECTION S 01/07 completed Not Available Not Available Not Available Repatha SureClick 140 mg/mL subcutaneou s pen injector INJECT 1 ML SUBCUTANE OUSLY EVERY 2 WEEKS active Not Available Not Available No t Available Accu-Chek Guide Glucose Meter Use as directed, Strips and Lancets also Testing BID #100 2024 active Not Available Not Available Not Avai lable OneTouch Delica Plus Lancet 33 gauge USE TO TEST TWICE A DAY active Not Available Not Available No t Available OneTouch Delica Plus Lancing Device kit USE TO TEST 2-3 TIMES A DAY 10/12 completed Not Available Not Available Not Available OneTouch Delica Plus Lancet 30 gauge USE TO TEST TWICE A DAY 10/12 completed Not Available Not Available Not Available Paxlovid 300 mg (150 mg x 2)-100 mg tablets in a dose pack TAKE 1 DOSE PACK BY MOUTH DIRECTED 03/14 completed Not Available Not Available Not Available Vitals Date Recorded Body height Body mass index (BMI) Body weight Oxygen saturation Oxygen saturation in Arterial blood by Pulse oximetry Heart rate Systolic And Diastolic Provider Name and Address Organization Details Last Updated DateTime 5 182.88 cm 23.7 kg/m2 83272.6 6 g 95 % 95 % 83 /min 112/72 mm[Hg] Yanet Louise MA [facility] 5 16:02:12 Date Recorded Body height Body mass index (BMI) Body weight Oxygen saturation Oxygen saturation in Arterial blood by Pulse oximetry Heart rate Respiratory rate Systolic And Diastolic Provider Name and Address Organization Details Last Updated DateTime 5 182.88 cm 24 kg/m2 23825.8 5 g 96 % 96 % 78 /min 18 /min 130/78 mm[Hg] Krystal Black MA [facility] 5 10:12:27 Date Recorded Body height Oxygen saturation Oxygen saturation in Arterial blood by Pulse oximetry Heart rate Respiratory rate Body mass index (BMI) Body weight Systolic And Diastolic Provider Name and Address Organization Details Last Updated DateTime 5 182.88 cm 96 % 96 % 72 /min 18 /min 24.1 kg/m2 40504.4 4 g 162/92 mm[Hg] Krystal Black MA [facility] 5 09:48:24 Date Recorded Body height Body mass index (BMI) Body weight Respiratory rate Heart rate Oxygen saturation Oxygen saturation in Arterial blood by Pulse oximetry Systolic And Diastolic Provider Name and Address Organization Details Last Updated DateTime 5 182.88 cm 23.9 kg/m2 63170.2 6 g 18 /min 67 /min 99 % 99 % 134/68 mm[Hg] Lauren Castorena LPN [facility] 5 11:37:44 Date Recorded Body height Body mass index (BMI) Body weight Oxygen saturation Oxygen saturation in Arterial blood by Pulse oximetry Heart rate Systolic And Diastolic Provider Name and Address Organization Details Last Updated DateTime 5 182.88 cm 23.6 kg/m2 34521.0 7 g 98 % 98 % 68 /min 128/85 mm[Hg] Yanet Louise MA [facility] 5 09:53:59 Social History Question Answer Notes LastModified by Organizat ion Details LastModified Time Tobacco Smoking Status Current Some Day Smoker Just quit 05/2021, finishing up michaela patches now Esperanza Aragon MA [facility], [place] - [facility] 04/25/2022 10:31:35 What Is Your Level Of [...] Date Of Your Most Recent Tobacco Screening? 10/12/2024 Information not available 10/12/2024 What Is Your Relationship Status? Information not [...] What Date Was Tobacco Cessation Counseling Provided? 10/12/2024 Information not available 10/12/2024 Sex: Male Functional Status Question Answer Note [...] 05/19/2020 Are you able to care for yourself independently? Yes Information not available 05/19/2020 Do you or have you ever used e-cigarettes or vape? Never used electronic cigarettes Information not available 05/19/2020 Mental Status Question Answer Note LastModified by Organization D etails LastModified Time Do you feel stressed (tense, restless, nervous, or anxious, or unable to sleep at night)? [id number] [email or web address] Information not available 05/15/2022 Family History Relationship Description Onset Age of this Age Resolved Age Notes LastModified by Organization Details LastModified Time Mother Heart disease [email or web address] Not available 05/01 11:04:40 Medical History Condition Response Coronary Artery Disease N Other N Atrial Fibrillation N High Blood Pressure Y Thyroid Problems N Kidney or Bladder Problems N GI Problems N Depression N COPD N Blood Clots N Eating Disorder N Skin Problems N Anemia N Heart Attack ([place]) Y Anxiety Disorder N Diabetes N Muscle, [...] split virus, quadrivalent, preservative 6 completed Lauren Castorena [employer] [place], [place] [facility] 12/31/2023 10:17:43 Influenza, split virus, quadrivalent, PF 8 completed Not Available [facility]23 13:17:12 Tdap 8 completed Lauren Castorena [employer] [place] [facility] 12/31/2023 10:17:43 Influenza, split virus, trivalent, preservative 7 completed Lauren Castorena [employer] [place] [facility] 12/31/2023 10:17:43 influenza, unspecified formulation 2 completed Lauren Castorena [employer] [place] [facility] 12/31/2023 10:17:35 Influenza, split virus, quadrivalent, PF 6 completed Lauren Castorena LPN [place] [facility] 12/31/2023 10:17:35 zoster recombinant 2 completed Lauren Castorena LPN [place] [facility] 12/31/2023 10:17:43 COVID-19, mRNA, LNP-S, PF, 100 mcg/0.5mL dose or 50 mcg/0.25mL dose 1 completed Lauren Castore[place] LPN [place] [facility] 12/31/2023 10:17:43 COVID-19, mRNA, LNP-S, PF, 100 mcg/0.5mL dose or 50 mcg/0.25mL dose 1 completed Lauren Castore[place] LPN [place] [facility] 12/31/2023 10:17:43 COVID-19, mRNA, LNP-S, PF, 100 mcg/0.5mL dose or 50 mcg/0.25mL dose 1 completed Lauren Castore[place] LPN [place] [facility] 12/31/2023 10:17:43 COVID-19, mRNA, LNP-S, bivalent, PF, 30 mcg/0.3 mL dose 2 completed ROBYN Calderon[place] [facility] 01/01/2022 12:51:58 Influenza, split virus, quadrivalent, preservative 2 completed Yanet Louise MA null, [place] [facility] 01/01/2022 12:51:58 Influenza, split virus, quadrivalent, preservative 3 completed ROBYN [place], [place] [facility] 12/10/2022 13:43:30 Pneumococcal conjugate PCV20, polysaccharide OIP622 conjugate, adjuvant, PF 4 completed ROB[place] [facility] 03/14/2023 12:23:46 Influenza, high-dose, trivalent, PF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
--- OUTSIDE RECORDS SUMMARY | 2024-12-04 07:28 | XMS_ITS | Clinical Summary ---
Author Organization [facility] Address [address] [address] Care Team Providers Care Dog Trainer Name Role Phone Unavailable Primary Care Provider Unavailabl e Source Comments [facility],non-owned Affiliates and Associated Physician Practices is amultiple site organization consisting of ambulatory clinics and hospital sitesin [place], [place], [place] and [place]. This disclosure is being madepursuant to the Care Everywhere program and may not contain all information available regarding this patient. 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
--- OUTSIDE RECORDS SUMMARY | 2024-12-04 07:28 | XMS_ITS | Encounter Summary ---
Author Organization [facility] Address [facility] [place] [address] Care Team Providers Care Back Maker Name Role Phone Jarrod Castro MD Unavailable [phone] Che Ramirez APRN, NP-C Unavailable Zack Caruso Primary Care Provider [phone] Encounter Details Date Type Department Care Team (Late st Contact Info) Description 07/25/2016 Abstract [facility] [address] [place] [id number] Abstract, Doc [facility] Social History Tobacco Use Types Packs/Day Years Used Date Smoking Tobacco: Smoker, Current Status Unknown Cigarettes Alcohol Use Standard Drinks/Week Comments No 0 (1 standard drink = 0.6 oz pur e alcohol) Former ETOH abuse Sex and Gender Information Value Date Recorded Sex Assigned at Male 04/06/2024 9: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
--- OUTSIDE RECORDS SUMMARY | 2024-12-04 07:28 | XMS_ITS | Clinical Summary ---
Author Organization [facility] Address Formerly [facility] [place] [address] Care Team Providers Care Employee Relation Manager Name Role Phone Jarrod Castro MD Unavailable [phone] Che Ramirez APRN, NP-C Unavailable [phone] Zack Caruso Primary Care Provider [phone] Allergies Active Allergy Reactions Criticality Noted Date [...] Sex Assigned at Male 04/06/2024 9:17 AM PERSONAL COMPUTER SPECIALIST Legal Sex Male 9:13 AM CDT Gender Identity Not on file Sexual Orientation Not on file Occupation Industry Job Start Date Job End Date Disabled Not on file Not on file Not on file Last Filed Vital Signs Vital Sign Reading Time Taken Comments Blood Pressure 123/79 04/27/2018 1:45 PM PERSONAL COMPUTER SPECIALIST Pulse 70 04/27/2018 1:45 PM PERSONAL COMPUTER SPECIALIST Temperature 36.5 C (97.7 F) 04/27/2018 1:45 PM PERSONAL COMPUTER SPECIALIST Respiratory Rate 20 04/27/2018 1:45 PM PERSONAL COMPUTER SPECIALIST Oxygen Saturation 100% 04/27/2018 1:45 PM PERSONAL COMPUTER SPECIALIST Inhaled Oxygen Concentration - - Weight 78 kg (171 lb 15.3 oz) 04/27/2018 11:02 A M PERSONAL COMPUTER SPECIALIST Height 175.3 cm (5' 9) 04/27/2018 11:02 AM PERSONAL COMPUTER SPECIALIST Body Mass Index 25.39 04/27/2018 11:02 AM PERSONAL COMPUTER SPECIALIST Plan of Treatment Health Maintenance Due Date [...] - 200 MG/DL 09/15/2017 5:18 AM CDT [facility] Comment:DESIRABLE: <200 TRIGLYCERIDES 130 0 - 149 MG/DL 09/15/2017 5:18 AM CDT [facility] Comment:<150 NORMAL HDL 31(L) >39 MG/DL 09/15/2017 5:18 AM CDT [facility] Comment:LOW: <40 DIRECT LDL 105 0 - 129 MG/DL 09/15/2017 5:18 AM CDT [facility] Comment:100-129 NEAR OR ABOV E OPTIMAL 09/15/2017 4:38 AM CDT us Kenn Vargas MD LABORATORY Final Result [facility] [address] [place] [id number], [id number] from Last 3 Months or Most Recently [...] 11:05 PM 09/16/2017 6:42 PM Care Teams Employee Relation Manager Relationship Specialty Start Date End Date Zack Caruso PA [address] [facility] [address] [place] [id number] PCP - General PHYSICIAN EMERGENCY MEDICAL DISPATCHER 04/06/24 Jarrod Castro MD [address] [place] [address] Lynwood Teller Coordinator CARDIOVASCULAR DISEASE 08/07/16 Che Ramirez, BAND SAWING MACHINE OPERATOR, LOCOMOTIVE SWITCH OPERATOR-C [address] [facility] [address] [place] [address] NURSE PRACTITIONER 01/24/20
--- OUTSIDE RECORDS SUMMARY | 2024-12-04 07:28 | XMS_ITS | Clinical Summary ---
Author Organization [facility] Address [address] [place] [address] Phone Care Team Providers Care Telex Operator Name Role Phone Zack Caruso Primary Care Provider [phone] Allergies Active Allergy Reactions Criticality Noted Date [...] disease) Overview (03/30/2021): SEES [facility] AT [facility] Stroke Overview (03/30/2021): states [...] on file Legal Sex Male 2:23 PM FIREARMS SALES ASSOCIATE Gender Identity Not on file Sexual Orientation Not on file Last Filed Vital Signs Vital Sign Reading Time Taken Comments Blood Pressure 142/87 03/31/2021 7:46 AM FIREARMS SALES ASSOCIATE Pulse 67 03/30/2021 10:00 PM FIREARMS SALES ASSOCIATE Temperature 36.5 C (97.7 F) 03/31/2021 7:46 AM FIREARMS SALES ASSOCIATE Respiratory Rate 20 03/31/2021 7:46 AM FIREARMS SALES ASSOCIATE Oxygen Saturation 100% 03/31/2021 7:46 AM FIREARMS SALES ASSOCIATE Inhaled Oxygen Concentration - - Weight 79.4 kg (175 lb) 03/30/2021 12:20 PM FIREARMS SALES ASSOCIATE Height 182.9 cm (6') 03/30/2021 12:20 PM FIREARMS SALES ASSOCIATE Body Mass Index 23.73 03/30/2021 12:20 PM FIREARMS SALES ASSOCIATE Plan of Treatment Health Maintenance Due Date Last Done Comments Hepatitis C Virus (HCV) Screening 1960 Pneumococcal Immunization (50+ years) (1 of 2 - PCV) 1977 10/30/2013, 08/12/2008 Cologuard 2003 Colonoscopy 2003 Colorectal Cancer Screening 2003 Immunochemical Fecal Occult Blood 2003 Medicare Initial AWV G0438 08/01/2004 Zoster Immunization (1 of 2) 2008 Respiratory [...] 03/30/2021 3:58 PM 03/31/2021 3:37 PM CPR-Full Tr eatment: FULL ARREST: Attempt Resuscitation/CPR wit intubation and mechanical ventilation. PRE-ARREST: Use entire range of life support measures to stabilize the patient. Care Teams Telex Operator Relationship Specialty Start Date End Date Zack Caruso, [facility] [address] [place] [address] PCP - General Physician Felt Cutter 12/05/20
--- OUTSIDE RECORDS SUMMARY | 2024-12-04 07:28 | XMS_ITS | Clinical Summary ---
Author Organization [facility] Address [address] [place] [address] Care Team Providers Care Licensed Massage Therapist Name Role Phone Zack Caruso Primary Care Provider [phone] Juliann Comer NP Unavailable Evens Russo MD Unavailable [phone] Allergies Active Allergy Reactions Criticality Noted Date [...] by mouth daily 30 tablet 5 Active isosorbide mononitrate ER (IMDUR) 30 mg 24 hr tablet Take 1 tablet (30 mg total) by mouth daily 30 tablet 10/30/19 26 Active nitroglycerin (NITROSTAT) 0.[address] 1 tablet (0.4 mg total) under the tongue every 5 (five) minutes as needed for chest pain May repeat dose q 5 min, up to 3 doses total 90 tablet 12/29/19 25 Active Active Problems Problem Noted Date Diagnosed [...] acute EKG changes so less likely active OK. BNP negative. TTE on 05/22/24 showed impaired [...] KEITH/ARB Assessment & Plan (05/06/2023 9:33 AM VENETIAN BLIND MECHANIC): This is a chronic condition which is at goal of less than 7%. Personally reviewed most recent A1c - Lab Results Component Value Date HGBA1C 6.2 05/06/2023 Personally reviewed POC blood sugar- at goal 80-180 Lab Results Component Value Date POCGLU 114 05/06/2023 Medication- none Monitor blood sugar daily Encouraged annual eye exam. He would like to go to [facility] Monofilament foot exam completed. protective senses intact Personally reviewed CMP eGFR- 95 Kidney function- normal Urine microalbumin/creatinine ratio - at goal <30 treated with amlodipine, metoprolol. B/P today- not at goal of <140/90. continue amlodipine, metoprolol. Home monitors blood pressure Personally reviewed lipid panel. at Goal of less than 70. Continue zetia. Assessment & Plan (01/28/2023 4:13 PM VENETIAN BLIND MECHANIC): This is a chronic condition which is [...] (05/29/2022): Added automatically from request for surgery [id number] Fall 02/09/2022 Confusion 02/08/2022 Assessment & Plan (02/09/2022 1:15 PM VENETIAN BLIND MECHANIC): 61M with history of previous stroke and [...] vitals. Assessment & Plan (05/06/2023 9:34 AM VENETIAN BLIND MECHANIC): This is a chronic condition which is [...] B/P Assessment & Plan (01/28/2023 4:13 PM VENETIAN BLIND MECHANIC): This is a chronic condition which is at goal of less than 140/90 Personally reviewed labs. Continue amlodipine, metoprolol Encouraged to monitor weight and B/P at home Encouraged to take medications as prescribed. Assessment & Plan (02/09/2022 1:15 PM VENETIAN BLIND MECHANIC): Pt taking metoprolol XL 100mg daily prior [...] pain. Assessment & Plan (02/09/2022 1:16 PM VENETIAN BLIND MECHANIC): Stable on: - plavix 75mg daily - [...] week. Assessment & Plan (05/06/2023 9:34 AM VENETIAN BLIND MECHANIC): This is a chronic condition which is at goal of LDL less than 70 Continue zetia Encouraged to eat healthy, include fresh fruits and vegetables daily and avoid eating fried foods more than once per week. Encouraged to take medications as prescribed. Assessment & Plan (01/28/2023 4:14 PM VENETIAN BLIND MECHANIC): This is a chronic condition which is [...] Encounters Date Type Department Care Team Description 11/22/2024 Telephone [place] Manager Technical Support at [address] [place] [address] Neida Rice MA 10/29/2024 2:30 PM CDT Office Visit [place] Manager Technical Support at [address] [place] [address] Evens Russo MD Stable angina pectoris [...] History Date Comments Hypertension Coronary artery disease OK (myocardial infarction) (HCC) Stroke (HCC) Headache, tension-type [...] oz pur e alcohol) 22 yrs recovered [facility] Utilities Answer Date Recorded In the past [...] How often do you attend chur or orthodoxy services? Patient declined 05/24/2024 Do you belong to any clubs o r organizations such as mormon groups, unions, fraternal or athletic groups, or [...] staff should administer the PHQ-9) 4 05/29/2023 [facility] [place] of Occupat ional Health - Occupational Stress [...] place to sleep or slept in a usp (including now)? No 05/27/2023 PHQ-9 Answer Date [...] any time in the past 12 m [facility], were you homeless or living in a usp (including now)? No 05/24/2024 Personal Safety Answer [...] on file Legal Sex Male 6:45 PM VENETIAN BLIND MECHANIC Gender Identity Not on file Sexual [...] 65+ 2023 Albumin Creatinine Ratio, Urine 01/29/2024 3 Lipid Panel 01/29/2024 01/28/2023, 0711/2022, 02/09/2022, Additional [...] history exists Medical Devices Implanted Type Area Heavy Rail Train Operator Device Identifier Shelf Expiration Date Model / Serial / Lot [place] [employer] Synergy 3mm 8mm 144cm Radiopaque 1 Access Port Inflation Lumen [id number] - [id number] Implanted:Qty: 1 on 07/23/2021 by Evens Russo MD at [facility] [employer] Mike 01/11/2022 [id number] / / [id number] [place] [employer] Synergy 3mm 24mm 144cm Radiopaque 1 Access Port Inflation Lumen [id number] - [id number] Implanted:Qty: 1 on 08/07/2021 by Evens Russo MD at [facility] [employer] [place] [employer] 06/08/2022 [id number] / / [id number] [place] [employer] Mike Synergy 2.25mm 24mm 144cm Radiopaque 1 Access Port Inflation [id number] - [id number] Implanted:Qty: 1 on 08/07/2021 by Evens Russo MD at [facility] [employer] 01/25/2022 [id number] / / [id number] [employer] Progrip 15x9cm Self Blunger Loader Rectangle Mesh Surgical Polyester Hernia [id number] - [id number] Implanted:Qty: 1 on 06/04/2022 by Jona Sarmiento MD at [facility] Left: Abdomen [employer] 09/30/2026 [id number] / / [id number] Procedures Procedure Name Priority Date/Time Associated Diagnosis Comments EGFR Routine 05/24/2024 2:12 AM CDT POCT HEMOGLOBIN A1C Routine 11/11/2023 8 :56 AM CDT Type 2 diabetes mellitus without complication, without long-term current use of insulin (HCC) CT ABDOMEN PELVIS W CONTRAST ED 09/20/2023 5:26 PM CDT COLONOSCOPY 08/26/2023 12:38 PM CDT LIPID PANEL Routine 01/28/2023 10:53 AM VENETIAN BLIND MECHANIC Type 2 diabetes mellitus without complication, unspecified whether intermediate manager insulin use (HCC) ALBUMIN CREATININE RATIO, URINE Routine 01/28/2023 10:53 AM VENETIAN BLIND MECHANIC Type 2 diabetes mellitus without complication, unspecified whether usp insulin use (HCC) from Last 3 Months [...] BLOOD ORDERABLES Bozena hernandez Result PEPE ALEXANDER ([place]) [address] [facility] Department [place] [address] * POCT hemoglobin A1c (11/11/2023 8:56 AM [...] Torsten Manzano M.D. AT: AT Report ID: [id number] Reading Location: [id number] Procedure Note Torsten Manzano MD - 09/20/2023 [...] Torsten Manzano M.D. AT: AT Report ID: [id number] Reading Location: [place] [address] Gavino Sousa NP IMG CT PROCEDURES Final Res ult * Colonoscopy (08/26/2023 12:38 PM CDT) Anatomical Region Laterality Modality Other Narrative Procedure Note Paul Tabor MD - 08/26/2023 12:38 PM CDT [facility] Patient Name: Omar Mayer Procedure Date: 08/26/2023 12:38 PM Date of : 1960 Admit Type: Outpatient Age: 63 Gender: Male Attending MD: Paul Tabor M.D. Room: [facility] ENDOSCOPY ROOM 2 Note Status: Finalized [...] was passed under direct vision.The Endoscope [id number] was introduced through the colostomy and advanced [...] 12:38 PM Procedure Code(s): --- Professional --- 72939, Colonoscopy, flexible; diagnostic, including collection of specimen(s) by brushing or washing, when performed (separateprocedure) --- Technical --- 60332, Colonoscopy, flexible; diagnostic, including collection of specimen(s) by brushing or washing, when performed (separateprocedure) Diagnosis Code(s): --- Professional --- Z12.11, Encounter for screening for malignant neoplasm of colon K57.30, Diverticulosis of large intestine without perforation orabscess without bleeding --- Technical --- Z12.11, Encounter for screening for malignant neoplasm of colon K57.30, Diverticulosis of large intestine without perforation orabscess without bleeding CPT copyright 2020 [employer]. All rights reserved. The codes documented in this report are preliminary and upon bank secrecy act officer reviewmay be revised to meet current compliance requirements. Recognized by the [employer] for promoting quality in endoscopy us Paul Tabor MD ENDOSCOPY PROCED URES Final Result * Albumin Creatinine Ratio, Urine (01/28/2023 10:53 AM VENETIAN BLIND MECHANIC) Albumin Ur <12.0 mg/L PEPE AM H (RYAN) Comment: Interpretive Data No reference range established. Current interpretive data was last revised 2018. Testing performed by: [address] [address] Creatinine Ur 33.6 mg/dL PEPE ALEXANDER (RYAN) Comment: Interpretive Data No reference range established. Current interpretive data was last revised 2018. Testing performed by: [address] [address] Albumin Creatinine Ratio, Ur See Comment 1 - 29 PEPE ALEXANDER (RYAN) Comment: Unable to calculate Testing performed by: [address], [address] Urine 01/28/2023 10:5 3 AM VENETIAN BLIND MECHANIC 01/28/2023 5:59 PM VENETIAN BLIND MECHANIC us Juliann Dixon [facility] LAB URINE ORDERABLES Final Resu lt PEPE ALEXANDER (RYAN) [address] [facility] Department [place] [address] * (ABNORMAL) Lipid panel (01/28/2023 10:53 AM VENETIAN BLIND MECHANIC) Cholesterol 137 30 - 199 mg/dL PEPE [...] ALEXANDER (RYAN) Blood 01/28/2023 10:5 3 AM VENETIAN BLIND MECHANIC 01/28/2023 1:44 PM VENETIAN BLIND MECHANIC Narrative PEPE ALEXANDER (RYAN) - 01/28/2023 2:05 PM VENETIAN BLIND MECHANIC These lab test should be done fasting. This means do not eat or drink for at least 12 hours prior to getting your blood drawn. us Juliann Dixon NP LAB BLOOD ORDERABLES Final Resu lt PEPE ALEXANDER (RYAN) [address] [facility] Department [place] [address] from Last 3 Months or Most Recently Relevant to Health Maintenance Insurance [facility] MEDICARE [facility] Address: [address] [address] [facility] MEDICARE AD[facility]ANTAGE [facility] Address: [address] [address] [place] [address] [facility] MEDICARE AD[facility]IC[facility] Address: [facility] [id number] [place] [id number] Advance Directives For more information, please contact: [phone] * Full Code (Latest Code Status on [...] 11:51 AM 08/26/2023 11:51 AM Care Teams Licensed Massage Therapist Relationship Specialty Start Date End Date Zack Caruso PA [address] [place] [address] PCP - General 07/24/21 Juliann Comer NP [address] [facility], [place] [address] Nurse Practitioner Medical Oncology 05/30/22 Evens Russo MD [address] [place] [address] [address] Consulting Physician Cardiology 05/24/24
--- OUTSIDE RECORDS SUMMARY | 2024-12-04 07:28 | XMS_ITS | Encounter Summary ---
Author Organization [facility] Address [address] 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 No / Unsure 03/30/2021 12:19 PM SATELLITE DISH INSTALLER documented as of this encounter Plan of Treatment Scheduled Orders Name Type Priority Associated Diagnoses Orde r Schedule SARS-COV-2 BY MOLECULAR Microbiology Routine Pre-op testing Expected: 04/02/2021, Expires: 06/27/2021 documented as of this encounter Visit Diagnoses Diagnosis Pre-op testing- Primary Preoperative examination, unspecified documented in this encounter Care Teams Exercise Physiologist Certified Relationship Specialty Start Date End Date Zack Caruso, PAC [address] [place] [address] PCP - General Physician Risk Control Field Representative 12/05/20 documented as of this encounter
--- OUTSIDE RECORDS SUMMARY | 2024-12-04 07:28 | XMS_ITS | Encounter Summary ---
Author Organization [facility] Address [address] [place] [address] Phone Care Team Providers Care Wireless Consultant Name Role Phone Zack Caruso Primary Care Provider [phone] Encounter Details Date Type Department Care Team (Latest Contact Info) Description 03/29/2021 [facility] [address] [place] [address] Dusty Contreras MD [address] [place] [address] Pre-op testing (Primary Dx) Social History Tobacco [...] on file Legal Sex Male 2:23 PM ADMINISTRATION SPECIALIST Gender Identity Not on file Sexual Orientation Not on file COVID-19 Exposure Response Date Recorded In the last month, have you been in contact with someone who was confirmed or suspected to have Coronavirus / COVID-19? No / Unsure 03/30/2021 12:19 PM ADMINISTRATION SPECIALIST documented as of this encounter Plan of Treatment Scheduled Orders Name Type Priority Associated Diagnoses Orde r Schedule TYPE & SCREEN (CROSSMATCH CONVERTIBLE) Blood Bank Routine Pre-op testing Expected: 04/02/2021, Expires: 06/27/2021 documented as of this encounter Visit Diagnoses Diagnosis Pre-op testing- Primary Preoperative examination, unspecified documented in this encounter Care Teams Wireless Consultant Relationship Specialty Start Date End Date Zack Caruso, PAC [address] [place] [address] PCP - General Physician Tools Programmer 12/05/20 documented as of this encounter
--- OUTSIDE RECORDS SUMMARY | 2024-12-04 07:29 | XMS_ITS | Encounter Summary ---
Author Organization [facility] Address [facility] [place] [address] Care Team Providers Care Billiard Table Repairer Name Role Phone Jarrod Castro MD Unavailable Che Ramirez APRN, NP-C Unavailable [phone] Zack Caruso Primary Care Provider [phone] Encounter Details Date Type Department Care Team ([facility] st Contact Info) Description 10/14/2017 Abstract [facility] [address] [place] [address] Jarrod Castro MD [address] [place] [address] Social History Tobacco Use Types Packs/Day Years Used Date Smoking Tobacco: Smoker, Current Status Unknown Cigarettes Smokeless Tobacco: Never Alcohol Use Standard Drinks/Week Comments No 0 (1 standard drink = 0.6 oz pur e alcohol) Former ETOH abuse Sex and Gender Information Value Date Recorded Sex Assigned at Male 04/06/2024 9:17 AM EXECUTIVE CHAIRMAN Legal Sex Male 9:13 AM CDT Gender Identity Not on file Sexual Orientation Not on file Occupation Industry Job Start Date Job End Date Disabled Not on file Not on file Not on file documented as of this encounter Plan of Treatment Not on file documented as of this encounter Visit Diagnoses Not on filedocumented in this encounter Care Teams Billiard Table Repairer Relationship Specialty Start Date End Date Zack Caruso PA [address] [facility] [address] [place] [address] PCP - General PHYSICIAN NEW [place] SALESPERSON 04/06/24 Jarrod Castro MD [address] [place] [address] [place] Yard Inspector CARDIOVASCULAR DISEASE 08/07/16 Che Ramirez APRN, WELL LOGGING CAPTAIN-C [address] [facility] [address] [place] [address] NURSE PRACTITIONER 01/24/20 documented as of this encounter
[2024-12-04 07:30] VITALS: BP 145/92; PULSE 89; RESP 20; TEMP 36.6; O2SAT 95
--- NOTE | 2024-12-04 07:38 | ED.DENTAL ---
HPI - Dental/Oral General Chief complaint: Dental/Oral Stated complaint: Tooth Pain Time Seen by Provider: 12/04/24 07:29 Source: patient Mode of arrival: ambulatory Limitations: no limitations History of Present Illness HPI Narrative: 64 year old male presents to the Emergency Department complaining of post dental extraction pain. Patient states he had his teeth pulled 5 days ago. He states his medication was stolen. He presents police report that states he reported to police that his medication (pain medication and diabetic medications) had been stolen. He states he called his dentist ([facility] in [place]) and was advised if he came there, they would refill his medication. Patient states they are closed today and he needs medication to hold him over until Friday. Onset (ago): day(s) (post extraction) Duration: constant Severity: moderate Relieving factors: nothing Exacerbating factors: nothing Context: other (recent dental extraction) Related Data Home Medications ?Medication ?Instructions ?Recorded ?Confirmed ?Last Taken ?Type amlodipine 2.5 mg tablet (Norvasc) 5 mg PO DAILY 01/09/19 12/04/24 08/25/21 09:00 History pantoprazole 40 mg tablet,delayed 40 mg PO DAILY 01/09/19 12/04/24 08/25/21 09:00 History release (Protonix) aspirin 81 mg tablet,delayed 81 mg PO DAILY 03/27/20 12/04/24 08/25/21 21:00 History release clopidogrel 75 mg tablet (Plavix) 75 mg PO DAILY 10/15/20 12/04/24 08/25/21 09:00 History alprazolam 0.5 mg tablet 1 tablet PO TID PRN Anxiety 08/26/21 12/04/24 08/25/21 21:00 History buspirone 15 mg tablet 1 tablet PO BID 08/26/21 12/04/24 08/25/21 21:00 History metoprolol succinate 100 mg 1 tablet PO DAILY 08/26/21 12/04/24 08/25/21 09:00 History tablet,extended release 24 hr ezetimibe 10 mg tablet 10 mg PO DAILY 12/22/22 12/04/24 Unknown History nitroglycerin 0.4 mg sublingual 0.4 mg sublingual Q5M 08/05/24 12/04/24 Unknown History tablet ranolazine 500 mg tablet,extended 500 mg PO BID 08/05/24 12/04/24 Unknown History release,12 hr Allergies Allergy/AdvReac Type Severity Reaction Status Date / Time Penicillins Allergy Unknown Unknown Verified 12/04/24 07:27 morphine AdvReac Unknown Unknown Verified 12/04/24 07:27 Review of Systems Review of Systems: All systems reviewed & are unremarkable except as noted in HPI and below Constitutional: Constitutional: Reports as per HPI, Denies chills and Denies fever(s) Eyes: Eyes: Reports as per HPI ENT: Reports system reviewed and no additional complaints, except as documented Comments: post dental extraction pain Cardiovascular: Cardiovascular: Reports as per HPI and Denies chest pain Respiratory: Respiratory: Reports as per HPI and Denies dyspnea Gastrointestinal: Gastrointestinal: Reports as per HPI, Denies diarrhea, Denies nausea and Denies vomiting Genitourinary: Genitourinary: Reports no additional male genitourinary complaints Musculoskeletal: Musculoskeletal: Reports no additional musculoskeletal complaints Neurologic: Reports system reviewed and no additional complaints, except as documented PMFSH Past Medical History Medical History History of diverticulitis GERD (gastroesophageal reflux disease) Abdominal distension Abdominal bloating Abdominal wall bulge Upper abdominal pain Marijuana smoker Anxiety Impingement syndrome, shoulder, left History of cardiac disorder COPD (chronic obstructive pulmonary disease) Hypertension Surgical History Surgical History History of colon resection History of hernia surgery Hx of heart artery stent History of cholecystectomy History of hand surgery History of arthroscopic surgery of shoulder History of lumbar fusion L5-S1 Family History Family History Father , Father committed suicide at age 53. Suicide Mother , Mother of stroke at age 74 Cerebrovascular accident Other Family history of arthritis Social History Social History Smoking packs per day: 1 Smoking cigarettes per day: 20.0 Years smoked: 34 Smoking pack-years: 34.00 Smoking status: Current every day smoker Tobacco type: cigarettes Smokeless tobacco user: chewing tobacco Second hand tobacco smoke exposure: Yes Additional smoking assessment comments: Has smoked part of one cigarette in the past 4 months. Alcohol intake: former Drinks per week: 0 Substance use: unknown Substance use type: marijuana Other substance usage details: Marijuana every 2-3 months. Quit drinking 22 years ago. Do You Feel Safe in your Home?: Yes Lack of Transportation: No Lack of Food: Sometimes True Current Housing: I Have Housing Concerned About Future Housing: No Difficulty Paying Gas/Electric Bills: No Difficulty Paying for Meds: No Currently Unemployed: No Education: High School Diploma/GED Difficulty w/ Childcare or Family Care: No Gender identity (if verbalized by the patient): Male Spiritual care concerns: No Exam Const: General: healthy appearing Nutritional Appearance: well nourished Orientation/consciousness: patient oriented x3 Limitations: no limitations HENMT: Head: normal to inspection Ears: external ears normal Face/Nose/Sinus: Normal external nose present Face and sinus: normal facial exam Mouth: Yes Normal oral and palatal mucosa present Throat: posterior oropharynx normal Other: post dental extraction Eyes: Pupils: Equal, round and reactive pupils present EOM: EOMs intact bilaterally Direct Ophthalmoscopy: no photophobia Neck: Neck: normal visual inspection, no lymphadenopathy and no meningeal signs Chest: Chest palpation & inspection: normal inspection of the chest Resp: Effort & Inspection: normal respiratory effort Cardio: Rate: regular rate GI: Inspection: non-distended GI Palp: No Tenderness to palpation present (GI) Skin: General skin exam: normal color Neuro: General: patient oriented x3 Other: grossly normal Extrem: General: normal to inspection Psych: Mental Status: mental status grossly normal Course Course Emergency Course: 64 y/o male presents to the ED c/o dental pain. Patient had dental extraction 5 days ago. Patient states his pain medications and diabetic medications were stolen. He has police report that was filed stating he reported to the police that his medications had been stolen. He states he called [facility] in [place] and was advised if he came by they would refill his medication, however they are closed today and he needs something to hold him over until Friday. PE: post dental extraction, appears clean, no drainage or bleeding *discussed with patient. Advised ED does not repolace lost or stolen medication (particularly controlled substances). Advised he needs to contact his prescriber and see if they are willing to do so. He states he called [facility] and they advised they would refill if he comes by, but they are not open and he needs something to hold him over until Friday. Patient also advised in reviewing his medical records, that he was advised on 11/19/24 that he would not receive further pain medication in the ED for his dental issues. Advised patient I am willing to give him a pain pill while here, but will not refill his pain medicaitons. Again reiterated that the ED does not replace lost or stolen controlled substances. I advised we would contact [facility] if possible, and had RN call. She reports that they are open today from 8 am - 3 pm. I advised patient of this. He states that is not what they told me. States he will contact them today. Advised I will give him one pain pill while here. [phone]) patient called [facility] and stated office closed today. Will provide Rx for medication to last until Friday. Tx: [place] 7.5 mg po Rx and Instructions Vital Signs Vital signs: Vital Signs Temperature 36.6 C 12/04/24 07:30 Pulse Rate 89 12/04/24 07:30 Respiratory Rate 20 12/04/24 07:30 Blood Pressure 145/92 H 12/04/24 07:30 Pulse Oximetry 95 12/04/24 07:30 Oxygen Delivery Room Air 12/04/24 07:30 Temperature 36.6 C 12/04/24 07:30 Pulse Rate 89 12/04/24 07:30 Respiratory Rate 20 12/04/24 07:30 Blood Pressure 145/92 H 12/04/24 07:30 Pulse Oximetry 95 12/04/24 07:30 Oxygen Delivery Room Air 12/04/24 07:30 Discharge Plan Discharge Clinical Impression: Pain, dental Patient Disposition: Home Condition: Stable Instructions: Toothache (ED) Additional Instructions: Contact [facility] today (open 8am-3pm) for medication refills Follow up Primary Care Provider Patient Language: Irish Prescriptions: New hydrocodone-acetaminophen 5-325 mg tablet 1 tablet PO Q6H PRN (Reason: pain) Qty: 10 0RF No Action clopidogrel [Plavix] 75 mg tablet 75 mg PO DAILY amlodipine [Norvasc] 2.5 mg tablet 5 mg PO DAILY pantoprazole [Protonix] 40 mg tablet,delayed release (DR/EC) 40 mg PO DAILY ezetimibe 10 mg tablet 10 mg PO DAILY hydrocodone-acetaminophen 5-325 mg tablet 1 tablet PO Q8H PRN (Reason: pain) Qty: 10 0RF aspirin 81 mg tablet,delayed release (DR/EC) 81 mg PO DAILY nitroglycerin 0.4 mg tablet, sublingual 0.4 mg sublingual Q5M Rx Instructions: do not exceed 3 doses per episode ranolazine 500 mg tablet extended release 12 hr 500 mg PO BID buspirone 15 mg tablet 1 tablet PO BID alprazolam 0.5 mg tablet 1 tablet PO TID PRN (Reason: Anxiety) metoprolol succinate 100 mg tablet extended release 24 hr 1 tablet PO DAILY Follow-up/Referrals: Shady,TARAH Medrano [Primary Care Provider] Stand Alone Forms: Work/School Release IP Time of Disposition: 07:42
--- OUTSIDE RECORDS SUMMARY | 2024-12-04 07:58 | XMS_ITS | Clinical Summary ---
Author Organization [facility] Address [facility] [place] [address] Care Team Providers Care Torpedo Man Name Role Phone Jarrod Csatro MD Unavailable [phone] Che Ramirez APRN, NP-C Unavailable Zack Caruso Primary Care Provider [phone] Allergies Active Allergy Reactions Criticality Noted Date [...] Sex Assigned at Male 04/06/2024 9:17 AM PROJECT LEADER Legal Sex Male 9:13 AM CDT Gender Identity Not on file Sexual Orientation Not on file Occupation Industry Job Start Date Job End Date Disabled Not on file Not on file Not on file Last Filed Vital Signs Vital Sign Reading Time Taken Comments Blood Pressure 123/79 04/27/2018 1:45 PM PROJECT LEADER Pulse 70 04/27/2018 1:45 PM PROJECT LEADER Temperature 36.5 C (97.7 F) 04/27/2018 1:45 PM PROJECT LEADER Respiratory Rate 20 04/27/2018 1:45 PM PROJECT LEADER Oxygen Saturation 100% 04/27/2018 1:45 PM PROJECT LEADER Inhaled Oxygen Concentration - - Weight 78 kg (171 lb 15.3 oz) 04/27/2018 11:02 A M PROJECT LEADER Height 175.3 cm (5' 9) 04/27/2018 11:02 AM PROJECT LEADER Body Mass Index 25.39 04/27/2018 11:02 AM PROJECT LEADER Plan of Treatment Health Maintenance Due Date [...] - 200 MG/DL 09/15/2017 5:18 AM CDT [facility] Comment:DESIRABLE: <200 TRIGLYCERIDES 130 0 - 149 MG/DL 09/15/2017 5:18 AM CDT [facility] Comment:<150 NORMAL HDL 31(L) >39 MG/DL 09/15/2017 5:18 AM CDT [facility] Comment:LOW: <40 DIRECT LDL 105 0 - 129 MG/DL 09/15/2017 5:18 AM CDT [facility] Comment:100-129 NEAR OR ABOV E OPTIMAL 09/15/2017 4:38 AM CDT us Kenn Vargas MD LABORATORY Final Result [facility] [address] [id number], [id number] from Last 3 Months or Most Recently [...] 11:05 PM 09/16/2017 6:42 PM Care Teams Torpedo Man Relationship Specialty Start Date End Date Zack Caruso PA [address] [facility] [address] [place] [id number] PCP - General PHYSICIAN HARM REDUCTION WORKER 04/06/24 Jarrod Castro MD [address] [place] [address] [place] Lining Stamper CARDIOVASCULAR DISEASE 08/07/16 Che Ramirez, TEA AND SPICE SUPERVISOR, TALENT ACQUISITION DIRECTOR-C [address] [facility] [address] [place] [address] NURSE PRACTITIONER 01/24/20
--- OUTSIDE RECORDS SUMMARY | 2024-12-04 07:58 | XMS_ITS | Encounter Summary ---
Author Organization [facility] Address [address] [place] [address] Phone Care Team Providers Care Aerodynamicist Name Role Phone Zack Caruso Primary Care Provider [phone] Encounter Details Date Type Department Care Team (Latest Contact Info) Description 03/29/2021 Transcribe Orders [facility] Preop/Pacu II [address] [place] [address] Dusty Contreras MD [address] [place] [address] Pre-op testing (Primary Dx) Social History Tobacco [...] on file Legal Sex Male 2:23 PM WELLNESS HEALTH COACH Gender Identity Not on file Sexual Orientation Not on file COVID-19 Exposure Response Date Recorded In the last month, have you been in contact with someone who was confirmed or suspected to have Coronavirus / COVID-19? No / Unsure 03/30/2021 12:19 PM WELLNESS HEALTH COACH documented as of this encounter Plan of Treatment Scheduled Orders Name Type Priority Associated Diagnoses Orde r Schedule TYPE & SCREEN (CROSSMATCH CONVERTIBLE) Blood Bank Routine Pre-op testing Expected: 04/02/2021, Expires: 06/27/2021 documented as of this encounter Visit Diagnoses Diagnosis Pre-op testing- Primary Preoperative examination, unspecified documented in this encounter Care Teams Aerodynamicist Relationship Specialty Start Date End Date Zack Caruso, PAC [address] [place] [address] PCP - General Physician Preform Plate Maker 12/05/20 documented as of this encounter
--- OUTSIDE RECORDS SUMMARY | 2024-12-04 07:58 | XMS_ITS | Encounter Summary ---
Author Organization [facility] Address [facility] [place] [address] Care Team Providers Care Face Cleaner Name Role Phone Jarrod Castro MD Unavailable [phone] Che Ramirez APRN, NP-C Unavailable Zack Caruso Primary Care Provider [phone] Encounter Details Date Type Department Care Team ([facility] st Contact Info) Description 10/14/2017 Abstract [facility] [address] [place] [address] Jarrod Castro MD [address] [place] [address] Social History Tobacco Use Types Packs/Day Years Used Date Smoking Tobacco: Smoker, Current Status Unknown Cigarettes Smokeless Tobacco: Never Alcohol Use Standard Drinks/Week Comments No 0 (1 standard drink = 0.6 oz pur e alcohol) Former ETOH abuse Sex and Gender Information Value Date Recorded Sex Assigned at Male 04/06/2024 9:17 AM SALES TEAM RECRUITER Legal Sex Male 9:13 AM CDT Gender Identity Not on file Sexual Orientation Not on file Occupation Industry Job Start Date Job End Date Disabled Not on file Not on file Not on file documented as of this encounter Plan of Treatment Not on file documented as of this encounter Visit Diagnoses Not on filedocumented in this encounter Care Teams Face Cleaner Relationship Specialty Start Date End Date Zack Caruso PA [address] [facility] [address] [place] [address] PCP - General PHYSICIAN FUNERAL HOME LOCATION MANAGER 04/06/24 Jarrod Castro MD [address] [place] [address] [place] Diesel Retrofit Installer CARDIOVASCULAR DISEASE 08/07/16 Che Ramirez APRN, BRAID PATTERN SETTER-C [address] [facility] [address] [place] [address] NURSE PRACTITIONER 01/24/20 documented as of this encounter
--- OUTSIDE RECORDS SUMMARY | 2024-12-04 07:58 | XMS_ITS | Encounter Summary ---
Author Organization [facility] Address [address] [place] [address] Phone Care Team Providers Care Ict Project Manager Name Role Phone Zack Caruso Primary Care Provider [phone] Encounter Details Date Type Department Care Team (Late st Contact Info) Description 03/29/2021 [facility]cribe [facility] Preop[facility]Pac[facility] [address] [place] [address] Bean Cooper MD [address] [place] [address] Pre-op testing (Primary Dx) Social History Tobacco [...] on file Legal Sex Male 2:23 PM MANAGER PROPERTY Gender Identity Not on file Sexual Orientation Not on file COVID-19 Exposure Response Date Recorded In the last month, have you been in contact with someone who was confirmed or suspected to have Coronavirus / COVID-19? No / Unsure 03/30/2021 12:19 PM MANAGER PROPERTY documented as of this encounter Plan of Treatment Scheduled Orders Name Type Priority Associated Diagnoses Orde r Schedule SARS-COV-2 BY MOLECULAR Microbiology Routine Pre-op testing Expected: 04/02/2021, Expires: 06/27/2021 documented as of this encounter Visit Diagnoses Diagnosis Pre-op testing- Primary Preoperative examination, unspecified documented in this encounter Care Teams Ict Project Manager Relationship Specialty Start Date End Date Zack Caruso, PAC [address] [place] [address] PCP - General Physician Service Assistant 12/05/20 documented as of this encounter
--- OUTSIDE RECORDS SUMMARY | 2024-12-04 07:58 | XMS_ITS | Encounter Summary ---
Author Organization [facility] Address [facility] [place] [address] Care Team Providers Care It Senior Analyst Name Role Phone Jarrod Castro MD Unavailable [phone] Che Ramirez APRN, NP-C Unavailable Zack Caruso Primary Care Provider [phone] Encounter Details Date Type Department Care Team (Late st Contact Info) Description 07/25/2016 Abstract [facility] [address] [place] [id number] Abstract, Doc [facility] Social History Tobacco Use Types Packs/Day Years Used Date Smoking Tobacco: Smoker, Current Status Unknown Cigarettes Alcohol Use Standard Drinks/Week Comments No 0 (1 standard drink = 0.6 oz pur e alcohol) Former ETOH abuse Sex and Gender Information Value Date Recorded Sex Assigned at Male 04/06/2024 9:17 AM EVALUATION SPECIALIST Legal Sex Male 9:13 AM CDT [...] on filedocumented in this encounter Care Teams It Senior Analyst Relationship Specialty Start Date End Date Zack Caruso PA [address] [id number] PCP - General PHYSICIAN BEEF GRADER 04/06/24 Jarrod Castro MD [address] [place] [address] [place] Cane Burner CARDIOVASCULAR DISEASE 08/07/16 Che Ramirez, HOME HEALTH SPECIALIST, [employer]-C [address] [phone] NURSE PRACTITIONER 01/24/20 documented as of this encounter
--- OUTSIDE RECORDS SUMMARY | 2024-12-04 07:58 | XMS_ITS | Clinical Summary ---
Author Organization [facility] Address [address] [address] Care Team Providers Care Draw Tender Name Role Phone Unavailable Primary Care Provider Unavailabl e Source Comments [facility] Involver,non-owned Affiliates and Associated Physician Practices is amultiple site organization consisting of ambulatory clinics and hospital sitesin [place], [place], [place] and [place]. This disclosure is being madepursuant to the Care Everywhere program and may not contain all information available regarding this patient. Last updated 17.[facility] Involver Active Problems Problem Noted Date Diagnosed Date Cerebrovascular accident [facility]), [facility] Social History Tobacco Use Types Packs/Day Years Used Date Smoking Tobacco: Never Assessed Sex and Gender Information Value Date Recorded Sex Assigned at Not on file Legal Sex Male 10:03 AM DEAF TEACHER Gender Identity Not on file Sexual [...]
--- OUTSIDE RECORDS SUMMARY | 2024-12-04 07:58 | XMS_ITS | Clinical Summary ---
Author Organization [facility] Address [address] [place] [address] Phone Care Team Providers Care Powder Truck Driver Name Role Phone Zack Caruso Primary Care Provider [phone] Allergies Active Allergy Reactions Criticality Noted Date [...] disease) Overview (03/30/2021): [facility] Stroke Overview (03/30/2021): states has [...] on file Legal Sex Male 2:23 PM ENT CONSULTANT Gender Identity Not on file Sexual Orientation Not on file Last Filed Vital Signs Vital Sign Reading Time Taken Comments Blood Pressure 142/87 03/31/2021 7:46 AM ENT CONSULTANT Pulse 67 03/30/2021 10:00 PM ENT CONSULTANT Temperature 36.5 C (97.7 F) 03/31/2021 7:46 AM ENT CONSULTANT Respiratory Rate 20 03/31/2021 7:46 AM ENT CONSULTANT Oxygen Saturation 100% 03/31/2021 7:46 AM ENT CONSULTANT Inhaled Oxygen Concentration - - Weight 79.4 kg (175 lb) 03/30/2021 12:20 PM ENT CONSULTANT Height 182.9 cm (6') 03/30/2021 12:20 PM ENT CONSULTANT Body Mass Index 23.73 03/30/2021 12:20 PM ENT CONSULTANT Plan of Treatment Health Maintenance Due [...] measures to stabilize the patient. Care Teams Powder Truck Driver Relationship Specialty Start Date End Date Zack Caruso, [facility] [address] [place] [address] PCP - General Physician Editor 12/05/20
--- OUTSIDE RECORDS SUMMARY | 2024-12-04 07:58 | XMS_ITS | Clinical Summary ---
Author Organization [facility] Address [address] [place] [address] Care Team Providers Care Metal Pickling Equipment Operator Name Role Phone Zack Caruso Primary Care Provider [phone] Juliann Comer NP Unavailable [phone] Evens Russo MD Unavailable [phone] Allergies Active Allergy Reactions Criticality Noted Date [...] acute EKG changes so less likely active KS. BNP negative. TTE on 05/22/24 showed impaired [...] KEITH/ARB Assessment & Plan (05/06/2023 9:33 AM MAT WEAVER): This is a chronic condition which is at goal of less than 7%. Personally reviewed most recent A1c - Lab Results Component Value Date HGBA1C 6.2 05/06/2023 Personally reviewed POC blood sugar- at goal 80-180 Lab Results Component Value Date POCGLU 114 05/06/2023 Medication- none Monitor blood sugar daily Encouraged annual eye exam. He would like to go to [facility] Monofilament foot exam completed. protective senses intact Personally reviewed CMP eGFR- 95 Kidney function- normal Urine microalbumin/creatinine ratio - at goal <30 treated with amlodipine, metoprolol. B/P today- not at goal of <140/90. continue amlodipine, metoprolol. Home monitors blood pressure Personally reviewed lipid panel. at Goal of less than 70. Continue zetia. Assessment & Plan (01/28/2023 4:13 PM MAT WEAVER): This is a chronic condition which is [...] (05/29/2022): Added automatically from request for surgery [id number] Fall 02/09/2022 Confusion 02/08/2022 Assessment & Plan (02/09/2022 1:15 PM MAT WEAVER): 61M with history of previous stroke and [...] vitals. Assessment & Plan (05/06/2023 9:34 AM MAT WEAVER): This is a chronic condition which is [...] B/P Assessment & Plan (01/28/2023 4:13 PM MAT WEAVER): This is a chronic condition which is at goal of less than 140/90 Personally reviewed labs. Continue amlodipine, metoprolol Encouraged to monitor weight and B/P at home Encouraged to take medications as prescribed. Assessment & Plan (02/09/2022 1:15 PM MAT WEAVER): Pt taking metoprolol XL 100mg daily prior [...] pain. Assessment & Plan (02/09/2022 1:16 PM MAT WEAVER): Stable on: - plavix 75mg daily - [...] week. Assessment & Plan (05/06/2023 9:34 AM MAT WEAVER): This is a chronic condition which is at goal of LDL less than 70 Continue zetia Encouraged to eat healthy, include fresh fruits and vegetables daily and avoid eating fried foods more than once per week. Encouraged to take medications as prescribed. Assessment & Plan (01/28/2023 4:14 PM MAT WEAVER): This is a chronic condition which is [...] Type Department Care Team Description 11/22/2024 Telephone [facility] at [address] [place] [address] Neida Rice MA 10/29/2024 2:30 PM CDT Office Visit [facility] at [address] [place] [address] Evens Russo MD Stable angina [...] History Date Comments Hypertension Coronary artery disease [place] (myocardial infarction) (HCC) Stroke (HCC) Headache, tension-type [...] oz pur e alcohol) 22 yrs recovered [facility] Utilities Answer Date Recorded In the [...] How often do you attend chur or episcopal services? Patient declined 05/24/2024 Do you belong to any clubs o r organizations such as hoahaoism groups, unions, fraternal or athletic groups, or [...] staff should administer the PHQ-9) 4 05/29/2023 [facility] [place] of Occupat ional Health - Occupational Stress [...] place to sleep or slept in a [place] (including now)? No 05/27/2023 PHQ-9 Answer Date [...] any time in the past 12 m [facility], were you homeless or living in a [place] facility (including now)? No 05/24/2024 Personal Safety Answer [...] on file Legal Sex Male 6:45 PM MAT WEAVER Gender Identity Not on file Sexual Orientation [...] history exists Medical Devices Implanted Type Area Basket Weaver Device Identifier Shelf Expiration Date Model / Serial / Lot [employer] Mike Synergy 3mm 8mm 144cm Radiopaque 1 Access Port Inflation Lumen [id number] - [id number] Implanted:Qty: 1 on 07/23/2021 by Evens Russo MD at [facility] [employer] Mike 01/11/2022 [id number] / / [id number] [employer] Mike Synergy 3mm 24mm 144cm Radiopaque 1 Access Port Inflation Lumen [id number] - [id number] Implanted:Qty: 1 on 08/07/2021 by Evens Russo MD at [facility] [employer] 06/08/2022 [id number] / / [id number] [employer] Mike Synergy 2.25mm 24mm 144cm Radiopaque 1 Access Port Inflation [id number] - [id number] Implanted:Qty: 1 on 08/07/2021 by Evens Russo MD at [facility] [employer] 01/25/2022 [id number] / / [id number] [employer] Progrip 15x9cm Self Basket Weaver Rectangle Mesh Surgical Polyester Hernia [id number] - [id number] Implanted:Qty: 1 on 06/04/2022 by Jona Sarmiento MD at [facility] Left: Abdomen [employer] 09/30/2026 [id number] / / [id number] Procedures Procedure Name Priority Date/Time Associated Diagnosis Comments EGFR Routine 05/24/2024 2:12 AM CDT POCT HEMOGLOBIN A1C Routine 11/11/2023 8 :56 AM CDT Type 2 diabetes mellitus without complication, without long-term current use of insulin (HCC) CT ABDOMEN PELVIS W CONTRAST ED 09/20/2023 5:26 PM CDT COLONOSCOPY 08/26/2023 12:38 PM CDT LIPID PANEL Routine 01/28/2023 10:53 AM MAT WEAVER Type 2 diabetes mellitus without complication, unspecified whether computer terminal operator insulin use (HCC) ALBUMIN CREATININE RATIO, URINE Routine 01/28/2023 10:53 AM MAT WEAVER Type 2 diabetes mellitus without complication, unspecified whether fpc insulin use (HCC) from Last 3 Months [...] BLOOD ORDERABLES Bozena hernandez Result [facility]PE ALEXANDER (ARCH[place]) [facility] Department [place] [address] * POCT hemoglobin A1c (11/11/2023 8:56 AM [...] Torsten Manzano M.D. AT: AT Report ID: [id number] Reading Location: [id number] Procedure Note Torsten Manzano MD - 09/20/2023 [...] Torsten Manzano M.D. AT: AT Report ID: [id number] Reading Location: [place] [address] Gavino Sousa NP IMG CT PROCEDURES Final Res ult * Colonoscopy (08/26/2023 12:38 PM CDT) Anatomical Region Laterality Modality Other Narrative Procedure Note Paul Tabor MD - 08/26/2023 12:38 PM CDT [facility] Patient Name: Omar Mayer Procedure Date: 08/26/2023 12:38 PM Date of : 1960 Admit Type: Outpatient Age: 63 Gender: Male Attending MD: Paul Tabor M.D. Room: [facility] ENDOSCOPY ROOM 2 Note Status: Finalized [...] was passed under direct vision.The Endoscope [id number] was introduced through the colostomy and advanced [...] 12:38 PM Procedure Code(s): --- Professional --- 14466, Colonoscopy, flexible; diagnostic, including collection of specimen(s) by brushing or washing, when performed (separateprocedure) --- Technical --- 28003, Colonoscopy, flexible; diagnostic, including collection of specimen(s) by brushing or washing, when performed (separateprocedure) Diagnosis Code(s): --- Professional --- Z12.11, Encounter for screening for malignant neoplasm of colon K57.30, Diverticulosis of large intestine without perforation orabscess without bleeding --- Technical --- Z12.11, Encounter for screening for malignant neoplasm of colon K57.30, Diverticulosis of large intestine without perforation orabscess without bleeding CPT copyright 2020 [employer]. All rights reserved. The codes documented in this report are preliminary and upon safe deposit box rental clerk reviewmay be revised to meet current compliance requirements. Recognized by the [employer] for promoting quality in endoscopy us Paul Tabor MD ENDOSCOPY PROCED URES Final Result * Albumin Creatinine Ratio, Urine (01/28/2023 10:53 AM MAT WEAVER) Albumin Ur <12.0 mg/L PEPE AM H (RYAN) Comment: Interpretive Data No reference range established. Current interpretive data was last revised 2018. Testing performed by: [address] [address] Creatinine Ur 33.6 mg/dL PEPE ALEXANDER (RYAN) Comment: Interpretive Data No reference range established. Current interpretive data was last revised 2018. Testing performed by: [address] [address] Albumin Creatinine Ratio, Ur See Comment 1 - 29 PEPE ALEXANDER (RYAN) Comment: Unable to calculate Testing performed by: [address], [address] Urine 01/28/2023 10:5 3 AM MAT WEAVER 01/28/2023 5:59 PM MAT WEAVER us Juliann Dixon BEAUTY COUNSELOR LAB URINE ORDERABLES Final Resu lt [facility]PE ALEXANDER (RYAN) [facility] Department [place] [address] * (ABNORMAL) Lipid panel (01/28/2023 10:53 AM MAT WEAVER) Cholesterol 137 30 - 199 mg/dL PEPE [...] ALEXANDER (RYAN) Blood 01/28/2023 10:5 3 AM MAT WEAVER 01/28/2023 1:44 PM MAT WEAVER Narrative PEPE ALEXANDER (RYAN) - 01/28/2023 2:05 PM MAT WEAVER These lab test should be done fasting. This means do not eat or drink for at least 12 hours prior to getting your blood drawn. us Juliann Dixon NP LAB BLOOD ORDERABLES Final Resu lt [facility] ALEXANDER (RYAN) [facility] Department [place] [address] from Last 3 Months or Most Recently Relevant to Health Maintenance Insurance [facility] ADV[facility]AGE [facility] [employer] Advance Directives For more information, please contact: [phone] * Full Code (Latest Code Status on [...] 11:51 AM 08/26/2023 11:51 AM Care Teams Metal Pickling Equipment Operator Relationship Specialty Start Date End Date Zack Caruso PA [address] [place] [address] PCP - General 07/24/21 Juliann Comer NP [address] [facility], [place] [address] Nurse Practitioner Medical Oncology 05/30/22 Evens Russo MD [address] [place] [address] [address] Consulting Physician Cardiology 05/24/24
--- OUTSIDE RECORDS SUMMARY | 2024-12-04 07:58 | XMS_ITS | Encounter Summary ---
Author Organization [facility] Address [address] [place] [address] Phone Care Team Providers Care Superintendent Local Name Role Phone Rodrigue Zhao MD Primary Care Provider [phone] Zack Caruso Primary Care Provider [phone] Reason for Referral * Radiology Services (Routine) - Closed Specialty Diagnoses / Procedures Referred By Selene hyatt Referred To Contact Radiology Diagnoses Pain in right hip Other intervertebral disc displacement, lumbar region Procedures XR LUMBAR MYELO 1 PHY PC PAIN CONSULT Dusty Contreras MD Phone: tel: fax: Referral ID Status Reason Start Date Expiration Date Visits Re quested Visits Authorized [id number] Closed 11/28/2020 1 1 Encounter Details Date Type Department Care Team (Latest Contact Info) Description 11/28/2020 Transcribe Orders [facility] [address] [place] [address] Dusty Contreras MD [address] [place], [place] [id number] Pain in right hip (Primary Dx); Other [...] on file Legal 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 FINDINGS: SEGMENTATION: There are 5 npg-svx-vujuvnv lumbar type vertebral bodies. ALIGNMENT: Approximately 2 [...] of the thecal sac contrast. There is bnvj-kz-bxwldnit bilateral neural foraminal narrowing. L5-S1: Surgical level. [...] Jaquan Hernandez D.O. AP: AP Report ID: [id number] Reading Location: [id number] Procedure Note Jaquan Hernandez DO - 12/28/2020 [...] None available. FINDINGS: SEGMENTATION: There are 5 jjp-ken-wpffaxu lumbar type vertebral bodies. ALIGNMENT: Approximately 2 [...] of the thecal sac contrast. There is puxn-lb-byywsiog bilateral neural foraminal narrowing. L5-S1: Surgical level. [...] Jaquan Hernandez D.O. AP: AP Report ID: [id number] Reading Location: [id number] IMPRESSION: 1. Please note previous imaging studies [...] David Arechiga M.D. NC: NC Report ID: [id number] Reading Location: [id number] Procedure Note David Arechiga MD - 12/27/2020 [...] David Arechiga M.D. NC: SHAUNA Report ID: [id number] Reading Location: [id number] IMPRESSION: Lumbar myelogram performed for CT Myelography. [...] 19 Confirmed 02/26/2021 02/26/2021 022 12:16 AM ADVERTISING LAYOUT WORKER documented as of this encounter Care Teams Superintendent Local Relationship Specialty Start Date End Date Rodrigue Zhao MD [address] [place] [address] PCP - General Internal Medicine 09/18/16 12/04/20 Zack Caruso PAC [address] [place] [id number] PCP - General Physician Trim Sawyer 12/05/20 documented as of this encounter
[2024-12-04] MEDS: HYDROcodone/acetaminophen (*CRX) 7.5-325 MG TABLET 1 TAB PO (07:59)
--- NOTE | 2024-12-04 08:10 | PC.NURSE ---
Dr. Alcantar writes script for pt prior to discharge.
== END 2024-12-04 08:11 | disposition home or self-care (01) ==
LOC: CHSED 07:56
PROVIDERS: Emergency Provider Emergency Medicine; PCP Physician Assistant
DX: K08.89 Other specified disorders of teeth and supporting structures (principal); F17.210 Nicotine dependence, cigarettes, uncomplicated; F17.220 Nicotine dependence, chewing tobacco, uncomplicated; F12.90 Cannabis use, unspecified, uncomplicated
CPT/HCPCS: 99283; A9270